=== PATIENT | female | born 1955 | race Caucasian/White ===

== ENCOUNTER → 2019-08-24 10:17 | Outpatient (BNVA) | payer BC, SELFPAY | PROVIDERS: Family Provider Nurse Practitioner; Visit Provider Otolaryngology | DX: L98.9 Disorder of the skin and subcutaneous tissue, unspecified (principal); R68.2 Dry mouth, unspecified; E03.9 Hypothyroidism, unspecified; R47.02 Dysphasia; K21.9 Gastro-esophageal reflux disease without esophagitis | CPT/HCPCS: 99203; 99214 ==

== ENCOUNTER 2019-08-24 11:35 | Outpatient (CLI) | payer BC, SELFPAY ==
[2019-08-24 12:01] LABS: Basophils % 0.6 %; Eosinophils # 0.2 10^3/uL (0.0-0.8); Eosinophils % 2.5 %; Hematocrit 39.8 % (37.0-47.0); Hemoglobin 13.2 g/dL (11.5-15.3); Lymphocytes # 2.7 10^3/uL (0.8-4.8); Lymphocytes % 39.3 %; Mean Corpuscular HGB Conc 33.2 g/dL (30.0-36.0); Mean Corpuscular Hemoglobin 30.4 pg (28.0-34.0); Mean Corpuscular Volume 91.7 fL (81-99); Mean Platelet Volume 10.1 fL (7.4-10.4); Monocytes # 0.7 10^3/uL (0.2-0.9); Monocytes % 9.8 %; Neutrophils # 3.2 10^3/uL (1.8-7.7); Neutrophils % 47.7 %; Nucleated Red Blood Cells % 0 %; Platelet Count 285 10^3/cmm (130-400); Red Blood Count 4.34 10^6/uL (4.1-5.3); White Blood Count 6.8 10^3/uL (4.0-10.0)
[2019-08-24 12:42] LABS: Alanine Aminotransferase 23 U/L (0-33); Albumin Level 4.1 g/dL (3.5-5.2); Alkaline Phosphatase 47 IU/L (35-105); Anion Gap 15.1 (5-19); Aspartate Amino Transferase 28 U/L (0-32); Blood Urea Nitrogen 20 mg/dL (8-23); Calcium 10.6 mg/dL (8.5-10.5); Carbon Dioxide 28 mmol/L (22-29); Chloride 99 mmol/L (98-107); Erythrocyte Sedimentation Rate 20 mm/hr (0-15); Globulin 3.5 g/dL (1.3-4.6); Glomerular Filtration Rate 72.4 mL/min (90-130); Glucose 93 mg/dL (65-115); Potassium 4.1 mmol/L (3.5-5.1); Sodium 138 mmol/L (136-145); Thyroid Stimulating Hormone 2.19 uIU/mL (0.27-4.20); Total Bilirubin 0.4 mg/dL (0.15-1.2); Total Protein 7.6 g/dL (6.6-8.7)
[2019-08-25 13:02] LABS: Anti-Double Strand DNA AB 10 IU/mL; Jo-1 Antibody <1.0 NEG AI (<1.0 NEG); SM/RNP Antibodies <1.0 NEG AI (<1.0 NEG); SS-B/LA IGG <1.0 NEG AI (<1.0 NEG); Scleroderma Ab(Scl-70) Ab <1.0 NEG AI (<1.0 NEG); Ss-A/Ro Igg <1.0 NEG AI (<1.0 NEG)
== END 2019-08-24 11:36 | disposition home or self-care (01) ==
LOC: LAB 11:41
PROVIDERS: Family Provider Nurse Practitioner; PCP Nurse Practitioner; Visit Provider Otolaryngology
DX: E03.9 Hypothyroidism, unspecified (principal); M35.00 Sjogren syndrome, unspecified
CPT/HCPCS: 36415; 80053; 84443; 85025; 85651; 86225; 86235

== ENCOUNTER 2019-09-02 12:46 | Outpatient (CLI) | payer BC, SELFPAY ==
[2019-09-02] MEDS: iohexol 300 mg/mL 100 mL Btl IV (13:07)
--- NOTE | 2019-09-02 13:30 | CT_ITS ---
WS: [id number] CT NECK WITH CONTRAST HISTORY: dry mouth TECHNIQUE: Contiguous 5 mm axial images are performed through the neck with intravenous contrast. Sag ittal and coronal reformats are also submitted. All CT scans at [facility] use at least o ne of these dose optimization techniques: automated exposure control; mA and/or kV adjustment per pat ient size (includes targeted exams where dose is matched to clinical indication); or iterative recons truction. CONTRAST: CONTRAST: Omnipaque 300; 95 mL IV. DLP: 2339.99 mGy-cm. COMPARISON: 07/18/2018 Nasopharynx, oropharynx and hypopharynx are normal. There is some mild asymmetry involving the LEFT p yriform sinus and aryepiglottic fold. Piriform sinus is small caliber with some increased soft tissue along the area of the colon. New since 09/21/2005 but probably present on the study of 07/18/2018. No e nhancing mass identified. Torus tubarius and fossa of Rosenmuller and parapharyngeal fat are normal. Small benign cervical chain lymph nodes. The largest is at level 2 on the LEFT measuring 8 mm in diam eter. There are several small lymph nodes but these are not enlarged. Similar appearance and distribu tion as on the prior CT from 2005. Prior thyroidectomy. RIGHT submandibular gland is also absent and there are postsurgical sutures at t he bed. Straightening of the normal cervical lordosis. Degenerative disc disease and spondylosis at C5-6. Visualized portions of the skull base demonstrate no abnormalities. Orbits and globes are within norm al limits. No soft tissue masses. Visualized paranasal sinuses and mastoid air cells are normal. Lung apices are clear. CT/CT neck w con* [id number] IMPRESSION: 1. Mild asymmetry of the LEFT aryepiglottic fold and pyriform sinus. Smaller c aliber than the RIGHT. No enhancing mass identified. Recommend direct visualiza tion which may be helpful for further evaluation. 2. Prior thyroidectomy and RIGHT submandibular removal. 3. Small stable cervical chain lymph nodes.
== END 2019-09-02 12:47 | disposition home or self-care (01) ==
LOC: RADWPI 12:49
PROVIDERS: Family Provider Nurse Practitioner; PCP Nurse Practitioner; Visit Provider Otolaryngology
DX: R68.2 Dry mouth, unspecified (principal)
CPT/HCPCS: 70491; Q9967

== ENCOUNTER → 2019-09-10 09:57 | Outpatient (BNVA) | payer BC, SELFPAY | PROVIDERS: Family Provider Nurse Practitioner; PCP Nurse Practitioner; Visit Provider Otolaryngology | DX: L98.9 Disorder of the skin and subcutaneous tissue, unspecified (principal); R68.2 Dry mouth, unspecified; E89.0 Postprocedural hypothyroidism; R47.02 Dysphasia; K21.9 Gastro-esophageal reflux disease without esophagitis | CPT/HCPCS: 99214 ==

== ENCOUNTER → 2019-10-13 12:56 | Outpatient (BNVA) | payer BC, SELFPAY | PROVIDERS: Family Provider Nurse Practitioner; PCP Nurse Practitioner; Visit Provider Internal Medicine Rheumatology | DX: M19.90 Unspecified osteoarthritis, unspecified site (principal); Z11.59 Encounter for screening for other viral diseases; R76.8 Other specified abnormal immunological findings in serum; Z79.899 Other long term (current) drug therapy; Z11.1 Encounter for screening for respiratory tuberculosis; Z72.89 Other problems related to lifestyle; E89.0 Postprocedural hypothyroidism | CPT/HCPCS: 36415; 99204 ==

== ENCOUNTER → 2019-10-13 14:35 | Outpatient (BNVA) | payer BC, SELFPAY | PROVIDERS: Family Provider Nurse Practitioner; PCP Nurse Practitioner; Visit Provider Internal Medicine Rheumatology | DX: M19.90 Unspecified osteoarthritis, unspecified site (principal); R76.8 Other specified abnormal immunological findings in serum; Z11.59 Encounter for screening for other viral diseases; Z79.899 Other long term (current) drug therapy | CPT/HCPCS: 81001; 85025 ==

== ENCOUNTER 2019-10-13 14:53 | Outpatient (CLI) | payer BC, SELFPAY ==
--- NOTE | 2019-10-13 14:58 | XR_ITS ---
WS: [id number] FOOT RIGHT TECHNIQUE: 3 views of the right foot CLINICAL INFORMATION: inflammatory arthritis COMPARISON: None. FINDINGS: No evidence of acute fracture or dislocation. Normal tarsal metatarsal alignment. Normal calcaneus. N ormal visualized talar dome. Osteopenia. IP joint narrowing. Hammertoe deformities. No significant er osive changes. Plantar calcaneal spurring. IMPRESSION: Osteopenia. No significant erosive changes.
--- NOTE | 2019-10-13 14:58 | XR_ITS ---
WS: [id number] PROCEDURE: XR chest 2V* [id number] CLINICAL INFORMATION: inflammatory arthritis COMPARISON: December 18, 2018 FINDINGS: Surgical clips base of the neck. Heart: Normal cardiac silhouette. Lungs: Lungs are clear. No consolidation or pleural fluid. No acute pulmonary infiltrates. Bones: Mild thoracic curve convex right. XR/XR chest 2V* [id number] IMPRESSION: No acute chest findings.
--- NOTE | 2019-10-13 14:58 | XR_ITS ---
WS: [id number] FOOT LEFT TECHNIQUE: 3 views of the left foot CLINICAL INFORMATION: inflammatory arthritis COMPARISON: None. FINDINGS: No evidence of acute fracture or dislocation. Normal tarsal metatarsal alignment. Normal calcaneus. N ormal visualized talar dome. Mild IP joint narrowing. Hammertoe deformities. Osteopenia. Mild hallux valgus. No significant erosive changes. Plantar calcaneal spurring. XR/XR foot LT min 3V* [id number] IMPRESSION: Osteopenia. No significant erosive changes.
--- NOTE | 2019-10-13 14:58 | XR_ITS ---
WS: [id number] HAND LEFT TECHNIQUE: 3 views of the left hand CLINICAL INFORMATION: inflammatory arthritis COMPARISON: None. FINDINGS: Normal metacarpals. Normal MCP joint. Metacarpal heads are normal in appearance. Mild narrowing of th e PIP and DIP joints. Mild degenerative arthritis first CMC. Radiocarpal joint: Normal. Carpal bones: Normal. XR/XR hand LT min 3V* [id number] IMPRESSION: 1. Mild PIP and DIP joint narrowing. 2. Mild degenerative arthritis first CMC. 3. No significant erosive changes.
--- NOTE | 2019-10-13 14:58 | XR_ITS ---
WS: [id number] HAND RIGHT TECHNIQUE: 3 views of the right hand CLINICAL INFORMATION: inflammatory arthritis COMPARISON: None. FINDINGS: Normal metacarpals. Normal MCP joint. Metacarpal heads are normal in appearance. Mild to moderate PIP and DIP joint space narrowing with slight periarticular osteophytes. Mild degenerative arthritis the first CMC and STT. No significant erosive changes. Radiocarpal joint: Mild narrowing Carpal bones: Normal. XR/XR hand RT min 3V* [id number] IMPRESSION: 1. Mild to moderate PIP and DIP joint space narrowing with slight periarticula r osteophytes. 2. No significant erosive changes.
== END 2019-10-13 14:54 | disposition home or self-care (01) ==
LOC: RADWPI 14:57
PROVIDERS: Family Provider Nurse Practitioner; PCP Nurse Practitioner; Visit Provider Internal Medicine Rheumatology
DX: M85.872 Other specified disorders of bone density and structure, left ankle and foot (principal); M85.871 Other specified disorders of bone density and structure, right ankle and foot
CPT/HCPCS: 71046; 73130; 73630; 82306; 82565; 82570; 84156; 85651; 86140; 86160; 86431; 86480; 86704; 86803; 87340

== ENCOUNTER → 2019-10-23 09:50 | Outpatient (BNVA) | payer BC, SELFPAY | PROVIDERS: Family Provider Nurse Practitioner; PCP Nurse Practitioner; Visit Provider Nurse Practitioner Family | DX: N39.46 Mixed incontinence (principal) | CPT/HCPCS: 81001 ==

== ENCOUNTER 2019-11-18 14:53 | Outpatient (CLI) | payer BC, SELFPAY ==
--- NOTE | 2019-11-18 15:15 | XR_ITS ---
WS: [id number] DEXA (DUAL ENERGY X-RAY ABSORPTIOMETRY) Bone mineral density was performed using a 7Road machine. HISTORY: osteoporosis COMPARISON: None available. Lumbar spine BMD (L1-L4): 1.248 g/cm2 T score: 0.6 Z score: 1.5 Total hip BMD: Left: 0.893 g/cm2. T score: -0.9 Z score: -0.2 Right: 0.872 g/cm2. T score: -1.1 Z score: -0.3 10 year probability of a major osteoporotic fracture is 10%. XR/XR DEXA axial skeleton* [id number] IMPRESSION: OSTEOPENIA based upon the WHO classification for females.
== END 2019-11-18 14:54 | disposition home or self-care (01) ==
LOC: RADWPI 14:56
PROVIDERS: Family Provider Nurse Practitioner; PCP Nurse Practitioner; Visit Provider Internal Medicine Rheumatology
DX: M81.0 Age-related osteoporosis without current pathological fracture (principal); M85.89 Other specified disorders of bone density and structure, multiple sites
CPT/HCPCS: 77080

== ENCOUNTER → 2020-04-04 12:50 | Outpatient (BNVA) | payer BC, SELFPAY | PROVIDERS: Family Provider Nurse Practitioner; PCP Nurse Practitioner; Visit Provider Internal Medicine Rheumatology | DX: Z79.899 Other long term (current) drug therapy (principal); M06.9 Rheumatoid arthritis, unspecified; M32.9 Systemic lupus erythematosus, unspecified | CPT/HCPCS: 36415; 80076; 81001; 82565; 82575; 84156; 85025; 85651; 86140; 86160 ==

== ENCOUNTER → 2020-04-13 13:38 | Outpatient (BNVA) | payer BC, SELFPAY | PROVIDERS: Family Provider Nurse Practitioner; PCP Nurse Practitioner; Visit Provider Internal Medicine Rheumatology | DX: M32.9 Systemic lupus erythematosus, unspecified (principal); Z79.899 Other long term (current) drug therapy; M06.9 Rheumatoid arthritis, unspecified; R76.8 Other specified abnormal immunological findings in serum | CPT/HCPCS: 81001; 99214 ==

== ENCOUNTER → 2020-05-23 00:01 | Outpatient (BNVA) | payer BC, SELFPAY | PROVIDERS: Family Provider Nurse Practitioner; PCP Family Medicine; Visit Provider Family Medicine | DX: G89.29 Other chronic pain (principal); M25.511 Pain in right shoulder | CPT/HCPCS: 73030 ==

== ENCOUNTER → 2020-06-02 11:13 | Outpatient (BNVA) | payer BC, SELFPAY | PROVIDERS: Family Provider Nurse Practitioner; PCP Family Medicine; Visit Provider Nurse Practitioner Family | DX: Z20.828 Contact with and (suspected) exposure to other viral communicable diseases (principal); J06.9 Acute upper respiratory infection, unspecified | CPT/HCPCS: 87635 ==

== ENCOUNTER 2020-06-09 01:46 | Emergency (ER) | payer BC, SELFPAY ==
[2020-06-09 01:59] VITALS: BP 129/77; PULSE 71; RESP 18; TEMP 36.6; O2SAT 100; BMI 26.6
--- NOTE | 2020-06-09 02:18 | W.ED.BACK ---
HPI - Back Pain/Injury General: Chief Complaint: Back Pain/Injury Stated Complaint: Lower back pain, COV + Time Seen by Provider: 06/09/20 02:04 History of Present Illness: HPI Narrative: Patient is a 64-year-old female comes to the ED with acute on chronic lower back pain. She says that pain started about 3 days ago and has since progressed. She denies any injury or trauma to cause pain. She describes pain as being in the mid lower back radiates down into the right leg. She says sitting or laying on back causes worsening pain. She denies any bladder or bowel incontinence, pelvic anesthesia, weakness to extremities, UTI symptoms. Associated symptoms: Deny abdominal pain, chills, dysuria, fatigue, fever(s), hematuria, nausea or vomiting Review of Systems Const: Denies: fever(s), chills or fatigue Eyes: Denies: change in vision or eye discomfort ENMT: Denies: throat pain, odynophagia, nasal discharge or nasal congestion Card: Denies: chest pain, palpitations, edema, swelling of feet/ankles, dyspnea on exertion or orthopnea Resp: Denies: dyspnea, productive cough or non-productive cough GI: Denies: abdominal pain, nausea, vomiting, diarrhea, constipation or hematochezia : Denies: flank pain, dysuria or hematuria Musc: Reports: back pain; Denies: neck pain or extremity swelling Skin/Breast: Denies: rash or new lesions Neuro: Denies: headache(s), numbness in extremities or weakness in extremities PFS ED PFSH: Medical History Anxiety Carpal tunnel syndrome of right wrist Degenerative disc disease L4-L5, also cervical spine. Detached retina Dry mouth Dysphasia Fibromyalgia Areli syndrome GERD (gastroesophageal reflux disease) High risk medication use HTN (hypertension) Hypothyroidism Immunization counseling Mixed stress and urge urinary incontinence Positive double stranded DNA antibody test Rheumatoid arthritis Salivary gland cancer SLE (systemic lupus erythematosus) Surgical History History of partial hysterectomy History of thyroidectomy Previous back surgery Family History Other CAD (coronary artery disease) Chronic kidney disease (CKD) Diabetes Hypertension Parkinson disease Stroke Denies family history of Systemic lupus erythematosus, unspecified Rheumatoid arthritis Social History Smoking and tobacco status: never smoked Alcohol intake: never Adopted: No Caregiver/support person: No Lives independently: No Household members: spouse Marital status: Current occupational status: retired History of recent travel: No Current gender identity: Female Physical Exam Const: COMMON NORMALS: no acute distress, patient oriented x3 and alert GENERAL APPEARANCE: cooperative; not comfortable (Patient appeared uncomfortable and was not sitting when I enter the room..) HENMT: COMMON NORMALS: normocephalic HEAD & SCALP: normocephalic MOUTH: Normal oral and palatal mucosa present THROAT: posterior oropharynx normal and uvula midline Neck/C-Spine: COMMON NORMALS: supple GENERAL: Yes normal visual inspection Resp: COMMON NORMALS: normal respiratory effort, No retractions, No use of accessory muscles and clear to auscultation bilaterally AUSCULTATION: clear to auscultation bilaterally Cardio: COMMON NORMALS: regular rate, regular rhythm, S1 normal heart sound present, S2 normal heart sound present, No gallops present (Cardio), No clicks present (Cardio), No murmurs present (Cardio) and Peripheral pulses 2+ throughout RATE: regular rate RHYTHM: regular rhythm HEART SOUNDS: S1 normal heart sound present and S2 normal heart sound present PERIPHERAL PULSES: Peripheral pulses 2+ throughout GI: COMMON NORMALS: Normal to inspection, nondistended, normoactive bowel sounds present, Soft to palpation, non-tender and no masses PALPATION: Yes Soft to palpation : COMMON NORMALS: Yes no CVA tenderness BLADDER/KIDNEY EXAM: Yes no CVA tenderness Back/Pelvis: COMMON NORMALS: no CVA tenderness LUMBAR SPINE/LOWER BACK: Yes paraspinal muscle tenderness Lumbar paraspinal muscle tenderness: right Extremity: COMMON NORMALS: normal to inspection Neuro: COMMON NORMALS: patient oriented x3 and moves all extremities SENSORIUM/ORIENTATION: Yes alert Skin: GENERAL SKIN EXAM: dry skin Course Vital Signs: Vital signs: Vital Signs Temperature 97.9 F 06/09/20 01:59 Pulse Rate 71 06/09/20 01:59 Respiratory Rate 18 06/09/20 01:59 Blood Pressure 129/77 06/09/20 01:59 Pulse Oximetry 100 06/09/20 01:59 MDM - Back Pain/Injury MDM Narrative: Medical decision making narrative: Patient is a 64-year-old female comes to the ED with acute on chronic lower back pain. She describes the back pain is radiating down into her right lower extremity. Denies any trauma or acute injury to cause pain. She has no cauda equina symptoms or UTI symptoms. Patient was given a shot of Solu-Medrol and IM morphine while here in the ED. She was sent home with a Medrol Dosepak prescription. She was told to follow-up with PCP in 7 to 10 days. Return to ED precautions given. Patient understood agree with plan. Discharge Plan Discharge Patient Disposition: Home Clinical Impression: Lumbar radiculopathy Condition: Stable Prescriptions: New methylprednisolone 4 mg tablets,dose pack See Rx Instructions .ROUTE .COMPLEX Qty: 21 RF: 0 No Action estradiol 0.01 % (0.1 mg/gram) cream 1 gm VAGINAL .3 times/wk RF: 0 levothyroxine 112 mcg capsule 112 mcg PO DAILY RF: 0 hydrochlorothiazide 25 mg tablet 25 mg PO DAILY RF: 0 metoprolol succinate 100 mg capsule,sprinkle,ER 24hr 100 mg PO DAILY RF: 0 cyclobenzaprine 10 mg tablet 10 mg PO BID PRNRF: 0 acetaminophen [Tylenol Arthritis Pain] 650 mg tablet extended release 650 mg PO BID RF: 0 simvastatin 10 mg tablet 20 mg PO DAILY RF: 0 duloxetine 30 mg capsule,delayed release(DR/EC) 30 mg PO DAILY RF: 0 duloxetine 60 mg capsule,delayed release(DR/EC) 60 mg PO DAILY RF: 0 lisinopril 40 mg tablet 40 mg PO BID RF: 0 hydroxychloroquine 200 mg tablet 200 mg PO BID Qty: 60 RF: 3 leflunomide 10 mg tablet 10 mg PO DAILY Qty: 30 RF: 2 diclofenac sodium 1 % gel 2 gm TOPICAL QID Qty: 100 RF: 2 omeprazole 20 mg capsule,delayed release(DR/EC) 20 mg PO DAILY RF: 0 diltiazem HCl [Cartia XT] 180 mg capsule,extended release 24hr 180 mg PO DAILY RF: 0 cholecalciferol (vitamin D3) 50 mcg (2,000 unit) capsule 50 mcg PO DAILY Qty: 30 RF: 5 Discharge Orders: Discharge Order (Routine); Ordered 06/09/20 Ordered By: Efren Laird Referrals: Katarina Canela DO [Primary Care Provider] - Discharge Diet: Regular Discharge Activity: Increase activity as tolerated Patient Instructions: Lumbar Radiculopathy (ED) Activity Restrictions/Additional Instructions: Follow-up with medical provider as directed in 7 to 10 days. Apply cold pack or heat on lower back to help with symptoms. Stretch lower back daily and massage muscles daily. Take medications as prescribed. Take [id number] Tylenol for pain. Return to the ER or your medical provider if condition worsens. Please read and understand discharge instructions. If any questions, please ask. Coding Level of Care Code ED Certified Surgical First Assistant for Tracey Fwd Exam Comprehensive
[2020-06-09] MEDS: HYDROcodone-acetaminophen 7.5-325 mg Tablet 2 TAB PO (02:35)
--- NOTE | 2020-06-09 02:35 | PC.NURSE ---
Patient sent home with 2 [place]idan 7.5/325 per provider orders. Medication dispensed not administered.
[2020-06-09 02:47] VITALS: RESP 17; O2SAT 96
[2020-06-09] MEDS: morphine 4 mg/mL SDV 1 mL IM (02:47)
[2020-06-09 03:08] VITALS: BP 135/85; PULSE 78; RESP 16; O2SAT 99
== END 2020-06-09 03:10 | disposition home or self-care (01) ==
PROVIDERS: Emergency Provider Physician Assistant; PCP Family Medicine
DX: M54.16 Radiculopathy, lumbar region (principal); I10 Essential (primary) hypertension; Z85.89 Personal history of malignant neoplasm of other organs and systems
CPT/HCPCS: 12345; 96372; 99281; 99283; J2270; J2930

== ENCOUNTER → 2020-06-20 09:38 | Outpatient (BNVA) | payer BC, SELFPAY | PROVIDERS: PCP Family Medicine; Visit Provider Family Medicine | DX: E89.0 Postprocedural hypothyroidism (principal); R41.3 Other amnesia | CPT/HCPCS: 84443 ==

== ENCOUNTER → 2020-08-08 09:33 | Outpatient (BNVA) | payer BC, SELFPAY | PROVIDERS: PCP Family Medicine; Visit Provider Internal Medicine Rheumatology | DX: Z79.899 Other long term (current) drug therapy (principal) | CPT/HCPCS: 36415; 80076; 82565; 85025; 85651; 86140 ==

== ENCOUNTER 2020-08-15 10:53 | Outpatient (CLI) | payer BC, SELFPAY ==
--- NOTE | 2020-08-15 11:00 | MM_ITS ---
WS: [id number] BILATERAL DIGITAL SCREENING MAMMOGRAPHY WITH CAD CLINICAL INFORMATION: screening mammogram HISTORY: Screening mammogram. No current complaints. COMPARISON: May 18, 2016 TECHNIQUE: Bilateral CC and MLO views. FINDINGS: The breasts are composed of heterogeneous fibroglandular density tissue, which can limit the detectio n of small underlying mass lesions. Stable biopsy clip left breast. No suspicious mass, asymmetry, ca lcifications, or architectural distortion. No evidence of malignancy. Punctate and lucent centered ca lcifications. MM/[place] [id number] IMPRESSION: BI-RADS: 2-Benign FOLLOW UP: 1 Year Follow-up Recommend return to annual screening mammography.
== END 2020-08-15 10:54 | disposition home or self-care (01) ==
LOC: RADSHAW 10:55
PROVIDERS: PCP Family Medicine; Visit Provider Family Medicine
DX: R76.8 Other specified abnormal immunological findings in serum (principal); Z12.31 Encounter for screening mammogram for malignant neoplasm of breast; M32.9 Systemic lupus erythematosus, unspecified; Z79.899 Other long term (current) drug therapy; M19.90 Unspecified osteoarthritis, unspecified site; H53.8 Other visual disturbances; E89.0 Postprocedural hypothyroidism
CPT/HCPCS: 77067; 99214

== ENCOUNTER 2020-08-15 19:52 | Observation (INO) | payer BC, SELFPAY ==
[2020-08-15 20:24] VITALS: BP 141/82; PULSE 76; RESP 14; TEMP 37.3; O2SAT 98; BMI 25.9
--- NOTE | 2020-08-15 22:49 | CTR_ITS ---
PROCEDURE INFORMATION: Exam: CT Abdomen And Pelvis With Contrast Exam date and time: 08/15/2020 10:53 PM Age: 64 years old Clinical indication: Abdominal pain; Localized; Right lower quadrant (rlq); Prior surgery; Surgery type: Partial hyst, back; Additional info: Abd pain TECHNIQUE: Imaging protocol: Computed tomography of the abdomen and pelvis with contrast. Radiation optimization: All CT scans at this facility use at least one of these dose optimization techniques: automated exposure control; mA and/or kV adjustment per patient size (includes targeted exams where dose is matched to clinical indication); or iterative reconstruction. Contrast material: OMNI 300; Contrast volume: 95 ml; Contrast route: INTRAVENOUS (IV); COMPARISON: US Pelvis Female [id number] 07/22/2018 8:50 AM RADIATION DOSE METRICS: Total DLP (mGy-cm): 577.74 FINDINGS: Liver: Normal. No mass. Gallbladder and bile ducts: Normal. No calcified stones. No ductal dilation. Pancreas: Normal. No ductal dilation. Spleen: Normal. No splenomegaly. Adrenal glands: Normal. No mass. Kidneys and ureters: Normal. No hydronephrosis. Stomach and bowel: Prominent fluid in the small bowel may reflect an enteritis. Appendix: Appendix dilated to 12 mm without gross inflammatory changes, findings are not definitive for appendicitis by CT alone, please correlate clinically. Intraperitoneal space: Unremarkable. No free air. No significant fluid collection. Vasculature: Unremarkable. No abdominal aortic aneurysm. Lymph nodes: Unremarkable. No enlarged lymph nodes. Urinary bladder: Unremarkable as visualized. Reproductive: Unremarkable as visualized. Bones/joints: Unremarkable. No acute fracture. Soft tissues: Unremarkable. CT/CT abdomen pelvis w con* [id number] IMPRESSION: 1. Appendix dilated to 12 mm without gross inflammatory changes, findings are not definitive for appendicitis by CT alone, please correlate clinically if there is clinical suspicion for appendicitis. 2. Prominent fluid in the small bowel may reflect an enteritis. Radiation Dose CTDIVOL = (mGy): DLP = 577.74 (mGy-cm)
--- NOTE | 2020-08-15 23:00 | ED_ITS ---
HPI - Abdominal Pain General: Chief Complaint: Abdominal Pain Stated Complaint: lower abd pain Time Seen by Provider: 08/15/20 22:46 Source: patient Mode of arrival: ambulatory Limitations: no limitations History of Present Illness: HPI narrative: 64-year-old female states has been having right lower quadrant abdominal pain over the last 2 days. She states it has been much worse today. She states it is tender to touch and most worse with any sudden movements or going over bumps in her vehicle. States pain is currently an 8 out of 10. She has had some nausea no vomiting. Denies any fevers. MD elicited complaint: abdominal pain Pertinent past history: none Onset (ago): day(s) Pain Consistency: constant Location: RLQ Severity: moderate Quality: stabbing Associated Symptoms: Denies chills, dysuria and fever(s) Review of Systems Const: Denies: fever(s), chills, body aches or change in appetite Eyes: Denies: blurry vision or eye discomfort ENMT: Denies: throat pain or dental pain Card: Denies: chest pain Resp: Denies: dyspnea GI: Reports: abdominal pain : Denies: dysuria Musc: Denies: neck pain or back pain Skin/Breast: Denies: rash Neuro: Denies: headache(s) Psych: Denies: depression Jaurez/Lymph: Denies: easy bruising All/Imm: Denies: urticaria PFSH ED PFSH: Medical History Anxiety Blurred vision, right eye Carpal tunnel syndrome of right wrist Degenerative disc disease L4-L5, also cervical spine. Detached retina Dry mouth Dysphasia Fibromyalgia Areli syndrome GERD (gastroesophageal reflux disease) High risk medication use History of 2019 novel coronavirus disease (COVID-19) HTN (hypertension) Hypothyroidism Immunization counseling Inflammatory arthritis Mixed stress and urge urinary incontinence Positive double stranded DNA antibody test Rheumatoid arthritis Salivary gland cancer SLE (systemic lupus erythematosus) Surgical History History of partial hysterectomy History of thyroidectomy Previous back surgery Family History Other CAD (coronary artery disease) Chronic kidney disease (CKD) Diabetes Hypertension Parkinson disease Stroke Denies family history of Systemic lupus erythematosus, unspecified Rheumatoid arthritis Social History Smoking and tobacco status: never smoked Alcohol intake: never Adopted: No Caregiver/support person: No Lives independently: No Household members: spouse Marital status: Current occupational status: retired History of recent travel: No Current gender identity: Female Physical Exam Const: COMMON NORMALS: no acute distress, patient oriented x3 and healthy appearing HENMT: COMMON NORMALS: normocephalic and atraumatic HEAD & SCALP: normocephalic and atraumatic Eye: COMMON NORMALS: Equal, round and reactive pupils present and EOMs intact bilaterally PUPIL: Yes Equal, round and reactive pupils present Neck/C-Spine: COMMON NORMALS: full ROM and supple Chest: COMMONS NORMALS: normal inspection of the chest and normal palpation of entire chest wall Resp: COMMON NORMALS: normal respiratory effort, No retractions, No use of accessory muscles and clear to auscultation bilaterally AUSCULTATION: clear to auscultation bilaterally Cardio: COMMON NORMALS: regular rate, regular rhythm and No murmurs present (Cardio) RATE: regular rate RHYTHM: regular rhythm GI: COMMON NORMALS: Normal to inspection, nondistended, normoactive bowel sounds present, Soft to palpation, non-tender and no masses PALPATION: Yes Soft to palpation and Yes Tenderness to palpation present (GI) Details: RLQ Extremity: COMMON NORMALS: normal to inspection and full ROM Neuro: COMMON NORMALS: patient oriented x3, moves all extremities and no focal motor deficits Psych: COMMON NORMALS: mental status grossly normal, Normal thought process present and cooperative THOUGHT PROCESS: Normal thought process present Skin: COMMON NORMALS: no rashes or lesions noted and no wounds GENERAL SKIN EXAM: no rashes or lesions noted Course Vital Signs: Vital signs: Vital Signs Temperature 99.1 F 08/15/20 20:24 Pulse Rate 72 08/15/20 23:25 Respiratory Rate 14 08/15/20 23:25 Blood Pressure 141/78 08/15/20 23:25 Pulse Oximetry 99 08/15/20 23:25 MDM - Abdominal Pain MDM Narrative: Medical decision making narrative: Mary Lou presents with abdominal pain and is point tender right lower quadrant. Her pain is improved after morphine but she is still operator batch or continuous on exam. CT did show a dilated appendix I spoke to Dr. An and will admit for likely appendicitis. Patient given IV antibiotics here. Lab Data: Labs: Lab Results 08/15/20 08/15/20 08/15/20 Range/Units 23:23 23:23 23:23 WBC 10.5 H (4.0-10.0) 10^3/ uL RBC 4.06 L (4.1-5.3) 10^6/u L Hgb 12.3 (11.5-15.3) g/dL Hct 36.5 L (37.0-47.0) % MCV 89.9 (81-99) fL MCH 30.3 (28.0-34.0) pg MCHC 33.7 (30.0-36.0) g/dL RDW 12.3 (12.1-15.1) % Plt Count 211 (130-400) 10^3/c mm MPV 11.0 H (7.4-10.4) fL Neut % (Auto) 58.1 % Lymph % (Auto) 27.1 % [place] % (Auto) 11.9 % Eos % (Auto) 2.1 % Baso % (Auto) 0.6 % Neut # (Auto) 6.08 (1.8-7.7) 10^3/u L Lymph # (Auto) 2.8 (0.8-4.8) 10^3/u L [place] # (Auto) 1.2 H (0.2-0.9) 10^3/u L Eos # (Auto) 0.2 (0.0-0.8) 10^3/u L Baso # (Auto) 0.1 (0.0-0.1) 10^3/u L Nucleated RBC % (a uto) 0 % Nucleated RBCs # 0.0 /100WBC Sodium 129 L (136-145) mmol/L Potassium 3.0 L (3.5-5.1) mmol/L Chloride 91 L (98-107) mmol/L Carbon Dioxide 27 (22-29) mmol/L Anion Gap 14.0 (5-19) BUN 11 (8-23) mg/dL Creatinine 0.7 (0.5-0.9) mg/dL GFR Calculation 84.5 L (90-130) mL/min Glucose 104 (65-115) mg/dL Calculated Osmolal ity 268 L (285-295) mOsm/k g Calcium 9.4 (8.5-10.5) mg/dL Total Bilirubin 0.6 (0.15-1.2) mg/dL AST 16 (0-32) U/L ALT 18 (0-33) U/L Alkaline Phosphata se 51 (35-105) IU/L Total Protein 7.0 (6.6-8.7) g/dL Albumin 3.8 (3.5-5.2) g/dL Globulin 3.2 (1.3-4.6) g/dL Lipase 25 (13-60) U/L Urine Color Yellow (Yellow) Urine Appearance Clear (CLEAR) Urine pH 5.0 (5-7) Ur Specific Gravit y 1.010 (1.005-1.030) Urine Protein Neg (Negative) Urine Glucose (UA) Norm (Normal) Urine Ketones Negative (Negative) Urine Blood Neg (Negative) Urine Nitrate Negative (Negative) Urine Bilirubin Neg (Negative) Urine Urobilinogen Norm (Negative) mg/dL Ur Leukocyte Patt ase Negative (Negative) Imaging Data ^: CT Abd/Pel: Attestation: I personally reviewed and interpreted this imaging study as follows: Radiologist's impression: [place] [address] CT Scan Report Signed Patient: Nanette Simental Unit #: [id number] : [id number] Age/Sex: 64 / F ADM Date: 08/15/20 Loc: ER Room/Bed: Attending Dr: Ordering Provider/Ordering MD: Enrrique Rm MD Date of Service: 08/15/20 Procedure(s): CT abdomen pelvis w con* [id number] Accession Number(s): [id number] Report Number: [id number] PROCEDURE INFORMATION: Exam: CT Abdomen And Pelvis With Contrast Exam date and time: 08/15/2020 10:53 PM Age: 64 years old Clinical indication: Abdominal pain; Localized; Right lower quadrant (rlq); Prior surgery; Surgery type: Partial hyst, back; Additional info: Abd pain TECHNIQUE: Imaging protocol: Computed tomography of the abdomen and pelvis with contrast. Radiation optimization: All CT scans at this facility use at least one of these dose optimization techniques: automated exposure control; mA and/or kV adjustment per patient size (includes targeted exams where dose is matched to clinical indication); or iterative reconstruction. Contrast material: OMNI 300; Contrast volume: 95 ml; Contrast route: INTRAVENOUS (IV); COMPARISON: US Pelvis Female [id number] 07/22/2018 8:50 AM RADIATION DOSE METRICS: Total DLP (mGy-cm): 577.74 FINDINGS: Liver: Normal. No mass. Gallbladder and bile ducts: Normal. No calcified stones. No ductal dilation. Pancreas: Normal. No ductal dilation. Spleen: Normal. No splenomegaly. Adrenal glands: Normal. No mass. Kidneys and ureters: Normal. No hydronephrosis. Stomach and bowel: Prominent fluid in the small bowel may reflect an enteritis. Appendix: Appendix dilated to 12 mm without gross inflammatory changes, findings are not definitive for appendicitis by CT alone, please correlate clinically. Intraperitoneal space: Unremarkable. No free air. No significant fluid collection. Vasculature: Unremarkable. No abdominal aortic aneurysm. Lymph nodes: Unremarkable. No enlarged lymph nodes. Urinary bladder: Unremarkable as visualized. Reproductive: Unremarkable as visualized. Bones/joints: Unremarkable. No acute fracture. Soft tissues: Unremarkable. CT/CT abdomen pelvis w con* [id number] IMPRESSION: 1. Appendix dilated to 12 mm without gross inflammatory changes, findings are not definitive for appendicitis by CT alone, please correlate clinically if there is clinical suspicion for appendicitis. 2. Prominent fluid in the small bowel may reflect an enteritis. Discharge Plan Discharge Patient Disposition: Admitted As Inpatient Clinical Impression: Acute appendicitis Qualifiers: Acute appendicitis type: unspecified acute appendicitis type Qualified Code(s): K35.80 - Unspecified acute appendicitis Condition: Stable Coding Level of Care Code ED Sheep Killer for [facility] Fwd Exam Comprehensive
[2020-08-15] MEDS: iodixanol 320 mg/mL 100mL Btl IV (23:03)
[2020-08-15 23:25] VITALS: BP 141/78; PULSE 72; RESP 14; O2SAT 99
[2020-08-15 23:29] LABS: Basophils # 0.1 10^3/uL (0.0-0.1); Basophils % 0.6 %; Eosinophils # 0.2 10^3/uL (0.0-0.8); Eosinophils % 2.1 %; Hematocrit 36.5 % (37.0-47.0); Hemoglobin 12.3 g/dL (11.5-15.3); Lymphocytes # 2.8 10^3/uL (0.8-4.8); Lymphocytes % 27.1 %; Mean Corpuscular HGB Conc 33.7 g/dL (30.0-36.0); Mean Corpuscular Hemoglobin 30.3 pg (28.0-34.0); Mean Corpuscular Volume 89.9 fL (81-99); Monocytes # 1.2 10^3/uL (0.2-0.9); Monocytes % 11.9 %; Neutrophils # 6.08 10^3/uL (1.8-7.7); Neutrophils % 58.1 %; Nucleated Red Blood Cells % 0 %; Platelet Count 211 10^3/cmm (130-400); Red Blood Count 4.06 10^6/uL (4.1-5.3); Red Cell Distribution Width 12.3 % (12.1-15.1); White Blood Count 10.5 10^3/uL (4.0-10.0)
[2020-08-15 23:30] VITALS: BP 148/88; PULSE 78; RESP 18; O2SAT 98
[2020-08-15 23:31] LABS: Add Urine Microscopic? NO
[2020-08-15] MEDS: ondansetron 2 mg/ML SDV 2 mL 4 MG IVP (23:43)
[2020-08-15] MEDS: morphine 4 mg/mL SDV 1 mL IVP (23:43)
[2020-08-15] MEDS: sodium chloride 0.9% 1,000 ML 999 ML IV (23:44)
[2020-08-15 23:54] LABS: Alanine Aminotransferase 18 U/L (0-33); Albumin Level 3.8 g/dL (3.5-5.2); Alkaline Phosphatase 51 IU/L (35-105); Aspartate Amino Transferase 16 U/L (0-32); Blood Urea Nitrogen 11 mg/dL (8-23); Calcium 9.4 mg/dL (8.5-10.5); Carbon Dioxide 27 mmol/L (22-29); Chloride 91 mmol/L (98-107); Globulin 3.2 g/dL (1.3-4.6); Glomerular Filtration Rate 84.5 mL/min (90-130); Glucose 104 mg/dL (65-115); Lipase 25 U/L (13-60); Osmolality Calculated 268 mOsm/kg (285-295); Sodium 129 mmol/L (136-145); Total Bilirubin 0.6 mg/dL (0.15-1.2)
[2020-08-15 23:55] LABS: Bilirubin Urine Neg (Negative); Blood Urine Neg (Negative); Glucose Urine UA Norm (Normal); Ketones Urine Negative (Negative); Leukocyte Esterase Urine Negative (Negative); Nitrate Urine Negative (Negative); Protein Urine Neg (Negative); Urine Appearance Clear (CLEAR); Urine Color Yellow (Yellow); Urobilinogen Urine Norm (Negative)
[2020-08-16] VITALS (18 sets, daily range): BP systolic 105–180; BP diastolic 68–102; PULSE 69–95; RESP 12–18; TEMP 36.4–36.7; O2SAT 93–100
[2020-08-16] MEDS: piperacillin-tazobactam 3.375 GM in sodium chloride 0.9% (plus) 50 ML IV (00:22)
[2020-08-16] MEDS: sodium chloride 0.9% 1,000 ML 100 ML IV ×3 (01:00→14:58)
--- NOTE | 2020-08-16 01:13 | PC.NURSE ---
ADMIT NOTE Pt received to floor from ER at 0050 via wheelchair. Her for c/o abd pain which she says started around 0 this evening. Says pain was in her right lower abd and area was very tender to any touch. Abd is soft. Last BM was Saturday but is normal for her not to go every day. Bowel sounds sl hypoactive. Has had some nausea but no vomiting. Is aware of being NPO now. IV fluids started at 100ml/hr rate. Received IV antibiotics in the ER as well as pain and nausea meds. Urinated 700ml on arrival to floor. Is aware also of need to monitor I&O. VS check done and RN completing admission assessment
--- NOTE | 2020-08-16 06:39 | PC.NURSE ---
SHIFT SUMMARY Has done well since admission to floor. Says she slept much better than she did last night. c/o RLQ abd pain/tenderness but declines offer of pain med. Says as long as she is quiet it is manageable. Remains NPO. IV infusing without difficulty.
[2020-08-16] MEDS: metroNIDAZOLE IV 500 MG/100 ML PREMIX 100 MG IV (08:32)
--- NOTE | 2020-08-16 09:43 | P.HP_ITS ---
Providers/Chief Complaint Admitting Physician: Manny An MD Primary Care Provider: Katarina Canela DO Chief Complaint: lower abd pain History of Present Illness Nanette Simental is a 64 year old female who presented to the ER last night with 24-hour history of right lower quadrant pain. The pain did not radiate, sharp in nature, worse with movement, no relieving factors. She had associated nausea but denies any vomiting, fevers, chills, constipation or diarrhea. She had a normal colonoscopy last year. Review of Systems General: Reports: 10 or more systems reviewed and unremarkable except in HPI and below Medications/Allergies Home Medications Medication Instructions Recorded Confirmed Last Taken Type estradiol 1 gm VAGINAL .3 times/wk gm 08/24/19 08/16/20 08/13/20 History hydrochlorothiazide 25 mg tablet 25 mg PO DAILY@08/24/19 08/16/20 08/15/20 History levothyroxine 112 mcg capsule 112 mcg PO DAILY@08/24/19 08/16/20 08/15/20 History metoprolol succinate 100 mg 100 mg PO DAILY@08/24/19 08/16/20 08/15/20 History capsule sprinkle, ext. release 24 hr cyclobenzaprine 10 mg tablet 10 mg PO TID PRN tab 10/13/19 08/16/20 Unknown History duloxetine 30 mg capsule,delayed 30 mg PO DAILY@07 10/13/19 08/16/20 08/15/20 History release duloxetine 60 mg capsule,delayed 60 mg PO DAILY@20 10/13/19 08/16/20 Unknown History release lisinopril 40 mg tablet 40 mg PO BID@ tab 10/13/19 08/16/20 08/15/20 History acetaminophen 650 mg 1,300 mg PO BID tab 10/23/19 08/16/20 08/15/20 History tablet,extended release diltiazem HCl 180 mg 180 mg PO DAILY@20 10/23/19 08/16/20 Unknown History capsule,extended release 24 hr omeprazole 20 mg capsule,delayed 20 mg PO DAILY@07 05/23/20 08/16/20 08/15/20 History release simvastatin 10 mg tablet 20 mg PO DAILY@20 tab 05/23/20 08/16/20 Unknown History cholecalciferol (vitamin D3) 50 mcg PO DAILY@07 08/16/20 08/16/20 08/15/20 History clonazepam See Rx Instructions .ROUTE .COMPLEX 08/16/20 08/16/20 Unknown History diclofenac sodium 2 g TOPICAL QID PRN 08/16/20 08/16/20 Unknown History hydroxychloroquine 200 mg PO BID@07,20 08/16/20 08/16/20 Unknown History leflunomide 20 mg PO DAILY@07 08/16/20 08/16/20 08/15/20 History prednisone See Rx Instructions .ROUTE .COMPLEX 08/16/20 08/16/20 Unknown History Allergies Allergy/AdvReac Type Severity Reaction Status Date / Time hydrocodone Allergy itch Verified 08/15/20 14:01 penicillin G Allergy rash Verified 08/15/20 14:01 PFSH Acute PFSH: Medical History Anxiety Carpal tunnel syndrome of right wrist Degenerative disc disease L4-L5, also cervical spine. Detached retina Fibromyalgia Areli syndrome GERD (gastroesophageal reflux disease) History of 2019 novel coronavirus disease (COVID-19) HTN (hypertension) Hypothyroidism Inflammatory arthritis Mixed stress and urge urinary incontinence Rheumatoid arthritis Salivary gland cancer SLE (systemic lupus erythematosus) Surgical History History of partial hysterectomy History of thyroidectomy Previous back surgery Status post colonoscopy (~2019) Family History Other CAD (coronary artery disease) Chronic kidney disease (CKD) Diabetes Hypertension Parkinson disease Stroke Denies family history of Systemic lupus erythematosus, unspecified Rheumatoid arthritis Social History Smoking and tobacco status: never smoked Alcohol intake: never Adopted: No Caregiver/support person: No Lives independently: No Household members: spouse Marital status: Current occupational status: retired History of recent travel: No Current gender identity: Female Vitals/I&O/Wt Last Vital Signs Temp 97.7 F 08/16/20 07:42 Pulse 79 08/16/20 07:42 Resp 18 08/16/20 07:42 BP 105/68 08/16/20 07:42 Pulse Ox 99 08/16/20 07:42 08/15/20 08/16/2021 22:59 06:59 14:59 Intake Total 1234.317 / 1234.317 Output Total 1600 / 1600 Balance -365.683 / -365.683 Weight last 48 hrs Weight 176 lb Physical Exam Narrative: EXAM NARRATIVE: HEENT: Normocephalic Eye: Sclera /conjunctiva normal Cardiovascular: Normal S1 and S2 heart sounds Abdomen: Soft to palpation, tender right lower quadrant, mild guarding, no rigidity Neurological: Oriented to place person and time Skin: Intact, no lesions appreciated on gross exam Data : 08/15/20 23:23 08/15/20 23:23 A&P Assessment and plan (1) Acute appendicitis: 64-year-old female with right lower quadrant pain, right lower quadrant tenderness of 24 hours duration currently hemodynamically stable. White count is 10.5. CT showed a dilated appendix which I reviewed, I think there is surrounding mild inflammatory changes Plan for laparoscopic possible open appendectomy Procedure, risks, benefits and alternatives have been discussed with the patient who wishes to proceed with surgery. Status: Acute Attestations Medical Necessity Statement*: Acute appendicitis Coding Level of Care Code Acute Civil Service Clerk for [facility] Mat Diagnoses Acute appendicitis K35.80
--- NOTE | 2020-08-16 09:46 | PC.CHAP ---
Pastoral Care Encounter/Spiritual Assessment Type of Contact [] Declined mysql dba visit [] Patient/Family/Request visit [] Outpatient visit [] Follow-up visit [] Physician referral [] Code/Alert [x] Routine visit [] Staff referral [] Actively dying [x] Patient sleeping [] Family support [] [] Out of room [] Palliative care [] [] Receiving care in room [] Pre-surgical visit [] Trauma [] Long length of stay [] ICU visit [] Other: Relational/Emotional Strength [] Patient feels connected with others/family/visitors/staff [] Distress [] Loneliness/isolation [] Abandonment Spirituality of Patient [] Person of [place] [] Attends Muslim of their [place] [] Believes in Prayer [] Reads Bible or Rastafari materials [] There are Spiritual issues to be addressed Plumber Interventions [] Prayer [] Active listening [] Non-anxious presence [] Spiritual/emotional support [] Crisis/trauma care [] Spiritual counseling [] Bereavement support [] Provided bereavement packet [] Provided Bible/devotional materials [] Provided toy/stuffed animal, coloring book to patient or family member [] Provided Communion [] Anointing/Gentry [] Salvation [] Completed spiritual assessment [] Other: Impact on Illness or Injury [] Angry [] Fearful [] Anxious [] Often cries [] Exhaustion [] Unable to work [] Unable to attend sikhism [] Unable to walk/stand [] Unable to read [] Unable to drive [] Unable to eat/drink [] Unable to sleep [] Unable to be with family [] Patient intubated [] Other: Summary Time spent with patient
--- NOTE | 2020-08-16 10:15 | PC.NURSE ---
patient taken to OR via gurney
--- NOTE | 2020-08-16 10:38 | P.ANESASSM_ITS ---
Pre-Anesthetic Assessment Pre-Anesthetic Assessment: Height/Weight: Height 1.75 m Weight 79.832 kg Temp Pulse Resp BP Pulse Ox 97.5 F L 72 18 130/79 97 08/16/20 10:25 08/16/20 10:25 08/16/20 10:25 08/16/20 10:25 08/16/20 10:25 Preop Diagnosis: Acute appendicitis Proposed Procedure: Operation Date: 08/16/20 10:15 Proposed Procedures p Laparoscopic Appendectomy(Not Applicable) - Manny An MD Familial anesthetic complications: none Was Beta Alin taken within 24 hours: Yes Last intake: Intake Last Liquid Date 08/16/20 Last Liquid Time 00:01 Last Solid Date 08/16/20 Last Solid Time 00:01 Social: Social History: No alcohol and No tobacco Exam: Pre-Anes Outpt Exam: alert, oriented x 3, clear to auscultation bilaterally and regular rate & rhythm Airway: Cervical ROM: WNL MP: 2 Dentition: Other (missing teeth) Pulmonary: Comments: covid positive in may CV/HEM: CV/HEM: HTN GI: GI: GERD Metabolic: Metabolic: Hyperlipidemia and Thyroid Musc/skel: Musc/skel: RA Comments: SLE Neuropsych: Neuropsych: Neuropathy Anesthetic Plan: ASA status: 3 Anesthesia: General Risk of > 500 ml blood loss (7ml/kg in children): No Meds/Allergies Current Medications: Current Medications Generic Name Dose Route Start Last Admin Trade Name Freq PRN Reason Stop Dose Admin Sodium Chloride 1,000 mls @ 100 m ls/hr 08/16/20 00:48 08/16/20 09:43 Sodium Chloride 0.9% IV 100 mls/hr .Q10H YARI Administration PFSH Anesthesia PFSH: Medical History Anxiety Carpal tunnel syndrome of right wrist Degenerative disc disease L4-L5, also cervical spine. Detached retina Fibromyalgia Areli syndrome GERD (gastroesophageal reflux disease) History of 2018 novel coronavirus disease (COVID-19) HTN (hypertension) Hypothyroidism Inflammatory arthritis Mixed stress and urge urinary incontinence Rheumatoid arthritis Salivary gland cancer SLE (systemic lupus erythematosus) Surgical History History of partial hysterectomy History of thyroidectomy Previous back surgery Status post colonoscopy (~2019) Family History Other CAD (coronary artery disease) Chronic kidney disease (CKD) Diabetes Hypertension Parkinson disease Stroke Denies family history of Systemic lupus erythematosus, unspecified Rheumatoid arthritis Social History Smoking and tobacco status: never smoked Alcohol intake: never Adopted: No Caregiver/support person: No Lives independently: No Household members: spouse Marital status: Current occupational status: retired History of recent travel: No Current gender identity: Female Data Anesthesia CBC & Chem 7: 08/15/20 23:23 08/15/20 23:23 Other Labs: Laboratory Results - last 48 hr 08/15/20 08/15/20 08/15/20 23:23 23:23 23:23 WBC 10.5 H RBC 4.06 L Hgb 12.3 Hct 36.5 L MCV 89.9 MCH 30.3 MCHC 33.7 RDW 12.3 Plt Count 211 MPV 11.0 H Neut % (Auto) 58.1 Lymph % (Auto) 27.1 [place] % (Auto) 11.9 Eos % (Auto) 2.1 Baso % (Auto) 0.6 Neut # (Auto) 6.08 Lymph # (Auto) 2.8 [place] # (Auto) 1.2 H Eos # (Auto) 0.2 Baso # (Auto) 0.1 Nucleated RBC % (auto) 0 Nucleated RBCs # 0.0 Sodium 129 L Potassium 3.0 L Chloride 91 L Carbon Dioxide 27 Anion Gap 14.0 BUN 11 Creatinine 0.7 GFR Calculation 84.5 L Glucose 104 Calculated Osmolality 268 L Calcium 9.4 Total Bilirubin 0.6 AST 16 ALT 18 Alkaline Phosphatase 51 Total Protein 7.0 Albumin 3.8 Globulin 3.2 Lipase 25 Urine Color Yellow Urine Appearance Clear Urine pH 5.0 Ur Specific [place] 1.010 Urine Protein Neg Urine Glucose (UA) Norm Urine Ketones Negative Urine Blood Neg Urine Nitrate Negative Urine Bilirubin Neg Urine Urobilinogen Norm Ur Leukocyte Esterase Negative Cardiac Studies: No Data to Display
[2020-08-16] MEDS: sodium chloride 0.9% 1,000 ML 30 ML IV (11:02)
[2020-08-16] MEDS: ciprofloxacin 400 MG/200 ML PREMIX 200 MG IV (11:19)
--- NOTE | 2020-08-16 12:05 | P.OP_ITS ---
Operative Report Date of procedure: August 16, 2020 Pre-op Diagnosis: Acute appendicitis Post-op diagnosis: same Procedure Done: Laparoscopic appendectomy Specimens removed/disposition: Appendix Surgeon: Manny An Anesthesia: General Condition: stable Disposition: PACU Procedure: The patient was taken to the Operating Room and intubated under general anesthesia after antibiotic had been administered. Using a 15 blade, a 1-cm infraumbilical incision was made and using open Cole technique, the peritoneal cavity was entered. A 12mm port with balloon was placed and 14 mm of pneumoperitoneum was created and 10-mm 30 degree scope was introduced. Two separate 5mm ports were placed in the left and right lower quadrant under direct visualization. The appendix was noted in the right lower quadrant and appeared acutely inflamed.. Using [place] forceps, an opening was made in the mesoappendix near the base of the appendix. An Endo CHARLEE stapler 45mm long 3.5mm blue load was introduced to divide the appendix at it's base. Using electroca utery, the mesoappendix including the appendicular artery was divided. There was no bleeding noted and the staple line appeared intact. The right lower quadrant was irrigated with saline and an EndoCatch bag was introduced to remove the appendix. All three ports were removed under direct visualization and there was no bleeding noted on the port sites. 10 cc of 0.5% Marcaine was infiltrated at the port sites. The fascia at the umbilical port was closed using figure of eight 0-Vicryl sutures and subcutaneous tissue was approximated using 3-0 Vicryl and skin at all 3 port sites was closed using 4-0 Monocryl and Dermabond. The patient was extubated and transferred to recovery room in stable condition
--- NOTE | 2020-08-16 12:14 | PM.DCS ---
Discharge Providers Date of Admission: 08/16/20 00:48 Date of Discharge: August 16, 2020 Attending Provider at Admission: Manny An MD Attending Provider at Discharge: Manny An MD Primary Care Provider: Katarina Canela DO Diagnoses at Discharge Discharge Diagnosis (1) Acute appendicitis: Status: Resolved Reason for Visit Reason for Visit: lower abd pain Hospital Course Hospital Course This is a 64-year-old female who presented to the ER with 24 history of right lower quadrant pain and was noted to have leukocytosis and CT scan showing dilated appendix. Patient was admitted overnight for IV antibiotics and underwent laparoscopic appendectomy. At time of discharge she was tolerating a clear liquid diet, ambulating and pain controlled with oral pain medications. Discharge Data Data Completed and Pending: Completed Studies During Hospitalization Category Date Time Status CT abdomen pelvis w con* [id number] Urge nt Cat Scan 08/15/20 22:49 Completed Pending at discharge Category Date Time Status ES surgery / GI i mages Routine Exams 08/16/20 11:04 Taken Labs from last 24 hours 08/15/20 08/15/20 08/15/20 23:23 23:23 23:23 WBC 10.5 H RBC 4.06 L Hgb 12.3 Hct 36.5 L MCV 89.9 MCH 30.3 MCHC 33.7 RDW 12.3 Plt Count 211 MPV 11.0 H Neut % (Auto) 58.1 Lymph % (Auto) 27.1 Craven % (Auto) 11.9 Eos % (Auto) 2.1 Baso % (Auto) 0.6 Neut # (Auto) 6.08 Lymph # (Auto) 2.8 Craven # (Auto) 1.2 H Eos # (Auto) 0.2 Baso # (Auto) 0.1 Nucleated RBC % (a uto) 0 Nucleated RBCs # 0.0 Sodium 129 L Potassium 3.0 L Chloride 91 L Carbon Dioxide 27 Anion Gap 14.0 BUN 11 Creatinine 0.7 GFR Calculation 84.5 L Glucose 104 Calculated Osmolal ity 268 L Calcium 9.4 Total Bilirubin 0.6 AST 16 ALT 18 Alkaline Phosphata se 51 Total Protein 7.0 Albumin 3.8 Globulin 3.2 Lipase 25 Urine Color Yellow Urine Appearance Clear Urine pH 5.0 Ur Specific Gravit y 1.010 Urine Protein Neg Urine Glucose (UA) Norm Urine Ketones Negative Urine Blood Neg Urine Nitrate Negative Urine Bilirubin Neg Urine Urobilinogen Norm Ur Leukocyte Patt ase Negative Vitals: Last Vital Signs Temp 97.5 F L 08/16/20 10:25 Pulse 72 08/16/20 10:25 Resp 18 08/16/20 10:25 BP 130/79 08/16/20 10:25 Pulse Ox 97 08/16/20 10:25 Discharge Plan Discharge Patient Disposition: Home Condition: Stable Prescriptions: New Percocet 5-325 mg tablet 1 tab PO Q6H PRN (Reason: pain) Qty: 20 RF: 0 docusate sodium [Colace] 100 mg capsule 100 mg PO BID Qty: 30 RF: 0 Continued estradiol 0.01 % (0.1 mg/gram) cream 1 gm VAGINAL .3 times/wk RF: 0 levothyroxine 112 mcg capsule 112 mcg PO DAILY@07 RF: 0 hydrochlorothiazide 25 mg tablet 25 mg PO DAILY@07 RF: 0 metoprolol succinate 100 mg capsule,sprinkle,ER 24hr 100 mg PO DAILY@07 RF: 0 cyclobenzaprine 10 mg tablet 10 mg PO TID PRN (Reason: Muscle Spasm) RF: 0 acetaminophen [Tylenol Arthritis Pain] 650 mg tablet extended release 1,300 mg PO BID RF: 0 simvastatin 10 mg tablet 20 mg PO DAILY@20 RF: 0 duloxetine 30 mg capsule,delayed release(DR/EC) 30 mg PO DAILY@07 RF: 0 duloxetine 60 mg capsule,delayed release(DR/EC) 60 mg PO DAILY@20 RF: 0 lisinopril 40 mg tablet 40 mg PO BID@07,20 RF: 0 omeprazole 20 mg capsule,delayed release(DR/EC) 20 mg PO DAILY@07 RF: 0 diltiazem HCl [Cartia XT] 180 mg capsule,extended release 24hr 180 mg PO DAILY@20 RF: 0 clonazepam 2 mg tablet See Rx Instructions .ROUTE .COMPLEX RF: 0 prednisone 10 mg tablet See Rx Instructions .ROUTE .COMPLEX RF: 0 leflunomide 20 mg tablet 20 mg PO DAILY@07 RF: 0 hydroxychloroquine 200 mg tablet 200 mg PO BID@07,20 RF: 0 diclofenac sodium 1 % gel 2 g TOPICAL QID PRN (Reason: Pain) RF: 0 cholecalciferol (vitamin D3) 50 mcg (2,000 unit) capsule 50 mcg PO DAILY@07 RF: 0 Discharge Orders: Discharge Order (Routine); Ordered 08/16/20 Ordered By: Manny An Referrals: Manny An MD [Physician] - 2 weeks Katarina Canela DO [Primary Care Provider] - Discharge Diet: Advance as tolerated Patient Instructions: Appendicitis (GEN) Activity Restrictions/Additional Instructions: 1. Up and walking as tolerated. 2. Ok to shower in 48 hours after surgery. 3. Remove Dermabond dressing in 7-10 days. 4. Do not lift more than 10 pounds. 5. Do not operate heavy machinery or drive while using pain medications. 6. Advised to return to ER or contact my office if there are any signs of infection like, increasing pain, fevers, chills, redness or drainage of pus. 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
--- NOTE | 2020-08-16 12:21 | P.PCN_ITS ---
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
--- NOTE | 2020-08-16 12:21 | PM.PACU ---
PACU note PACU note: VSS, Good respiratory effort, report to [facility] Post-Anesthesia Exam: awake
[2020-08-16] MEDS: fentaNYL 50 mcg/mL INJ 2mL IVP (12:30)
--- NOTE | 2020-08-16 14:37 | ANE.PACU2 ---
Inpatient post-anesthesia follow up: Airway intact: Yes Vital signs: Temperature 98.1 F Pulse Rate [Left] 76 Pulse Rate 72 Respiratory Rate 16 Blood Pressure [Le ft Arm] 141/82 Blood Pressure 165/94 Pulse Oximetry 97 Oxygen Delivery Me thod Nasal Cannula Oxygen Flow Rate 2 Fraction of Inspir ed Oxygen Hydration adequate: Yes Nausea and vomiting: No Pain level: 2 Mental status: Baseline
[2020-08-16] MEDS: oxyCODONE-APAP 5-325 mg Tablet 1 TAB PO (15:55)
--- NOTE | 2020-08-16 17:28 | PC.NURSE ---
pt verbalizes understanding of discharge instructions, medications, and follow up appointment
== END 2020-08-16 17:33 | disposition home or self-care (01) ==
LOC: ER 08-16 00:04 → MEDSURG 08-16 06:49
PROVIDERS: Admitting Provider Surgery; Emergency Provider Emergency Medicine; PCP Family Medicine; Visit Provider Surgery
PROC: 0DTJ4ZZ Resection of Appendix, Percutaneous Endoscopic Approach (ICD-10-PCS; CPT 44970; principal; 2020-08-16 10:15)
DX: K35.80 Unspecified acute appendicitis (principal); Z86.16 Personal history of COVID-19; I10 Essential (primary) hypertension; K21.9 Gastro-esophageal reflux disease without esophagitis; E78.5 Hyperlipidemia, unspecified; M06.9 Rheumatoid arthritis, unspecified; F41.9 Anxiety disorder, unspecified; E03.9 Hypothyroidism, unspecified
CPT/HCPCS: 44970; 12345; 74177; 80053; 81003; 83690; 85025; 88304; 96361; 96365; 96367; 96375; 99282; 99285; G0378; J0744; J1100; J2270; J2405; J2543; J2704; J2710; J3010; J3490; J7030; Q9967; S0030

== ENCOUNTER → 2020-09-20 08:32 | Outpatient (BNVA) | payer BC, SELFPAY | PROVIDERS: PCP Family Medicine; Visit Provider Internal Medicine Rheumatology | DX: M32.9 Systemic lupus erythematosus, unspecified (principal); Z79.899 Other long term (current) drug therapy | CPT/HCPCS: 36415; 80076; 82565; 85025; 86140 ==

== ENCOUNTER → 2020-10-17 10:02 | Outpatient (BNVA) | payer BC, SELFPAY | PROVIDERS: PCP Family Medicine; Visit Provider Urology | DX: N39.46 Mixed incontinence (principal) | CPT/HCPCS: 81003; 87086 ==

== ENCOUNTER → 2020-11-08 07:55 | Outpatient (BNVA) | payer BC, SELFPAY | PROVIDERS: PCP Family Medicine; Visit Provider Specialist | DX: R41.3 Other amnesia (principal) | CPT/HCPCS: 96116; 99203; 99204; 99213; 99214 ==

== ENCOUNTER → 2020-11-15 09:34 | Outpatient (BNVA) | payer BC, SELFPAY | PROVIDERS: PCP Family Medicine; Visit Provider Internal Medicine Rheumatology | DX: M06.9 Rheumatoid arthritis, unspecified (principal); M32.9 Systemic lupus erythematosus, unspecified; Z79.899 Other long term (current) drug therapy; R76.8 Other specified abnormal immunological findings in serum; R68.2 Dry mouth, unspecified; E89.0 Postprocedural hypothyroidism | CPT/HCPCS: 81001; 82570; 84156; 99214 ==

== ENCOUNTER → 2020-11-21 10:54 | Outpatient (BNVA) | payer BC, SELFPAY | PROVIDERS: PCP Family Medicine; Visit Provider Nurse Practitioner | DX: R35.0 Frequency of micturition (principal); N39.0 Urinary tract infection, site not specified; R31.9 Hematuria, unspecified | CPT/HCPCS: 81000; 87086 ==

== ENCOUNTER 2020-11-28 12:00 | Outpatient (CLI) | payer BC, SELFPAY | END 2020-11-28 12:01 | disposition home or self-care (01) | LOC: SLEEP 11-29 11:51 | PROVIDERS: PCP Family Medicine; Visit Provider Family Medicine | DX: G47.33 Obstructive sleep apnea (adult) (pediatric) (principal); R19.7 Diarrhea, unspecified | CPT/HCPCS: 87177; 87209; 87493; 87506; G0399 ==

== ENCOUNTER → 2021-02-28 12:33 | Outpatient (BNVA) | payer BC, SELFPAY | PROVIDERS: PCP Family Medicine; Visit Provider Internal Medicine Rheumatology | DX: M32.9 Systemic lupus erythematosus, unspecified (principal); M06.9 Rheumatoid arthritis, unspecified; Z79.899 Other long term (current) drug therapy; R76.8 Other specified abnormal immunological findings in serum; M54.42 Lumbago with sciatica, left side; Z85.89 Personal history of malignant neoplasm of other organs and systems; Z71.89 Other specified counseling | CPT/HCPCS: 99214 ==

== ENCOUNTER 2021-03-02 14:55 | Outpatient (CLI) | payer BC, SELFPAY ==
[2021-03-02 16:34] LABS: 25 Hydroxy Vitamin D 44 ng/mL (30-100)
== END 2021-03-02 14:56 | disposition home or self-care (01) ==
PROVIDERS: PCP Family Medicine; Visit Provider Internal Medicine Rheumatology
DX: M32.9 Systemic lupus erythematosus, unspecified (principal); Z79.899 Other long term (current) drug therapy
CPT/HCPCS: 36415; 82306

== ENCOUNTER 2021-03-21 09:17 | Outpatient (CLI) | payer BC, SELFPAY ==
--- NOTE | 2021-03-21 09:30 | MR_ITS ---
WS: [id number] MRI LUMBAR SPINE NONCONTRAST TECHNIQUE: Sagittal T1, T2 and STIR imaging. Axial T1 and T2 imaging. CLINICAL INFORMATION: M06.9 - Rheumatoid arthritis, unspecified COMPARISON: MRI 2 2017 FINDINGS: Mild lumbar curve. No acute compression. Disc space narrowing worse L4-L5 and L5-S1. L1-L2: Normal L2-L3: Mild annular bulging. Slight effacement of ventral thecal sac. Mild facet arthropathy. Spinal canal and foramen are patent. L3-L4: Mild disc bulging with moderate facet arthropathy. Moderate central canal stenosis. Impingemen t traversing L4 nerve roots bilaterally. Mild left foraminal narrowing. Small facet effusions. L4-L5: Mild disc bulging with impingement traversing L5 nerve roots bilaterally. Mild central canal s tenosis. Moderate facet arthropathy. Mild left foraminal narrowing. Right foramen is patent. L5-S1: Mild disc bulging with osteophytic ridging. Moderate facet arthropathy. Moderate bilateral bon y foraminal narrowing. Moderate facet arthropathy. Visualized pelvic bony structures: Normal. Paravertebral soft tissues: Normal. MR/MR lumbar spine wo con* [id number] IMPRESSION: 1. Mild lumbar curve. No acute compression. 2. Moderate central canal stenosis L3-4 due to disc bulging with facet arthrop athy and ligament flavum hypertrophy. Impingement traversing L4 nerve roots martha aterally. This is progressed compared to previous. 3. Mild central canal stenosis L4-5 with impingement traversing L5 nerve roots bilaterally. Previously described right subarticular protrusion is less promi nent today. 4. Moderate bilateral bony foraminal narrowing L5-S1.
== END 2021-03-21 09:18 | disposition home or self-care (01) ==
LOC: RADSHAW 09:21
PROVIDERS: PCP Family Medicine; Visit Provider Internal Medicine Rheumatology
DX: M06.9 Rheumatoid arthritis, unspecified (principal); M19.90 Unspecified osteoarthritis, unspecified site; M54.5 Low back pain
CPT/HCPCS: 72148

== ENCOUNTER 2021-03-27 10:22 | Outpatient (CLI) | payer BC, SELFPAY ==
[2021-03-27 10:45] LABS: Basophils # 0.1 10^3/uL (0.0-0.1); Basophils % 1.3 %; Eosinophils # 0.1 10^3/uL (0.0-0.8); Eosinophils % 1.3 %; Hematocrit 40.1 % (37.0-47.0); Hemoglobin 13.3 g/dL (11.5-15.3); Lymphocytes # 1.8 10^3/uL (0.8-4.8); Lymphocytes % 20.5 %; Mean Corpuscular HGB Conc 33.2 g/dL (30.0-36.0); Mean Corpuscular Volume 96.4 fl (81-99); Mean Platelet Volume 10.4 fL (7.4-10.4); Monocytes # 1.1 10^3/uL (0.2-0.9); Monocytes % 12.3 %; Neutrophils # 5.56 10^3/uL (1.8-7.7); Neutrophils % 64.1 %; Nucleated Red Blood Cells % 0 %; Platelet Count 296 10^3/cmm (130-400); Red Blood Count 4.16 10^6/uL (4.1-5.3); White Blood Count 8.7 10^3/uL (4.0-10.0)
[2021-03-27 11:10] LABS: Alanine Aminotransferase 26 U/L (0-33); Albumin Level 4.1 g/dL (3.5-5.2); Alkaline Phosphatase 44 IU/L (35-105); Aspartate Amino Transferase 19 U/L (0-32); C Reactive Protein 0.3 mg/L (0.0-4.9); Cholesterol 195 mg/dL (0-200); Globulin 2.8 g/dL (1.3-4.6); Glomerular Filtration Rate 100.6 mL/min (90-130); HDL Cholesterol 65 mg/dL (60-100); LDL Cholesterol Calculated 56 mg/dL (50-129); LDL HDL Ratio 0.86 RATIO (0.00-3.22); Total Bilirubin 0.3 mg/dL (0.15-1.2); Total Protein 6.9 g/dL (6.6-8.7); Triglycerides 368 mg/dL (0-150)
[2021-03-27 11:35] LABS: Bilirubin Urine Neg (Negative); Blood Urine Neg (Negative); Glucose Urine UA Norm (Normal); Ketones Urine Negative (Negative); Leukocyte Esterase Urine Negative (Negative); Nitrate Urine Negative (Negative); Protein Urine Neg (Negative); Urine Appearance Clear (CLEAR); Urine Color Straw (Yellow); Urobilinogen Urine Norm (Negative); pH Urine 6.5 (5-7)
[2021-03-27 11:57] LABS: Bacteria Urine 1+ /hpf; Mucus Urine 1+ /hpf; Squamous Epithelial Cell Urine 0-4 /hpf (0-5)
[2021-03-27 11:58] LABS: Add Urine Culture? No
[2021-03-27 12:01] LABS: Urine Creatinine 49 mg/dL (28-217); Urine Protein Random 5 mg/dL
== END 2021-03-27 10:23 | disposition home or self-care (01) ==
LOC: LAB 10:27
PROVIDERS: PCP Family Medicine; Visit Provider Internal Medicine Rheumatology
DX: M32.9 Systemic lupus erythematosus, unspecified (principal); Z79.899 Other long term (current) drug therapy; E78.5 Hyperlipidemia, unspecified
CPT/HCPCS: 36415; 80061; 80076; 81001; 82565; 82570; 84156; 85025; 86140

== ENCOUNTER 2021-08-30 12:18 | Outpatient (CLI) | payer BC, SELFPAY | END 2021-08-30 12:19 | disposition home or self-care (01) | LOC: LAB 12:21 | PROVIDERS: PCP Family Medicine; Visit Provider Dietitian, Registered | DX: R14.0 Abdominal distension (gaseous) (principal); R14.3 Flatulence | CPT/HCPCS: 83630 ==

== ENCOUNTER → 2021-11-06 09:57 | Outpatient (BNVA) | payer BC, SELFPAY | PROVIDERS: PCP Family Medicine; Visit Provider Nurse Practitioner Family | DX: N39.46 Mixed incontinence (principal) | CPT/HCPCS: 81003 ==

== ENCOUNTER → 2021-11-13 08:22 | Outpatient (BNVA) | payer BC, SELFPAY | PROVIDERS: PCP Family Medicine; Referring Provider Family Medicine; Visit Provider Family Medicine | DX: E89.0 Postprocedural hypothyroidism (principal); R60.9 Edema, unspecified; R60.1 Generalized edema; G47.33 Obstructive sleep apnea (adult) (pediatric); K21.9 Gastro-esophageal reflux disease without esophagitis | CPT/HCPCS: 80048; 84443 ==

== ENCOUNTER 2021-11-22 06:25 | Outpatient (CLI) | payer BC, SELFPAY ==
--- NOTE | 2021-11-22 06:30 | USCV_ITS ---
Nanette Simental Age: 66 Gender: F : 1955 Exam Date: 11/22/2021 06:34 Ordering Phys: Katarina Canela DO Technologist: RICA Exam Location: [facility] [place] Indication: PRE SYNCOPE Risk Factors: Previous Vascular Surgery: Right Brachial BP: / Left Brachial BP: / Right Left Velocity (cm/s) Spectral Plaque Velocity (cm/s) Spectral Plaque Syst/Diast Broadening Syst/Diast Broadening 76.50/ 6.00 Prox CCA 112.40/ 32.40 74.60/ 25.60 Mid CCA 69.80 / 19.60 69.90/ 27.20 Distal CCA 75.20 / 26.50 52.80/ 21.40 Prox ICA 52.00 / 16.70 70.10/ 33.80 Mid ICA 55.60 / 21.90 82.00/ 38.00 Distal ICA 80.30 / 35.00 69.90 ECA 72.20 1.07 ICA/CCA 0.71 Antegrade Vertebral Antegrade 37.50/ 11.80 cm/s 58.10/ 20.50 cm/s Tri Subclavian Tri 114.7 94.30 0 FINDINGS Comparison: none available. No significant elevation of systolic or diastolic velocities. Waveforms are normal. No significant amount of calcified plaque or intimal thickening identified. CONCLUSIONS Normal carotid doppler ultrasound. Dr. Fina Morin DO (Electronically Signed) Final Date: 22 Nov 2021 07:52 S
[2021-11-22 07:12] LABS: Basophils # 0.1 10^3/uL (0.0-0.1); Basophils % 1.1 %; Eosinophils # 0.2 10^3/uL (0.0-0.8); Eosinophils % 2.8 %; Hematocrit 38.4 % (37.0-47.0); Hemoglobin 12.5 g/dL (11.5-15.3); Lymphocytes # 2.6 10^3/uL (0.8-4.8); Lymphocytes % 34.5 %; Mean Corpuscular HGB Conc 32.6 g/dL (30.0-36.0); Mean Corpuscular Hemoglobin 31.3 pg (28.0-34.0); Mean Corpuscular Volume 96.2 fl (81-99); Mean Platelet Volume 11.1 fL (7.4-10.4); Monocytes # 0.9 10^3/uL (0.2-0.9); Monocytes % 12.3 %; Neutrophils # 3.61 10^3/uL (1.8-7.7); Neutrophils % 48.9 %; Nucleated Red Blood Cells % 0 %; Platelet Count 272 10^3/cmm (130-400); Red Blood Count 3.99 10^6/uL (4.1-5.3); Red Cell Distribution Width 13.7 % (12.1-15.1); White Blood Count 7.4 10^3/uL (4.0-10.0)
[2021-11-22 07:33] LABS: Alanine Aminotransferase 20 U/L (0-33); Alkaline Phosphatase 69 IU/L (35-105); Aspartate Amino Transferase 20 U/L (0-32); Total Bilirubin 0.3 mg/dL (0.15-1.2)
== END 2021-11-22 06:26 | disposition home or self-care (01) ==
PROVIDERS: Internal Medicine Rheumatology; PCP Family Medicine; Visit Provider Family Medicine
DX: R55 Syncope and collapse (principal); M32.9 Systemic lupus erythematosus, unspecified; Z79.899 Other long term (current) drug therapy
CPT/HCPCS: 36415; 80076; 82565; 85025; 86140; 93880

== ENCOUNTER 2021-11-23 07:53 | Outpatient (CLI) | payer BC, SELFPAY ==
[2021-11-23 08:20] VITALS: BMI 26.4
--- NOTE | 2021-11-23 08:31 | NMCV_ITS ---
NM jens perf SPECT r/s* [id number] Nanette Simental Age: 66 Gender: F : 1955 Exam Date: 11/23/2021 08:31 Ordering Phys: Katarina Canela DO Technologist: KENNY Bergman Exam Location: [facility] Indications: SHORTNESS OF BREATH STRESS TEST Please see separate stress test report in [facility] for full findings IMAGE PROTOCOL Rest/Stress 1 Lexiscan Day Radiopharmaceutical Dose (mCi) Administration Site Administered by Rest: Tc-99m 10.7 IV KENNY Bergman Sestamibi Stress:Tc-99m 32.6 IV KENNY Coleman Sestamibi Rest: 23-Nov-2021 60 Discovery 630 Stress: 23-Nov-2021 30 Discovery 630 0.4mg Lexiscan. Images obtained in supine and prone position. SPECT RESULTS Technical Quality: Excellent Raw Data Analysis: Normal Image Corrections: No attenuation or motion correction applied Summed Stress Score: 0 Summed Rest Score: 0 Summed Difference Score: 0 PERFUSION FINDINGS Uniform myocardial tracer uptake with no significant perfusion abnormalities FUNCTIONAL RESULTS (calculated via Gated SPECT) Stress Image LV EF (%): 78 Stress EDV (mL):77 TID: 0.92 Stress ESV (mL):17 FUNCTIONAL FINDINGS: Segmental wall motion analysis revealing no gross wall motion abnormalities IMPRESSIONS 1. Myocardial perfusion imaging revealing uniform myocardial tracer uptake 2. Normal LV ejection fraction 78%. 3. LV wall motion analysis revealing no gross wall motion abnormalities. 4. Normal LV volume Low probability for coronary ischemia, based on the above findings Dr Sarahi Quinteros MD [facility] (Electronically Signed) Final Date: 23 Nov 2021 13:00 S
--- NOTE | 2021-11-23 08:31 | ECG_ITS ---
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 Interpretive Statements NAME OF STUDY: LEXISCAN SESTAMIBI STRESS TEST INDICATION: Hx of cad, PROCEDURE: At the baseline, the EKG revealed sinus bradycardia with diffused nonspecific ST-T changes. The baseline blood pressure was 155/83 mm Hg with a heart rate of 59 beats/min. Lexiscan was infused over a period of 20 seconds. A total of 0.4 milligrams of Lexiscan was infused. The stress phase was continued for a total of 5 minutes. Heart rate at the end of the stress phase was 81 with a blood pressure 177/91. The EKG at the peak infusion revealed no significant changes. Sestamibi was injected 20 seconds after the Lexiscan infusion. Blood pressure at the end of the recovery phase was 194/101 with a heart rate of 78 per minute. CONCLUSION: 1. No significant EKG changes with the LexiScan infusion 2. No LexiScan induced chest pain or cardiac arrhythmia 3. Normal blood pressure and heart rate response 4. Sestamibi/sestamibi perfusion scan pending; see separate report. Electronically Signed On 11-23-2021 14:13:25 CDT by Sarahi Quinteros M.D. [email or web address]/[id number]
[2021-11-23] MEDS: regadenoson 0.4 Mg/5 ml Syringe IVP (09:51)
[2021-11-23 09:52] VITALS: BP 194/101; PULSE 78
== END 2021-11-23 07:54 | disposition home or self-care (01) ==
LOC: RAD 08:01 → CDL 08:10
PROVIDERS: PCP Family Medicine; Visit Provider Family Medicine
DX: I25.10 Atherosclerotic heart disease of native coronary artery without angina pectoris (principal); R06.02 Shortness of breath
CPT/HCPCS: 78452; 93017; A9500; J2785

== ENCOUNTER → 2021-12-15 11:23 | Outpatient (BNVA) | payer BC, SELFPAY | PROVIDERS: PCP Family Medicine; Visit Provider Family Medicine | DX: R60.1 Generalized edema (principal) | CPT/HCPCS: 82270 ==

== ENCOUNTER → 2022-01-09 13:14 | Outpatient (BNVA) | payer BC, SELFPAY | PROVIDERS: PCP Family Medicine; Visit Provider Family Medicine Adult Medicine | DX: N39.0 Urinary tract infection, site not specified (principal) | CPT/HCPCS: 81000 ==

== ENCOUNTER 2022-01-16 16:51 | Observation (INO) | payer BC, SELFPAY ==
[2022-01-16 17:33] VITALS: BP 103/59; PULSE 70; RESP 15; TEMP 36.4; O2SAT 96; BMI 26.6
--- NOTE | 2022-01-16 18:13 | W.ED.DIZZY ---
HPI - Dizziness General: Chief Complaint: Dizziness Stated Complaint: sob when walking, dizzy Time Seen by Provider: 01/16/22 18:12 History of Present Illness: HPI Narrative: Ms. Simental is a 66-year-old lady with history of thyroid disorder, RA, lupus, hypertension who presents to the emergency department due to shortness of breath and lightheaded episodes. She endorses symptom onset was subacute approximately a week and a half ago. She notes lightheadedness and unsteady feeling especially when rapidly changing position from sitting to standing. Additionally she notes fairly marked shortness of breath with exertion. She has not had cough or associated chest pain. She denies other neurologic symptoms. Overall intensity symptoms when present becomes moderate to severe. Currently does not have symptoms at rest. Was noted to have mild hypotension after walking to ED room. No other specific changes in health, exacerbating, or alleviating factors identified. Upon further inquiring regarding history when laboratory studies were completed the patient was treated and completed course of 7 days of Bactrim however the shortness of breath and lightheadedness preceded this and she feels that her urinary symptoms have resolved. Onset (ago): week(s) Severity: moderate Context: change in body position Exacerbating factors: change in body position Review of Systems General: Reports: 10 or more systems reviewed and unremarkable except in HPI and below PFSH ED PFSH: Medical History Anxiety Carpal tunnel syndrome of right wrist Degenerative disc disease L4-L5, also cervical spine. Detached retina Fibromyalgia Areli syndrome GERD (gastroesophageal reflux disease) History of 2019 novel coronavirus disease (COVID-19) HTN (hypertension) Hypothyroidism Inflammatory arthritis Mixed stress and urge urinary incontinence Rheumatoid arthritis Salivary gland cancer SLE (systemic lupus erythematosus) Urinary tract infection Surgical History History of partial hysterectomy History of thyroidectomy Previous back surgery Previous back surgery Spfd 05/2021 with hardware placed. S/P laparoscopic appendectomy (08/16/20) Status post colonoscopy (~2019) Family History Other CAD (coronary artery disease) Chronic kidney disease (CKD) Diabetes Hypertension Parkinson disease Stroke Denies family history of Systemic lupus erythematosus, unspecified Rheumatoid arthritis Social History Smoking and tobacco status: never smoked Alcohol intake: never Marital status: Current occupational status: retired History of recent travel: No Physical Exam Const: COMMON NORMALS: patient oriented x3 and alert GENERAL APPEARANCE: cooperative, well developed and ill appearing (Mildly) HENMT: COMMON NORMALS: normocephalic and atraumatic HEAD & SCALP: normocephalic and atraumatic Eye: COMMON NORMALS: conjunctivae normal CONJUNCTIVA: Yes conjunctivae normal SCLERA: sclerae normal Neck/C-Spine: COMMON NORMALS: supple GENERAL: Yes trachea midline Resp: COMMON NORMALS: normal respiratory effort and clear to auscultation bilaterally EFFORT & INSPECTION: Yes able to speak in complete sentences AUSCULTATION: clear to auscultation bilaterally Cardio: COMMON NORMALS: regular rate and regular rhythm RATE: regular rate RHYTHM: regular rhythm GI: COMMON NORMALS: Soft to palpation PALPATION: Yes Soft to palpation and No Tenderness to palpation present (GI) Extremity: GENERAL: Yes normal exam except as noted and No edema Neuro: COMMON NORMALS: patient oriented x3, CN's II-XII intact bilaterally, moves all extremities, no focal motor deficits and no sensory deficits noted SENSORIUM/ORIENTATION: Yes alert and No Orientation impaired Psych: COMMON NORMALS: mental status grossly normal and Normal thought process present THOUGHT PROCESS: Normal thought process present Course ED course: - Patient was seen and evaluated by me at bedside - Patient placed on cardiac monitors, IV access obtained - Initial evaluation notable for exam as above. - Labs and xrays personally interpreted by me. EKG showing sinus rhythm with nonspecific ST segment abnormalities and irregularity. No STEMI. -IV fluids given. - Labs notable for no leukocytosis, hemoglobin normal. Metabolic panel with evidence of CHIN and evidence of dehydration. TSH elevated with low free T4, patient does not have evidence of myxedema coma though some symptoms may be affected by low free T4. Urinalysis concerning for urinary tract infection. Rocephin ordered. - Imaging notable for no lobar consolidation or pneumothorax. Head CT without acute pathology to explain symptoms. CT abdomen pelvis without acute pathology or obstructive pathology to explain CHIN. - Upon serial reexamination after treatment the patient was similar - Based on patient history, evaluation, and testing as interpreted the most likely cause of the patient's condition is CHIN, Perhaps related to Bactrim though somewhat unclear. Continued urinary tract infection also present. - The results of ED evaluation were discussed with the patient including plan for admission due to requirement for level of care not available if discharged to prevent significant worsening/deterioration. - Admitting service was contacted and Dr Miller with the hospitalist service agreed to admit the patient - Patient was admitted without further deterioration or significant events. Note: Click bubbles or prepopulated patel in note writing are used for assistance with data collection and billing and are inherently more limited than narrative and other text portions of this note. Please use narrative for additional clinical history and defer to narrative/free test for any case of contradictory information. If information appears in only free text or click bubble it should be considered present or absent as reported. Please contact note designer/writer for clarifications of clinical information or contradictory information. MDM is a brief summary, contradictory or erroneous seeming information should be clarified and full note should be reviewed. Vital Signs: Vital signs: Vital Signs Temperature 96.8 F L 01/18/22 11:43 Pulse Rate 97 01/18/22 11:43 Respiratory Rate 16 01/18/22 11:43 Blood Pressure 118/77 01/18/22 11:43 Pulse Oximetry 97 01/18/22 11:43 MDM - Dizziness Medical Decision Making 66-year-old lady presenting with shortness of breath and lightheadedness. Patient found to have CHIN and evidence of dehydration. Recently treated for UTI which persists. Patient admitted for further management and hydration. Medical Records I reviewed the patient's medical records. Lab Data I reviewed the patient's lab results. : 01/18/22 04:39 01/18/22 04:39 Radiology Impressions Chest X-Ray 01/16/22 18:37 IMPRESSION: No acute findings. Head CT 01/16/22 18:37 IMPRESSION: No acute intracranial abnormality. Abdomen/Pelvis CT 01/16/22 19:32 IMPRESSION: No acute findings. Laboratory Results WBC 8.3 10^3/uL (4.0-10.0) 01/16/22 18:36 RBC 4.86 10^6/uL (4.1-5.3) 01/16/22 18:36 Hgb 14.6 g/dL (11.5-15.3) 01/16/22 18:36 Hct 43.5 % (37.0-47.0) 01/16/22 18:36 MCV 89.5 fl (81-99) 01/16/22 18:36 MCH 30.0 pg (28.0-34.0) 01/16/22 18:36 MCHC 33.6 g/dL (30.0-36.0) 01/16/22 18:36 RDW 13.0 % (12.1-15.1) 01/16/22 18:36 Plt Count 317 10^3/cmm (130-400) 01/16/22 18:36 MPV 10.9 fL (7.4-10.4) H 01/16/22 18:36 Neut % (Auto) 67.7 % 01/16/22 18:36 Lymph % (Auto) 25.0 % 01/16/22 18:36 [place] % (Auto) 3.1 % 01/16/22 18:36 Eos % (Auto) 2.3 % 01/16/22 18:36 Baso % (Auto) 1.4 % 01/16/22 18:36 Neut # (Auto) 5.64 10^3/uL (1.8-7.7) 01/16/22 18:36 Lymph # (Auto) 2.1 10^3/uL (0.8-4.8) 01/16/22 18:36 Woods # (Auto) 0.3 10^3/uL (0.2-0.9) 01/16/22 18:36 Eos # (Auto) 0.2 10^3/uL (0.0-0.8) 01/16/22 18:36 Baso # (Auto) 0.1 10^3/uL (0.0-0.1) 01/16/22 18:36 Nucleated RBC % (auto) 0 % 01/16/22 18:36 Nucleated RBCs # 0.0 /100WBC 01/16/22 18:36 Sodium 130 mmol/L (136-145) L 01/16/22 18:36 Potassium 4.4 mmol/L (3.5-5.1) 01/16/22 18:36 Chloride 92 mmol/L (98-107) L 01/16/22 18:36 Carbon Dioxide 20 mmol/L (22-29) L 01/16/22 18:36 Anion Gap 22.4 (5-19) H 01/16/22 18:36 BUN 54 mg/dL (8-23) H 01/16/22 18:36 Creatinine 2.1 mg/dL (0.5-0.9) H 01/16/22 18:36 GFR Calculation 23.6 mL/min (90-130) L 01/16/22 18:36 Glucose 150 mg/dL (65-115) H 01/16/22 18:36 Calculated Osmolality 288 mOsm/kg (285-295) 01/16/22 18:36 Calcium 11.2 mg/dL (8.5-10.5) H 01/16/22 18:36 Magnesium 2.3 mg/dL (1.7-2.3) 01/16/22 18:36 Total Bilirubin 0.2 mg/dL (0.15-1.2) 01/16/22 18:36 AST 27 U/L (0-32) 01/16/22 18:36 ALT 31 U/L (0-33) 01/16/22 18:36 Alkaline Phosphatase 74 IU/L (35-105) 01/16/22 18:36 Troponin T Baseline 15 ng/L (0-10) H 01/16/22 18:36 Troponin T 120 Minute 13.64 ng/L (0-10) H 01/16/22 21:03 Delta Troponin T -1.36 ABS# (0-10) L 01/16/22 21:03 C-Reactive Protein 3.0 mg/L (0.0-4.9) 01/16/22 18:36 NT-Pro-B Natriuret Pep 31 pg/mL (0-125) 01/16/22 18:36 Total Protein 7.8 g/dL (6.6-8.7) 01/16/22 18:36 Albumin 4.6 g/dL (3.5-5.2) 01/16/22 18:36 Globulin 3.2 g/dL (1.3-4.6) 01/16/22 18:36 TSH 36.47 uIU/mL (0.27-4.20) H 01/16/22 18:36 Free T4 0.33 ng/dL (0.82-1.77) L 01/16/22 18:36 Random Cortisol 6.56 ug/dL (2.47-19.5) 01/16/22 21:03 Urine Color Yellow (Yellow) 01/16/22 18:44 Urine Appearance Cloudy (CLEAR) 01/16/22 18:44 Urine pH 5 (5-7) 01/16/22 18:44 Ur Specific [place] 1.020 (1.005-1.030) 01/16/22 18:44 Urine Protein Neg (Negative) 01/16/22 18:44 Urine Glucose (UA) Norm (Normal) 01/16/22 18:44 Urine Ketones Negative (Negative) 01/16/22 18:44 Urine Blood 2+ (Negative) H 01/16/22 18:44 Urine Nitrate Negative (Negative) 01/16/22 18:44 Urine Bilirubin 1+ (Negative) H 01/16/22 18:44 Urine Urobilinogen Norm mg/dL (Negative) 01/16/22 18:44 Ur Leukocyte Esterase 2+ (Negative) H 01/16/22 18:44 Urine RBC None /hpf (0-2) 01/16/22 18:44 Urine WBC Too numerous to cnt /hpf (0-5) H 01/16/22 18:44 Ur Squamous Epith Cells 10-15 /hpf (0-5) H 01/16/22 18:44 Amorphous Sediment Not Reportable 01/16/22 18:44 Urine Bacteria 3+ /hpf (NONE) H 01/16/22 18:44 Ur Random Urea Nitrogn 366 mg/dL 01/16/22 18:44 Urine Creatinine 79 mg/dL (28-217) 01/16/22 18:44 Coronavirus 229E (PCR) Not detected (NOT DETECT) 01/16/22 18:44 SARS-CoV-2 (PCR) Not detected (NOT DETECT) 01/16/22 18:44 Discharge Plan Discharge Patient Disposition: Placed in Observation Admit Provider: Gerardo Miller Clinical Impression: CHIN (acute kidney injury), GONZALEZ (dyspnea on exertion), UTI (urinary tract infection), Orthostatic hypotension, Dehydration Coding Level of Care Code ED Software Educator for Chg Fwd Exam Comprehensive
[2022-01-16 18:20] VITALS: BP 99/68; PULSE 92; RESP 16; TEMP 36.4; O2SAT 100
[2022-01-16 18:34] VITALS: BP 120/75; PULSE 83; RESP 16; O2SAT 95
--- NOTE | 2022-01-16 18:37 | ECG_ITS ---
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 Measurements Intervals [place] Rate: 76 P: 25 CA: 174 QRS: -25 QRSD: 102 T: 81 QT: 386 QTc: 435 Interpretive Statements SINUS RHYTHM WITH MARKED SINUS ARRHYTHMIA POSSIBLE INFERIOR MYOCARDIAL INFARCTION , OF INDETERMINATE AGE [30 ms Q WAVE IN II/aVF] Compared to ECG 12/18/2018 17:06:23 Myocardial infarct finding now present T-wave abnormality no longer present Electronically Signed On 01-17-2022 17:58:30 CDT by John Alonzo M.D. [email or web address] [email or web address] [email or web address] Online Holdingsshel[facility].[employer]/store/NU/[id number] f
--- NOTE | 2022-01-16 18:37 | XRR_ITS ---
PROCEDURE INFORMATION: Exam: XR Chest Exam date and time: 01/16/2022 7:03 PM Age: 66 years old Clinical indication: Shortness of breath; Additional info: SOB TECHNIQUE: Imaging protocol: Radiologic exam of the chest. Views: 1 view. COMPARISON: CR XR chest 2V* [id number] 10/13/2019 3:05 PM FINDINGS: Lungs: Unremarkable. No consolidation. Pleural spaces: Unremarkable. No pleural effusion. No pneumothorax. Heart/Mediastinum: Unremarkable. No cardiomegaly. Bones/joints: Unremarkable. XR/XR chest 1V portable [id number] IMPRESSION: No acute findings.
--- NOTE | 2022-01-16 18:37 | CTR_ITS ---
PROCEDURE INFORMATION: Exam: CT Head Without Contrast Exam date and time: 01/16/2022 7:10 PM Age: 66 years old Clinical indication: Syncope and collapse and weakness, extremity; Prior surgery; Surgery date: 6+ months; Surgery type: Thyroid and parotid; Additional info: Near syncope, reccurent TECHNIQUE: Imaging protocol: Computed tomography of the head without contrast. Radiation optimization: All CT scans at this facility use at least one of these dose optimization techniques: automated exposure control; mA and/or kV adjustment per patient size (includes targeted exams where dose is matched to clinical indication); or iterative reconstruction. COMPARISON: CT head wo con* [id number] 12/18/2018 6:56 PM RADIATION DOSE METRICS: Total DLP (mGy-cm): 1014.98 FINDINGS: Brain: No hemorrhage. No edema. Mild diffuse cerebral atrophy and sequela of chronic small vessel ischemic disease. No mass effect. Cerebral ventricles: No ventriculomegaly. Paranasal sinuses: Visualized sinuses are unremarkable. No fluid levels. Mastoid air cells: Visualized mastoid air cells are well aerated. Bones/joints: Unremarkable. No acute fracture. Soft tissues: Unremarkable. CT/CT head wo con* [id number] IMPRESSION: No acute intracranial abnormality.
[2022-01-16 18:50] LABS: Basophils # 0.1 10^3/uL (0.0-0.1); Basophils % 1.4 %; Eosinophils # 0.2 10^3/uL (0.0-0.8); Eosinophils % 2.3 %; Hematocrit 43.5 % (37.0-47.0); Hemoglobin 14.6 g/dL (11.5-15.3); Lymphocytes # 2.1 10^3/uL (0.8-4.8); Mean Corpuscular HGB Conc 33.6 g/dL (30.0-36.0); Mean Corpuscular Volume 89.5 fl (81-99); Mean Platelet Volume 10.9 fL (7.4-10.4); Monocytes # 0.3 10^3/uL (0.2-0.9); Monocytes % 3.1 %; Neutrophils # 5.64 10^3/uL (1.8-7.7); Neutrophils % 67.7 %; Nucleated Red Blood Cells % 0 %; Platelet Count 317 10^3/cmm (130-400); Red Blood Count 4.86 10^6/uL (4.1-5.3); White Blood Count 8.3 10^3/uL (4.0-10.0)
[2022-01-16 19:00] LABS: Add Urine Microscopic? YES; Bilirubin Urine 1+ (Negative); Blood Urine 2+ (Negative); Glucose Urine UA Norm (Normal); Ketones Urine Negative (Negative); Leukocyte Esterase Urine 2+ (Negative); Nitrate Urine Negative (Negative); Protein Urine Neg (Negative); Urine Appearance Cloudy (CLEAR); Urine Color Yellow (Yellow); Urobilinogen Urine Norm (Negative); pH Urine 5 (5-7)
[2022-01-16 19:01] LABS: Add Urine Culture? Yes; Bacteria Urine 3+ /hpf; WBC Urine TOO NUMEROUS TO CNT /hpf (0-5)
--- NOTE | 2022-01-16 19:06 | PC.NURSE ---
REPORT GIVEN TO [facility].
[2022-01-16 19:12] LABS: Troponin(5th) Baseline 15 ng/L (0-10)
[2022-01-16 19:22] LABS: Alanine Aminotransferase 31 U/L (0-33); Albumin Level 4.6 g/dL (3.5-5.2); Alkaline Phosphatase 74 IU/L (35-105); Anion Gap 22.4 (5-19); Aspartate Amino Transferase 27 U/L (0-32); Blood Urea Nitrogen 54 mg/dL (8-23); Calcium 11.2 mg/dL (8.5-10.5); Carbon Dioxide 20 mmol/L (22-29); Chloride 92 mmol/L (98-107); Globulin 3.2 g/dL (1.3-4.6); Glomerular Filtration Rate 23.6 mL/min (90-130); Glucose 150 mg/dL (65-115); Magnesium 2.3 mg/dL (1.7-2.3); NT Pro B Type Natriuretic Pept 31 pg/mL (0-125); Osmolality Calculated 288 mOsm/kg (285-295); Potassium 4.4 mmol/L (3.5-5.1); Sodium 130 mmol/L (136-145); Thyroid Stimulating Hormone 36.47 uIU/mL (0.27-4.20); Total Bilirubin 0.2 mg/dL (0.15-1.2); Total Protein 7.8 g/dL (6.6-8.7)
[2022-01-16] MEDS: sodium chloride 0.9% 1,000 ML 999 ML IV (19:26)
--- NOTE | 2022-01-16 19:32 | CTR_ITS ---
PROCEDURE INFORMATION: Exam: CT Abdomen And Pelvis Without Contrast Exam date and time: 01/16/2022 8:45 PM Age: 66 years old Clinical indication: Bloating; Prior surgery; Surgery date: 6+ months; Surgery type: Appx, hyst, lumbar; Additional info: Matt, ? obstruction TECHNIQUE: Imaging protocol: Computed tomography of the abdomen and pelvis without contrast. Radiation optimization: All CT scans at this facility use at least one of these dose optimization techniques: automated exposure control; mA and/or kV adjustment per patient size (includes targeted exams where dose is matched to clinical indication); or iterative reconstruction. COMPARISON: CT abdomen pelvis w con* [id number] 08/15/2020 10:52 PM RADIATION DOSE METRICS: Total DLP (mGy-cm): 1191.63 FINDINGS: Liver: Normal. No mass. Gallbladder and bile ducts: Normal. No calcified stones. No ductal dilation. Pancreas: Normal. No ductal dilation. Spleen: Normal. No splenomegaly. Adrenal glands: Normal. No mass. Kidneys and ureters: Normal. No hydronephrosis. Stomach and bowel: Moderate colonic stool burden. No obstruction. No mucosal thickening. Appendix: Appendectomy. Intraperitoneal space: Unremarkable. No free air. No significant fluid collection. Vasculature: Unremarkable. No abdominal aortic aneurysm. Lymph nodes: Unremarkable. No enlarged lymph nodes. Urinary bladder: Unremarkable as visualized. Reproductive: Hysterectomy. Bones/joints: No acute fracture. Posterior spinal decompression changes and fusion involving the L3-S1 segment with additional anterior spinal fusion and intervertebral disc spacers noted at L4-L5 and L5-S1. Soft tissues: Unremarkable. CT/CT abdomen pelvis wo con [id number] IMPRESSION: No acute findings.
[2022-01-16 20:33] LABS: Adenovirus Not Detected (NOT DETECT); Chlamydia Pneumoniae Not Detected (NOT DETECT); Coronavirus 229E,HKU1,NL63,OC4 Not Detected (NOT DETECT); Human Metapneumovirus Not Detected (NOT DETECT); Human Rhinovirus/Enterovirus Not Detected (NOT DETECT); Influenza A Not Detected (NOT DETECT); Influenza A H1 Not Detected (NOT DETECT); Influenza A H1-2009 Not Detected (NOT DETECT); Influenza A H3 Not Detected (NOT DETECT); Influenza B Not Detected (NOT DETECT); Mycoplasma Pneumoniae Not Detected (NOT DETECT); Parainfluenza Virus Type 1 Not Detected (NOT DETECT); Parainfluenza Virus Type 2 Not Detected (NOT DETECT); Parainfluenza Virus Type 3 Not Detected (NOT DETECT); Parainfluenza Virus Type 4 Not Detected (NOT DETECT); Respiratory Syncytial Virus A Not Detected (NOT DETECT); Respiratory Syncytial Virus B Not Detected (NOT DETECT); SARS-COV-2 Not Detected (NOT DETECT)
--- NOTE | 2022-01-16 20:37 | ECG_ITS ---
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 Measurements Intervals [place] Rate: 74 P: 2 AL: 175 QRS: -22 QRSD: 100 T: 76 QT: 406 QTc: 451 Interpretive Statements SINUS RHYTHM WITH MARKED SINUS ARRHYTHMIA BORDERLINE LEFT AXIS DEVIATION [QRS AXIS < -20] NONSPECIFIC ST & T-WAVE ABNORMALITY Compared to ECG 12/18/2018 17:06:23 No significant changes Electronically Signed On 01-17-2022 18:01:27 CDT by John Alonzo M.D. [id number]
[2022-01-16 21:00] VITALS: BP 123/78; PULSE 75; RESP 16; O2SAT 96
[2022-01-16 21:06] LABS: Free T4 Free Thyroxine 0.33 ng/dL (0.82-1.77)
--- NOTE | 2022-01-16 21:09 | PC.NURSE ---
EKG done at 2104 and shown to ER doctor
[2022-01-16] MEDS: cefTRIAXone 1,000 MG in sodium chloride 0.9% (plus) 50 ML 100 MG IV (21:22)
--- NOTE | 2022-01-16 21:34 | P.HP_ITS ---
Providers/Chief Complaint Primary Care Provider: Katarina Canela DO Chief Complaint: sob when walking, dizzy History of Present Illness Very pleasant 66-year-old lady with history of lupus, RA, on intermittent/chronic steroid, recently treated for urinary tract infection with Bactrim, which she had completed, starting about a week to 10 days ago has been feeling more lightheaded when getting up and try to get around, with limited e xertion, and feeling like she may pass out, although has not had any fainting. States that she is feeling okay when she is sitting down. Denies any chest pain or pressure. Not short of breath at rest. In ER she is afebrile, without leukocytosis, but with noted new CHIN, creatinine 2.1, sodium 130, potassium 4.4, bicarb 20, anion gap 22.4. Magnesium 2.3. Baseline troponin 15. EKG with sinus rhythm with sinus arrhythmia. Nonspecific ST and T abnormality. Urinalysis with WBC, too numerous to count, but with 10-15 squamous pleural cells. 3+ bacteria. TSH 36.47. Free T4 0.33. She denies any current diarrhea. Denies any nausea or vomiting. Takes thyroid medication first thing in the morning. Stores in a dry cabinet. Review of Systems Const: Denies: fever(s), chills, body aches or malaise Eyes: Denies: change in vision, eye discomfort or eye redness ENMT: Denies: throat pain, oral sores or ear or mastoid pain Card: Reports: other (Severe fatigue on exertion); Denies: chest pain, edema or pre-syncope Resp: Denies: dyspnea, productive cough, change in phlegm color or hemoptysis GI: Denies: abdominal pain, nausea, vomiting, diarrhea, constipation, hematochezia or melena : Denies: flank pain, urinary frequency or hematuria Musc: Denies: back pain, joint swelling or joint redness Skin/Breast: Denies: rash or new lesions Neuro: Denies: headache(s), numbness in extremities, weakness in extremities, dizziness, confusion or seizure-like activity Endo: Denies: polyuria or polydipsia Juarez/Lymph: Denies: easy bleeding or tender lymph nodes All/Imm: Denies: urticaria or tongue swelling Medications/Allergies Home Medications Medication Instructions Recorded Confirmed Last Taken Type estradiol 1 gm VAGINAL .3 times/wk gm 08/24/19 01/15/22 08/13/20 History acetaminophen 650 mg 1,300 mg PO BID tab 10/23/19 01/15/22 08/15/20 History tablet,extended release (Tylenol Arthritis Pain) cholecalciferol (vitamin D3) 50 50 mcg PO DAILY@07 08/16/20 01/15/22 08/15/20 History mcg (2,000 unit) capsule clonazepam 2 mg tablet See Rx Instructions .ROUTE .COMPLEX 08/16/20 01/15/22 Unknown History AUTO-TITRATING CPAP #1 ea 03/07/21 01/15/22 Unknown Rx diclofenac sodium 1 % topical gel 2 g TOPICAL QID PRN #100 g 04/05/21 01/15/22 Unknown Rx hydrochlorothiazide 25 mg tablet See Rx Instructions .ROUTE 08/07/21 01/15/22 Unknown Rx .COMPLEX #90 tab cyclobenzaprine 10 mg tablet See Rx Instructions .ROUTE 09/08/21 01/15/22 Unknown Rx .COMPLEX #180 tab diltiazem HCl 180 mg 180 mg PO DAILY@20 90 Days #90 cap 10/20/21 01/15/22 Unkn own Rx capsule,extended release 24 hr (Cartia XT) duloxetine 60 mg capsule,delayed 60 mg PO DAILY #90 ea 10/20/21 01/15/22 Unknown Rx release simvastatin 20 mg tablet 20 mg PO DAILY 90 Days #90 tab 10/20/21 01/15/22 Unknown Rx omeprazole 20 mg capsule,delayed 20 mg PO DAILY@07 #90 cap 11/13/21 01/15/22 Unknown Rx release duloxetine 30 mg capsule,delayed 30 mg PO DAILY@07 #90 cap 11/27/21 01/15/22 Unknown Rx release lisinopril 40 mg tablet 40 mg PO BID #180 tab 11/27/21 01/15/22 Unknown Rx metoprolol succinate 100 mg 100 mg PO DAILY@07 #90 ea 11/27/21 01/15/22 Unknown Rx capsule sprinkle, ext. release 24 hr furosemide 40 mg tablet 40 mg PO QAM #90 tab 12/15/21 01/15/22 Unknown Rx spironolactone 25 mg tablet 25 mg PO DAILY #90 tab 06/03/22 07/04/22 Unknown Rx folic acid 1 mg tablet 1 mg PO DAILY #90 tab 12/27/21 01/15/22 Unknown Rx gabapentin 300 mg capsule 300 mg PO TID #90 cap 12/27/21 01/15/22 Unknown Rx hydroxychloroquine 200 mg tablet 200 mg PO BID@07,20 #180 tab 12/27/21 01/15/22 Unknown Rx methotrexate sodium 2.5 mg tablet See Rx Instructions PO .Q7days #30 12/27/21 01/15/22 Unknown Rx tab prednisone 5 mg tablet 5 mg PO DAILY #90 tab 12/27/21 01/15/22 Unknown Rx sulfamethoxazole 800 1 tab PO BID #14 tab 01/09/22 01/15/22 Unknown Rx mg-trimethoprim 160 mg tablet levothyroxine 125 mcg tablet See Rx Instructions .ROUTE 01/16/22 Unknown Rx (Euthyrox) .COMPLEX #30 tablet Allergies Allergy/AdvReac Type Severity Reaction Status Date / Time hydrocodone Allergy itch Verified 01/15/22 11:39 penicillin G Allergy rash Verified 01/15/22 11:39 oxycodone AdvReac Mild itching Verified 01/15/22 11:39 PFSH Acute PFSH: Medical History Anxiety Carpal tunnel syndrome of right wrist Degenerative disc disease L4-L5, also cervical spine. Detached retina Fibromyalgia Areli syndrome GERD (gastroesophageal reflux disease) History of 2019 novel coronavirus disease (COVID-19) HTN (hypertension) Hypothyroidism Inflammatory arthritis Mixed stress and urge urinary incontinence Rheumatoid arthritis Salivary gland cancer SLE (systemic lupus erythematosus) Urinary tract infection Surgical History History of partial hysterectomy History of thyroidectomy Previous back surgery Previous back surgery Spfd 05/2021 with hardware placed. S/P laparoscopic appendectomy (08/16/20) Status post colonoscopy (~2019) Family History Other CAD (coronary artery disease) Chronic kidney disease (CKD) Diabetes Hypertension Parkinson disease Stroke Denies family history of Systemic lupus erythematosus, unspecified Rheumatoid arthritis Social History Smoking and tobacco status: never smoked Alcohol intake: never Marital status: Current occupational status: retired History of recent travel: No Vitals/I&O/Wt Last Vital Signs Temp 97.6 F 01/16/22 18:20 Pulse 83 01/16/22 18:34 Resp 16 01/16/22 18:34 BP 120/75 01/16/22 18:34 Pulse Ox 95 01/16/22 18:34 Weight last 48 hrs Weight 81.647 kg Physical Exam Const: COMMON NORMALS: alert GENERAL APPEARANCE: cooperative ORIENTATION/CONSCIOUSNESS: Yes awake HENMT: COMMON NORMALS: normocephalic, EAC's normal, Normal external nose present and moist oral mucous membranes HEAD & SCALP: normocephalic NOSE: Normal external nose present EXTERNAL AUDITORY CANAL: EAC's normal Neck/C-Spine: COMMON NORMALS: no meningeal signs Chest: CHEST: Yes Symmetrical chest wall rise Resp: COMMON NORMALS: clear to auscultation bilaterally AUSCULTATION: clear to auscultation bilaterally Cardio: COMMON NORMALS: regular rate, regular rhythm and No murmurs present (Cardio) RATE: regular rate RHYTHM: regular rhythm GI: COMMON NORMALS: Normal to inspection, nondistended, normoactive bowel sounds present, Soft to palpation and non-tender PALPATION: Yes Soft to palpation Extremity: COMMON NORMALS: no pedal edema Neuro: COMMON NORMALS: moves all extremities SENSORIUM/ORIENTATION: Yes alert MENINGEAL SIGNS: Yes no meningeal signs Psych: COMMON NORMALS: mental status grossly normal Skin: COMMON NORMALS: no wounds RASHES: no rashes Data : 01/16/22 18:36 01/16/22 18:36 A&P Assessment and plan (1) Pre-syncope: Presyncopal symptoms recently with severe exertional limitation, after 10-12 steps, feeling lightheaded when she is standing or walking, feels like she is going to faint. Denies chest pain or pressure. Appears to have some fluctuation blood pressure, 99/68, subsequently 120/75 here in ER. Requesting orthostatic blood pressures. Discussed with her possibility of both hypothyroidism, but also possible adrenal insufficiency, on chronic steroid, with mild hyponatremia. Serum cortisol will be difficult to interpret in the setting of chronic prednisone. ACTH stim test could be considered. She otherwise also has a CHIN, and chronically on some antihypertensives, and also on diltiazem. Also appears gabapentin. Home medications are yet to be updated. Consideration of possible supratherapeutic medications in setting of CHIN. For now hold will decrease dose of any medications that may be contributing to hypotension or making In setting of CHIN. Some nonspecific ST-T wave changes on EKG. Complete troponin series. Assess TTE. Status: Acute (2) Postural fatigue: As above. Status: Acute (3) CHIN (acute kidney injury): Not entirely clear because, possibly in the setting of Bactrim, please access caution with Bactrim in elder patients, also on in the antihypertensives including HCTZ, lisinopril, spironolactone, hold for now. No obstructive pathology on CT. Status: Acute (4) Hypothyroidism: TSH 36.47. Free T4 0.33. Discussed with her adjustment of levothyroxine dose. With concern for possible adrenal sufficiency as well, will give stress dose steroids. Increase levothyroxine dose to 137 mcg. Will need outpatient follow- up. Status: Chronic Qualifiers: Hypothyroidism type: postoperative Qualified Code(s): E89.0 - Postprocedural hypothyroidism (5) UTI (urinary tract infection): Recent urinary tract infection for which completed course of Bactrim. Requesting urine culture results which she states were obtained at urgent care here in [facility]. With leukocytosis, squamous pleural cells in urine, although denies urinary symptoms currently. Received a dose of Rocephin in ER. Culture is repeated. Hold off further antibiotics for now. We will request repeat UA in the morning. No obstructive uropathy or obvious upper urinary infection on CT. Status: Acute Plan Chronic steroid use SLE RA GERD HTN Please review home medications once they are updated. Attestations Medical Necessity Statement*: Place in observation for additional assessment management of presyncopal symptoms, severe exertional intolerance, CHIN, possible adrenal sufficiency, hypothyroidism, recent UTI, with abnormal urinalysis after course of treatment. 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
[2022-01-16 21:36] LABS: Troponin 5 2HR 13.64 ng/L (0-10)
[2022-01-16 21:42] LABS: Troponin 5 2HR Delta -1.36 ABS# (0-10)
[2022-01-16 21:51] LABS: Cortisol Random 6.56 ug/dL (2.47-19.5)
[2022-01-16 22:03] LABS: Urine Creatinine 79 mg/dL (28-217)
[2022-01-16 22:04] LABS: Urea Nitrogen,Urine Random 366 mg/dL
[2022-01-16 23:00] VITALS: BP 125/75; PULSE 78; RESP 18; O2SAT 97
[2022-01-17] VITALS: BP 94/61; PULSE 71; RESP 17; TEMP 36.1; O2SAT 92
[2022-01-17] MEDS: hydrocortisone 100 mg/2 mL SDV 50 MG IVP (00:04)
--- NOTE | 2022-01-17 00:10 | USCV_ITS ---
Nanette Simental Age: 66 Gender: F : 1955 Exam Date: 01/17/2022 00:38 Ordering Phys: Gerardo Miller MD Technologist: ALDAIR [place]am [place] [facility] [place] Indication: pre-syncope, severe exertional dyspnea. No hx cardiac intervention. BP: 125 / 75 HR: 78 Rhythm: Sinus Technical Quality: Adequate MEASUREMENTS (Male / Female) Normal Values 2D ECHO LV Diastolic Diameter PLAX 4.1 cm 4.2 - 5.9 / 3.9 - 5.3 cm LV Systolic Diameter PLAX 2.6 cm IVS Diastolic Thickness 1.5 cm 0.6 - 1.0 / 0.6 - 0.9 cm IVS Systolic Thickness 2.3 cm LVPW Diastolic Thickness 1.4 cm 0.6 - 1.0 / 0.6 - 0.9 cm LVPW Systolic Thickness 1.6 cm LVOT Diameter 2.1 cm LV Ejection Fraction 2D Teich 67.9 % LV Ejection Fraction MOD 2C 57.8 % LV Ejection Fraction 2C AL 59.1 % LA Diameter 3.1 cm LA Width 3.0 cm LA Height 4.8 cm RA Width 3.1 cm RA Height 3.2 cm Aorta at Sinotubular Diameter 3.0 cm IVC Diameter 1.8 cm M-MODE Aortic Annulus Diameter 3.0 cm LA Ao Ratio MM 0.9 MV E Point Septal Separation 0.4 cm DOPPLER AV Peak Velocity 215.0 cm/s LVOT Peak Velocity 188.0 cm/s AV Area Cont Eq vti 2.6 cm squared AV Area Cont Eq pk 3.0 cm squared MV Peak Velocity 90.0 cm/s MV Area PHT 2.1 cm squared Mitral E to A Ratio 0.9 MV E' Velocity 37.0 cm/s Mitral E to MV E' Ratio 8.4 Mitral E to LV E' Lateral Ratio 7.3 Mitral E to LV E' Septal Ratio 9.9 TR Peak Velocity 207.3 cm/s TR Peak Gradient 17.2 mmHg TV Peak E Velocity 66.7 cm/s Right Atrial Pressure 5.0 mmHg Pulmonary Artery Systolic Pressu 22.2 mmHg PV Peak Velocity 119.0 cm/s FINDINGS Left Ventricle Normal left ventricular size. LV systolic function is normal with EF of 55-60%. No regional wall motion abnormalities. Moderate left ventricular hypertrophy. Significant LVOT obstruction is seen with peak gradient of 14mmHG that increases to 48mmHG with valsalva. Grade 1 diastolic dysfunction Right Ventricle The right ventricle is normal in size and function. Right Atrium The right atrium is normal in size. Left Atrium The left atrium is normal in size. Mitral Valve Structurally normal mitral valve without significant stenosis or prolapse. There is no mitral regurgitation. Aortic Valve Structurally normal aortic valve without significant sclerosis or stenosis. There is no aortic regurgitation. Tricuspid Valve Structurally normal tricuspid valve without significant stenosis. Mild tricuspid regurgitation. Pulmonary artery systolic pressure is normal. Pulmonic Valve Not well visualized Pericardium Normal pericardium without effusion. Aorta Normal ascending aorta dimension. IVC CONCLUSIONS LV systolic function is normal with EF of 55-60%. Moderate left ventricular hypertrophy. Significant LVOT obstruction is seen with peak gradient of 14mmHG that increases to 48mmHG with valsalva Grade 1 diastolic dysfunction No comparison studies are available John Alonzo MD (Electronically Signed) Final Date: 17 January 2022 12:41 S
--- NOTE | 2022-01-17 00:37 | ECG_ITS ---
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 Measurements Intervals [place] Rate: 84 P: -1 SD: 163 QRS: -23 QRSD: 99 T: 72 QT: 373 QTc: 442 Interpretive Statements SINUS RHYTHM WITH OCCASIONAL SUPRAVENTRICULAR PREMATURE COMPLEXES INFERIOR MYOCARDIAL INFARCTION , PROBABLY OLD [40+ ms Q WAVE AND/OR ST/T ABNORMALITY IN II/aVF] Compared to ECG 01/16/2022 21:06:08 Myocardial infarct finding now present Sinus arrhythmia no longer present T-wave abnormality no longer present Electronically Signed On 01-17-2022 18:01:01 CDT by John Alonzo M.D. [id number]
[2022-01-17 02:49] LABS: Troponin 5 6HR 12.06 ng/L (0-10)
[2022-01-17 03:01] LABS: Troponin 5 6HR Delta -2.94 ng/L (0-12)
[2022-01-17 04:00] VITALS: BP 100/60; BP 102/66; BP 93/58; PULSE 101; PULSE 80; PULSE 82; RESP 17; TEMP 36.6; O2SAT 90
[2022-01-17 05:12] LABS: Charge for UA Resulting for Rev
[2022-01-17 05:24] LABS: Add Urine Microscopic? YES; Bilirubin Urine Neg (Negative); Blood Urine 3+ (Negative); Glucose Urine UA Norm (Normal); Ketones Urine Negative (Negative); Leukocyte Esterase Urine 2+ (Negative); Nitrate Urine Negative (Negative); Protein Urine Neg (Negative); Urine Appearance SL Hazy (CLEAR); Urine Color Yellow (Yellow); Urobilinogen Urine Norm (Negative); pH Urine 5 (5-7)
[2022-01-17] MEDS: levothyroxine 137 mcg Tablet PO (06:06)
[2022-01-17] MEDS: pantoprazole DR 40 mg Tablet PO (06:07)
[2022-01-17 07:47] VITALS: BP 94/59; PULSE 84; RESP 16; TEMP 36.4; O2SAT 95
[2022-01-17] MEDS: predniSONE 5 mg Tablet 10 MG PO (08:49)
[2022-01-17] MEDS: sodium chloride 0.9% 1,000 ML 125 ML IV ×2 (08:49→16:49)
[2022-01-17] MEDS: gabapentin 300 mg Capsule PO ×3 (08:49→22:19)
[2022-01-17] MEDS: folic acid 1 mg Tablet PO (08:49)
[2022-01-17 09:01] LABS: Creatine Phosphokinase 68 U/L (26-192); Thyroid Stimulating Hormone 21.97 uIU/mL (0.27-4.20)
[2022-01-17 11:41] VITALS: BP 104/68; PULSE 87; RESP 16; TEMP 37; O2SAT 94
--- NOTE | 2022-01-17 12:55 | PM.PN ---
Subjective Subjective: Patient was seen this morning, he describes lightheadedness, presyncopal symptoms when changing positions, or exerting herself, this has been happening for the last few days, denies ever passing out, denies any fevers, no chills, no diarrhea, no dysuria, no chest pain, no shortness of breath, no abdominal pain Vitals/I&O/Wt Last Vital Signs Temp 98.6 F 01/17/22 11:41 Pulse 87 01/17/22 11:41 Resp 16 01/17/22 11:41 BP 104/68 01/17/22 11:41 Pulse Ox 94 01/17/22 11:41 01/16/22 01/17/22 01/17/22 22:59 06:59 14:59 Intake Total 1050 / 1050 360 / 360 Output Total 1350 / 1350 600 / 600 Balance -300 / -300 -240 / -240 Weight last 48 hrs Weight 81.647 kg Physical Exam Const: COMMON NORMALS: no acute distress and patient oriented x3 Resp: COMMON NORMALS: normal respiratory effort, No retractions, No use of accessory muscles and clear to auscultation bilaterally AUSCULTATION: clear to auscultation bilaterally Cardio: COMMON NORMALS: regular rate, regular rhythm, S1 normal heart sound present and S2 normal heart sound present RATE: regular rate RHYTHM: regular rhythm HEART SOUNDS: S1 normal heart sound present and S2 normal heart sound present GI: COMMON NORMALS: Normal to inspection, nondistended, normoactive bowel sounds present, Soft to palpation and non-tender PALPATION: Yes Soft to palpation Extremity: COMMON NORMALS: no pedal edema Neuro: COMMON NORMALS: patient oriented x3 Psych: COMMON NORMALS: mental status grossly normal Data : 01/16/22 18:36 01/16/22 18:36 Micro: Microbiology 01/16/22 18:44 Urine Culture - Preliminary Urine,Clean Catch Gram Negative Rods A&P Assessment and plan (1) Pre-syncope: Presyncopal symptoms recently with severe exertional limitation, after 10-12 steps, feeling lightheaded when she is standing or walking, feels like she is going to faint. Denies chest pain or pressure. Appears to have some fluctuation blood pressure, 99/68, subsequently 120/75 here in ER. Requesting orthostatic blood pressures. Discussed with her possibility of both hypothyroidism, but also possible adrenal insufficiency, on chronic steroid, with mild hyponatremia. Serum cortisol will be difficult to interpret in the setting of chronic prednisone. ACTH stim test could be considered. She otherwise also has a CHIN, and chronically on some antihypertensives, and also on diltiazem. Also appears gabapentin. Home medications are yet to be updated. Consideration of possible supratherapeutic medications in setting of CHIN. For now hold will decrease dose of any medications that may be contributing to hypotension or making In setting of CHIN. Some nonspecific ST-T wave changes on EKG. Complete troponin series. Cardiac echocardiogram shows ?LV systolic function is normal with EF of 55-60%. ?Moderate left ventricular hypertrophy. Significant LVOT ?obstruction is seen with peak gradient of 14mmHG that increases ?to 48mmHG with valsalva ?Grade 1 diastolic dysfunction ?No comparison studies are available We will discuss with cardiology as possible left ventricular outflow obstruction could be a reason behind her presyncopal symptoms We will need to resume beta-chante, at some point Status: Acute (2) Postural fatigue: As above. Status: Acute (3) CHIN (acute kidney injury): Not entirely clear because, possibly in the setting of Bactrim, please access caution with Bactrim in elder patients, also on in the antihypertensives including HCTZ, lisinopril, spironolactone, hold for now. No obstructive pathology on CT. Status: Acute (4) Hypothyroidism: TSH 36.47. Free T4 0.33. Discussed with her adjustment of levothyroxine dose. With concern for possible adrenal sufficiency as well, will give stress dose steroids. Increase levothyroxine dose to 137 mcg. Will need outpatient follow-up. Recheck TSH after increased dose 21.97 we will continue to monitor, need to evaluate for possible myxedema coma Status: Chronic Qualifiers: Hypothyroidism type: postoperative Qualified Code(s): E89.0 - Postprocedural hypothyroidism (5) UTI (urinary tract infection): Urine culture showing gram-negative rods, continue Rocephin Status: Acute Plan Chronic steroid use SLE RA GERD HTN Please review home medications once they are updated. Attestations Medical Necessity Statement*: Patient requires hospitalization for presyncope, CHIN, hypothyroidism, UTI Coding Level of Care Code Acute [employer] Safety Engineer for [facility] Diagnoses Pre-syncope R55 Postural fatigue M62.89 CHIN (acute kidney injury) N17.9 Hypothyroidism E89.0 Hypothyroidism type: postoperative UTI (urinary tract infection) N39.0
[2022-01-17 15:52] VITALS: BP 112/72; PULSE 86; RESP 16; TEMP 36.6; O2SAT 90
[2022-01-17] MEDS: cefTRIAXone 1,000 MG in sodium chloride 0.9% (plus) 50 ML 100 MG IV (16:47)
[2022-01-17 20:00] VITALS: BP 128/68; PULSE 87; RESP 18; TEMP 37.1; O2SAT 100
[2022-01-17] MEDS: duloxetine 60 mg Capsule PO (22:19)
[2022-01-18] VITALS: BP 134/67; PULSE 86; RESP 18; TEMP 36.8; O2SAT 98
[2022-01-18] MEDS: sodium chloride 0.9% 1,000 ML 125 ML IV ×2 (03:03→10:29)
[2022-01-18] MEDS: acetaminophen 325 mg Tablet 650 MG PO (03:42)
[2022-01-18 04:00] VITALS: BP 109/67; PULSE 86; RESP 18; TEMP 36.3; O2SAT 95
[2022-01-18 06:00] LABS: Basophils # 0.1 10^3/uL (0.0-0.1); Basophils % 1.2 %; Eosinophils # 0.1 10^3/uL (0.0-0.8); Hematocrit 35.8 % (37.0-47.0); Hemoglobin 12.2 g/dL (11.5-15.3); Lymphocytes # 1.9 10^3/uL (0.8-4.8); Lymphocytes % 27.5 %; Mean Corpuscular HGB Conc 34.1 g/dL (30.0-36.0); Mean Corpuscular Hemoglobin 30.3 pg (28.0-34.0); Mean Corpuscular Volume 88.8 fl (81-99); Mean Platelet Volume 11.2 fL (7.4-10.4); Monocytes # 0.1 10^3/uL (0.2-0.9); Monocytes % 1.2 %; Neutrophils # 4.67 10^3/uL (1.8-7.7); Nucleated Red Blood Cells % 0 %; Platelet Count 265 10^3/cmm (130-400); Red Blood Count 4.03 10^6/uL (4.1-5.3); Red Cell Distribution Width 12.8 % (12.1-15.1); White Blood Count 6.9 10^3/uL (4.0-10.0)
[2022-01-18 06:19] LABS: Alanine Aminotransferase 19 U/L (0-33); Albumin Level 3.7 g/dL (3.5-5.2); Alkaline Phosphatase 57 IU/L (35-105); Anion Gap 16.4 (5-19); Aspartate Amino Transferase 17 U/L (0-32); Blood Urea Nitrogen 26 mg/dL (8-23); Calcium 9.9 mg/dL (8.5-10.5); Carbon Dioxide 19 mmol/L (22-29); Chloride 106 mmol/L (98-107); Globulin 2.7 g/dL (1.3-4.6); Glomerular Filtration Rate 62.8 mL/min (90-130); Glucose 103 mg/dL (65-115); Magnesium 2.1 mg/dL (1.7-2.3); Osmolality Calculated 289 mOsm/kg (285-295); Potassium 4.4 mmol/L (3.5-5.1); Sodium 137 mmol/L (136-145); Total Bilirubin 0.3 mg/dL (0.15-1.2); Total Protein 6.4 g/dL (6.6-8.7)
[2022-01-18 06:24] LABS: Slide Review Slide Review Perform
[2022-01-18] MEDS: cholecalciferol (vitamin D3) 1,000 unit Tablet 2000 UNIT PO (06:37)
[2022-01-18] MEDS: levothyroxine 137 mcg Tablet PO (06:37)
[2022-01-18] MEDS: duloxetine 30 mg Capsule PO (06:37)
[2022-01-18] MEDS: pantoprazole DR 40 mg Tablet PO (06:37)
[2022-01-18 07:54] VITALS: BP 101/67; BP 110/67; BP 123/77
[2022-01-18 08:00] VITALS: BP 112/71; PULSE 80; RESP 16; TEMP 36.5; O2SAT 93
[2022-01-18] MEDS: gabapentin 300 mg Capsule PO (10:28)
[2022-01-18] MEDS: folic acid 1 mg Tablet PO (10:29)
[2022-01-18] MEDS: predniSONE 5 mg Tablet 10 MG PO (10:29)
--- NOTE | 2022-01-18 10:43 | PM.DCS ---
Discharge Providers Date of Admission: 01/16/22 23:16 Date of Discharge: January 18, 2022 Attending Provider at Admission: Gerardo Miller Attending Provider at Discharge: Jimmy Haynes MD Primary Care Provider: Katarina Canela DO Diagnoses at Discharge Discharge Diagnosis (1) Pre-syncope: Status: Acute (2) Postural fatigue: Status: Acute (3) CHIN (acute kidney injury): Status: Acute (4) Hypothyroidism: Status: Chronic Qualifiers: Hypothyroidism type: postoperative Qualified Code(s): E89.0 - Postprocedural hypothyroidism (5) UTI (urinary tract infection): Status: Acute Reason for Visit Reason for Visit: sob when walking, dizzy Hospital Course Hospital Course This is a 66-year-old lady with history of lupus, RA, on intermittent/chronic steroid, recently treated for urinary tract infection with Bactrim, which she had completed, starting about a week to 10 days ago has been feeling more lightheaded when getting up and try to get around, with limited exertion, and feeling like she may pass out, although has not had any fainting.? Patient presented to [facility] for orthostatic hypotension, lightheadedness, -Likely multifactorial from polypharmacy, UTI, elevated TSH, HOCM -Secondary to metoprolol, Cardizem, Lasix, lisinopril, spironolactone -These medications were held -She also had a urinary tract infection, received antibiotic therapy -She received fluid therapy -On discharge, her orthostatics are somewhat positive, I feel that is likely lingering effects of the blood pressure medications, she is not symptomatic, no lightheaded, dizziness -Continue to hold blood pressure medication until she sees cardiology -Discharged on Bactrim -Continue to hydrate well -Levothyroxine dose has been increased to 137 mcg once daily, TSH did trend down to 21.97 after dose was increased, recheck TSH in 6 weeks -If she continues to have lightheadedness or dizziness come back to the emergency room Patient's echocardiogram showed LV systolic function is normal with EF of 55-60%. ?Moderate left ventricular hypertrophy. Significant LVOT ?obstruction is seen with peak gradient of 14mmHG that increases ?to 48mmHG with valsalva ?Grade 1 diastolic dysfunction ?No comparison studies are available she had a Cardiac stress test ?1.? Myocardial perfusion imaging revealing uniform myocardial tracer uptake ?2.? Normal LV ejection fraction 78%. ?3.? LV wall motion analysis revealing no gross wall motion abnormalities. ?4.? Normal LV volume ?Low probability for coronary ischemia, based on the above findings -Possibly hypertrophic obstructive cardiomyopathy might be playing a role to her lightheadedness, dizziness, and orthostatic hypotension, as she might be preload dependent -For now hold Lasix unless she starts to develop worsening shortness of breath or worsening edema then can continue -I will have her follow-up with cardiology to decide when to resume beta-chante given her orthostatic hypotension, further work-up Physical Exam Const: COMMON NORMALS: no acute distress and patient oriented x3 Resp: COMMON NORMALS: normal respiratory effort, No retractions, No use of accessory muscles and clear to auscultation bilaterally AUSCULTATION: clear to auscultation bilaterally Cardio: COMMON NORMALS: regular rate, regular rhythm, S1 normal heart sound present and S2 normal heart sound present RATE: regular rate RHYTHM: regular rhythm HEART SOUNDS: S1 normal heart sound present and S2 normal heart sound present GI: COMMON NORMALS: Normal to inspection, nondistended, normoactive bowel sounds present, Soft to palpation, non-tender and No hepatosplenomegaly present PALPATION: Yes Soft to palpation and Yes No hepatosplenomegaly present Extremity: COMMON NORMALS: no pedal edema Neuro: COMMON NORMALS: patient oriented x3 Psych: COMMON NORMALS: mental status grossly normal Discharge Data Studies Completed and Pending Completed Studies During Hospitalization Category Date Time Status CT abdomen pelvis wo con [id number] Urgent Cat Scan 01/16/22 19:[address] head wo con* [id number] Urgent Cat Scan 01/16/22 18:37 Completed XR chest 1V portable [id number] Urgent Exams 01/16/22 18:37 Completed CV. echo complete* [id number] Routine Ultrasound 01/17/22 00:10 Completed Pending at discharge Category Date Time Status Complete Blood Count w/Auto AM LABS Lab 01/19/22 04:00 Ordered Complete Blood Count w/Auto AM LABS Lab 01/20/22 04:00 Ordered Comprehensive Metabolic Panel AM LABS Lab 01/19/22 04:00 Ordered Comprehensive Metabolic Panel AM LABS Lab 01/20/22 04:00 Ordered Magnesium AM LABS Lab 01/19/22 04:00 Ordered Magnesium AM LABS Lab 01/20/22 04:00 Ordered Urine Culture Stat Lab 01/16/22 18:44 Results Radiology Impressions Chest X-Ray 01/16/22 18:37 IMPRESSION: No acute findings. Head CT 01/16/22 18:37 IMPRESSION: No acute intracranial abnormality. Abdomen/Pelvis CT 01/16/22 19:32 IMPRESSION: No acute findings. Laboratory Results WBC 6.9 10^3/uL (4.0-10.0) 01/18/22 04:39 RBC 4.03 10^6/uL (4.1-5.3) L 01/18/22 04:39 Hgb 12.2 g/dL (11.5-15.3) 01/18/22 04:39 Hct 35.8 % (37.0-47.0) L 01/18/22 04:39 MCV 88.8 fl (81-99) 01/18/22 04:39 MCH 30.3 pg (28.0-34.0) 01/18/22 04:39 MCHC 34.1 g/dL (30.0-36.0) 01/18/22 04:39 RDW 12.8 % (12.1-15.1) 01/18/22 04:39 Plt Count 265 10^3/cmm (130-400) 01/18/22 04:39 MPV 11.2 fL (7.4-10.4) H 01/18/22 04:39 Neut % (Auto) 68.0 % 01/18/22 04:39 Lymph % (Auto) 27.5 % 01/18/22 04:39 [place] % (Auto) 1.2 % 01/18/22 04:39 Eos % (Auto) 2.0 % 01/18/22 04:39 Baso % (Auto) 1.2 % 01/18/22 04:39 Neut # (Auto) 4.67 10^3/uL (1.8-7.7) 01/18/22 04:39 Lymph # (Auto) 1.9 10^3/uL (0.8-4.8) 01/18/22 04:39 [place] # (Auto) 0.1 10^3/uL (0.2-0.9) L 01/18/22 04:39 Eos # (Auto) 0.1 10^3/uL (0.0-0.8) 01/18/22 04:39 Baso # (Auto) 0.1 10^3/uL (0.0-0.1) 01/18/22 04:39 Nucleated RBC % (auto) 0 % 01/18/22 04:39 Nucleated RBCs # 0.0 /100WBC 01/18/22 04:39 Sodium 137 mmol/L (136-145) 01/18/22 04:39 Potassium 4.4 mmol/L (3.5-5.1) 01/18/22 04:39 Chloride 106 mmol/L (98-107) 01/18/22 04:39 Carbon Dioxide 19 mmol/L (22-29) L 01/18/22 04:39 Anion Gap 16.4 (5-19) 01/18/22 04:39 BUN 26 mg/dL (8-23) H 01/18/22 04:39 Creatinine 0.9 mg/dL (0.5-0.9) 01/18/22 04:39 GFR Calculation 62.8 mL/min (90-130) L 01/18/22 04:39 Glucose 103 mg/dL (65-115) 01/18/22 04:39 Calculated Osmolality 289 mOsm/kg (285-295) 01/18/22 04:39 Calcium 9.9 mg/dL (8.5-10.5) 01/18/22 04:39 Magnesium 2.1 mg/dL (1.7-2.3) 01/18/22 04:39 Total Bilirubin 0.3 mg/dL (0.15-1.2) 01/18/22 04:39 AST 17 U/L (0-32) 01/18/22 04:39 ALT 19 U/L (0-33) 01/18/22 04:39 Alkaline Phosphatase 57 IU/L (35-105) 01/18/22 04:39 Creatine Kinase 68 U/L (26-192) 01/17/22 01:48 Troponin T Baseline 15 ng/L (0-10) H 01/16/22 18:36 Troponin T 120 Minute 13.64 ng/L (0-10) H 01/16/22 21:03 Delta Troponin T -1.36 ABS# (0-10) L 01/16/22 21:03 Troponin T Hi Sens 6Hr 12.06 ng/L (0-10) H 01/17/22 01:48 Troponin T Hi Sens 6Hr Delta -2.94 ng/L (0-12) L 01/17/22 01:48 C-Reactive Protein 3.0 mg/L (0.0-4.9) 01/16/22 18:36 NT-Pro-B Natriuret Pep 31 pg/mL (0-125) 01/16/22 18:36 Total Protein 6.4 g/dL (6.6-8.7) L 01/18/22 04:39 Albumin 3.7 g/dL (3.5-5.2) 01/18/22 04:39 Globulin 2.7 g/dL (1.3-4.6) 01/18/22 04:39 TSH 21.97 uIU/mL (0.27-4.20) H 01/17/22 01:48 Free T4 0.33 ng/dL (0.82-1.77) L 01/16/22 18:36 Random Cortisol 6.56 ug/dL (2.47-19.5) 01/16/22 21:03 Urine Color Yellow (Yellow) 01/17/22 05:00 Urine Appearance Sl hazy (CLEAR) 01/17/22 05:00 Urine pH 5 (5-7) 01/17/22 05:00 Ur Specific [place] 1.010 (1.005-1.030) 01/17/22 05:00 Urine Protein Neg (Negative) 01/17/22 05:00 Urine Glucose (UA) Norm (Normal) 01/17/22 05:00 Urine Ketones Negative (Negative) 01/17/22 05:00 Urine Blood 3+ (Negative) H 01/17/22 05:00 Urine Nitrate Negative (Negative) 01/17/22 05:00 Urine Bilirubin Neg (Negative) 01/17/22 05:00 Urine Urobilinogen Norm mg/dL (Negative) 01/17/22 05:00 Ur Leukocyte Esterase 2+ (Negative) H 01/17/22 05:00 Urine RBC None /hpf (0-2) 01/16/22 18:44 Urine WBC Too numerous to cnt /hpf (0-5) H 01/16/22 18:44 Ur Squamous Epith Cells 10-15 /hpf (0-5) H 01/16/22 18:44 Amorphous Sediment Not Reportable 01/16/22 18:44 Urine Bacteria 3+ /hpf (NONE) H 01/16/22 18:44 Ur Random Urea Nitrogn 366 mg/dL 01/16/22 18:44 Urine Creatinine 79 mg/dL (28-217) 01/16/22 18:44 Coronavirus 229E (PCR) Not detected (NOT DETECT) 01/16/22 18:44 SARS-CoV-2 (PCR) Not detected (NOT DETECT) 01/16/22 18:44 Vitals Last Vital Signs Temp 97.7 F 01/18/22 08:00 Pulse 80 01/18/22 08:00 Resp 16 01/18/22 08:00 BP 112/71 01/18/22 08:00 Pulse Ox 93 01/18/22 08:00 Discharge Plan Discharge Patient Disposition: Home Condition: Stable Prescriptions: New levothyroxine 137 mcg Tablet 137 mcg PO DAILY@0700 30 Days Qty: 30 0RF sulfamethoxazole-trimethoprim [Bactrim DS] 800-160 mg tablet 1 tab PO BID 5 Days Qty: 10 0RF Continued estradiol 0.01 % (0.1 mg/gram) cream 1 gm VAGINAL .3 times/wk 0RF acetaminophen [Tylenol Arthritis Pain] 650 mg tablet extended release 1,300 mg PO BID 0RF omeprazole 20 mg capsule,delayed release(DR/EC) 20 mg PO DAILY@07 Qty: 90 3RF (DME) AUTO-TITRATING CPAP See Rx Instructions .Route .MEDSUPPLY Qty: 1 0RF Rx Instructions: SETTING 6-14CM gabapentin 300 mg capsule 300 mg PO TID Qty: 90 3RF hydroxychloroquine 200 mg tablet 200 mg PO BID@ Qty: 180 1RF methotrexate sodium 2.5 mg tablet See Rx Instructions PO .Q7days Qty: 30 3RF Rx Instructions: take 6 tabs on same day once a week/every Saturday PO .Q7days; folic acid 1 mg tablet 1 mg PO DAILY Qty: 90 3RF prednisone 5 mg tablet 5 mg PO DAILY Qty: 90 1RF Label Comments: Patient takes this at night. diclofenac sodium 1 % gel 2 g TOPICAL QID PRN (Reason: Pain) Qty: 100 2RF Rx Instructions: apply to affected area duloxetine 30 mg capsule,delayed release(DR/EC) 30 mg PO DAILY@07 Qty: 90 0RF clonazepam 2 mg tablet See Rx Instructions .ROUTE .COMPLEX 0RF Rx Instructions: crush one tab mix with 5ml of water and coat mouth and spit out twice a day cholecalciferol (vitamin D3) 50 mcg (2,000 unit) capsule 50 mcg PO DAILY@07 0RF cyclobenzaprine 10 mg tablet See Rx Instructions .ROUTE .COMPLEX PRN (Reason: spasms) 0RF Rx Instructions: Take 1 tablet by mouth three times daily as needed for muscle spasm simvastatin 20 mg tablet 20 mg PO BEDTIME 0RF duloxetine 60 mg capsule,delayed release(DR/EC) 60 mg PO BEDTIME 0RF leflunomide 20 mg tablet 20 mg PO DAILY 0RF solifenacin 10 mg tablet 10 mg PO DAILY 0RF Held furosemide 40 mg tablet 40 mg PO QAM Qty: 90 0RF Hold Instructions: Resume on 02/01/22. diltiazem HCl [Cartia XT] 180 mg capsule,extended release 24hr 180 mg PO DAILY@20 90 Days Qty: 90 1RF Hold Instructions: Resume on 02/01/22. lisinopril 40 mg tablet 40 mg PO BID Qty: 180 1RF Hold Instructions: Resume on 02/01/22. spironolactone 25 mg tablet 25 mg PO BEDTIME 0RF Hold Instructions: Resume on 02/01/22. metoprolol succinate 100 mg capsule,sprinkle,ER 24hr 100 mg PO BEDTIME 0RF Hold Instructions: Resume on 02/01/22. Discontinued levothyroxine [Euthyrox] 125 mcg tablet See Rx Instructions .ROUTE .COMPLEX Qty: 30 0RF Dose Instruction: TAKE 1 TABLET BY MOUTH ONCE DAILY AT 0700 Rx Instructions: TAKE 1 TABLET BY MOUTH ONCE DAILY AT 0700 Discharge Orders: Discharge Order (Routine); Ordered 01/18/22 Ordered By: Jimmy Haynes Referrals: Sarahi Quinteros MD [Physician] - 7-10 days Katarina Canela DO [Primary Care Provider] - 1-3 days Patient Instructions: Opioid Safety Activity Restrictions/Additional Instructions: - Please follow-up with primary care provider in 1 week -Please follow-up with cardiology in 1 week -Please hydrate well, drink plenty of electrolyte balance fluids -Please hold metoprolol, spironolactone, lisinopril, diltiazem until you see your cardiology -Also hold Lasix 40 mg once daily however if you start to develop lower extremity edema or shortness of breath, can start it on once daily -I have increased your levothyroxine dose to 137 mcg once daily, recheck TSH in 6 weeks -Take antibiotics for UTI Discharge Attestations Time Spent in Discharge Care*: less than 30 min Quality Metrics Clinical Quality Measures [ No reported AMI, CVA or VTE this stay] Coding Level of Care Code Acute Chg FW DC note Diagnoses Pre-syncope R55 Postural fatigue M62.89 CHIN (acute kidney injury) N17.9 Hypothyroidism E89.0 Hypothyroidism type: postoperative UTI (urinary tract infection) N39.0
[2022-01-18 11:43] VITALS: BP 118/77; PULSE 97; RESP 16; TEMP 36; O2SAT 97
== END 2022-01-18 15:05 | disposition home or self-care (01) ==
LOC: ER 21:09 → MEDSURG 01-17 07:25
PROVIDERS: Admitting Provider Internal Medicine; Emergency Provider Emergency Medicine; PCP Family Medicine; Visit Provider Family Medicine
DX: R55 Syncope and collapse (principal); M62.89 Other specified disorders of muscle; N17.9 Acute kidney failure, unspecified; E89.0 Postprocedural hypothyroidism; N39.0 Urinary tract infection, site not specified; Z79.52 Long term (current) use of systemic steroids; M06.9 Rheumatoid arthritis, unspecified; K21.9 Gastro-esophageal reflux disease without esophagitis; I10 Essential (primary) hypertension; F41.9 Anxiety disorder, unspecified; M79.7 Fibromyalgia; E03.9 Hypothyroidism, unspecified; R06.02 Shortness of breath
CPT/HCPCS: 36415; 70450; 71045; 74176; 80053; 81001; 81003; 82533; 82550; 82570; 83735; 83880; 84439; 84443; 84484; 84540; 85025; 86140; 87077; 87086; 87186; 87635; 93005; 93306; 96365; 97161; 99285; G0378; J0696; J1720; J7030; J7512

== ENCOUNTER → 2022-02-16 08:55 | Outpatient (BNVA) | payer BC, SELFPAY | PROVIDERS: PCP Family Medicine; Visit Provider Family Medicine | DX: N30.01 Acute cystitis with hematuria (principal) | CPT/HCPCS: 81000 ==

== ENCOUNTER → 2022-06-29 08:24 | Outpatient (BNVA) | payer BC, SELFPAY | PROVIDERS: PCP Family Medicine; Visit Provider Family Medicine | DX: E89.0 Postprocedural hypothyroidism (principal); I10 Essential (primary) hypertension | CPT/HCPCS: 80061; 83721; 84439; 84443 ==

== ENCOUNTER 2022-10-15 11:23 | Outpatient (CLI) | payer BC, SELFPAY ==
[2022-10-15 12:50] LABS: Basophils # 0.1 10^3/uL (0.0-0.1); Basophils % 0.9 %; Eosinophils # 0.1 10^3/uL (0.0-0.8); Eosinophils % 0.7 %; Hematocrit 42.4 % (37.0-47.0); Hemoglobin 13.9 g/dL (11.5-15.3); Lymphocytes # 2.8 10^3/uL (0.8-4.8); Lymphocytes % 27.4 %; Mean Corpuscular HGB Conc 32.8 g/dL (30.0-36.0); Mean Corpuscular Hemoglobin 29.3 pg (28.0-34.0); Mean Corpuscular Volume 89.3 fl (81-99); Mean Platelet Volume 9.8 fL (7.4-10.4); Monocytes # 0.8 10^3/uL (0.2-0.9); Monocytes % 8.2 %; Neutrophils # 6.27 10^3/uL (1.8-7.7); Neutrophils % 62.5 %; Nucleated Red Blood Cells % 0 %; Platelet Count 419 10^3/cmm (130-400); Red Blood Count 4.75 10^6/uL (4.1-5.3)
[2022-10-15 13:13] LABS: Alanine Aminotransferase 24 U/L (0-33); Albumin Level 4.7 g/dL (3.5-5.2); Alkaline Phosphatase 96 U/L (35-105); Aspartate Amino Transferase 28 U/L (0-32); Globulin 3.2 g/dL (1.3-4.6); Glomerular Filtration Rate 55.5 mL/min (90-130); Total Bilirubin 0.4 mg/dL (0.15-1.2); Total Protein 7.9 g/dL (6.6-8.7)
== END 2022-10-15 11:24 | disposition home or self-care (01) ==
LOC: LAB 11:27
PROVIDERS: PCP Family Medicine; Visit Provider Internal Medicine Rheumatology
DX: M32.9 Systemic lupus erythematosus, unspecified (principal); Z79.899 Other long term (current) drug therapy
CPT/HCPCS: 36415; 80076; 82565; 85025; 86140

== ENCOUNTER → 2022-11-15 10:31 | Outpatient (BNVA) | payer BC, SELFPAY | PROVIDERS: PCP Family Medicine; Visit Provider Family Medicine | DX: E03.9 Hypothyroidism, unspecified (principal) | CPT/HCPCS: 84439; 84443 ==

== ENCOUNTER → 2022-11-20 10:43 | Outpatient (BNVA) | payer BC, SELFPAY | PROVIDERS: PCP Family Medicine; Visit Provider Internal Medicine Cardiovascular Disease | DX: R07.9 Chest pain, unspecified (principal) | CPT/HCPCS: 93005 ==

== ENCOUNTER → 2023-01-04 09:21 | Outpatient (BNVA) | payer BC, SELFPAY | PROVIDERS: PCP Family Medicine | DX: E89.0 Postprocedural hypothyroidism (principal) | CPT/HCPCS: 84439; 84443 ==

== ENCOUNTER → 2023-01-21 09:37 | Outpatient (BNVA) | payer BC, SELFPAY | PROVIDERS: PCP Family Medicine; Referring Provider Neurological Surgery; Visit Provider Anesthesiology Pain Medicine | DX: M54.16 Radiculopathy, lumbar region (principal); Z98.1 Arthrodesis status | CPT/HCPCS: 72120 ==

== ENCOUNTER 2023-02-06 10:07 | Outpatient (CLI) | payer BC, SELFPAY ==
--- NOTE | 2023-02-06 10:15 | MR_ITS ---
WS: [id number] MRI LUMBAR SPINE NONCONTRAST HISTORY: M54.16 - Radiculopathy, lumbar region COMPARISON: 03/21/2021, 01/21/2023 TECHNIQUE: Sagittal and axial multisequence imaging is submitted. Patient is status post extensive posterior lumbar fusion hardware extending from L2 to S1. Anterior f usion hardware and interbody spacers at L4-5 and L5-S1. Straightening of the normal lumbar alignment. Disc spaces are mildly narrowed. No acute fracture. Conus terminates normally at L1. L1-L2: Bilateral facet arthritis. No stenosis. L2-L3: Mild subarticular recess and foraminal narrowing. No high-grade stenosis. Moderate facet arthr itis. L3-L4: Artifact from the hardware. No central stenosis. Very slight LEFT foraminal narrowing. Large p osterior laminectomy defect. L4-L5: Large posterior laminectomy defect. Clumping of the nerve roots in the thecal sac with facet a rthritis. Neural foramina are obscured by artifact. L5-S1: Patent thecal sac with clumping and peripheral distribution of the nerve roots. Foramina are p oorly visualized. No central stenosis. Facet joint arthritis throughout the lumbar spine. Mild atherosclerosis aorta. MR/MR lumbar spine wo con* [id number] IMPRESSION: 1. Extensive posterior lumbar fusion from L2 to S1 with anterior fusion and in terbody spacers at L4-5 and L5-S1. 2. No acute fractures. 3. No high-grade central stenosis. 4. Arachnoiditis. 5. Large hemilaminectomy defects from L3 to L5. 6. Mild subarticular recess and foraminal encroachment at L2-3.
== END 2023-02-06 10:08 | disposition home or self-care (01) ==
LOC: RAD 10:09
PROVIDERS: PCP Family Medicine; Visit Provider Anesthesiology Pain Medicine
DX: M54.16 Radiculopathy, lumbar region (principal); Z98.1 Arthrodesis status
CPT/HCPCS: 72148

== ENCOUNTER 2023-03-20 09:07 | Outpatient (CLI) | payer BC, SELFPAY ==
--- NOTE | 2023-03-20 09:43 | MM_ITS ---
WS: [id number] BILATERAL SCREENING DIGITAL TOMOSYNTHESIS MAMMOGRAM WITH CAD HISTORY: screening mammogram COMPARISON: 08/15/2020 and 05/18/2016 Bilateral CC and MLO views with tomosynthesis and synthetic mammography submitted. Computer aided det ection analyzed. Breast composition: There are scattered areas of fibroglandular density. No suspicious masses, microc alcifications or architectural distortion. Benign calcifications in each breast. IMPRESSION: MM/[place] [id number] BI-RADS: 2-Benign FOLLOW UP: 1 Year Follow-up
== END 2023-03-20 09:08 | disposition home or self-care (01) ==
PROVIDERS: PCP Family Medicine; Visit Provider Family Medicine
DX: Z12.31 Encounter for screening mammogram for malignant neoplasm of breast (principal)
CPT/HCPCS: 77063; 77067

== ENCOUNTER → 2023-03-25 12:53 | Outpatient (BNVA) | payer BC, SELFPAY | PROVIDERS: PCP Family Medicine; Visit Provider Anesthesiology Pain Medicine | DX: M16.9 Osteoarthritis of hip, unspecified (principal) | CPT/HCPCS: 77002 ==

== ENCOUNTER 2023-04-17 13:23 | Outpatient (CLI) | payer BC, SELFPAY ==
[2023-04-17 13:41] LABS: Basophils # 0.1 10^3/uL (0.0-0.1); Eosinophils # 0.2 10^3/uL (0.0-0.8); Eosinophils % 2.2 %; Hematocrit 38.9 % (36-47); Lymphocytes # 2.2 10^3/uL (0.8-4.8); Lymphocytes % 26.5 %; Mean Corpuscular HGB Conc 32.6 g/dL (30-55); Mean Platelet Volume 10.1 fL (7.4-10.4); Monocytes # 0.9 10^3/uL (0.2-0.9); Neutrophils # 4.92 10^3/uL (1.8-7.7); Neutrophils % 59.1 %; Nucleated Red Blood Cells % 0 %; Platelet Count 324 10^3/cmm (157-399); Red Blood Count 4.23 10^6/uL (3.85-5.65); Red Cell Distribution Width 15.3 % (12.1-15.1); White Blood Count 8.33 10^3/uL (3.29-11.43)
[2023-04-17 13:44] LABS: Urine Color Yellow (Yellow)
[2023-04-17 13:45] LABS: Bilirubin Urine 1+ (Negative); Blood Urine 3+ (Negative); Glucose Urine UA Norm (Normal); Ketones Urine 1+ (Negative); Leukocyte Esterase Urine 2+ (Negative); Nitrate Urine Negative (Negative); Protein Urine 1+ (Negative); Urine Appearance Clear (CLEAR); Urobilinogen Urine 1 mg/dL (Negative); pH Urine 5 (5-7)
[2023-04-17 13:56] LABS: RBC Urine 0-4 /hpf (0-2)
[2023-04-17 13:57] LABS: Bacteria Urine TRACE /hpf; Mucus Urine 2+ /hpf; Renal Epithelial Cells Urine RARE /hpf; Squamous Epithelial Cell Urine 0-4 /hpf (0-5)
[2023-04-17 13:58] LABS: Add Urine Culture? Yes
[2023-04-17 14:05] LABS: Alanine Aminotransferase 28 U/L (0-33); Albumin Level 4.3 g/dL (3.5-5.2); Alkaline Phosphatase 107 U/L (35-105); Aspartate Amino Transferase 31 U/L (0-32); Globulin 2.9 g/dL (1.3-4.6); Glomerular Filtration Rate 71.8 mL/min (90-130); Total Bilirubin 0.3 mg/dL (0.15-1.2); Total Protein 7.2 g/dL (6.6-8.7)
== END 2023-04-17 13:24 | disposition home or self-care (01) ==
LOC: LAB 13:24
PROVIDERS: PCP Family Medicine; Visit Provider Internal Medicine Rheumatology
DX: M32.9 Systemic lupus erythematosus, unspecified (principal); Z79.899 Other long term (current) drug therapy
CPT/HCPCS: 36415; 80076; 81001; 82565; 85025; 86140; 87086

== ENCOUNTER 2023-05-09 13:21 | Outpatient (CLI) | payer BC, SELFPAY ==
--- NOTE | 2023-05-09 13:45 | USCV_ITS ---
Nanette Simental Age: 67 Gender: F : 1955 Exam Date: 05/09/2023 14:00 Ordering Phys: Quiana Long Technologist: RICA Exam Location: [facility] [place] Indication: CARDIOMOPATHY BP: 140 / 76 HR: 70 Rhythm: Sinus Technical Quality: Adequate MEASUREMENTS (Male / Female) Normal Values 2D ECHO LVOT Diameter 2.0 cm LV Ejection Fraction MOD 2C 68.7 % LV Ejection Fraction 2C AL 72.0 % LA Diameter 2.6 cm LA Width 2.8 cm LA Height 3.9 cm RA Width 2.9 cm RA Height 3.3 cm Aorta at Sinotubular Diameter 2.0 cm M-MODE Aortic Annulus Diameter 3.0 cm LA Ao Ratio MM 0.9 MV E Point Septal Separation 0.5 cm DOPPLER AV Peak Velocity 151.0 cm/s LVOT Peak Velocity 123.0 cm/s AV Area Cont Eq vti 2.3 cm squared AV Area Cont Eq pk 2.6 cm squared MV Peak Velocity 80.0 cm/s MV Area PHT 2.8 cm squared Mitral E to A Ratio 0.9 MV E' Velocity 41.0 cm/s Mitral E to MV E' Ratio 8.1 Mitral E to LV E' Lateral Ratio 5.8 Mitral E to LV E' Septal Ratio 13.5 TR Peak Velocity 168.1 cm/s TR Peak Gradient 11.3 mmHg TR Mean Velocity 141.2 cm/s TR Mean Gradient 8.2 mmHg TR Velocity Time Integral 47.6 cm TV Peak E Velocity 64.0 cm/s Right Atrial Pressure 8.0 mmHg Pulmonary Artery Systolic Pressu 19.3 mmHg PV Peak Velocity 104.0 cm/s RV Acceleration Time 0.1 s RV Ejection Time 0.3 s RV AcT/ET 0.3 FINDINGS Left Ventricle Normal left ventricular size, systolic function and moderately increased wall thickness, with no regional wall motion abnormalities. Moderate concentric left ventricular hypertrophy. Left ventricular ejection fraction is estimated at 60 %. Normal diastolic function. Right Ventricle Normal right ventricular size and systolic function. Right ventricular systolic pressure 19.3 mmHg. Right Atrium Normal right atrial size. Aneurysmal interatrial septum. Left Atrium Mildly increased left atrial size. Mitral Valve Structurally normal mitral valve. No mitral valve stenosis. Trace mitral valve regurgitation. Aortic Valve Structurally normal trileaflet aortic valve. No aortic valve stenosis. No aortic valve regurgitation. Tricuspid Valve Structurally normal tricuspid valve. No tricuspid valve stenosis. No tricuspid valve regurgitation. Pulmonic Valve Pulmonic valve not well visualized. Pericardium No pericardial effusion. Aorta Normal size aortic root and proximal ascending aorta. IVC Inferior vena cava not visualized. CONCLUSIONS 1. Normal left ventricular size, systolic function and moderately increased wall thickness, with no regional wall motion abnormalities. Moderate concentric left ventricular hypertrophy. Left ventricular ejection fraction is estimated at 60 %. Normal diastolic function. 2. Aneurysmal interatrial septum. 3. Normal pumlonary artery pressure. 4. When compared to study dated 01/17/22, LVOT obstruction is not seen. Sherrill Gann MD (Electronically Signed) Final Date: 12 May 2023 14:53 S
== END 2023-05-09 13:22 | disposition home or self-care (01) ==
LOC: RAD 13:21
PROVIDERS: PCP Family Medicine; Visit Provider Nurse Practitioner Family
DX: I42.1 Obstructive hypertrophic cardiomyopathy (principal)
CPT/HCPCS: 93306

== ENCOUNTER → 2023-08-20 10:02 | Outpatient (BNVA) | payer BC, SELFPAY | PROVIDERS: PCP Family Medicine; Visit Provider Family Medicine | DX: E89.0 Postprocedural hypothyroidism (principal) | CPT/HCPCS: 84439; 84443 ==

== ENCOUNTER → 2023-09-09 11:55 | Outpatient (BNVA) | payer BC, SELFPAY | PROVIDERS: PCP Family Medicine; Visit Provider Internal Medicine Rheumatology | DX: M32.9 Systemic lupus erythematosus, unspecified (principal); Z79.899 Other long term (current) drug therapy; R76.8 Other specified abnormal immunological findings in serum | CPT/HCPCS: 80076; 81001; 82565; 85025; 86140; 86160; 87077; 87086; 87186 ==

== ENCOUNTER → 2023-10-15 10:21 | Outpatient (BNVA) | payer BC, SELFPAY | PROVIDERS: PCP Family Medicine; Visit Provider Nurse Practitioner Family | DX: E89.0 Postprocedural hypothyroidism (principal) | CPT/HCPCS: 84439; 84443 ==

== ENCOUNTER → 2023-10-28 15:05 | Outpatient (BNVA) | payer BC, SELFPAY | PROVIDERS: PCP Family Medicine; Visit Provider Family Medicine | DX: R41.82 Altered mental status, unspecified; E89.0 Postprocedural hypothyroidism | CPT/HCPCS: 80053; 84439; 84443; 85025; 85651; 86140 ==

== ENCOUNTER 2023-10-31 06:48 | Outpatient (CLI) | payer BC, SELFPAY ==
--- NOTE | 2023-10-31 07:00 | CT_ITS ---
WS: [id number] CT HEAD NONCONTRAST HISTORY: headache, covid, mental status change, orthostatic htn TECHNIQUE: Contiguous axial imaging performed through the brain in 2.5 mm imaging. Bone and soft tiss ue windows. Sagittal and coronal reformats reviewed. All CT scans at [facility] use at least one of these dose optimization techniques: automated exposure control; mA and/or kV adjustment per pa tient size (includes targeted exams where dose is matched to clinical indication); or iterative recon struction. DLP: 1098.69 mGy.cm COMPARISON: 01/16/2022 No acute intracranial hemorrhage, midline shift or mass effect. Mild atrophy and small vessel ischemic disease. No prior infarcts. Small vessel disease has slightly progressed since 01/16/2022. There is also mild cerebellar atrophy. Ventricles: Normal size with no hydrocephalus. No inferior displacement of the cerebellar tonsils. Paranasal sinuses: As visualized are clear. Mastoid air cells: Well pneumatized. Calvarium and scalp: Skull is intact with no soft tissue edema or swelling. IMPRESSION: 1. No acute intracranial hemorrhage or edema. 2. Diffuse cerebral and cerebellar atrophy and small vessel ischemic disease. Small vessel ischemic disease has slightly progressed since 01/16/2022.
== END 2023-10-31 06:49 | disposition home or self-care (01) ==
LOC: RAD 06:48
PROVIDERS: PCP Family Medicine; Visit Provider Family Medicine
DX: R41.82 Altered mental status, unspecified (principal); I95.1 Orthostatic hypotension; R51.9 Headache, unspecified; U07.1 COVID-19; G31.9 Degenerative disease of nervous system, unspecified; I67.89 Other cerebrovascular disease
CPT/HCPCS: 70450

== ENCOUNTER → 2023-12-03 11:52 | Outpatient (BNVA) | payer BC, SELFPAY | PROVIDERS: PCP Family Medicine; Visit Provider Nurse Practitioner | DX: R39.9 Unspecified symptoms and signs involving the genitourinary system | CPT/HCPCS: 81000 ==

== ENCOUNTER → 2024-01-07 10:19 | Outpatient (BNVA) | payer BC, SELFPAY | PROVIDERS: PCP Family Medicine; Visit Provider Family Medicine | DX: R39.9 Unspecified symptoms and signs involving the genitourinary system (principal) | CPT/HCPCS: 81000 ==

== ENCOUNTER → 2024-02-14 14:08 | Outpatient (BNVA) | payer BC, SELFPAY | DX: E89.0 Postprocedural hypothyroidism (principal); I10 Essential (primary) hypertension; E78.5 Hyperlipidemia, unspecified | CPT/HCPCS: 80053; 80061; 84439; 84443; 84481; 85025 ==

== ENCOUNTER 2024-05-13 16:07 | Outpatient (CLI) | payer BC, SELFPAY ==
--- NOTE | 2024-05-13 16:30 | CT_ITS ---
WS: [id number] CT HEAD WITH AND WITHOUT CONTRAST HISTORY: facial droop TECHNIQUE: Noncontrast 2.5 mm axial images obtained from the vertex to the skull base. Additional vera ging performed at 2.5 mm axial images status post IV contrast. Bone and soft tissue windows are revie wed. All CT scans at [facility] use at least one of these dose optimization techniques: autom ated exposure control; mA and/or kV adjustment per patient size (includes targeted exams where dose i s matched to clinical indication); or iterative reconstruction. CONTRAST: Omnipaque 350; 100 mL IV. DLP: 2276.26 mGy.cm COMPARISON: 10/31/2023 No acute intracranial hemorrhage, edema or midline shift. Mild atrophy and mild scattered small vesse l ischemic disease. No significant progression since the prior examination. No acute infarct. No enhancing masses are identified. Bilateral small venous angiomas are noted in the posterior fronto temporal regions. Dural venous sinuses are normally enhancing. Visualized [place] is unremarkable. Mildly ectatic basilar artery. No occlusion middle cereb ral arteries. Paranasal sinuses as visualized: Clear. Mastoid air cells: Clear. Calvarium and scalp: Intact. CT/CT head wo/w con [id number] IMPRESSION: 1. Mild cerebral atrophy and small vessel disease is stable. 2. No enhancing mass. 3. No new infarct or hemorrhage. 4. Bilateral frontotemporal venous angiomas.
[2024-05-13 16:55] LABS: Blood Urea Nitrogen 16 mg/dL (8-23); Glomerular Filtration Rate 99.7 mL/min (90-130)
[2024-05-13] MEDS: iohexol 350 mg/mL 500 mL Btl (per mL) IV (17:06)
== END 2024-05-13 16:08 | disposition home or self-care (01) ==
LOC: RAD 16:08
DX: D18.02 Hemangioma of intracranial structures (principal); R29.810 Facial weakness; R41.82 Altered mental status, unspecified
CPT/HCPCS: 70470; 82565; 84520

== ENCOUNTER → 2024-05-21 11:24 | Outpatient (BNVA) | payer BC, SELFPAY | DX: R39.9 Unspecified symptoms and signs involving the genitourinary system (principal) | CPT/HCPCS: 81000 ==

== ENCOUNTER → 2024-06-09 11:07 | Outpatient (BNVA) | payer BC, SELFPAY | PROVIDERS: Visit Provider Internal Medicine Cardiovascular Disease | DX: R06.02 Shortness of breath (principal); R07.9 Chest pain, unspecified; M06.9 Rheumatoid arthritis, unspecified; Z79.899 Other long term (current) drug therapy; I49.8 Other specified cardiac arrhythmias; R94.31 Abnormal electrocardiogram [ECG] [EKG] | CPT/HCPCS: 36415; 80048; 80076; 83880; 85025; 85651; 86140; 93005 ==

== ENCOUNTER 2024-07-10 06:37 | Outpatient (CLI) | payer BC, SELFPAY ==
--- NOTE | 2024-07-10 07:00 | USCV_ITS ---
Nanette Simental Age: 68 Gender: F : 1955 Exam Date: 07/10/2024 07:08 Ordering Phys: Sarahi Quinteros MD ([email or web address]) Technologist: Edilberto Paris Exam Location: [facility] – [place] Indication: IHSS BP: 124 / 76 HR: 55 Rhythm: Sinus Technical Quality: Adequate MEASUREMENTS (Male / Female) Normal Values 2D ECHO LV Diastolic Diameter PLAX 5.4 cm 4.2 - 5.9 / 3.9 - 5.3 cm IVS Diastolic Thickness 1.1 cm 0.6 - 1.0 / 0.6 - 0.9 cm IVS Systolic Thickness 1.4 cm LVPW Diastolic Thickness 1.7 cm 0.6 - 1.0 / 0.6 - 0.9 cm LVPW Systolic Thickness 2.4 cm LVOT Diameter 2.0 cm LV Ejection Fraction 2D Teich 55.5 % LV Ejection Fraction MOD 4C 60.4 % LV Ejection Fraction MOD 2C 67.2 % LV Ejection Fraction 2C AL 67.1 % LA Diameter 3.1 cm RA Systolic Volume 4C AL 39.1 ml RA Systolic Volume 4C MOD 36.5 ml LA Sys Volume AL 33.7 cm cubed LA Sys Volume Index AL 16.5 cm cubed/m squared Aorta at Sinotubular Diameter 2.2 cm IVC Diameter 1.7 cm M-MODE LA Ao Ratio MM 1.3 AV Cusp Separation MM 1.6 cm DOPPLER AV Peak Velocity 111.7 cm/s LVOT Peak Velocity 74.0 cm/s AV Area Cont Eq vti 2.0 cm squared AV Area Cont Eq pk 2.1 cm squared MV Peak Velocity 432.3 cm/s MV Area PHT 4.5 cm squared Mitral E to A Ratio 0.9 TV Peak Velocity 196.0 cm/s TR Peak Velocity 223.5 cm/s TR Peak Gradient 20.0 mmHg TR Mean Velocity 184.0 cm/s TR Mean Gradient 14.0 mmHg TR Velocity Time Integral 59.4 cm PV Peak Velocity 87.3 cm/s RV Ejection Time 0.3 s FINDINGS Left Ventricle Normal left ventricular size and systolic function, EF 67%.no regional wall motion abnormalities. Mild left ventricular hypertrophy. Right Ventricle The right ventricle is normal in size and function. Right Atrium The right atrium is normal in size. Left Atrium The left atrium is normal in size. Mitral Valve Mild to moderate mitral valve regurgitation. Aortic Valve Minimally thickened aortic valve.trace aortic valve regurgitation. Tricuspid Valve Trace tricuspid valve regurgitation. Estimated pulmonary artery peak systolic pressure 23 mmHg Pulmonic Valve No gross abnormalities noted Pericardium Normal pericardium without effusion. Aorta Normal ascending aorta dimension. IVC The inferior vena cava appears normal. CONCLUSIONS Normal left ventricular size and systolic function, EF 67%.no regional wall motion abnormalities. Mild left ventricular hypertrophy. Mild to moderate mitral valve regurgitation. Minimally thickened aortic valve.trace aortic valve regurgitation. Trace tricuspid valve regurgitation. Estimated pulmonary artery peak systolic pressure 23 mmHg. There are no intracardiac masses. There is no pericardial effusion. There is no evidence of LV outflow tract obstruction Compared to the study from 05/09/2023, there may not be a significant change Dr Sarahi Quinteros MD [facility] (Electronically Signed) Final Date: 16 July 2024 08:21 S
== END 2024-07-10 06:38 | disposition home or self-care (01) ==
LOC: RAD 06:38
PROVIDERS: Visit Provider Internal Medicine Cardiovascular Disease
DX: I34.0 Nonrheumatic mitral (valve) insufficiency (principal); R06.09 Other forms of dyspnea
CPT/HCPCS: 93306

== ENCOUNTER → 2024-08-04 15:53 | Outpatient (BNVA) | payer BC, SELFPAY | PROVIDERS: PCP Family Medicine; Visit Provider Family Medicine | DX: R73.01 Impaired fasting glucose (principal); Z79.52 Long term (current) use of systemic steroids; R82.90 Unspecified abnormal findings in urine | CPT/HCPCS: 83036; 87086 ==

== ENCOUNTER 2024-08-19 09:01 | Observation (INO) | payer BC, SELFPAY ==
[2024-08-19] VITALS (8 sets, daily range): BP systolic 119–156; BP diastolic 73–95; PULSE 62–80; RESP 16–22; TEMP 36.4–36.5; O2SAT 92–97
--- NOTE | 2024-08-19 09:22 | CT_ITS ---
WS: [id number] CT HEAD NONCONTRAST HISTORY: fall, head injury TECHNIQUE: Contiguous axial imaging performed through the brain. Bone and soft tissue windows. Sagittal and coronal reformats reviewed. All CT scans at [facility] use at least one of these dose optimization techniques: automated exposure control; mA and/or kV adjustment per patient size (includes targeted exams where dose is matched to clinical indication); or iterative reconstruction. DLP: 1057.98 mGy.cm COMPARISON: 05/13/2024 No acute intracranial hemorrhage, midline shift or mass effect. Mild atrophy and small vessel disease. No prior infarct. Ventricles: Normal size with no hydrocephalus. Paranasal sinuses: As visualized are clear. Mastoid air cells: Well pneumatized. Calvarium and scalp: Skull is intact with no soft tissue edema or swelling. CT/CT head wo con* [id number] IMPRESSION: 1. No acute intracranial hemorrhage or edema. 2. Mild atrophy and small vessel disease. 3. No skull fracture or hematoma.
--- NOTE | 2024-08-19 09:22 | XR_ITS ---
WS: [id number] Portable AP upright chest, 08/19/2024 Clinical Data: Weakness Comparison: Portable chest, 01/16/2022 Findings: No nodules, masses or effusions are seen. The heart is normal. The pulmonary vascularity is not increased. No pneumonia or pneumothorax is seen. The aortic arch shows tortuosity. There are surgical clips in the left supraclavicular region. XR/XR chest 1V portable [id number] Impression: Atherosclerosis.
--- NOTE | 2024-08-19 09:59 | ED_ITS ---
HPI - Neuro Symptoms/Deficit 2 General: Chief Complaint: Neuro Symptoms/Deficit Stated Complaint: fall, weakness, headaches Time Seen by Provider: 08/19/24 09:51 Source: patient Mode of arrival: ambulatory Limitations: no limitations History of Present Illness: 68-year-old female states over the last 2 to 3 days she has been having dizziness she states that when she stands and tries to walk she feels off and has an ataxic gait she states she is fell as well and hit her head last night states she has had some forgetfulness and just not feeling right. Had a mild headache denies any chest pain denies any vomiting denies any fever recently diagnosed UTI Associated symptoms: Reports headache(s); Deny chest pain, nausea or vomiting Related Data Home Medications ?Medication ?Instructions ?Recorded ?Confirmed acetaminophen 650 mg 1,300 mg PO BID 10/23/1912/06 tablet,extended release (Tylenol Arthritis Pain) cholecalciferol (vitamin D3) 50 50 mcg PO DAILY@07 09/0408/19/24 mcg (2,000 unit) capsule duloxetine 60 mg capsule,delayed 60 mg PO QPM 08/19/24 08/19/24 release Previous Rx's ?Medication ?Instructions ?Recorded AUTO-TITRATING CPAP #1 ea 03/07/21 fluticasone propionate 50 1 spray intranasal BID #16 g naeem 07/31/23 mcg/actuation nasal spray,suspension (Flonase Allergy Relief) diltiazem HCl 120 mg 120 mg PO BID #60 caps 12/10 capsule,extended release 12 hr metoprolol tartrate 75 mg tablet 75 mg PO BID #180 tab s 12/12/23 estradiol 0.01% (0.1 mg/gram) 1 g vaginal .3 times/wk #42.5 grams 02/14/24 vaginal cream omeprazole 20 mg capsule,delayed See Rx Instructions . Route 04/28/24 release .COMPLEX #90 caps gabapentin 300 mg capsule See Rx Instructions PO .COMP ABBI 06/09/24 #120 caps prednisone 5 mg tablet 5 mg PO DAILY #90 tabs 06/09 atorvastatin 20 mg tablet 20 mg PO DAILY #90 tabs 07/16 08/08 clonazepam 2 mg tablet 2 mg PO TID 90 days #270 tab s 08/04/24 duloxetine 30 mg capsule,delayed 30 mg PO DAILY #90 ea 08/04/24 release levothyroxine 175 mcg tablet 175 mcg PO DAILY #90 tabs 08/04/24 metformin 500 mg tablet 500 mg PO BID #180 tabs 07/16 10/06 cyclobenzaprine 10 mg tablet See Rx Instructions .Rout e 08/18/24 .COMPLEX #90 tabs Allergies Allergy/AdvReac Type Severity Reaction Status Date / Time sulfasalazine Allergy Intermediate bad Verified 08/04/24 14:58 headaches hydrocodone Allergy itch Verified 08/04/24 14:58 hydroxychloroquine Allergy adv-eye Verified 08/04/24 14:58 changes penicillin G Allergy rash Verified 08/04/24 14:58 oxycodone AdvReac Mild itching Verified 08/04/24 14:58 Review of Systems 2 Const: Denies: fever(s), chills, body aches or change in appetite Eyes: Denies: blurry vision ENMT: Denies: throat pain or dental pain Card: Denies: chest pain Resp: Denies: dyspnea GI: Denies: abdominal pain, nausea, vomiting or diarrhea : Denies: dysuria Musc: Denies: neck pain or back pain Skin/Breast: Denies: rash Neuro: Reports: headache(s), difficulty walking and dizziness PFSH ED 2 PFSH: Medical History Type 2 diabetes mellitus dxed 08.06.24 Postoperative hypothyroidism Glossodynia Dyslipidemia LISSET (obstructive sleep apnea) has CPAP but not compliant Bad odor of urine On prednisone therapy for SLE Fasting hyperglycemia Facial droop Depression Seropositive rheumatoid arthritis of multiple sites Inflammatory arthritis History of 2019 novel coronavirus disease (COVID-19) Rheumatoid arthritis SLE (systemic lupus erythematosus) Mixed stress and urge urinary incontinence HTN (hypertension) Anxiety Degenerative disc disease L4-L5, also cervical spine. 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 S/P laparoscopic appendectomy (08/16/20) Status post colonoscopy (~2019) History of thyroidectomy Previous back surgery hx of disc shaved off--2 X hx of plate/screws--anterior approach, then 3d later did redo through packing line operator approach--then 6 months later 2022 had to have screws reinforced History of partial hysterectomy ovaries remaining; done for bleeding; no cancer; had bladder lift at same time Family History Mother CAD (coronary artery disease) PA Stroke Dementia Father CAD (coronary artery disease), Onset Age: 70 Leukemia Congestive heart failure (CHF) Grandfather CAD (coronary artery disease) Chronic kidney disease (CKD) Grandmother CAD (coronary artery disease) afib Brother CAD (coronary artery disease) syncope Chronic kidney disease (CKD) Diabetes Brother CAD (coronary artery disease) PPM Chronic kidney disease (CKD) Diabetes Sister CAD (coronary artery disease) PPM Parkinson disease Other Hypertension Denies family history of Lupus (systemic lupus erythematosus) Rheumatoid arthritis Clotting disorder Suicide Anesthesia complication Bleeding disorder Social History Smoking and tobacco/nicotine status: never used tobacco/nicotine Alcohol intake: never Substance/Drug Use: never Adopted: No Household members: spouse Marital status: Number of children: 2 Highest education level completed: High School Graduate service: No Current occupational status: retired Current occupational exposures/hazards: No 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 NIH stroke score 2 NIHSS: Level Of Consciousness - 1a: 0 Level Of Consciousness Questions - 1b: Both Correct Level Of Consciousness Commands - 1c: Both Correct Best Gaze - 2: Normal Visual [place] - 3: No Visual Loss Facial Palsy - 4: N ormal Motor Arm Right - 5: No Drift Motor Arm Left - 5: No Drift Motor Leg Right - 6: No Drift Motor Leg Left - 6: No Drift Limb Ataxia - 7: P resent In One Limb Sensory - 8: Normal Best Language - 9: No Aphasia D ysarthia - 10: Normal Extinction And Inattention - 11: 0 Score: Total Score: 1 Physical Exam 2 Const: COMMON NORMALS: patient oriented x3 HENMT: COMMON NORMALS: normocephalic and atraumatic HEAD & SCALP: n ormocephalic and atraumatic Eye: COMMON NORMALS: Equal, round and reactive pupils present and EOMs intact bilaterally PUPIL: Yes Equal, round and reactive pupils present Neck/C-Spine: COMMON NORMALS: full ROM and supple Chest: COMMONS NORMALS: normal inspection of the chest and normal palpation of entire chest wall Resp: COMMON NORMALS: normal respiratory effort, No retractions, No use of accessory muscles and clear to auscultation bilaterally AUSCULTATION: clear to auscultation bilaterally Cardio: COMMON NORMALS: regular rate, regular rhythm and No murmurs present (Cardio) RATE: regular rate RHYTHM: regular rhythm GI: COMMON NORMALS: Normal to inspection, nondistended, normoactive bowel sounds present, Soft to palpation, non-tender and no masses PALPATION: Yes Soft to palpation Extremity: COMMON NORMALS: normal to inspection and full ROM Neuro: COMMON NORMALS: patient oriented x3, moves all extremities and no focal motor deficits Psych: COMMON NORMALS: mental status grossly normal, Normal thought process present and cooperative THOUGHT PROCESS: Normal thought process present Skin: COMMON NORMALS: no rashes or lesions noted and no wounds GENERAL SKIN EXAM: no rashes or lesions noted Course 2 Vital Signs: Vital signs: Vital Signs Temperature 97.6 F 08/19/24 09:11 Pulse Rate 73 08/19/24 10:04 Respiratory Rate 22 H 08/19/24 10:04 Blood Pressure 142/89 08/19/24 10:04 Pulse Oximetry 94 08/19/24 10:04 Oxygen Delivery Me thod Room Air 08/19/24 09:11 MDM - Neuro Symptoms/Deficit Medical Decision Making Patient presents with vertigo did give her meclizine she is continue to have an ataxic gait here concerned of a posterior stroke. Her symptoms been going on for days she is not a lytic candidate I spoke to the hospitalist will admit at this time. Medical Records I reviewed the patient's medical records. Lab Data I reviewed the patient's lab results. 08/19/24 09:46 08/19/24 09:46 Radiology Impressions Chest X-Ray 08/19/24 09:22 Impression: Atherosclerosis. Head CT 08/19/24 09:22 IMPRESSION: 1. No acute intracranial hemorrhage or edema. 2. Mild atrophy and small vessel disease. 3. No skull fracture or hematoma. Laboratory Results WBC 8.42 10^3/uL (3.29-11.43) 08/19/24 09:46 RBC 4.99 10^6/uL (3.85-5.65) 08/19/24 09:46 Hgb 14.30 g/dL (11.27-16.99) 08/19/24 09:46 Hct 45.0 % (36-47) 08/19/24 09:46 MCV 90.2 fl (85-98) 08/19/24 09:46 MCH 28.7 pg (27-33) 08/19/24 09:46 MCHC 31.8 g/dL (30-55) 08/19/24 09:46 RDW 13.5 % (12.1-15.1) 08/19/24 09:46 Plt Count 302 10^3/cmm (157-399) 08/19/24 09:46 MPV 10.1 fL (7.4-10.4) 08/19/24 09:46 Neut % (Auto) 57.8 % 08/19/24 09:46 Lymph % (Auto) 30.2 % 08/19/24 09:46 [place] % (Auto) 9.3 % 08/19/24 09:46 Eos % (Auto) 1.2 % 08/19/24 09:46 Baso % (Auto) 1.1 % 08/19/24 09:46 Neut # (Auto) 4.88 10^3/uL (1.8-7.7) 08/19/24 09:46 Lymph # (Auto) 2.5 10^3/uL (0.8-4.8) 08/19/24 09:46 [place] # (Auto) 0.8 10^3/uL (0.2-0.9) 08/19/24 09:46 Eos # (Auto) 0.1 10^3/uL (0.0-0.8) 08/19/24 09:46 Baso # (Auto) 0.1 10^3/uL (0.0-0.1) 08/19/24 09:46 Nucleated RBC % (auto) 0 % 08/19/24 09:46 Nucleated RBCs # 0.0 /100WBC 08/19/24 09:46 Sodium 138 mmol/L (136-145) 08/19/24 09:46 Potassium 4.0 mmol/L (3.5-5.1) 08/19/24 09:46 Chloride 99 mmol/L (98-107) 08/19/24 09:46 Carbon Dioxide 24 mmol/L (22-29) 08/19/24 09:46 Anion Gap 19.0 (5-19) 08/19/24 09:46 BUN 15 mg/dL (8-23) 08/19/24 09:46 Creatinine 0.6 mg/dL (0.5-0.9) 08/19/24 09:46 GFR Calculation 99.7 mL/min (90-130) 08/19/24 09:46 Glucose 182 mg/dL (65-115) H 08/19/24 09:46 Calculated Osmolality 291 mOsm/kg (285-295) 08/19/24 09:46 Calcium 10.4 mg/dL (8.5-10.5) 08/19/24 09:46 Total Bilirubin 0.3 mg/dL (0.15-1.2) 08/19/24 09:46 AST 22 U/L (0-32) 08/19/24 09:46 ALT 30 U/L (0-33) 08/19/24 09:46 Alkaline Phosphatase 97 U/L (35-105) 08/19/24 09:46 C-Reactive Protein 3.0 mg/L (0.0-4.9) 08/19/24 09:46 Total Protein 7.7 g/dL (6.6-8.7) 08/19/24 09:46 Albumin 4.4 g/dL (3.5-5.2) 08/19/24 09:46 Globulin 3.3 g/dL (1.3-4.6) 08/19/24 09:46 Urine Color Dark yellow (Yellow) A 08/19/24 10:30 Urine Appearance Cloudy (CLEAR) A 08/19/24 10:30 Urine pH 5.5 (5-7) 08/19/24 10:30 Ur Specific [place] 1.039 (1.005-1.030) H 08/19/24 10:30 Urine Protein 1+ (Negative) A 08/19/24 10:30 Urine Glucose (UA) 2+ (Normal) H 08/19/24 10:30 Urine Ketones Trace (Negative) 08/19/24 10:30 Urine Blood Negative (Negative) 08/19/24 10:30 Urine Nitrate Negative (Negative) 08/19/24 10:30 Urine Bilirubin Negative (Negative) 08/19/24 10:30 Urine Urobilinogen 1.0 mg/dL (Negative) 08/19/24 10:30 Ur Leukocyte Esterase Negative (Negative) 08/19/24 10:30 Urine RBC 0-2 /hpf (0-2) 08/19/24 10:30 Urine WBC 0-5 /hpf (0-5) 08/19/24 10:30 Ur Squamous Epith Cells 11-20 /hpf (0-5) H 08/19/24 10:30 Amorphous Sediment Not Reportable 08/19/24 10:30 Urine Bacteria None seen /hpf (NONE) 08/19/24 10:30 Hyaline Casts 5.36 /lpf 08/19/24 10:30 Coronavirus (PCR) Negative (Negative) 08/19/24 09:55 Influenza A (PCR) Negative (Negative) 08/19/24 09:55 Influenza Type B (PCR) Negative (Negative) 08/19/24 09:55 RSV (PCR) Negative (Negative) 08/19/24 09:55 All radiology interpretation(s) finalized by discharge EKG Data EKG 1: I personally reviewed and interpreted this EKG as follows: EKG interpretation date: 08/19/24 EKG interpretation time: 10:01 Interpretation: nsr hr [address] elevation qrs 101qtc 403 Discharge Plan Discharge Patient Disposition: Admitted As Inpatient Clinical Impression: Vertigo Condition: Stable Prescriptions: No Action acetaminophen [Tylenol Arthritis Pain] 650 mg tablet extended release 1,300 mg PO BID (DME) AUTO-TITRATING CPAP See Rx Instructions .Route .MEDSUPPLY Qty: 1 0RF Rx Instructions: SETTING 6-14CM metoprolol tartrate 75 mg tablet 75 mg PO BID Qty: 180 3RF fluticasone propionate [Flonase Allergy Relief] 50 mcg/actuation spray,suspension 1 spray intranasal BID Qty: 16 0RF Rx Instructions: administer into each nostril estradiol 0.01 % (0.1 mg/gram) cream 1 g VAGINAL .3 times/wk Qty: 42.5 2RF duloxetine 30 mg capsule,delayed release(DR/EC) 30 mg PO DAILY Qty: 90 3RF Rx Instructions: in addition to 60mg atorvastatin 20 mg tablet 20 mg PO DAILY Qty: 90 3RF levothyroxine 175 mcg tablet 175 mcg PO DAILY Qty: 90 3RF clonazepam 2 mg tablet 2 mg PO TID 90 Days Qty: 270 1RF Rx Instructions: crush one tab mix with 5ml of water and coat mouth and spit out tid prn mouth pain gabapentin 300 mg capsule See Rx Instructions PO .COMPLEX Qty: 120 5RF Rx Instructions: take 1 in am, 1 early saniya and 2 at HS orally; prednisone 5 mg tablet 5 mg PO DAILY Qty: 90 1RF diltiazem HCl 120 mg capsule,extended release 12 hr 120 mg PO BID Qty: 60 5RF omeprazole 20 mg capsule,delayed release(DR/EC) See Rx Instructions .ROUTE .COMPLEX Qty: 90 1RF Dose Instruction: TAKE 1 CAPSULE BY MOUTH ONCE DAILY AT 0700 Rx Instructions: TAKE 1 CAPSULE BY MOUTH ONCE DAILY AT 0700 metformin 500 mg tablet 500 mg PO BID Qty: 180 1RF cyclobenzaprine 10 mg tablet See Rx Instructions .ROUTE .COMPLEX Qty: 90 0RF Dose Instruction: Take 1 tablet by mouth three times daily as needed for muscle spasm Rx Instructions: Take 1 tablet by mouth three times daily as needed for muscle spasm cholecalciferol (vitamin D3) 50 mcg (2,000 unit) capsule 50 mcg PO DAILY@07 duloxetine 60 mg capsule,delayed release(DR/EC) 60 mg PO QPM Rx Instructions: Take 1 capsule by mouth at bedtime Referrals: Matilda Yun MD [Primary Care Provider] - Print Language: Dominican Coding Level of Care Code ED Victim Witness Administrator for Tracey Rivero
--- NOTE | 2024-08-19 10:01 | ECG_ITS ---
[facility] (roll.to)[facility] Test Date: 2024-08-19 Pat Name: Nanette Simental Department: Room: Gender: Female Artist Suspect: : 1955 Requested By: Helena Lao Order Number: [id number] Simpson MD: Jhon Alonzo M.D. Measurements Intervals [place] Rate: 71 P: 24 [place]: 182 QRS: -8 QRSD: 101 T: 91 QT: 381 QTc: 415 Interpretive Statements SINUS RHYTHM POSSIBLE LEFT ATRIAL ENLARGEMENT [-0.1mV P-WAVE IN V1/V2] NONSPECIFIC ST & T-WAVE ABNORMALITY Compared to ECG 06/09/2024 11:14:40 T-wave abnormality now present Left ventricular hypertrophy no longer present ST (T wave) deviation no longer present Electronically Signed On 08-20-2024 21:59:58 [employer]ER by John Alonzo M.D. [id number] [id number]
[2024-08-19] MEDS: meclizine 25 mg tablet 50 MG PO (10:11)
--- NOTE | 2024-08-19 10:13 | PC.ADMIT ---
[email or web address] [address] [facility] Admission Note: The patient,Nanette Simental,68 y/o, was given written information regarding hospital policies, unit procedures and contact persons. Patient's smoking status: never smoked. Vital Signs - 8 hr 08/19/24 09:11 08/19/24 10:04 Temperature 97.6 F Pulse Rate 74 73 Respiratory Rate 18 22 H Blood Pressure 147/95 142/89 Pulse Oximetry 97 94 Oxygen Delivery Method Room Air Patient stated has headaches, blurred vision, weakness and dizziness for about 3 weeks with worsening over last 3 days, states on right side of head. Pain 7/10 with headaches. Patients states she has been more forgetful last 3 days with worsening. Patient went to sit in recliner last night and fell to the side on the floor, hit her head with no LOC. Patient noted to have blurred vision for 3 days.
[2024-08-19 10:20] LABS: Basophils # 0.1 10^3/uL (0.0-0.1); Basophils % 1.1 %; Eosinophils # 0.1 10^3/uL (0.0-0.8); Eosinophils % 1.2 %; Lymphocytes # 2.5 10^3/uL (0.8-4.8); Lymphocytes % 30.2 %; Mean Corpuscular HGB Conc 31.8 g/dL (30-55); Mean Corpuscular Hemoglobin 28.7 pg (27-33); Mean Corpuscular Volume 90.2 fl (85-98); Mean Platelet Volume 10.1 fL (7.4-10.4); Monocytes # 0.8 10^3/uL (0.2-0.9); Monocytes % 9.3 %; Neutrophils # 4.88 10^3/uL (1.8-7.7); Neutrophils % 57.8 %; Nucleated Red Blood Cells % 0 %; Platelet Count 302 10^3/cmm (157-399); Red Blood Count 4.99 10^6/uL (3.85-5.65); Red Cell Distribution Width 13.5 % (12.1-15.1); White Blood Count 8.42 10^3/uL (3.29-11.43)
[2024-08-19 10:40] LABS: Bilirubin Urine Negative (Negative); Blood Urine Negative (Negative); Glucose Urine UA 2+ (Normal); Ketones Urine Trace (Negative); Leukocyte Esterase Urine Negative (Negative); Nitrate Urine Negative (Negative); Protein Urine 1+ (Negative); Urine Appearance Cloudy (CLEAR); Urine Color Dark Yellow (Yellow); pH Urine 5.5 (5-7)
[2024-08-19 10:41] LABS: Alanine Aminotransferase 30 U/L (0-33); Albumin Level 4.4 g/dL (3.5-5.2); Alkaline Phosphatase 97 U/L (35-105); Aspartate Amino Transferase 22 U/L (0-32); Blood Urea Nitrogen 15 mg/dL (8-23); Calcium 10.4 mg/dL (8.5-10.5); Carbon Dioxide 24 mmol/L (22-29); Chloride 99 mmol/L (98-107); Creatinine Clr Calc Pharmacy 79.9251; Globulin 3.3 g/dL (1.3-4.6); Glomerular Filtration Rate 99.7 mL/min (90-130); Glucose 182 mg/dL (65-115); Osmolality Calculated 291 mOsm/kg (285-295); Sodium 138 mmol/L (136-145); Total Bilirubin 0.3 mg/dL (0.15-1.2); Total Protein 7.7 g/dL (6.6-8.7)
[2024-08-19 10:45] LABS: Bacteria Urine None Seen /hpf; Hyaline Casts Urine 5.36 /lpf; RBC Urine 0-2 /hpf (0-2); WBC Urine 0-5 /hpf (0-5)
[2024-08-19 10:48] LABS: Add Urine Culture? No; Specific Gravity, Urine 1.039 (1.005-1.030)
[2024-08-19 10:53] LABS: Influenza A NEGATIVE (Negative); Influenza B NEGATIVE (Negative); Respiratory Syncytial Virus Ce NEGATIVE (Negative); SARS-CoV-2 PCR NEGATIVE (Negative)
--- NOTE | 2024-08-19 11:04 | PC.NURSE ---
attempted ambulatory trial, pt states still unsteady. pt presents with side-stepping during ambulation. ED provider notified
--- NOTE | 2024-08-19 11:06 | PC.NURSE ---
pt and pt's verbalized desire to be discharged, denies any further needs/requests during discharge education. pt assisted to POV via wheelchair
--- NOTE | 2024-08-19 11:45 | ECG_ITS ---
[facility]24[facility]19 Pat Name: Nanette Simental Department: Room: Gender: Female Transitional Living Specialist: : 1955 Requested By: Helena Lao Order Number: [id number] Tatiana MD: John Alonzo M.D. Measurements Intervals [place] Rate: 65 P: 14 MT: 164 QRS: -1 QRSD: 97 T: 101 QT: 419 QTc: 438 Interpretive Statements SINUS RHYTHM WITH SINUS ARRHYTHMIA ST DEVIATION AND MODERATE T-WAVE ABNORMALITY, CONSIDER LATERAL ISCHEMIA [-0.1+ mV T-WAVE IN I/aVL/V5/V6] Compared to ECG 08/19/2024 10:01:12 Possible ischemia now present T-wave abnormality still present Electronically Signed On 08-20-2024 22:19:37 [employer]OOMC[employer] SEEDER by John Alonzo M.D. [id number]
--- NOTE | 2024-08-19 15:22 | ECG_ITS ---
[facility]: [facility]24[facility]19 Pat Name: Nanette Simental Department: Room: 259 Gender: Female Home Care Aide: : 1955 Requested By: Helena Lao Order Number: [id number] Tatiana MD: John Alonzo M.D. Measurements Intervals [place] Rate: 69 P: -12 [place]: 144 QRS: -12 QRSD: 97 T: 76 QT: 406 QTc: 438 Interpretive Statements SINUS RHYTHM NONSPECIFIC ST & T-WAVE ABNORMALITY Compared to ECG 08/19/2024 11:45:58 Sinus arrhythmia no longer present Possible ischemia no longer present T-wave abnormality still present Electronically Signed On 08-20-2024 22:18:47 BROOMMAKER by John Alonzo M.D. [id number]
--- NOTE | 2024-08-19 16:52 | P.HP_ITS ---
Providers/Chief Complaint 2 Admitting Physician: Gerardo Miller Primary Care Provider: Matilda Yun MD Chief Complaint: fall, weakness, headaches History of Present Illness Nanette Simental is a 68 year old female with rheumatoid arthritis, HTN, SLE, GERD, LISSET, degenerative spine disease, prior back surgery, who for the last 2 or 3 days has had difficulty walking. She states that it feels like her body wants to keep going in 1 direction, and she did have a fall yesterday hitting the back of her head. She denies any overt vertigo. Denies any recent flulike illness. Denies any fever. No ear pain, worsening hearing, ear drainage or other otic symptoms. She states also has dealt with some blurring of her vision for a while with some slight worsening over the last few days. She has been recently diagnosed with diabetes, her A1c was found to be above 8, and she is working with her primary provider to start on an oral hypoglycemic agent. Review of Systems 2 Const: Denies: fever(s), chills, body aches or malaise ENMT: Denies: throat pain Card: Denies: chest pain, edema, pre-syncope or dyspnea on exertion Resp: Denies: dyspnea, productive cough, change in phlegm color or hemoptysis GI: Denies: abdominal pain, nausea, vomiting, diarrhea, constipation, hematochezia or melena : Denies: flank pain, urinary frequency or hematuria Musc: Denies: back pain, joint swelling or joint redness Skin/Breast: Denies: rash or new lesions Neuro: Reports: difficulty walking and frequent falls; Denies: headache(s) or confusion Medications/Allergies Home Medications ?Medication ?Instructions ?Recorded ?Confirmed ?Last Taken ?Type acetaminophen 650 mg 1,300 mg PO BID 10/23/1912/0608/15/20 History tablet,extended release (Tylenol Arthritis Pain) cholecalciferol (vitamin D3) 50 50 mcg PO DAILY@09/0408/19/24 08/15/20 History mcg (2,000 unit) capsule AUTO-TITRATING CPAP #1 ea 03/07/21 08/19/24 Unkn own Rx fluticasone propionate 50 1 spray intranasal BID #16 g naeem 07/31/23 08/19/24 Unknown Rx mcg/actuation nasal spray,suspension (Flonase Allergy Relief) diltiazem HCl 120 mg 120 mg PO BID #60 caps 12/1008/19/24 Unknown Rx capsule,extended release 12 hr metoprolol tartrate 75 mg tablet 75 mg PO BID #180 tab s 12/12/23 08/19/24 Unknown Rx estradiol 0.01% (0.1 mg/gram) 1 g vaginal .3 times/wk #42.5 grams 02/14/24 08/19/24 Unknown Rx vaginal cream omeprazole 20 mg capsule,delayed See Rx Instructions . Route 04/28/24 08/19/24 Unknown Rx release .COMPLEX #90 caps gabapentin 300 mg capsule See Rx Instructions PO .COMP ABBI 06/09/24 08/19/24 Unknown Rx #120 caps prednisone 5 mg tablet 5 mg PO DAILY #90 tabs 06/0908/19/24 Unknown Rx atorvastatin 20 mg tablet 20 mg PO DAILY #90 tabs 07/1608/19/24 08/19/24 Rx clonazepam 2 mg tablet 2 mg PO TID 90 days #270 tab s 08/04/24 08/19/24 Unknown Rx duloxetine 30 mg capsule,delayed 30 mg PO DAILY #90 ea 08/04/24 08/19/24 Unknown Rx release levothyroxine 175 mcg tablet 175 mcg PO DAILY #90 tabs 08/04/24 08/19/24 Unknown Rx metformin 500 mg tablet 500 mg PO BID #180 tabs 07/1608/19/24 Unknown Rx cyclobenzaprine 10 mg tablet See Rx Instructions .Rout e 08/18/24 08/19/24 Unknown Rx .COMPLEX #90 tabs duloxetine 60 mg capsule,delayed 60 mg PO QPM 08/19/24 08/19/24 Unknown History release Allergies Allergy/AdvReac Type Severity Reaction Status Date / Time sulfasalazine Allergy Intermediate bad Verified 08/04/24 14:58 headaches hydrocodone Allergy itch Verified 08/04/24 14:58 hydroxychloroquine Allergy adv-eye Verified 08/04/24 14:58 changes penicillin G Allergy rash Verified 08/04/24 14:58 oxycodone AdvReac Mild itching Verified 08/04/24 14:58 PFSH Acute 2 PFSH: Medical History Type 2 diabetes mellitus dxed 1.23.25 Postoperative hypothyroidism Glossodynia Dyslipidemia LISSET (obstructive sleep apnea) has CPAP but not compliant Bad odor of urine On prednisone therapy for SLE Fasting hyperglycemia Facial droop Depression Seropositive rheumatoid arthritis of multiple sites Inflammatory arthritis History of 2019 novel coronavirus disease (COVID-19) Rheumatoid arthritis SLE (systemic lupus erythematosus) Mixed stress and urge urinary incontinence HTN (hypertension) Anxiety Degenerative disc disease L4-L5, also cervical spine. 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 S/P laparoscopic appendectomy (08/16/20) Status post colonoscopy (~2019) History of thyroidectomy Previous back surgery hx of disc shaved off--2 X hx of plate/screws--anterior approach, then 3d later did redo through leather cartridge belt maker approach--then 6 months later 2022 had to have screws reinforced History of partial hysterectomy ovaries remaining; done for bleeding; no cancer; had bladder lift at same time Family History Mother CAD (coronary artery disease) [place] Stroke Dementia Father CAD (coronary artery disease), Onset Age: 70 Leukemia Congestive heart failure (CHF) Grandfather CAD (coronary artery disease) Chronic kidney disease (CKD) Grandmother CAD (coronary artery disease) afib Brother CAD (coronary artery disease) syncope Chronic kidney disease (CKD) Diabetes Brother CAD (coronary artery disease) PPM Chronic kidney disease (CKD) Diabetes Sister CAD (coronary artery disease) PPM Parkinson disease Other Hypertension Denies family history of Lupus (systemic lupus erythematosus) Rheumatoid arthritis Clotting disorder Suicide Anesthesia complication Bleeding disorder Social History Smoking and tobacco/nicotine status: never used tobacco/nicotine Alcohol intake: never Substance/Drug Use: never Adopted: No Household members: spouse Marital status: Number of children: 2 Highest education level completed: High School Graduate service: No Current occupational status: retired Current occupational exposures/hazards: No 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 Vitals/I&O/Wt Last Vital Signs Temp 97.6 F 08/19/24 16:01 Pulse 71 08/19/24 16:01 Resp 18 08/19/24 16:01 BP 129/75 08/19/24 16:01 Pulse Ox 95 08/19/24 16:01 O2 Del Method Room Air 08/19/24 16:01 Weight last 48 hrs Weight 86.183 kg Physical Exam 2 Const: COMMON NORMALS: patient oriented x3 and alert GENERAL APPEARANCE: c ooperative ORIENTATION/CONSCIOUSNESS: Yes awake HENMT: COMMON NORMALS: oropharynx normal Neck/C-Spine: COMMON NORMALS: no JVD Resp: COMMON NORMALS: normal respiratory effort and clear to auscultation bilaterally AUSCULTATION: clear to auscultation bilaterally Cardio: COMMON NORMALS: no JVD, regular rhythm, S1 normal heart sound present, S2 normal heart sound present and No murmurs present (Cardio) RHYTHM: regular rhythm HEART SOUNDS: S1 normal heart sound present and S2 normal heart sound present GI: COMMON NORMALS: Normal to inspection, nondistended, normoactive bowel sounds present, Soft to palpation and non-tender PALPATION: Yes Soft to palpation Extremity: COMMON NORMALS: no joint enlargement and no pedal edema Neuro: COMMON NORMALS: patient oriented x3 and moves all extremities S ENSORIUM/ORIENTATION: Yes alert OTHER: She is awake and alert, pleasant, conversant, she did not display any aphasia, dysarthric. No facial droop visible. No difficulty with tracking. Some end gaze nystagmus, I could not otherwise trigger any persistent nystagmus. She reports perhaps some minimal diplopia on extreme gaze to the right. Head impulse test negative. No difficulty with FNF. [id number] unremarkable if somewhat slow bilaterally. Visual patel full to comforters, no visual extinction. Sensation symmetrical, without sensory extinction. She does have some mild bilateral lower extremity drift. Skin: COMMON NORMALS: no rashes or lesions noted GENERAL SKIN EXAM: no rashes or lesions noted Data 08/19/24 09:46 08/19/24 09:46 A&P Assessment and plan (1) Unsteady gait: Difficulty walking for 2-3 days, feels like her body keeps wanting to walk in 1 direction, walking to doors, wu, without overt vertigo, but does feel like she is walking on a slanted plane with surrounding somewhat swimming around her. Discussed with her concern for possible posterior circulation CVA. She does not appear to have neurologic complaints to suggest otitis media, vestibular neuronitis. Denies any recent flulike or other acute illness. She additionally has some mild bilateral lower extremity weakness with bilateral lower extremity drift. Does have history of degenerative disc disease of lumbar spine with prior spine surgery. Appears he may have contribution of neurogenic claudication. Does have more difficult time walking downstairs, although denies any worsening back pain or other symptoms recently. She has resumed his angst with diabetes, A1c overweight. She does have a history of rheumatoid arthritis. Blood pressure 129/75. She does have history of intolerance of sulfasalazine, but is tolerant of aspirin. Discussed with her starting aspirin, additional assessment with MRI brain. With mild bilateral lower extremity weakness, but present knee reflex, does appear to have reflux additionally assess CT lumbar spine. Reviewed vitals, CBC, CMP, UA, coronavirus, flu Nata, RSV PCR, chest x-ray, head CT, EKG, on my interpretation with sinus rhythm, without evidence of ischemia, arrhythmia, pending official read. Reviewed ER provider note, discussed with ER provider. (2) Fall: Fall yesterday hitting the back of her head. With unsteady gait, fall precautions. Discussed with her to ask for assistance when getting up and walking. We did walk with her and she did okay with standby assist but needed to guide herself with the wall/door frame especially when turning. PT assessment. Mild dehydration. Gentle IV hydration with LR. Monitor for risk of volume overload. Reassessment status. Plan DDD spine: s/p surgery. Mild LE weakness. Assess CT lumbar spine. RHeumatoid arthritis, HTN, Monitor blood pressures.Resume home medications once confirmed. SLE, GERD, LISSET PDMP PDMP Reviewed: Not Reviewed Attestations 2 Medical Necessity Statement*: Place in observation for additional assessment and management of unsteady gait, fall with suspected posterior circulation CVA with also underlying degenerative disc disease in the spine. and High MDM includes amount and/or complexity of data reviewed/ordered [ previous or external records, resulted lab(s)/test(s), ordered lab(s)/test(s), independent test interpretation and other healthcare professional discussion] as documented Diagnoses Unsteady gait R26.81 Fall W19.XXXA
--- NOTE | 2024-08-19 17:18 | CTR_ITS ---
PROCEDURE INFORMATION: Exam: CT Lumbar Spine Without Contrast Exam date and time: 08/19/2024 5:42 PM Age: 68 years old Clinical indication: Weakness; Prior surgery; Surgery date: 6+ months; Surgery type: Lsp x2; Additional info: Leg weakness, difficulty ambulating TECHNIQUE: Imaging protocol: Computed tomography of the lumbar spine without contrast. Radiation optimization: All CT scans at this facility use at least one of these dose optimization techniques: automated exposure control; mA and/or kV adjustment per patient size (includes targeted exams where dose is matched to clinical indication); or iterative reconstruction. COMPARISON: MR lumbar spine wo con* [id number] 02/06/2023 10:48 AM RADIATION DOSE METRICS: Total DLP (mGy-cm): 1021.12 FINDINGS: Bones/joints: Posterior fusion L2, L3 and L4 with no evidence of hardware failure. There is lucency surrounding the cortical screws on the right and left at L2 consistent with loosening. Posterior fusion at L5-S1 without evidence of hardware failure or loosening. Anterior fusion at L4-L5 and L5-S1 without evidence of hardware failure or loosening. Soft tissues: Unremarkable. CT/CT lumbar spine wo con* [id number] IMPRESSION: 1. Posterior fusion L2, L3 and L4 with no evidence of hardware failure. There is lucency surrounding the cortical screws on the right and left at L2 consistent with loosening. 2. Posterior fusion at L5-S1 without evidence of hardware failure or loosening. 3. Anterior fusion at L4-L5 and L5-S1 without evidence of hardware failure or loosening.
[2024-08-19] MEDS: enoxaparin 40 mg/0.4 mL Syringe SUBCUT (18:02)
[2024-08-19] MEDS: lactated ringers 1,000 ML 30 ML IV (18:03)
[2024-08-19] MEDS: gabapentin 300 mg Capsule 600 MG PO (20:50)
[2024-08-20] VITALS (8 sets, daily range): BP systolic 121–154; BP diastolic 77–94; PULSE 78–92; RESP 15–18; TEMP 36.4–37.2; O2SAT 93–98
[2024-08-20 05:43] LABS: Basophils # 0.1 10^3/uL (0.0-0.1); Basophils % 0.7 %; Eosinophils # 0.1 10^3/uL (0.0-0.8); Eosinophils % 1.8 %; Hematocrit 42.4 % (36-47); Lymphocytes % 29.7 %; Mean Corpuscular HGB Conc 31.8 g/dL (30-55); Mean Corpuscular Hemoglobin 28.4 pg (27-33); Mean Corpuscular Volume 89.3 fl (85-98); Mean Platelet Volume 10.4 fL (7.4-10.4); Monocytes # 0.7 10^3/uL (0.2-0.9); Monocytes % 9.7 %; Neutrophils # 3.85 10^3/uL (1.8-7.7); Neutrophils % 57.8 %; Nucleated Red Blood Cells % 0 %; Platelet Count 242 10^3/cmm (157-399); Red Blood Count 4.75 10^6/uL (3.85-5.65); Red Cell Distribution Width 13.4 % (12.1-15.1); White Blood Count 6.67 10^3/uL (3.29-11.43)
[2024-08-20 05:53] LABS: Anion Gap 14.8 (5-19); Blood Urea Nitrogen 16 mg/dL (8-23); Calcium 9.6 mg/dL (8.5-10.5); Carbon Dioxide 26 mmol/L (22-29); Chloride 102 mmol/L (98-107); Creatinine Clr Calc Pharmacy 80.9218; Glomerular Filtration Rate 99.7 mL/min (90-130); Glucose 187 mg/dL (65-115); Osmolality Calculated 294 mOsm/kg (285-295); Potassium 3.8 mmol/L (3.5-5.1); Sodium 139 mmol/L (136-145)
[2024-08-20] MEDS: pantoprazole DR 40 mg Tablet PO (06:10)
[2024-08-20] MEDS: atorvastatin 40 mg Tablet 20 MG PO (07:55)
[2024-08-20] MEDS: levothyroxine 175 mcg Tablet PO (07:55)
[2024-08-20] MEDS: dilTIAZem ER (12HR) 60 mg Capsule 120 MG PO (07:55)
[2024-08-20] MEDS: cyclobenzaprine 10 mg Tablet PO (07:55)
[2024-08-20] MEDS: gabapentin 300 mg Capsule PO (07:55)
[2024-08-20] MEDS: duloxetine 30 mg Capsule PO (07:56)
[2024-08-20] MEDS: predniSONE 5 mg Tablet PO (07:56)
[2024-08-20] MEDS: metoprolol tartrate 50 mg Tablet 75 MG PO (07:56)
--- NOTE | 2024-08-20 08:13 | CT_ITS ---
WS: [id number] CT ANGIOGRAM CEREBRAL AND CAROTID ARTERIES HISTORY: suspected post cva TECHNIQUE: CT angiogram is performed of the carotid and cerebral arteries. During arterial injection imaging is obtained from the skull vertex to the aortic arch in 1.25 mm imaging. Coronal and sagittal reformats are submitted. Additional multi planar reformats of the carotid and cerebral arteries are submitted, MIP imaging also reviewed. NASCET criteria utilized. All CT scans at [facility] use at least one of these dose optimization techniques: automated exposure control; mA and/or kV adjustment per patient size (includes targeted exams where dose is matched to clinical indication); or iterative reconstruction. CONTRAST: Omnipaque 350; 100 mL IV. DLP: 977.53 mGy.cm COMPARISON: 08/19/[address] head: No acute intracranial hemorrhage. Mild atrophy and small vessel disease. Carotid Angiogram: Right carotid: Common carotid artery: Arises normally from the innominate artery. No significant plaque or stenosis. Internal carotid artery: Small amount of plaque. External carotid artery: Patent. Left carotid: Common carotid artery: Origin is not included on this exam. There is a small amount of calcified plaque at the cervical bifurcation but no high-grade stenosis. Internal carotid artery: Plaque at the bifurcation. No stenosis. External carotid artery: Patent. Right vertebral artery: Dominant, patent. Left vertebral artery: Unremarkable. Arises normally from the subclavian artery. Subclavian arteries: No stenosis or significant abnormality. Upper thorax: Normal. Thyroid gland: Normal. Osseous structures: Moderate cervical spondylosis. CEREBRAL ANGIOGRAM: Intracranial vertebral arteries: Normal with no significant atherosclerosis. Basilar artery: No significant stenosis or occlusion. No aneurysm. Intracranial Internal carotid arteries: Scattered calcified plaque in the cavernous carotid arteries but no stenosis. Middle cerebral arteries: Normal. Anterior cerebral arteries and ACOM: Normal. Posterior cerebral arteries and PCOM's: Normal. Dural venous sinuses are normally enhancing. Mastoid air cells: Normal. Paranasal sinuses: Normal. Calvarium: Normal. CT/CT angio headneck* [id number] IMPRESSION: 1. No significant cervical carotid artery stenosis. Small amount of calcified plaque at the bifurcations. 2. Small amount of plaque in the cavernous carotid arteries. No high-grade pb nosis. 3. No occlusions or stenosis or significant disease involving the [place]. No paucity of vessels in the distal MCA artery territory.
--- NOTE | 2024-08-20 08:13 | USCV_ITS ---
Nanette Simental Age: 68 Gender: F : 1955 Exam Date: 08/20/2024 08:54 Ordering Phys: Gerardo Miller MD Technologist: Exam Location: [facility] [place] Indication: cva BP: 135 / 75 HR: 121 Rhythm: Sinus Technical Quality: Adequate MEASUREMENTS (Male / Female) Normal Values 2D ECHO LV Diastolic Diameter PLAX 4.4 cm 4.2 - 5.9 / 3.9 - 5.3 cm IVS Diastolic Thickness 1.4 cm 0.6 - 1.0 / 0.6 - 0.9 cm IVS Systolic Thickness 1.8 cm LVPW Diastolic Thickness 1.7 cm 0.6 - 1.0 / 0.6 - 0.9 cm LVPW Systolic Thickness 2.1 cm LVOT Diameter 2.1 cm LV Ejection Fraction 2D Teich 55.8 % LV Ejection Fraction MOD 4C 64.5 % LV Ejection Fraction MOD 2C 52.3 % LV Ejection Fraction 2C AL 54.2 % LA Diameter 2.8 cm RA Systolic Volume 4C AL 29.0 ml RA Systolic Volume 4C MOD 27.2 ml LA Sys Volume AL 44.2 cm cubed LA Sys Volume Index AL 21.7 cm cubed/m squared Aorta at Sinotubular Diameter 3.2 cm M-MODE LA Ao Ratio MM 1.3 AV Cusp Separation MM 2.0 cm DOPPLER AV Peak Velocity 138.7 cm/s LVOT Peak Velocity 123.0 cm/s AV Area Cont Eq vti 3.8 cm squared AV Area Cont Eq pk 3.0 cm squared MV Peak Velocity 116.0 cm/s MV Area PHT 8.0 cm squared Mitral E to A Ratio 0.8 TR Peak Velocity 139.0 cm/s TR Peak Gradient 7.7 mmHg TV Peak E Velocity 118.0 cm/s PV Peak Velocity 136.0 cm/s FINDINGS Left Ventricle Left ventricle is normal in size. LV systolic function is normal with EF of 60 to 65%. No regional wall motion abnormalities are seen. Left ventricular hypertrophy Right Ventricle Normal in size and function Right Atrium Normal in size. Bubble study is suboptimal however there are bubbles noted in the LV. Can not rule out intracardiac shunting. Left Atrium Normal in size Mitral Valve Structurally normal mitral valve. Mild mitral regurgitation. Aortic Valve Structurally normal aortic valve. No significant stenosis or regurgitation. Elevated LVOT gradient with peak gradient of 39mmHg Tricuspid Valve Insufficient TR jet to evaluate RVSP Pulmonic Valve Not well visualized Pericardium Normal Aorta Normal in size IVC Not well visualized CONCLUSIONS LV systolic function is normal with EF of 60-65% Left ventricular hypertrophy Bubble study is suboptimal however there are bubbles noted in the LV. Can not rule out intracardiac shunting. Mild mitral regurgitation. Elevated LVOT gradient with peak gradient of 39mmHg John Alonzo MD (Electronically Signed) Final Date: 20 August 2024 11:18 S
[2024-08-20] MEDS: iohexol 350 mg/mL 500 mL Btl (per mL) IV (11:29)
--- NOTE | 2024-08-20 15:28 | PM.DCS ---
Discharge Providers Date of Admission: 08/19/24 12:51 Date of Discharge: August 20, 2024 Attending Provider at Admission: Gerardo Miller Attending Provider at Discharge: Gerardo Miller Primary Care Provider: Matilda Yun MD Diagnoses at Discharge Discharge Diagnosis (1) Unsteady gait: Status: Acute (2) Fall: Status: Acute Reason for Visit Reason for Visit: fall, weakness, headaches Brief History: Nanette Simental is a 68 year old female with rheumatoid arthritis, HTN, SLE, GERD, LISSET, degenerative spine disease, prior back surgery, who for the last 2 or 3 days has had difficulty walking. She states that it feels like her body wants to keep going in 1 direction, and she did have a fall yesterday hitting the back of her head. She denies any overt vertigo. Denies any recent flulike illness. Denies any fever. No ear pain, worsening hearing, ear drainage or other otic symptoms. She states also has dealt with some blurring of her vision for a while with some slight worsening over the last few days. She has been recently diagnosed with diabetes, her A1c was found to be above 8, and she is working with her primary provider to start on an oral hypoglycemic agent. Hospital Course Hospital Course With concern for posterior secretions CVA with gait instability, was hospitalized for additional assessment. CTA head and neck was obtained to look for any circulatory striction, which showed small amount of plaque in the cavernous carotid arteries. No high-grade stenosis. No posterior vessels in the distal MCA artery territory. No significant stenosis occlusion of basilar artery. Echocardiogram showed normal ejection fraction, LVH, bubble study suboptimal, however, bubbles are noted in LV. Cannot rule out intracardiac shunting. Mild MVR. Elevated LVOT peak gradient. 39 mmHg. She underwent additional assessment with MRI of the brain which showed moderate small vessel changes with in the magda no significant parenchymal volume loss. Additional nonacute findings. On exam with finding of mild bilateral lower extremity weakness, minimal lower extremity drift. She was additionally assessed with CT lumbar spine which showed posterior fusion L2-4 as well as L5-S1, with finding of lucency surrounding cortical screws on the right and left at L2 consistent with loosening. Findings were discussed with her and her . She had previously had issues with loosening of hardware possibly in that same spot with screws having to be replaced by her spine surgeon as per history obtained from her . She has not had any back pain. She otherwise has not had any indication of acute infection with normal WBC count, afebrile, without tachycardia. She has had some chronic weakness of bilateral lower extremities. She already has a walker. She additionally was found to have positive decrease in blood pressure on orthostatic vital signs down from 147 laying down to 121 standing. She did recently increase her gabapentin dose from 3 to 4 tablets daily. As per discussion with her she will go back down to the lower dose as previously. Discussed with her to continue monitoring blood pressures at home including orthostatics, in case of further decreases or persistent orthostatic hypotension consideration may be given to de-escalation of diltiazem and/or duloxetine which may contribute as well. As per discussion with her she will maintain orthostatic precautions. Maintain strict fall precautions. Use and keep her walker nearby. PT assessment is pending prior to discharge, although has not been able to be seen due to staff illness. We are as per discussion with her giving her referral also to follow-up with vestibular specialist in outpatient PT setting. Physical Exam Narrative: Accompanied by her . Const: COMMON NORMALS: patient oriented x3 and alert GENERAL APPEARANCE: cooperative ORIENTATION/CONSCIOUSNESS: Yes awake HENMT: COMMON NORMALS: oropharynx normal Neck/C-Spine: COMMON NORMALS: no JVD Resp: COMMON NORMALS: normal respiratory effort and clear to auscultation bilaterally AUSCULTATION: clear to auscultation bilaterally Cardio: COMMON NORMALS: no JVD, regular rhythm, S1 normal heart sound present, S2 normal heart sound present and No murmurs present (Cardio) RHYTHM: regular rhythm HEART SOUNDS: S1 normal heart sound present and S2 normal heart sound present GI: COMMON NORMALS: Normal to inspection, nondistended, normoactive bowel sounds present, Soft to palpation and non-tender PALPATION: Yes Soft to palpation Extremity: COMMON NORMALS: no joint enlargement and no pedal edema Neuro: COMMON NORMALS: patient oriented x3 and moves all extremities SENSORIUM/ORIENTATION: Yes alert OTHER: She is awake and alert, pleasant, conversant, she did not display any aphasia, dysarthric. No facial droop visible. No difficulty with tracking. Some end gaze nystagmus, I could not otherwise trigger any persistent nystagmus. She reports perhaps some minimal diplopia on extreme gaze to the right. Head impulse test negative. No difficulty with FNF. [id number] unremarkable if somewhat slow bilaterally. Visual patel full to comforters, no visual extinction. Sensation symmetrical, without sensory extinction. She does have some mild bilateral lower extremity drift. Skin: COMMON NORMALS: no rashes or lesions noted GENERAL SKIN EXAM: no rashes or lesions noted Discharge Data Studies Completed and Pending Completed Studies During Hospitalization Category Date Time Status CT head wo con* [id number] Stat Cat Scan 08/19/24 09:[address] lumbar spine wo con* [id number] Routine Cat Scan 08/19/24 17:18 Completed CTA head neck [CT angio headneck* [id number]] Routine Cat Scan 08/20/24 08:13 Completed XR chest 1V portable [id number] Stat Exams 08/19/24 09:22 Completed MR head wo con* [id number] Routine MRI 08/20/24 16:50 Completed CV. echo w/w bubble cont [id number] Routine Ultrasound 08/20/24 08:13 Completed Pending at discharge Category Date Time Status B12 [Vitamin B12] Routine Lab 08/20/24 14:46 Received Basic Metabolic Panel AM LABS Lab 08/21/24 04:00 Ordered Basic Metabolic Panel AM LABS Lab 08/22/24 04:00 Ordered Complete Blood Count w/Auto AM LABS Lab 08/21/24 04:00 Ordered Complete Blood Count w/Auto AM LABS Lab 08/22/24 04:00 Ordered Folic Acid [Folate Level] Routine Lab 08/20/24 14:46 Received Radiology Impressions Chest X-Ray 08/19/24 09:22 Impression: Atherosclerosis. Head CT 08/19/24 09:22 IMPRESSION: 1. No acute intracranial hemorrhage or edema. 2. Mild atrophy and small vessel disease. 3. No skull fracture or hematoma. Lumbar Spine CT 08/19/24 17:18 IMPRESSION: 1. Posterior fusion L2, L3 and L4 with no evidence of hardware failure. There is lucency surrounding the cortical screws on the right and left at L2 consistent with loosening. 2. Posterior fusion at L5-S1 without evidence of hardware failure or loosening. 3. Anterior fusion at L4-L5 and L5-S1 without evidence of hardware failure or loosening. Head/Neck CTA 08/20/24 08:13 IMPRESSION: 1. No significant cervical carotid artery stenosis. Small amount of calcified plaque at the bifurcations. 2. Small amount of plaque in the cavernous carotid arteries. No high-grade stenosis. 3. No occlusions or stenosis or significant disease involving the [place]. No paucity of vessels in the distal MCA artery territory. Head MRI 08/20/24 16:50 IMPRESSION: 1. No evidence of restricted diffusion to suggest acute ischemia. 2. Moderate small vessel changes with small vessel changes in the magda. No significant parenchymal volume loss. 3. No other acute findings. Laboratory Results WBC 6.67 10^3/uL (3.29-11.43) 08/20/24 05:07 RBC 4.75 10^6/uL (3.85-5.65) 08/20/24 05:07 Hgb 13.50 g/dL (11.27-16.99) 08/20/24 05:07 Hct 42.4 % (36-47) 08/20/24 05:07 MCV 89.3 fl (85-98) 08/20/24 05:07 MCH 28.4 pg (27-33) 08/20/24 05:07 MCHC 31.8 g/dL (30-55) 08/20/24 05:07 RDW 13.4 % (12.1-15.1) 08/20/24 05:07 Plt Count 242 10^3/cmm (157-399) 08/20/24 05:07 MPV 10.4 fL (7.4-10.4) 08/20/24 05:07 Neut % (Auto) 57.8 % 08/20/24 05:07 Lymph % (Auto) 29.7 % 08/20/24 05:07 [place] % (Auto) 9.7 % 08/20/24 05:07 Eos % (Auto) 1.8 % 08/20/24 05:07 Baso % (Auto) 0.7 % 08/20/24 05:07 Neut # (Auto) 3.85 10^3/uL (1.8-7.7) 08/20/24 05:07 Lymph # (Auto) 2.0 10^3/uL (0.8-4.8) 08/20/24 05:07 [place] # (Auto) 0.7 10^3/uL (0.2-0.9) 08/20/24 05:07 Eos # (Auto) 0.1 10^3/uL (0.0-0.8) 08/20/24 05:07 Baso # (Auto) 0.1 10^3/uL (0.0-0.1) 08/20/24 05:07 Nucleated RBC % (auto) 0 % 08/20/24 05:07 Nucleated RBCs # 0.0 /100WBC 08/20/24 05:07 Sodium 139 mmol/L (136-145) 08/20/24 05:07 Potassium 3.8 mmol/L (3.5-5.1) 08/20/24 05:07 Chloride 102 mmol/L (98-107) 08/20/24 05:07 Carbon Dioxide 26 mmol/L (22-29) 08/20/24 05:07 Anion Gap 14.8 (5-19) 08/20/24 05:07 BUN 16 mg/dL (8-23) 08/20/24 05:07 Creatinine 0.6 mg/dL (0.5-0.9) 08/20/24 05:07 GFR Calculation 99.7 mL/min (90-130) 08/20/24 05:07 Glucose 187 mg/dL (65-115) H 08/20/24 05:07 Calculated Osmolality 294 mOsm/kg (285-295) 08/20/24 05:07 Calcium 9.6 mg/dL (8.5-10.5) 08/20/24 05:07 Total Bilirubin 0.3 mg/dL (0.15-1.2) 08/19/24 09:46 AST 22 U/L (0-32) 08/19/24 09:46 ALT 30 U/L (0-33) 08/19/24 09:46 Alkaline Phosphatase 97 U/L (35-105) 08/19/24 09:46 C-Reactive Protein 3.0 mg/L (0.0-4.9) 08/19/24 09:46 Total Protein 7.7 g/dL (6.6-8.7) 08/19/24 09:46 Albumin 4.4 g/dL (3.5-5.2) 08/19/24 09:46 Globulin 3.3 g/dL (1.3-4.6) 08/19/24 09:46 Urine Color Dark yellow (Yellow) A 08/19/24 10:30 Urine Appearance Cloudy (CLEAR) A 08/19/24 10:30 Urine pH 5.5 (5-7) 08/19/24 10:30 Ur Specific [place] 1.039 (1.005-1.030) H 08/19/24 10:30 Urine Protein 1+ (Negative) A 08/19/24 10:30 Urine Glucose (UA) 2+ (Normal) H 08/19/24 10:30 Urine Ketones Trace (Negative) 08/19/24 10:30 Urine Blood Negative (Negative) 08/19/24 10:30 Urine Nitrate Negative (Negative) 08/19/24 10:30 Urine Bilirubin Negative (Negative) 08/19/24 10:30 Urine Urobilinogen 1.0 mg/dL (Negative) 08/19/24 10:30 Ur Leukocyte Esterase Negative (Negative) 08/19/24 10:30 Urine RBC 0-2 /hpf (0-2) 08/19/24 10:30 Urine WBC 0-5 /hpf (0-5) 08/19/24 10:30 Ur Squamous Epith Cells 11-20 /hpf (0-5) H 08/19/24 10:30 Amorphous Sediment Not Reportable 08/19/24 10:30 Urine Bacteria None seen /hpf (NONE) 08/19/24 10:30 Hyaline Casts 5.36 /lpf 08/19/24 10:30 Coronavirus (PCR) Negative (Negative) 08/19/24 09:55 Influenza A (PCR) Negative (Negative) 08/19/24 09:55 Influenza Type B (PCR) Negative (Negative) 08/19/24 09:55 RSV (PCR) Negative (Negative) 08/19/24 09:55 Vitals Last Vital Signs Temp 97.5 F L 08/20/24 11:57 Pulse 81 08/20/24 14:18 Resp 15 08/20/24 11:57 BP 147/93 08/20/24 14:18 Pulse Ox 94 08/20/24 11:57 O2 Del Method Room Air 08/20/24 11:57 Discharge Plan Discharge Patient Disposition: Home Condition: Stable Prescriptions: Continued acetaminophen [Tylenol Arthritis Pain] 650 mg tablet extended release 1,300 mg PO BID (DME) AUTO-TITRATING CPAP See Rx Instructions .Route .MEDSUPPLY Qty: 1 0RF Rx Instructions: SETTING 6-14CM metoprolol tartrate 75 mg tablet 75 mg PO BID Qty: 180 3RF estradiol 0.01 % (0.1 mg/gram) cream 1 g VAGINAL .3 times/wk Qty: 42.5 2RF duloxetine 30 mg capsule,delayed release(DR/EC) 30 mg PO DAILY Qty: 90 3RF Rx Instructions: in addition to 60mg atorvastatin 20 mg tablet 20 mg PO DAILY Qty: 90 3RF levothyroxine 175 mcg tablet 175 mcg PO DAILY Qty: 90 3RF prednisone 5 mg tablet 5 mg PO DAILY Qty: 90 1RF diltiazem HCl 120 mg capsule,extended release 12 hr 120 mg PO BID Qty: 60 5RF omeprazole 20 mg capsule,delayed release(DR/EC) See Rx Instructions .ROUTE .COMPLEX Qty: 90 1RF Dose Instruction: TAKE 1 CAPSULE BY MOUTH ONCE DAILY AT 0700 Rx Instructions: TAKE 1 CAPSULE BY MOUTH ONCE DAILY AT 0700 cyclobenzaprine 10 mg tablet See Rx Instructions .ROUTE .COMPLEX Qty: 90 0RF Dose Instruction: Take 1 tablet by mouth three times daily as needed for muscle spasm Rx Instructions: Take 1 tablet by mouth three times daily as needed for muscle spasm cholecalciferol (vitamin D3) 50 mcg (2,000 unit) capsule 50 mcg PO DAILY@07 duloxetine 60 mg capsule,delayed release(DR/EC) 60 mg PO QPM Rx Instructions: Take 1 capsule by mouth at bedtime Changed gabapentin 300 mg capsule See Rx Instructions PO .COMPLEX Qty: 1 0RF Rx Instructions: take 1 in am, 1 early saniya and 1 at HS orally; Discharge Orders: Discharge Order (Routine); Ordered 08/20/24 Ordered By: Gerardo Miller Referrals: Physical Therapy - [facility] [Provider Group] - 1-3 days (Vestibular assessment ) Matilad Yun MD [Primary Care Provider] - (We have notified your physician's clinic of the need for a follow-up appointment to be scheduled. If you have not heard from them within the next 2 business days, please call them directly. ) Discharge Diet: Cardiac Discharge Activity: Increase activity as tolerated and Limit activity as instructed Patient Instructions: Fall Prevention (GEN) Activity Restrictions/Additional Instructions: Follow-up with your primary provider for reassessment of unsteady gait. Maintain fall precautions. Follow-up with your spine surgeon for additional assessment of suspected loosening of cortical screws on the right and left at L2 vertebrae. Other hardware appears intact. As discussed, please be mindful of orthostatic hypotension, your blood pressure decreases after standing, and may lead to lightheadedness, feeling faint or fainting, fall, injury. Please maintain orthostatic precautions as discussed, in case of feeling lightheaded or out of balance, sit down and let your blood pressure catch up. Avoid flying through to avoid fall and injury. Additionally please decrease gabapentin dose back down to 3 tablets in a day. Measure blood pressure 3 times daily including check your orthostatic blood pressure at least daily as discussed. In case of further orthostatic symptoms, consider decrease of diltiazem dose. Follow-up with your primary provider regarding left ventricular hypertrophy. Avoid dehydration. Continue metoprolol. Continue to monitor and optimize hypertension. As discussed please also follow-up with your primary doctor for additional assessment of equivocal finding on echocardiogram bubble study with possible cardiac septal defect. Revisit with your primary doctor regararding final decision on diabetes treatment. Seek medical attention in case of any worsening or new concerning symptoms. Discharge Attestations Time Spent in Discharge Care*: greater than 30 min Quality Metrics Clinical Quality Measures [ No reported AMI, CVA or VTE this stay] Coding Level of Care Code 54097 Total time (in minutes) for Discharge: 55 Diagnoses Unsteady gait R26.81 Fall W19.XXXA
[2024-08-20 15:47] LABS: Vitamin B12 535 pg/mL (232-1245)
[2024-08-20 15:49] LABS: Folate Level 13.8 ng/mL (4.8-37.3)
--- NOTE | 2024-08-20 16:50 | MR_ITS ---
WS: [email or web address] MRI HEAD WITHOUT CONTRAST TECHNIQUE: Sagittal T1, T2 axial, T2 axial FLAIR, axial and coronal T1 images, axial susceptibility weighted imaging, axial diffusion weighted images, and coronal T2 images were obtained. CLINICAL INFORMATION: vertigo, nystagmus, assess for any post circ cva COMPARISON: None. FINDINGS: Some images degraded by motion. Fast imaging performed. No evidence of restricted diffusion to suggest acute ischemia. Ventricular system and basilar cisterns are patent. Moderate small vessel changes. Minimal parenchymal volume loss. Normal posterior fossa. Normal vascular flow voids at the skull base. No extra-axial fluid collections. No evidence of mass or mass effect. Normal optic chiasm and pituitary infundibulum. No hemosiderin on the susceptibly weighted images. Paranasal sinuses and mastoid air cells are well aerated. Normal posterior nasopharynx. MR/MR head wo con* [id number] IMPRESSION: 1. No evidence of restricted diffusion to suggest acute ischemia. 2. Moderate small vessel changes with small vessel changes in the magda. No sig nificant parenchymal volume loss. 3. No other acute findings.
== END 2024-08-20 17:35 | disposition home or self-care (01) ==
LOC: ER 12:29 → MEDSURG 12:51
PROVIDERS: Emergency Medicine; Admitting Provider Internal Medicine; Emergency Provider Emergency Medicine; PCP Family Medicine; Visit Provider Internal Medicine
DX: R26.81 Unsteadiness on feet (principal); R42 Dizziness and giddiness; R26.0 Ataxic gait; Z79.899 Other long term (current) drug therapy; Z79.84 Long term (current) use of oral hypoglycemic drugs; Z79.890 Hormone replacement therapy; Z88.2 Allergy status to sulfonamides; Z88.0 Allergy status to penicillin; Z88.5 Allergy status to narcotic agent; G47.33 Obstructive sleep apnea (adult) (pediatric); E11.9 Type 2 diabetes mellitus without complications; E78.5 Hyperlipidemia, unspecified; M05.89 Other rheumatoid arthritis with rheumatoid factor of multiple sites; Z86.16 Personal history of COVID-19; I10 Essential (primary) hypertension; E89.0 Postprocedural hypothyroidism; M32.9 Systemic lupus erythematosus, unspecified; F41.9 Anxiety disorder, unspecified; M79.7 Fibromyalgia; K21.9 Gastro-esophageal reflux disease without esophagitis; R53.1 Weakness; F32.A Depression, unspecified; Z90.711 Acquired absence of uterus with remaining cervical stump; Z11.52 Encounter for screening for COVID-19; W19.XXXA Unspecified fall, initial encounter; N39.0 Urinary tract infection, site not specified; M50.30 Other cervical disc degeneration, unspecified cervical region; M51.369 Other intervertebral disc degeneration, lumbar region without mention of lumbar back pain or lower extremity pain; Z82.3 Family history of stroke; Z82.49 Family history of ischemic heart disease and other diseases of the circulatory system; Z82.0 Family history of epilepsy and other diseases of the nervous system
CPT/HCPCS: 36415; 70450; 70496; 70498; 70551; 71045; 72131; 80048; 80053; 81001; 82607; 82746; 85025; 86140; 87637; 93005; 96372; 97161; 99285; C8929; G0378; J1650; J7120; J7512; J8597

== ENCOUNTER → 2024-09-29 14:04 | Outpatient (BNVA) | payer BC, SELFPAY | PROVIDERS: PCP Family Medicine; Visit Provider Family Medicine | DX: E89.0 Postprocedural hypothyroidism (principal) | CPT/HCPCS: 84439; 84443 ==

== ENCOUNTER 2024-10-06 14:26 | Outpatient (CLI) | payer BC, SELFPAY ==
--- NOTE | 2024-10-06 15:00 | XR_ITS ---
WS: [email or web address] SCREENING DEXA SCAN [place] CLINICAL INFORMATION: M25.50 - Pain in unspecified joint COMPARISON: 2019. FINDINGS: The LEFT forearm bone mineral density measures 0.856. This corresponds to a T score score of -0.2 and Z score of 1.4. Left femoral neck bone mineral density measures 0.772 g/cm2. This corresponds to a T score of -1.9 and Z score of -1.0. Right femoral neck bone mineral density measures 0.729 g/cm2. This corresponds to a T score -2.2of and Z score of -1.4. Mean femoral neck bone mineral density measures 0.750 g/cm2. This corresponds to a T score of -2.0 and Z score of -1.2. XR/XR DEXA axial skeleton* [id number] IMPRESSION: Normal bone mineralization LEFT forearm. Osteopenia femoral necks Patient's FRAX calculated 10 year probability for major osteoporotic fracture i s 25.3% and osteoporotic hip fracture is 6.5%. Decrease in bone mineral density -15.1% femoral necks
== END 2024-10-06 14:27 | disposition home or self-care (01) ==
PROVIDERS: PCP Family Medicine; Visit Provider Internal Medicine Rheumatology
DX: M25.50 Pain in unspecified joint (principal); Z79.899 Other long term (current) drug therapy; M85.88 Other specified disorders of bone density and structure, other site
CPT/HCPCS: 77080

== ENCOUNTER → 2024-11-02 08:55 | Outpatient (BNVA) | payer BC, SELFPAY | PROVIDERS: PCP Family Medicine; Visit Provider Family Medicine | DX: E89.0 Postprocedural hypothyroidism (principal) | CPT/HCPCS: 84439; 84443 ==

== ENCOUNTER 2024-11-04 09:26 | Outpatient (CLI) | payer BC, SELFPAY ==
--- NOTE | 2024-11-04 10:00 | MM_ITS ---
WS: [email or web address] BILATERAL SCREENING DIGITAL TOMOSYNTHESIS MAMMOGRAM WITH CAD HISTORY: screening COMPARISON: 03/20/2023, 08/15/2020 Bilateral CC and MLO views with tomosynthesis and synthetic mammography submitted. Computer aided detection analyzed. Breast composition: There are scattered areas of fibroglandular density. No suspicious masses, microcalcifications or architectural distortion. Benign calcifications in each breast. MM/MM scr BI tomosynthesis [id number] IMPRESSION: BI-RADS: 2 - Benign. FOLLOW UP: 1 Year Follow-up
== END 2024-11-04 09:27 | disposition home or self-care (01) ==
PROVIDERS: PCP Family Medicine; Visit Provider Family Medicine
DX: Z12.31 Encounter for screening mammogram for malignant neoplasm of breast (principal); R92.323 Mammographic fibroglandular density, bilateral breasts; R92.1 Mammographic calcification found on diagnostic imaging of breast
CPT/HCPCS: 77063; 77067

== ENCOUNTER → 2024-12-25 10:07 | Outpatient (BNVA) | payer BC, SELFPAY | PROVIDERS: PCP Family Medicine; Visit Provider Family Medicine | DX: E11.9 Type 2 diabetes mellitus without complications (principal) | CPT/HCPCS: 80053; 83036; 84439; 84443 ==

== ENCOUNTER → 2025-01-21 09:19 | Outpatient (BNVA) | payer BC, SELFPAY | PROVIDERS: PCP Family Medicine; Visit Provider Family Medicine | DX: R10.11 Right upper quadrant pain (principal); Z13.6 Encounter for screening for cardiovascular disorders; E89.0 Postprocedural hypothyroidism | CPT/HCPCS: 80053; 82150; 83690; 84439; 84443 ==

== ENCOUNTER 2025-02-01 08:37 | Outpatient (CLI) | payer BC, SELFPAY ==
--- NOTE | 2025-02-01 09:00 | US_ITS ---
WS: [email or web address] RIGHT UPPER QUADRANT ULTRASOUND HISTORY: RUQ pain COMPARISON: 07/22/2018 Liver: 16.3 cm in length. Liver is normal size. Coarse echotexture with loss of the normal portal triads. Findings of diffuse hepatic steatosis. No mass identified. Portal Vein: Normal hepatopetal flow with monophasic waveform. Gallbladder: Normally distended gallbladder with no stones or wall thickening. CBD: 0.3 cm Pancreas: Normal size and echogenicity. Right kidney: 11.3 cm in length. Normal size and echogenicity. No hydronephrosis or mass. Aorta and IVC: Unremarkable abdominal aorta and IVC. No ascites. US/US gall bladder [id number] IMPRESSION: 1. Normal size liver with moderate diffuse hepatic steatosis, similar to the p rior study of 2019. 2. Negative gallbladder.
== END 2025-02-01 08:38 | disposition home or self-care (01) ==
PROVIDERS: PCP Family Medicine; Visit Provider Family Medicine
DX: R10.11 Right upper quadrant pain (principal); K76.0 Fatty (change of) liver, not elsewhere classified
CPT/HCPCS: 76705

== ENCOUNTER → 2025-02-05 09:02 | Outpatient (BNVA) | payer BC, SELFPAY | PROVIDERS: PCP Family Medicine; Visit Provider Family Medicine | DX: E89.0 Postprocedural hypothyroidism (principal) | CPT/HCPCS: 84439; 84443 ==

== ENCOUNTER 2025-03-09 09:43 | Outpatient (CLI) | payer BC, SELFPAY ==
--- NOTE | 2025-03-09 10:00 | NM_ITS ---
WS: [email or web address] NUCLEAR MEDICINE HIDA SCAN WITH GALLBLADDER EJECTION FRACTION HISTORY: RUQ Pain COMPARISON: Gallbladder ultrasound 02/01/2025 TECHNIQUE: The patient was intravenously injected with 7.9 mCi of TC99m Mebrofenin. Immediate imaging over the right upper quadrant was followed by 5 minute image and additional images for a total of 60 minutes. Normal uptake of radiotracer throughout the liver. Activity identified in the gallbladder at 20 minutes and well distended by 60 minutes. Activity in the proximal small bowel was seen by 30 minutes. Good washout of the radiotracer from the liver by 60 minutes. The patient then drank 8 ounces of Ensure Plus. Ejection fraction at 60 minutes was 54%. Normal GB ejection fraction is 35-75%. Post fatty meal symptoms: None. NM/NM hepatobiliary w phar* [id number] IMPRESSION: 1. Normal HIDA scan. 2. Normal gallbladder ejection fraction.
== END 2025-03-09 09:44 | disposition home or self-care (01) ==
PROVIDERS: PCP Family Medicine; Visit Provider Family Medicine
DX: R10.11 Right upper quadrant pain (principal)
CPT/HCPCS: 78227; A9537

== ENCOUNTER → 2025-03-23 16:07 | Outpatient (BNVA) | payer BC, SELFPAY | PROVIDERS: PCP Family Medicine; Visit Provider Internal Medicine Rheumatology | DX: Z79.899 Other long term (current) drug therapy (principal) | CPT/HCPCS: 36415; 82306; 82657; 86480; 86704; 86803; 87340 ==

== ENCOUNTER 2025-04-06 10:39 | Day surgery (SDC) | payer BC, SELFPAY ==
[2025-04-06 11:12] VITALS: BP 142/89; PULSE 69; RESP 18; TEMP 36.8; O2SAT 96
[2025-04-06 11:14] VITALS: BMI 27.3
--- NOTE | 2025-04-06 12:20 | ANES.PREANE2 ---
Documented by User: Jesus Walters CRNA 04/06/25 12:46 Pre-Anesthetic Assessment Height/Weight: Height 1.75 m Weight 83.915 kg Temp Pulse Resp BP Pulse Ox O2 Del Method 98.3 F 69 18 142/89 96 Room Air 04/06/25 11:12 04/06/25 11:12 04/06/25 11:12 04/06/25 11:12 04/06/25 11:12 04/06/25 11:12 Preop Diagnosis: epigastric pain Operation Date: 04/06/25 12:15 Proposed Procedures p EGD EGD with Biopsy 64287 R10.13(Not Applicable) - Ross Kat MD Familial anesthetic complications: none Was Beta Alin taken within 24 hours: Yes Was Clonidine taken within 24 hours: N/A Last intake: Intake Last Liquid Date 04/05/25 Last Liquid Time 22:30 Last Solid Date 04/05/25 Last Solid Time 20:00 Social No alcohol and No tobacco Exam alert, oriented x 3, clear to auscultation bilaterally and regular rate & rhythm Airway Cervical ROM: within normal limits Mallampati: Class II Dentition: full Pulmonary Sleep Apnea CV/HEM Arrythmia Medications/Allergies Home Medications ?Medication ?Instructions ?Recorded ?Confirmed ?Last Taken ?Type acetaminophen 650 mg 1,300 mg PO BID 10/23/19 03/31/25 04/05/25 History tablet,extended release (Tylenol Arthritis Pain) cholecalciferol (vitamin D3) 50 50 mcg PO DAILY@07 08/16/20 03/31/25 04/05/25 History mcg (2,000 unit) capsule AUTO-TITRATING CPAP #1 ea 03/07/21 03/23/25 Unknown Rx atorvastatin 20 mg tablet 20 mg PO DAILY #90 tabs 08/04/24 03/31/25 04/05/25 Rx duloxetine 30 mg capsule,delayed 30 mg PO DAILY #90 ea 08/04/24 03/31/25 04/05/25 Rx release estradiol 0.01% (0.1 mg/gram) 1 g vaginal .3 times/wk #42.5 grams 10/26/24 03/31/25 03/30/25 Rx vaginal cream metoprolol tartrate 75 mg tablet 75 mg PO BID #180 tabs 11/11/24 03/31/25 04/05/25 Rx blood sugar diagnostic (Blood #50 ea 12/25/24 03/23/25 Unknown Rx Glucose Test strips) blood-glucose meter #1 ea 12/25/24 03/23/25 Unknown Rx lancets 25 gauge #100 ea 12/25/24 03/23/25 Unknown Rx levothyroxine 150 mcg tablet 150 mcg PO DAILY #90 tabs 02/08/25 03/31/25 04/05/25 Rx (Synthroid) pantoprazole 40 mg tablet,delayed 40 mg PO BID 6 weeks #84 tabs 03/01/25 03/31/25 04/06/25 Rx release sitagliptin phosphate 100 mg 100 mg PO DAILY #30 tabs 03/01/25 03/31/25 04/05/25 Rx tablet (Januvia) alendronate 70 mg tablet (Fosamax) 70 mg PO .Q7days #15 tabs 03/23/25 03/31/25 04/05/25 Rx prednisone 5 mg tablet 5 mg PO DAILY #90 tabs 03/23/25 03/31/25 04/05/25 Rx duloxetine 60 mg capsule,delayed 60 mg PO QPM #90 caps 03/25/25 03/31/25 04/05/25 Rx release azathioprine 50 mg tablet (Imuran) See Rx Instructions PO .COMPLEX 03/31/25 04/06/25 04/05/25 History 100 mg cyclobenzaprine 10 mg tablet 10 mg PO TID PRN Muscle Spasm 03/31/25 03/31/25 04/05/25 History diltiazem HCl 120 mg 120 mg PO BID 03/31/25 03/31/25 04/05/25 History capsule,extended release 12 hr gabapentin 300 mg capsule 300 mg PO TID 03/31/25 03/31/25 04/05/25 History Allergies Allergy/AdvReac Type Severity Reaction Status Date / Time sulfasalazine Allergy Intermediate bad Verified 03/31/25 10:05 headaches hydrocodone Allergy itch Verified 03/31/25 10:05 hydroxychloroquine Allergy adv-eye Verified 03/31/25 10:05 changes penicillin G Allergy rash Verified 03/31/25 10:05 oxycodone AdvReac Mild itching Verified 03/31/25 10:05 Current Medications Generic Name Dose Route Start Last Admin Trade Name Freq PRN Reason Stop Dose Admin Sodium Chloride 1,000 mls @ 15 mls/hr 04/06/25 10:51 04/06/25 11:37 Sodium Chloride 0.9% IV 04/07/25 10:50 15 mls/hr .Q24H PRN Administration COLONOSCOPY FLUIDS PFSH Anesthesia Medical History Type 2 diabetes mellitus without complication, without long-term current use of insulin dxed 08.06.24 Postoperative hypothyroidism Glossodynia Dyslipidemia LISSET (obstructive sleep apnea) has CPAP but not compliant Bad odor of urine On prednisone therapy for SLE Fasting hyperglycemia Facial droop Depression Seropositive rheumatoid arthritis of multiple sites Inflammatory arthritis History of 2019 novel coronavirus disease (COVID-19) Rheumatoid arthritis SLE (systemic lupus erythematosus) Mixed stress and urge urinary incontinence HTN (hypertension) Anxiety Degenerative disc disease L4-L5, also cervical spine. 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 S/P laparoscopic appendectomy (08/16/20) Status post colonoscopy (~2019) History of thyroidectomy Previous back surgery hx of disc shaved off--2 X hx of plate/screws--anterior approach, then 3d later did redo through regional marketing manager approach--then 6 months later 2022 had to have screws reinforced History of partial hysterectomy ovaries remaining; done for bleeding; no cancer; had bladder lift at same time Family History Mother CAD (coronary artery disease) [place] Stroke Dementia Father CAD (coronary artery disease), Onset Age: 70 Leukemia Congestive heart failure (CHF) Grandfather CAD (coronary artery disease) Chronic kidney disease (CKD) Grandmother CAD (coronary artery disease) afib Brother CAD (coronary artery disease) syncope Chronic kidney disease (CKD) Diabetes Brother CAD (coronary artery disease) PPM Chronic kidney disease (CKD) Diabetes Sister CAD (coronary artery disease) PPM Parkinson disease Other Hypertension Denies family history of Lupus (systemic lupus erythematosus) Rheumatoid arthritis Clotting disorder Suicide Anesthesia complication Bleeding disorder Social History Smoking and tobacco/nicotine status: former use of tobacco/nicotine Alcohol intake: never Substance/Drug Use: never Adopted: No Household members: spouse Marital status: Number of children: 2 Highest education level completed: High School Graduate service: No Current occupational status: retired Current occupational exposures/hazards: No 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 Documented by User: Shelia Abraham CRNA 04/06/25 12:43 Pre-Anesthetic Assessment CV/HEM Congestive Heart Failure (HOCM) and Hypertension Last echo revealed normal LV funtion EF60% Hepatic None reported GI Gastroesophageal Reflux Disease Metabolic Diabetes Mellitus, Hyperlipidemia and Thyroid Disease (hypo) Musc/skel Lower Back Pain, Osteoarthritis/DJD and Rheumatoid Arthritis SLE Neuropsych None reported Anesthetic Plan ASA status: 3 Anesthesia: MAC Risk of > 500 ml blood loss (7ml/kg in children): No Medications/Allergies Home Medications ?Medication ?Instructions ?Recorded ?Confirmed ?Last Taken ?Type acetaminophen 650 mg 1,300 mg PO BID 10/23/19 03/31/25 04/05/25 History tablet,extended release (Tylenol Arthritis Pain) cholecalciferol (vitamin D3) 50 50 mcg PO DAILY@07 08/16/20 03/31/25 04/05/25 History mcg (2,000 unit) capsule AUTO-TITRATING CPAP #1 ea 03/07/21 03/23/25 Unknown Rx atorvastatin 20 mg tablet 20 mg PO DAILY #90 tabs 08/04/24 03/31/25 04/05/25 Rx duloxetine 30 mg capsule,delayed 30 mg PO DAILY #90 ea 08/04/24 03/31/25 04/05/25 Rx release estradiol 0.01% (0.1 mg/gram) 1 g vaginal .3 times/wk #42.5 grams 10/26/24 03/31/25 03/30/25 Rx vaginal cream metoprolol tartrate 75 mg tablet 75 mg PO BID #180 tabs 11/11/24 03/31/25 04/05/25 Rx blood sugar diagnostic (Blood #50 ea 12/25/24 03/23/25 Unknown Rx Glucose Test strips) blood-glucose meter #1 ea 12/25/24 03/23/25 Unknown Rx lancets 25 gauge #100 ea 12/25/24 03/23/25 Unknown Rx levothyroxine 150 mcg tablet 150 mcg PO DAILY #90 tabs 02/08/25 03/31/25 04/05/25 Rx (Synthroid) pantoprazole 40 mg tablet,delayed 40 mg PO BID 6 weeks #84 tabs 03/01/25 03/31/25 04/06/25 Rx release sitagliptin phosphate 100 mg 100 mg PO DAILY #30 tabs 03/01/25 03/31/25 04/05/25 Rx tablet (Januvia) alendronate 70 mg tablet (Fosamax) 70 mg PO .Q7days #15 tabs 03/23/25 03/31/25 04/05/25 Rx prednisone 5 mg tablet 5 mg PO DAILY #90 tabs 03/23/25 03/31/25 04/05/25 Rx duloxetine 60 mg capsule,delayed 60 mg PO QPM #90 caps 03/25/25 03/31/25 04/05/25 Rx release azathioprine 50 mg tablet (Imuran) See Rx Instructions PO .COMPLEX 03/31/25 04/06/25 04/05/25 History 100 mg cyclobenzaprine 10 mg tablet 10 mg PO TID PRN Muscle Spasm 03/31/25 03/31/25 04/05/25 History diltiazem HCl 120 mg 120 mg PO BID 03/31/25 03/31/25 04/05/25 History capsule,extended release 12 hr gabapentin 300 mg capsule 300 mg PO TID 03/31/25 03/31/25 04/05/25 History Allergies Allergy/AdvReac Type Severity Reaction Status Date / Time sulfasalazine Allergy Intermediate bad Verified 03/31/25 10:05 headaches hydrocodone Allergy itch Verified 03/31/25 10:05 hydroxychloroquine Allergy adv-eye Verified 03/31/25 10:05 changes penicillin G Allergy rash Verified 03/31/25 10:05 oxycodone AdvReac Mild itching Verified 03/31/25 10:05 [facility] Anesthesia Medical History Type 2 diabetes mellitus without complication, without long-term current use of insulin dxed 1..25 Postoperative hypothyroidism Glossodynia Dyslipidemia LISSET (obstructive sleep apnea) has CPAP but not compliant Bad odor of urine On prednisone therapy for SLE Fasting hyperglycemia Facial droop Depression Seropositive rheumatoid arthritis of multiple sites Inflammatory arthritis History of 2019 novel coronavirus disease (COVID-19) Rheumatoid arthritis SLE (systemic lupus erythematosus) Mixed stress and urge urinary incontinence HTN (hypertension) Anxiety Degenerative disc disease L4-L5, also cervical spine. 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 S/P laparoscopic appendectomy (08/16/20) Status post colonoscopy (~2019) History of thyroidectomy Previous back surgery hx of disc shaved off--2 X hx of plate/screws--anterior approach, then 3d later did redo through regional marketing manager approach--then 6 months later 2022 had to have screws reinforced History of partial hysterectomy ovaries remaining; done for bleeding; no cancer; had bladder lift at same time Family History Mother CAD (coronary artery disease) [place] Stroke Dementia Father CAD (coronary artery disease), Onset Age: 70 Leukemia Congestive heart failure (CHF) Grandfather CAD (coronary artery disease) Chronic kidney disease (CKD) Grandmother CAD (coronary artery disease) afib Brother CAD (coronary artery disease) syncope Chronic kidney disease (CKD) Diabetes Brother CAD (coronary artery disease) PPM Chronic kidney disease (CKD) Diabetes Sister CAD (coronary artery disease) PPM Parkinson disease Other Hypertension Denies family history of Lupus (systemic lupus erythematosus) Rheumatoid arthritis Clotting disorder Suicide Anesthesia complication Bleeding disorder Social History Smoking and tobacco/nicotine status: former use of tobacco/nicotine Alcohol intake: never Substance/Drug Use: never Adopted: No Household members: spouse Marital status: Number of children: 2 Highest education level completed: High School Graduate service: No Current occupational status: retired Current occupational exposures/hazards: No 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
--- NOTE | 2025-04-06 12:25 | W.PM.OPSUD ---
Surgery/Procedure H&P Update DATE OF PROCEDURE: April 06, 2025 DATE H&P PERFORMED: 03/19/25 H&P UPDATE INFORMATION: I have reviewed H&P completed within last 30 days, I have examined patient prior to procedure and No changes to prior documentation PREOP DIAGNOSIS: epigastric pain PLANNED PROCEDURE: Operation Date: 04/06/25 12:15 Proposed Procedures p EGD EGD with Biopsy 81523 R10.13(Not Applicable) - Ross Kat MD
[2025-04-06 12:35] VITALS: BP 118/71; PULSE 66; RESP 18; TEMP 36.2; O2SAT 96
[2025-04-06 12:52] VITALS: BP 132/94; PULSE 65; RESP 18; O2SAT 98
--- NOTE | 2025-04-06 13:17 | ANE.PACU2 ---
Inpatient post-anesthesia follow up: Airway intact: Yes Vital signs: Temperature 97.1 F Pulse Rate 65 Respiratory Rate 18 Blood Pressure 132/94 Pulse Oximetry 98 Oxygen Delivery Me thod Room Air Oxygen Flow Rate Fraction of Inspir ed Oxygen Hydration adequate: Yes Nausea and vomiting: No Pain level: 1 Mental status: Baseline
== END 2025-04-06 13:12 | disposition home or self-care (01) ==
PROVIDERS: PCP Family Medicine; Visit Provider Student in an Organized Health Care Education/Training Program
PROC: 0DJ08ZZ Inspection of Upper Intestinal Tract, Via Natural or Artificial Opening Endoscopic (ICD-10-PCS; principal; 2025-04-06 12:15)
DX: R12 Heartburn (principal); K29.70 Gastritis, unspecified, without bleeding; K21.9 Gastro-esophageal reflux disease without esophagitis; G47.33 Obstructive sleep apnea (adult) (pediatric); E11.9 Type 2 diabetes mellitus without complications; E78.5 Hyperlipidemia, unspecified; I10 Essential (primary) hypertension; F41.9 Anxiety disorder, unspecified; M79.7 Fibromyalgia; I49.9 Cardiac arrhythmia, unspecified; Z87.891 Personal history of nicotine dependence
CPT/HCPCS: 43239; 88305; J2250; J2704; J7030

== ENCOUNTER → 2025-04-29 09:59 | Outpatient (BNVA) | payer BC, SELFPAY | PROVIDERS: PCP Family Medicine; Visit Provider Family Medicine | DX: Z79.899 Other long term (current) drug therapy (principal); E89.0 Postprocedural hypothyroidism | CPT/HCPCS: 80053; 80061; 82043; 83036; 84439; 84443; 85025; 85651; 86140 ==

== ENCOUNTER 2025-05-01 16:16 | Inpatient (IN) | payer MEDICARE, BC, SELFPAY ==
[2025-05-01 16:17] VITALS: BP 140/83; PULSE 116; RESP 17; TEMP 36.9; O2SAT 93; BMI 27.3
--- NOTE | 2025-05-01 16:19 | CTR_ITS ---
PROCEDURE INFORMATION: Exam: CT Head Without Contrast Exam date and time: 05/01/2025 4:18 PM Age: 69 years old Clinical indication: Stroke-like symptoms; Altered mental status/memory loss; Additional info: Possible stroke TECHNIQUE: Imaging protocol: Computed tomography of the head without contrast. Radiation optimization: All CT scans at this facility use at least one of these dose optimization techniques: automated exposure control; mA and/or kV adjustment per patient size (includes targeted exams where dose is matched to clinical indication); or iterative reconstruction. Other technique: STROKE PROTOCOL was implemented. COMPARISON: CT angio headneck* [id number] 08/20/2024 11:21 AM RADIATION DOSE METRICS: Total DLP (mGy-cm): 1019.18 FINDINGS: Brain: Mild nonspecific white matter low attenuation which may be related to microvascular ischemic changes. No acute confluent lobar ischemic infarct. No acute intracranial hemorrhage. Cerebral ventricles: The ventricles and sulci are normal in size and shape for the patient's stated age. Paranasal sinuses: No fluid levels. Mastoid air cells: Visualized mastoid air cells are well aerated. Bones: No acute calvarial fracture. Soft tissues: Visualized soft tissues are unremarkable. CT/CT head thrombolytic [id number] IMPRESSION: No acute intracranial abnormality. If symptoms persist, consider further evaluation with MRI, if there are no contraindications to obtaining a MRI scan. ASSESSMENT: ASPECTS ([place] Stroke Program Early CT Score) is 10.
--- NOTE | 2025-05-01 16:19 | XRR_ITS ---
PROCEDURE INFORMATION: Exam: XR Chest Exam date and time: 05/01/2025 4:43 PM Age: 69 years old Clinical indication: Other: Weakness; Prior surgery; Surgery date: 6+ months; Surgery type: Thyroidectomy TECHNIQUE: Imaging protocol: Radiologic exam of the chest. Views: 1 view. COMPARISON: CR XR chest 1V portable [id number] 08/19/2024 9:30 AM FINDINGS: Lungs: No focal lung consolidation. Pleural spaces: No pleural effusion. No pneumothorax. Heart/Mediastinum: No cardiomegaly. Bones/joints: No acute bony abnormality. XR/XR chest 1V portable [id number] IMPRESSION: No focal lung consolidation.
--- OUTSIDE RECORDS SUMMARY | 2025-05-01 16:21 | XMS_ITS | Encounter Summary ---
Author Organization [facility] Address [address] [place] [address] Care Team Providers Care Granulator Name Role Phone Linwood Myles MD Primary Care Provider [phone] Encounter Details Date Type Department Care Team (Latest Contact Info) Description 06/21/1998 Outpatient [facility] [address] [facility] [address] [place] [address] Jefry Sebastian MD NO ADDRESS ON FILE Other screening mammogram (Primary Dx) Social History Tobacco Use Types Packs/Day Years Used Date Smoking Tobacco: Never Assessed Comments Unknown Sex and Gender Information Value Date Recorded Sex Assigned at Not on file Legal Sex Female 2:50 AM MANAGER AUDIT Gender Identity Not on file Sexual Orientation Not on file documented as of this encounter Plan of Treatment Not on file documented as of this encounter Visit Diagnoses Diagnosis Other screening mammogram- Primary documented in this encounter Care Teams Granulator Relationship Specialty Start Date End Date Linwood Myles MD [address] [place] [address] PCP - General 04/06/03 documented as of this encounter
--- OUTSIDE RECORDS SUMMARY | 2025-05-01 16:21 | XMS_ITS | Encounter Summary ---
Author Organization [facility] Address [address] [place] [address] Care Team Providers Care Gasoline Engine Assembler Name Role Phone Linwood Myles MD Primary Care Provider [phone] Encounter Details Date Type Department Care Team (Latest Contact Info) Description 07/13/2005 Outpatient Historical [facility] [address] [place] [address] Gerson Ferrer, POLO COACH [address] [place] [address] CHRONIC SINUSITIS NOS (Primary Dx); ACUTE PHARYNGITIS Social History Tobacco Use Types Packs/Day Years Used Date Smoking Tobacco: Never Assessed Comments Unknown Sex and Gender Information Value Date Recorded Sex Assigned at Not on file Legal Sex Female 2:50 AM TOOL GRINDER Gender Identity Not on file Sexual Orientation Not on file documented as of this encounter Plan of Treatment Not on file documented as of this encounter Visit Diagnoses Diagnosis Unspecified sinusitis (chronic)- Primary Acute pharyngitis documented in this encounter Care Teams Gasoline Engine Assembler Relationship Specialty Start Date End Date Linwood Myles MD [address] [place] [address] PCP - General 04/06/03 documented as of this encounter
--- OUTSIDE RECORDS SUMMARY | 2025-05-01 16:21 | XMS_ITS | Encounter Summary ---
Author Organization [facility] Address [address] [place] [address] Care Team Providers Care Residential Mortgage Manager Name Role Phone Linwood Myles MD Primary Care Provider Encounter Details Date Type Department Care Team (Late st Contact Info) Description 12/02/2002 Outpatient Historical [facility] [place] [id number] [place] [address] Linwood Myles MD [address] [place] [address] Social History Tobacco Use Types Packs/Day Years Used Date Smoking Tobacco: Never Assessed Comments Unknown Sex and Gender Information Value Date Recorded Sex Assigned at Not on file Legal Sex Female 2:50 AM PATIENT CARE Gender Identity Not on file Sexual Orientation Not on file documented as of this encounter Plan of Treatment Not on file documented as of this encounter Visit Diagnoses Not on filedocumented in this encounter Care Teams Residential Mortgage Manager Relationship Specialty Start Date End Date Linwood Myles MD [address] [place] [address] PCP - General 04/06/03 documented as of this encounter
--- OUTSIDE RECORDS SUMMARY | 2025-05-01 16:21 | XMS_ITS | Encounter Summary ---
Author Organization [facility] Address [address] [place] [address] Care Team Providers Care Air Drill Operator Name Role Phone Linwood Myles MD Primary Care Provider [phone] Encounter Details Date Type Department Care Team (Latest Contact Info) Description 07/11/2005 Outpatient [facility] [address] [place], [place] [id number] Linwood Myles MD [address] [place], [place] [id number] SCREENING MAMM-MAILG NEOPL NEC (Primary Dx) Social History Tobacco Use Types Packs/Day Years Used Date Smoking Tobacco: Never Assessed Comments Unknown Sex and Gender Information Value Date Recorded Sex Assigned at Not on file Legal Sex Female 2:50 AM OUTBOARD MOTOR INSPECTOR Gender Identity Not on file Sexual Orientation Not on file documented as of this encounter Plan of Treatment Not on file documented as of this encounter Visit Diagnoses Diagnosis Other screening mammogram- Primary documented in this encounter Care Teams Air Drill Operator Relationship Specialty Start Date End Date Linwood Myles MD [address] [place], [place] [id number] PCP - General 04/06/03 documented as of this encounter
--- OUTSIDE RECORDS SUMMARY | 2025-05-01 16:21 | XMS_ITS | Encounter Summary ---
Author Organization [facility] Address [address] [place] [address] Care Team Providers Care Box Loader Name Role Phone Linwood Myles MD Primary Care Provider [phone] Encounter Details Date Type Department Care Team (Late st Contact Info) Description 11/01/2014 Ancillary Orders [facility] [address] [place] [address] Efren Fonseca MD [address] [place] [address] Pain (Primary Dx) Social History Tobacco Use Types Packs/Day Years Used Date Smoking Tobacco: Never Smokeless Tobacco: Never Alcohol Use Standard Drinks/Week Comments No 0 (1 standard drink = 0.6 oz pur e alcohol) Comments Unknown Sex and Gender Information Value Date Recorded Sex Assigned at Not on file Legal Sex Female 2:50 AM ORDER BOOKER Gender Identity Not on file Sexual Orientation Not on file Occupation Industry Job Start Date Job End Date Not on file Not on file Not on file Not on file documented as of this encounter Plan of Treatment Not on file documented as of this encounter Results * XR LUMBAR SPINE 2 OR 3 VW (11/01/2014 10:09 AM CDT) Anatomical Region Laterality Modality Spine Computed Radiogr aphy 11/01/2014 10:0 6 AM CDT Narrative 11/01/2014 11:38 AM CDT PROCEDURE XR LUMBAR SPINE, 3 views, 01 November 2014 DESCRIPTION AP and lateral lumbar spine views and collimated lateral L5-S1 projection show no acute fracture or spondylolisthesis. There is loss of height of the discs at L4-L5 and L5-S1 with some minimal osteophyte formation. There sclerosis the apophyseal joints at L5-S1. IMPRESSION 1. mild osteoarthritis 2. no acute fracture or loss of normal curvature Procedure Note Cayetano Estrella MD - 11/01/2014 PROCEDURE XR LUMBAR SPINE, 3 views, 01 November 2014 DESCRIPTION AP and lateral lumbar spine views and collimated lateral L5-S1 projection show no acute fracture or spondylolisthesis. There is loss of height of the discs at L4-L5 and L5-S1 with some minimal osteophyte formation. There sclerosis the apophyseal joints at L5-S1. IMPRESSION 1. mild osteoarthritis 2. no acute fracture or loss of normal curvature us Efren Fonseca MD DIAGNOSTIC IMAGING ORDERABLES Fi nal Result documented in this encounter Visit Diagnoses Diagnosis Pain- Primary Generalized pain Pain Generalized pain documented in this encounter Care Teams Box Loader Relationship Specialty Start Date End Date Linwood Myles MD [address] [place] [address] PCP - General 04/06/03 documented as of this encounter
--- OUTSIDE RECORDS SUMMARY | 2025-05-01 16:21 | XMS_ITS | Encounter Summary ---
Author Organization [facility] Address [address] [place] [address] Care Team Providers Care General Counselor Name Role Phone Linwood Myles MD Primary Care Provider [phone] Encounter Details Date Type Department Care Team (Latest Contact Info) Description 01/08/2003 Outpatient Historical [facility] Kathi Jaquez MD NO ADDRESS ON FILE SKIN DISORDER NOS (Primary Dx) Social History Tobacco Use Types Packs/Day Years Used Date Smoking Tobacco: Never Assessed Comments Unknown Sex and Gender Information Value Date Recorded Sex Assigned at Not on file Legal Sex Female 2:50 AM AUTOMATION TEST ENGINEER Gender Identity Not on file Sexual Orientation Not on file documented as of this encounter Plan of Treatment Not on file documented as of this encounter Visit Diagnoses Diagnosis Unspecified disorder of skin and subcutaneous tissue- Primary documented in this encounter Care Teams General Counselor Relationship Specialty Start Date End Date Linwood Myles MD [address] [place] [address] PCP - General 04/06/03 documented as of this encounter
--- OUTSIDE RECORDS SUMMARY | 2025-05-01 16:21 | XMS_ITS | Encounter Summary ---
Author Organization [employer] [facility] Address [address] [place] [address] Care Team Providers Care Barrel Waterer Name Role Phone Linwood Myles MD Primary Care Provider [phone] Encounter Details Date Type Department Care Team (Latest Contact Info) Description 06/29/2004 Outpatient [facility] [address] [place] [address] [phone] Linwood Myles MD [address] [place], [place] [address] SCREENING MAMM-MAILG NEOPL-OTHER (Primary Dx) Social History Tobacco Use Types Packs/Day Years Used Date Smoking Tobacco: Never Assessed Comments Unknown Sex and Gender Information Value Date Recorded Sex Assigned at Not on file Legal Sex Female 2:50 AM ACCOUNT INSTALLATION SPECIALIST Gender Identity Not on file Sexual Orientation Not on file documented as of this encounter Plan of Treatment Not on file documented as of this encounter Visit Diagnoses Diagnosis Other screening mammogram- Primary documented in this encounter Care Teams Barrel Waterer Relationship Specialty Start Date End Date Linwood Myles MD [address], [place] [phone] PCP - General 04/06/03 documented as of this encounter
--- OUTSIDE RECORDS SUMMARY | 2025-05-01 16:21 | XMS_ITS | Clinical Summary ---
Author Organization [facility] Address [address] [place] [address] Care Team Providers Care Medication Care Manager Name Role Phone Linwood Myles MD Primary Care Provider [phone] Allergies Active Allergy Reactions Criticality Noted Date Comments Penicillin G Itching Low 02/13/2011 Medications * This document contains information received from the source organization and may not represent a complete record from that organization. DULoxetine (CYMBALTA) 60 mg Oral CpDR Take 60 mg by mouth daily at bedtime. 1 daily Active Levothyroxine 137 mcg Oral Cap Take 1 Tab by mouth daily electric refrigerator servicer. 1 time daily Active cyclobenzaprine (FLEXERIL) 10 mg tablet Take 10 mg by mouth nightly as needed . 6 Active DULoxetine (CYMBALTA) 30 mg Capsule, Delayed Release(E.C.) Take 30 mg by mouth daily . 6 Active hydroCHLOROthia zide 25 mg tablet Take 25 mg by mouth daily. Active triamcinolone acetonide (KENALOG) 0.1 % CreamIndication s:Poison tiffanie dermatitis Apply to affected area 2 times daily Use sparingly on the face. 45 Gram 1 6 Active lisinopril (PRINIVIL) 40 mg tablet 6 Active omeprazole (PriLOSEC) 20 mg Capsule, Delayed Release(E.C.) 6 Active Active Problems Problem Noted Date Diagnosed Date Vitreous degeneration, left 09/14/2020 Postoperative hypothyroidism 05/31/2016 Benign hypertension 05/31/2016 Fibromyalgia 05/31/2016 S/P carpal tunnel release, right 11/01/15 016 Bilateral carpal tunnel syndrome 08/17/2015 Pseudophakia 06/04/2011 Posterior subcapsular polar cataract, nonsenile - right 05/10/2011 Macular puckering of retina - right eye 05/10/20 11 Retinal detachment, recent, partial, with giant tear - OD 02/13/2011 Family History Medical History Relation Name Comments Diabetes Brother Heart Disease Father Heart Disease Mother Breast Cancer Other niece Breast Cancer Sister Relation Name Status Comments Brother Father Mother Other niece Alive Sister Social History Tobacco Use Types Packs/Day Years Used Date Smoking Tobacco: Never Smokeless Tobacco: Never Alcohol Use Standard Drinks/Week Comments No 0 (1 standard drink = 0.6 oz pur e alcohol) Comments No Sex and Gender Information Value Date Recorded Sex Assigned at Not on file Legal Sex Female 2:50 AM PRODUCTION ESTIMATOR Gender Identity Not on file Sexual Orientation Not on file Occupation Industry Job Start Date Job End Date Not on file Not on file Not on file Not on file Last Filed Vital Signs Vital Sign Reading Time Taken Comments Blood Pressure 136/80 05/31/2016 9:07 AM PRODUCTION ESTIMATOR Pulse 88 05/31/2016 9:07 AM PRODUCTION ESTIMATOR Temperature 37 C (98.6 F) 05/31/2016 9:07 AM PRODUCTION ESTIMATOR Respiratory Rate 16 05/31/2016 9:07 AM PRODUCTION ESTIMATOR Oxygen Saturation 98% 05/31/2016 9:07 AM PRODUCTION ESTIMATOR Inhaled Oxygen Concentration - - Weight 80.3 kg (177 lb) 05/31/2016 9:07 AM PRODUCTION ESTIMATOR Height 175.3 cm (5' 9 ) 05/31/2016 9:07 AM PRODUCTION ESTIMATOR Body Mass Index 26.14 05/31/2016 9:07 AM PRODUCTION ESTIMATOR Plan of Treatment Health Maintenance Due Date Last Done Comments DTAP/TDAP/TD VACCINES (1 - Tdap) 1975 COLORECTAL SCREENING 2001 Colorectal Cancer Screening 2001 FIT-DNA Q 3 years 2001 FIT/FOBT Q 1 year 2001 Flex Sig/CT Colonography Q 5 years 2001 PNEUMOCOCCAL VACCINE 50+ YEARS (1 of 1 - PCV) 08/22/19 07 ZOSTER VACCINE (1 of 2) 2006 BREAST CANCER SCREENING 05/18/2017 05/18/2016 OSTEOPOROSIS SCREENING 2021 INFLUENZA VACCINE (#1) 2025 RSV VACCINE (60+ or ) (1 - 1-dose 75+ series) 2031 Medical Devices Implanted Type Area Heater Room Helper Device Identifier Shelf Expiration Date Model / Serial / Lot Log [id number] - Jhonathan Sn60wf - 1 - Lens Io [id number] 18.0 Implanted:Qty: 1 on 06/05/2011 at [facility] Right: Eye [employer] 02/02/2016 [id number] / [id number] / NA Procedures Procedure Name Priority Date/Time Associated Diagnosis Comments MAMMO SCREEN BILAT W OR WO CAD Routine 05/18/2016 2:01 PM CDT Encounter for screening mammogram for malignant neoplasm of breast from Last 3 Months or Most Recently Relevant to Health Maintenance Results * MAMMO DIGITAL SCREEN BILAT (05/18/2016 2:01 PM CDT) Anatomical Region Laterality Modality Breast Bilateral Mammography Narrative 05/21/2016 9:18 AM PRODUCTION ESTIMATOR Bilateral Mammogram Reason for Exam: Screening Comparison: Compared to: 07/11/2005 MAMMO PRIOR STUDY , 06/29/2004 MAMMO PRIOR STUDY Findings: Bilateral CC and MLO views were obtained. This examination was reviewed with the aid of a computer-aided detection system(CAD). The breast tissue is dense. Bilateral breast nodularity is stable. No significant new findings since the prior mammogram(s). Linwood Myles MD MAMMO ORDERABLES Final Result from Last 3 Months or Most Recently Relevant to Health Maintenance Insurance [employer] Advance Directives For more information, please contact: [phone] * Full Code (Latest Code Status on File) Date Activated Date Inactivated Comments 11/01/2015 6:11 AM 11/01/2015 10:35 AM * Full Code Date Activated Date Inactivated Comments 07/03/2011 11:57 AM 07/03/2011 9:34 PM * Full Code Date Activated Date Inactivated Comments 07/03/2011 11:41 AM 07/03/2011 11:57 AM * Full Code Date Activated Date Inactivated Comments 06/04/2011 9:37 AM 06/05/2011 2:01 AM * Full Code Date Activated Date Inactivated Comments 06/04/2011 8:33 AM 06/04/2011 9:37 AM Care Teams Medication Care Manager Relationship Specialty Start Date End Date Linwood Myles MD [address] [place] [address] PCP - General 04/06/03
--- OUTSIDE RECORDS SUMMARY | 2025-05-01 16:21 | XMS_ITS | Encounter Summary ---
Author Organization [facility] Address [address] [place] [address] Care Team Providers Care Strategic Account Director Name Role Phone Linwood Myles MD Primary Care Provider [phone] Encounter Details Date Type Department Care Team (Latest Contact Info) Description 12/18/2004 Outpatient Historical [facility] [address] [place] [address] Harlan Fang MD [address] [place] [phone] CHRONIC SINUSITIS NOS (Primary Dx) Social History Tobacco Use Types Packs/Day Years Used Date Smoking Tobacco: Never Assessed Comments Unknown Sex and Gender Information Value Date Recorded Sex Assigned at Not on file Legal Sex Female 2:50 AM SCOOP DRIVER Gender Identity Not on file Sexual Orientation Not on file documented as of this encounter Plan of Treatment Not on file documented as of this encounter Visit Diagnoses Diagnosis Unspecified sinusitis (chronic)- Primary documented in this encounter Care Teams Strategic Account Director Relationship Specialty Start Date End Date Linwood Myles MD [address] [place] [address] PCP - General 04/06/03 documented as of this encounter
--- OUTSIDE RECORDS SUMMARY | 2025-05-01 16:21 | XMS_ITS | Encounter Summary ---
Author Organization [employer] [facility] Address [address] [place] [address] Care Team Providers Care Change House Attendant Name Role Phone Linwood Myles MD Primary Care Provider [phone] Encounter Details Date Type Department Care Team (Latest Contact Info) Description 07/11/2004 Outpatient [facility] Linwood Myles MD [address], [place] [id number] MAMMOGRAPHIC MICROCALCIFICATION (Primary Dx) Social History Tobacco Use Types Packs/Day Years Used Date Smoking Tobacco: Never Assessed Comments Unknown Sex and Gender Information Value Date Recorded Sex Assigned at Not on file Legal Sex Female 2:50 AM POWER DISTRIBUTOR Gender Identity Not on file Sexual Orientation Not on file documented as of this encounter Plan of Treatment Not on file documented as of this encounter Visit Diagnoses Diagnosis Mammographic microcalcification- Primary documented in this encounter Care Teams Change House Attendant Relationship Specialty Start Date End Date Linwood Myles MD [address] [place] [address] PCP - General 04/06/03 documented as of this encounter
--- OUTSIDE RECORDS SUMMARY | 2025-05-01 16:21 | XMS_ITS | Encounter Summary ---
Author Organization [facility] Address [address] [place] [address] Care Team Providers Care Custodial Supervisor Name Role Phone Linwood Myles MD Primary Care Provider [phone] Encounter Details Date Type Department Care Team (Latest Contact Info) Description 12/22/2004 Outpatient [facility] [address] [place] [address] Harlan Fang MD [address] [place] [phone] OTITIS MEDIA NOS (Primary Dx) Social History Tobacco Use Types Packs/Day Years Used Date Smoking Tobacco: Never Assessed Comments Unknown Sex and Gender Information Value Date Recorded Sex Assigned at Not on file Legal Sex Female 2:50 AM VETERINARY SURGEON Gender Identity Not on file Sexual Orientation Not on file documented as of this encounter Plan of Treatment Not on file documented as of this encounter Visit Diagnoses Diagnosis Unspecified otitis media- Primary documented in this encounter Care Teams Custodial Supervisor Relationship Specialty Start Date End Date Linwood Myles MD [address] [place] [address] PCP - General 04/06/03 documented as of this encounter
--- OUTSIDE RECORDS SUMMARY | 2025-05-01 16:21 | XMS_ITS | Clinical Summary ---
Author Organization [employer] Address [address] [facility] Attn: [place] [address] Care Team Providers Care Non Emergency Services Ambulance Driver Name Role Phone Non-Staff, Physician Primary Care Provider Unava ilable Allergies Active Allergy Reactions Criticality Noted Date Comments Amlodipine Itching Low 12/25/2022 Hydrocodone Itching Low 12/25/2022 Oxycodone Itching Low 12/25/2022 Penicillin G Itching Low 02/13/2011 Medications DULoxetine (CYMBALTA) 30 mg Capsule, Delayed Release(E.C.) Take 30 mg by mouth daily . Active cyclobenzaprin e (FLEXERIL) 10 mg tablet Take 10 mg by mouth nightly as needed . Active Additional Information Patient taking differently:10 mg OralTHREE TIMES DAILY PRN, Reported on 05/22/2023 estradioL 0.01% (0.1 mg/gram) vaginal cream 1 Gram by See Admin Instructions route. Vaginal 3 times weekly Active folic acid 1 mg tablet Take 1 mg by mouth daily. Active gabapentin (NEURONTIN) 300 mg capsule Take 300 mg by mouth 3 times daily. Active diclofenac sodium (VOLTAREN) 1 % gel Apply 2 Grams to affected area 4 times daily as needed. Active diltiaZEM (CARDIZEM SR) 120 mg Extended Release 12 hour capsule Take 120 mg by mouth 2 times daily. 023 Active metoprolol tartrate (LOPRESSOR) 50 mg tablet Take 50 mg by mouth every 12 hours. 023 Active cevimeline (EVOXAC) 30 mg capsule Take 30 mg by mouth 3 times daily. Active DULoxetine 60 mg capsule,delaye d release Take 60 mg by mouth daily at bedtime. Active cholecalcifero l (vitamin D3) 50 mcg (2,000 unit) capsule Take 2,000 Units by mouth daily. Active BD SafetyGlide Syringe 1 mL 27 x 1/2 Syringe Active levothyroxine 175 mcg tablet Active sulfaSALAzine (AZULFIDINE) 500 mg tablet 2 times daily. Active prednisolone-m oxiflox-bromfe n 1-0.5-0.075 % Drops, Suspension 1 Drop by Ophthalmic route 3 times daily. In operative eye. Begin 3 days before your surgery 5 mL Active neomycin-polym yxin-dexAMETHa sone (MAXITROL) 3.5 mg/g-10,000 unit/g-0.1 % ointmentIndica tions:Pseudoph marivel of left eye Administer 0.25 Inches in left eye daily at bedtime. 3.5 Gram 023 Active fluticasone propionate (FLONASE) 50 mcg/spray [place], Suspension nasal inhaler USE 1 SPRAY(S) IN EACH NOSTRIL TWICE DAILY Active methotrexate sodium 25 mg/mL Solution INJECT 25MG (1ML) SUBCUTANEOUSLY EVERY 7 DAYS. Active predniSONE (DELTASONE) 5 mg tablet Take 1 Tablet by mouth daily. Active solifenacin (VESICARE) 10 mg Tablet Take 1 Tablet by mouth daily. 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 12/25/2022 Combined forms of age-related cataract of left e ye 12/25/2022 Glaucoma suspect of both eyes 12/25/2022 Vitreous degeneration, left 09/14/2020 Postoperative hypothyroidism 05/31/2016 Fibromyalgia 05/31/2016 Benign hypertension 05/31/2016 S/P carpal tunnel release, right 11/01/15 016 Bilateral carpal tunnel syndrome 08/17/2015 Pseudophakia of right eye 06/04/2011 Posterior subcapsular polar cataract, nonsenile - right 05/10/2011 Macular puckering of retina - right eye 05/10/20 11 History of retinal detachment, right eye 011 Encounters Date Type Department Care Team Description 04/08/2025 Refill [facility] Ophthalmology [address] [place] [phone] Asher Casper MD 03/30/2025 External Device Data STL ABSTRACTION Provider, Abstract 03/05/2025 Telephone [facility] Ophthalmology [place] [address] [phone] Asher Casper MD Reschedule 03/04/2025 Telephone [facility] Ophthal[facility] [place] [address] [phone] Asher Casper MD Documentation Only 02/16/2025 External Device Data ST[place] ABSTRACTION Provider, Abstract from Last 3 Months Immunizations Immunization Administration Dates Next Due (PFIZER)(12 YR UP) COVID-19 VACCINE - EMERGENCY USE AUTHORIZATION, MRNA, [id number]) 30 MCG/0.3 ML IM SUSP 02/10/2021,01/20/2021 Family History Medical History Relation Name Comments Diabetes Brother Glaucoma Father Heart Disease Father Diabetes Mother Glaucoma Mother Heart Disease Mother Macular Degen Mother Breast Cancer Other niece Breast Cancer Sister Diabetes Sister Relation Name Status Comments Brother Father Mother Other niece Alive Sister Social History Tobacco Use Types Packs/Day Years Used Date Smoking Tobacco: Never Smokeless Tobacco: Never Tobacco Cessation:Counseling Given: Not Answered Alcohol Use Standard Drinks/Week Comments No 0 (1 standard drink = 0.6 oz pur e alcohol) Feeling Safe Answer Date Recorded Are you in a relationship wi th someone who hurts you emotionally and/or physically? No 05/28/2023 Comments No Sex and Gender Information Value Date Recorded Sex Assigned at Not on file Legal Sex Female 6:07 AM DENTAL TECHNICIAN METAL Gender Identity Not on file Sexual Orientation Not on file Last Filed Vital Signs Vital Sign Reading Time Taken Comments Blood Pressure 161/93 05/28/2023 5:15 PM DENTAL TECHNICIAN METAL Pulse 90 05/28/2023 4:59 PM DENTAL TECHNICIAN METAL Temperature 36.5 C (97.7 F) 05/28/2023 4:59 PM DENTAL TECHNICIAN METAL Respiratory Rate 16 05/28/2023 4:53 PM DENTAL TECHNICIAN METAL Oxygen Saturation 96% 05/28/2023 4:59 PM DENTAL TECHNICIAN METAL Inhaled Oxygen Concentration - - Weight 81.2 kg (179 lb) 05/28/2023 3:26 PM DENTAL TECHNICIAN METAL Height 175.3 cm (5' 9 ) 05/22/2023 2:29 PM DENTAL TECHNICIAN METAL Body Mass Index 26.43 05/22/2023 2:29 PM DENTAL TECHNICIAN METAL Plan of Treatment Health Maintenance Due Date Last Done Comments DTAP/TDAP/TD VACCINES (1 - Tdap) 1975 COLORECTAL SCREENING 2001 Colorectal Cancer Screening 2001 FIT-DNA Q 3 years 2001 FIT/FOBT Q 1 year 2001 Flex Sig/CT Colonography Q 5 years 2001 PNEUMOCOCCAL VACCINE 50+ YEA RS (1 of 1 - PCV) 2006 ZOSTER VACCINE (1 of 2) 2006 BREAST CANCER SCREENING 05/18/2017 05/18/2016 OSTEOPOROSIS SCREENING 2021 INFLUENZA VACCINE (#1) 2025 9, 05/16/2016, 04/30/2014, Additional history exists COVID-19 Vaccine (3 - 2024-2 6 season) 2025 02/10/2021, 01/20/2021 RSV VACCINE (60+ or ) (1 - 1-dose 75+ series) 2031 Medical Devices Implanted Type Area Manager Statistical Programming Device Identifier Shelf Expiration Date Model / Serial / Lot Log [id number] - Jhonathan Sn60wf - 1 - Lens Io [id number] 18.0 Implanted:Qty: 1 on 06/05/2011 Eye Right: Eye [facility] 02/02/2016 [id number] / [id number] / NA Ring Tension Capsular Type 14c Mr-[id number] - [id number] Implanted:Qty: 1 on 05/28/2023 by Andrew Christie MD at [facility] Left: Eye [employer] 11/12/2027 [id number] / [id number] / CDEAFE Lens Iol [employer]nis [employer] 18.0 [id number] - [id number] Implanted:Qty: 1 on 05/28/2023 by Andrew Christie MD at [facility] Left: Eye [employer] 03/02/2026 [id number] / [id number] / Procedures Procedure Name Priority Date/Time Associated Diagnosis Comments MAMMO SCREEN BILAT W OR WO CAD Routine 05/18/2016 2:01 PM CDT Encounter for screening mammogram for malignant neoplasm of breast from Last 3 Months or Most Recently Relevant to Health Maintenance Results * MAMMO SCREEN BILAT W OR WO CAD (05/18/2016 2:01 PM CDT) Anatomical Region Laterality Modality Breast Bilateral Other Narrative 05/21/2016 9:14 AM DENTAL TECHNICIAN METAL Bilateral Mammogram Reason for Exam: Screening Comparison: Compared to: 07/11/2005 MAMMO PRIOR STUDY , 06/29/2004 MAMMO PRIOR STUDY Findings: Bilateral CC and MLO views were obtained. This examination was reviewed with the aid of a computer-aided detection system(CAD). The breast tissue is dense. Bilateral breast nodularity is stable. No significant new findings since the prior mammogram(s). Procedure Note Jefry Sebastian MD - 10/17/2021 Bilateral Mammogram Reason for Exam: Screening Comparison: [...] Most Recently Relevant to Health Maintenance Insurance [facility] FEDERAL MEDICARE PART A HOSPITAL ONLY Care Teams Non Emergency Services Ambulance Driver Relationship Specialty Start Date End Date Non-Staff, Physician NO ADDRESS ON FILE PCP - General 01/20/21
--- OUTSIDE RECORDS SUMMARY | 2025-05-01 16:21 | XMS_ITS | Encounter Summary ---
Author Organization [facility] Address [address] [place] [address] Care Team Providers Care Blister Rust Eradicator Name Role Phone Linwood Myles MD Primary Care Provider [phone] Encounter Details Date Type Department Care Team (Late st Contact Info) Description 05/08/2016 Ancillary Orders [facility] [address] [facility] [address] [place] [address] Linwood Myles MD [address] [place] [address] Encounter for screening mammogram for malignant neoplasm of breast (Primary Dx) Social History Tobacco Use Types Packs/Day Years Used Date Smoking Tobacco: Never Smokeless Tobacco: Never Alcohol Use Standard Drinks/Week Comments No 0 (1 standard drink = 0.6 oz pur e alcohol) Comments Unknown Sex and Gender Information Value Date Recorded Sex Assigned at Not on file Legal Sex Female 2:50 AM DAYCARE DIRECTOR Gender Identity Not on file Sexual Orientation Not on file Occupation Industry Job Start Date Job End Date Not on file Not on file Not on file Not on file documented as of this encounter Plan of Treatment Not on file documented as of this encounter Results * MAMMO PRIOR STUDY (07/11/2005 8:35 AM DAYCARE DIRECTOR) Narrative 05/08/2016 8:31 AM CDT This exam was auto finalized to allow images to be scanned to PACS. us Linwood Myles MD DIAGNOSTIC IMAGING ORDERABLES F inal Result * MAMMO PRIOR STUDY (07/11/2004 8:35 AM DAYCARE DIRECTOR) Narrative 05/08/2016 8:31 AM CDT This exam was auto finalized to allow images to be scanned to PACS. Linwood Myles MD DIAGNOSTIC IMAGING ORDERABLES F inal Result * MAMMO PRIOR STUDY (06/29/2004 8:35 AM DAYCARE DIRECTOR) Narrative 05/08/2016 8:32 AM CDT This exam was auto finalized to allow images to be scanned to PACS. Linwood Myles MD DIAGNOSTIC IMAGING ORDERABLES F inal Result documented in this encounter Visit Diagnoses Diagnosis Encounter for screening mammogram for malignant neoplasm of breast Other screening mammogram Encounter for screening mammogram for malignant neoplasm of breast Other screening mammogram Encounter for screening mammogram for malignant neoplasm of breast Other screening mammogram Encounter for screening mammogram for malignant neoplasm of breast- Primary Other screening mammogram documented in this encounter Care Teams Blister Rust Eradicator Relationship Specialty Start Date End Date Linwood Myles MD [address] [place] [address] PCP - General 04/06/03 documented as of this encounter
--- OUTSIDE RECORDS SUMMARY | 2025-05-01 16:21 | XMS_ITS | Encounter Summary ---
Author Organization [email or web address] [facility] Address [address] [place] [address] Care Team Providers Care Resident Services Coordinator Name Role Phone Linwood Myles MD Primary Care Provider [phone] Encounter Details Date Type Department Care Team (Late st Contact Info) Description 03/02/2003 Outpatient Historical [facility] [address], [address] [place] [address] Enrique Sarmiento MD [address] [place] [address] Pain in limb (Primary Dx) Social History Tobacco Use Types Packs/Day Years Used Date Smoking Tobacco: Never Assessed Comments Unknown Sex and Gender Information Value Date Recorded Sex Assigned at Not on file Legal Sex Female 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
--- OUTSIDE RECORDS SUMMARY | 2025-05-01 16:21 | XMS_ITS | Encounter Summary ---
Author Organization [facility] Address [address] [place] [address] Care Team Providers Care Security Agent Name Role Phone Linwood Myles MD Primary Care Provider [phone] Encounter Details Date Type Department Care Team (Late st Contact Info) Description 07/24/2007 Outpatient [facility] [address] [place] [address] Arsenio Cason MD [address] [place] [address] Social History Tobacco Use Types Packs/Day Years Used Date Smoking Tobacco: Never Assessed Comments Unknown Sex and Gender Information Value Date Recorded Sex Assigned at Not on file Legal Sex Female 2:50 AM ANALYSIS ENGINEER Gender Identity Not on file Sexual Orientation Not on file documented as of this encounter Plan of Treatment Not on file documented as of this encounter Visit Diagnoses Not on filedocumented in this encounter Care Teams Security Agent Relationship Specialty Start Date End Date Linwood Myles MD [address] [place] [address] PCP - General 04/06/03 documented as of this encounter
--- OUTSIDE RECORDS SUMMARY | 2025-05-01 16:21 | XMS_ITS | Encounter Summary ---
Author Organization [employer] Address [address] [place] [address] Care Team Providers Care Recreational Assistant Name Role Phone Linwood Myles MD Primary Care Provider [phone] Reason for Referral * Outpatient Services (Routine) - Closed Specialty Diagnoses / Procedures Referred By Contac t Referred To Contact Diagnoses Encounter for screening mammogram for malignant neoplasm of breast Procedures MAMMO DIGITAL SCREEN BILAT Linwood Myles MD [address] [place] [address] Phone: tel: fax: [facility] [place] CALL TO MAKE APPOINTMENT ONLY [address] [place] [address] Phone: tel: fax: Referral ID Status Reason Start Date Expiration Date V isits Requested Visits Authorized [id number] Closed F [facility] TO SCHEDULE (SGF) 04/19/2016 05/20/2017 1 1 Encounter Details Date Type Department Care Team (Latest Contact Info) Description 04/19/2016 Ancillary Orders [facility] [place] CALL TO MAKE APPOINTMENT ONLY [address] [place] [address] Linwood Myles MD [address] [place] [address] Encounter for screening mammogram for [...] on file Legal Sex Female 2:50 AM CAREER SPECIALIST Gender Identity Not on file Sexual Orientation Not on file Occupation Industry Job Start Date Job End Date Not on file Not on file Not on file Not on file documented as of this encounter Plan of Treatment Not on file documented as of this encounter Results * MAMMO DIGITAL SCREEN BILAT (05/18/2016 2:01 PM CDT) Anatomical Region Laterality Modality Breast Bilateral Mammography Narrative 05/21/2016 9:18 AM CAREER SPECIALIST Bilateral Mammogram Reason for Exam: Screening Comparison: Compared to: 07/11/2005 MAMMO PRIOR STUDY , 06/29/2004 MAMMO PRIOR STUDY Findings: Bilateral CC and MLO views were obtained. This examination was reviewed with the aid of a computer-aided detection system(CAD). The breast tissue is dense. Bilateral breast nodularity is stable. No significant new findings since the prior mammogram(s). Linwood Myles MD MAMMO ORDERABLES Final Result documented in this encounter Visit Diagnoses Diagnosis Encounter for screening mammogram for malignant neoplasm of breast- Primary Other screening mammogram Encounter for screening mammogram for malignant neoplasm of breast Other screening mammogram documented in this encounter Care Teams Recreational Assistant Relationship Specialty Start Date End Date Linwood Myles MD [address] [place] [address] PCP - General 04/06/03 documented as of this encounter
--- OUTSIDE RECORDS SUMMARY | 2025-05-01 16:21 | XMS_ITS | Encounter Summary ---
Author Organization [facility] Address [address] [place] [address] Care Team Providers Care Sensitizer Name Role Phone Linwood Myles MD Primary Care Provider [phone] Encounter Details Date Type Department Care Team (Latest Contact Info) Description 04/06/2003 Outpatient Historical [facility] [address] [place] [address] [place] [address] Efren Givens MD [address] [place] [address] PREOP EXAM OTHER SPECIFIED (Primary Dx) Social History Tobacco Use Types Packs/Day Years Used Date Smoking Tobacco: Never Assessed Comments Unknown Sex and Gender Information Value Date Recorded Sex Assigned at Not on file Legal Sex Female 2:50 AM COMPLIANCE OFFICER Gender Identity Not on file Sexual Orientation Not on file documented as of this encounter Plan of Treatment Not on file documented as of this encounter Visit Diagnoses Diagnosis Other specified pre-operative examination- Primary documented in this encounter Care Teams Sensitizer Relationship Specialty Start Date End Date Linwood Myles MD [address] [place] [address] PCP - General 04/06/03 documented as of this encounter
--- OUTSIDE RECORDS SUMMARY | 2025-05-01 16:21 | XMS_ITS | Encounter Summary ---
Author Organization [facility] Address [address] [place] [address] Care Team Providers Care Assembler Unit Name Role Phone Linwood Myles MD Primary Care Provider [phone] Encounter Details Date Type Department Care Team (Latest Contact Info) Description 04/08/2003 Inpatient Historical [facility] Operating Room [address] [place] [address] Efren Givens MD [address] [place] [address] LUMBAR DISC DISPLACEMENT (Primary Dx) Social History Tobacco Use Types Packs/Day Years Used Date Smoking Tobacco: Never Assessed Comments Unknown Sex and Gender Information Value Date Recorded Sex Assigned at Not on file Legal Sex Female 2:50 AM PLUGMAN Gender Identity Not on file Sexual Orientation Not on file documented as of this encounter Plan of Treatment Not on file documented as of this encounter Visit Diagnoses Diagnosis 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
--- OUTSIDE RECORDS SUMMARY | 2025-05-01 16:21 | XMS_ITS | Encounter Summary ---
Author Organization [facility] Address [address] [place] [address] Care Team Providers Care Suit Attendant Name Role Phone Linwood Myles MD Primary Care Provider [phone] Encounter Details Date Type Department Care Team (Latest Contact Info) Description 07/11/2005 Outpatient [facility] [address] [facility] [address] [place] [address] Jefry Sebastian MD NO ADDRESS ON FILE SCREENING MAMM-MAILG NEOPL NEC (Primary Dx) Social History Tobacco Use Types Packs/Day Years Used Date Smoking Tobacco: Never Assessed Comments Unknown Sex and Gender Information Value Date Recorded Sex Assigned at Not on file Legal Sex Female 2:50 AM SCALLOP RAKER Gender Identity Not on file Sexual Orientation Not on file documented as of this encounter Plan of Treatment Not on file documented as of this encounter Visit Diagnoses Diagnosis Other screening mammogram- Primary documented in this encounter Care Teams Suit Attendant Relationship Specialty Start Date End Date Linwood Myles MD [address] [place] [address] PCP - General 04/06/03 documented as of this encounter
--- OUTSIDE RECORDS SUMMARY | 2025-05-01 16:21 | XMS_ITS | Encounter Summary ---
Author Organization [employer] [facility] Address [address] [place] [address] Care Team Providers Care Tools Developer Name Role Phone Linwood Myles MD Primary Care Provider [phone] Encounter Details Date Type Department Care Team (Latest Contact Info) Description 11/23/2002 Outpatient Historical [facility] Kathi Jaquez MD NO ADDRESS ON FILE SKIN DISORDER NOS (Primary Dx); ATTEN-SURG DRESSNG/SUTUR Social History Tobacco Use Types Packs/Day Years Used Date Smoking Tobacco: Never Assessed Comments Unknown Sex and Gender Information Value Date Recorded Sex Assigned at Not on file Legal Sex Female 2:50 AM FIRER LOCOMOTIVE Gender Identity Not on file Sexual Orientation Not on file documented as of this encounter Plan of Treatment Not on file documented as of this encounter Visit Diagnoses Diagnosis Unspecified disorder of skin and subcutaneous tissue- Primary Attention to dressings and sutures documented in this encounter Care Teams Tools Developer Relationship Specialty Start Date End Date Linwood Myles MD [address] [place] [address] PCP - General 04/06/03 documented as of this encounter
--- OUTSIDE RECORDS SUMMARY | 2025-05-01 16:21 | XMS_ITS | Encounter Summary ---
Author Organization [facility] Address [address] [place] [address] Care Team Providers Care Precision Honer Name Role Phone Linwood Myles MD Primary Care Provider [phone] Encounter Details Date Type Department Care Team (Latest Contact Info) Description 07/11/2004 Outpatient Historical [facility] [address] [facility] [address] [place] [address] Kamila Rich MD NO ADDRESS ON FILE OT ABNORMAL RADIOLOG EXAM BREAST (Primary Dx) Social History Tobacco Use Types Packs/Day Years Used Date Smoking Tobacco: Never Assessed Comments Unknown Sex and Gender Information Value Date Recorded Sex Assigned at Not on file Legal Sex Female 2:50 AM PROPERTY CONSULTANT Gender Identity Not on file Sexual Orientation Not on file documented as of this encounter Plan of Treatment Not on file documented as of this encounter Visit Diagnoses Diagnosis Other (abnormal) findings on radiological examination of breast- Primary documented in this encounter Care Teams Precision Honer Relationship Specialty Start Date End Date Linwood Myles MD [address] [place] [address] PCP - General 04/06/03 documented as of this encounter
--- OUTSIDE RECORDS SUMMARY | 2025-05-01 16:21 | XMS_ITS | Encounter Summary ---
Author Organization [facility] Address [address] [place] [address] Care Team Providers Care Burlapper Name Role Phone Linwood Myles MD Primary Care Provider [phone] Encounter Details Date Type Department Care Team (Latest Contact Info) Description 06/29/2004 Outpatient [facility] [address] 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
--- OUTSIDE RECORDS SUMMARY | 2025-05-01 16:21 | XMS_ITS | Encounter Summary ---
Author Organization [employer] [facility] Address [address] [place] [address] Care Team Providers Care Chief Merchandising Officer Name Role Phone Linwood Myles MD Primary Care Provider [phone] Encounter Details Date Type Department Care Team (Latest Contact Info) Description 07/19/2004 Outpatient Historical [facility] Linwood Myles MD [address] [place], [place] [id number] MAMMOGRAPHIC MICROCALCIFICATION (Primary Dx) Social History Tobacco Use Types Packs/Day Years Used Date Smoking Tobacco: Never Assessed Comments Unknown Sex and Gender Information Value Date Recorded Sex Assigned at Not on file Legal Sex Female 2:50 AM TONGUE PRESSER Gender Identity Not on file Sexual Orientation Not on file documented as of this encounter Plan of Treatment Not on file documented as of this encounter Visit Diagnoses Diagnosis Mammographic microcalcification- Primary documented in this encounter Care Teams Chief Merchandising Officer Relationship Specialty Start Date End Date Linwood Myles MD [address] [place] [address] PCP - General 04/06/03 documented as of this encounter
--- OUTSIDE RECORDS SUMMARY | 2025-05-01 16:21 | XMS_ITS | Encounter Summary ---
Author Organization [facility] Address [address] [place] [address] Care Team Providers Care Jewelry Drilling Machine Operator Name Role Phone Non-Staff, Physician Primary Care Provider Unava ilable Encounter Details Date Type Department Care Team (Late st Contact Info) Description 09/20/2023 Telephone [facility] Op[facility] [address] [place] [address] [place] [address] Johnson Tavares MD [address] [place] [address] Social History Tobacco Use Types Packs/Day Years [...] on file Legal Sex Female 6:07 AM TANK MAKER WOOD Gender Identity Not on file Sexual Orientation Not on file documented as of this encounter Miscellaneous Notes * Telephone Encounter - Lupe Martin - 09/20/2023 12:10 PM CST Rescheduled pt for 11/06/23 at 11:10am. Pt happily accepted new appointment. - [facility] MAKER WOOD documented in this encounter Plan of Treatment Not on file documented as of this encounter Visit Diagnoses Not on filedocumented in this encounter Care Teams Jewelry Drilling Machine Operator Relationship Specialty Start Date End Date Non-Staff, Physician NO ADDRESS ON FILE PCP - General 01/20/21 documented as of this encounter
--- OUTSIDE RECORDS SUMMARY | 2025-05-01 16:22 | XMS_ITS | Encounter Summary ---
Author Organization [employer] [facility] Address [address] [place] [address] Care Team Providers Care American Indian Studies Professor Name Role Phone Linwood Myles MD Primary Care Provider [phone] Encounter Details Date Type Department Care Team (Latest Contact Info) Description 06/21/1998 Outpatient Historical [facility] [place] Still NO ADDRESS ON FILE Gynecologic examination (Primary Dx) Social History Tobacco Use Types Packs/Day Years Used Date Smoking Tobacco: Never Assessed Comments Unknown Sex and Gender Information Value Date Recorded Sex Assigned at Not on file Legal Sex Female 2:50 AM SWAGING MACHINE 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
--- OUTSIDE RECORDS SUMMARY | 2025-05-01 16:22 | XMS_ITS | Encounter Summary ---
Author Organization [email or web address] [facility] Address [address] Attn: [place] [address] Care Team Providers Care Automotive Warranty Administrator Name Role Phone Linwood Myles MD Primary Care Provider [phone] Encounter Details Date Type Department Care Team (Late st Contact Info) Description 04/17/2001 Inpatient Historical Mace, Efren Garza MD [address] [place] [id number] Social History Tobacco Use Types Packs/Day Years Used Date Smoking Tobacco: Never Assessed Comments Unknown Sex and Gender Information Value Date Recorded Sex Assigned at Not on file Legal Sex Female 2:50 AM MOCK UP BUILDER Gender Identity Not on file Sexual Orientation Not on file documented as of this encounter Plan of Treatment Not on file documented as of this encounter Visit Diagnoses Not on filedocumented in this encounter Care Teams Automotive Warranty Administrator Relationship Specialty Start Date End Date Linwood Myles MD [address] [place] [address] PCP - General 04/06/03 documented as of this encounter
--- OUTSIDE RECORDS SUMMARY | 2025-05-01 16:22 | XMS_ITS | Encounter Summary ---
Author Organization [employer] 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
--- OUTSIDE RECORDS SUMMARY | 2025-05-01 16:22 | XMS_ITS | Encounter Summary ---
Author Organization [facility] Address [address] [facility] Attn: [place] [address] Care Team Providers Care Catering Truck Driver Name Role Phone Linwood Myles MD Primary Care Provider Encounter Details Date Type Department Care Team (Late st Contact Info) Description 04/14/2001 Outpatient Historical Mace, Efren Garza MD [address] [place] [id number] Social History Tobacco Use Types Packs/Day Years Used Date Smoking Tobacco: Never Assessed Comments Unknown Sex and Gender Information Value Date Recorded Sex Assigned at Not on file Legal Sex Female 2:50 AM BUTT WELDER Gender Identity Not on file Sexual Orientation Not on file documented as of this encounter Plan of Treatment Not on file documented as of this encounter Visit Diagnoses Not on filedocumented in this encounter Care Teams Catering Truck Driver Relationship Specialty Start Date End Date Linwood Myles MD [address] [place] [address] PCP - General 04/06/03 documented as of this encounter
--- NOTE | 2025-05-01 16:33 | ED_ITS ---
Documented by User: Helena Burris MD 05/01/25 17:06 HPI - Neuro Symptoms/Deficit 2 General: Chief Complaint: Neuro Symptoms/Deficit Stated Complaint: aphasia Time Seen by Provider: 05/01/25 17:13 History of Present Illness: 69-year-old female with a history of morena betes, hypothyroidism, hyperlipidemia, obstructive sleep apnea, depression, rheumatoid arthritis, lupus, hypertension and fibromyalgia who presents emergency room with slurred speech. Symptoms started about 2 hours ago. She said she felt achy all over like she was getting the flu. Then she had trouble speaking. On presentation here her speech is clear. She never had any focal motor deficits or facial droop. EMS reports she had a fever although her temp is reported at 98 for here. She is a little bit tachycardic. No cough. No chest pain. No abdominal pain. No nausea or vomiting. Related Data Home Medications ?Medication ?Instructions ?Recorded ?Confirmed acetaminophen 650 mg 1,300 mg PO BID 10/23/19 tablet,extended release (Tylenol Arthritis Pain) cholecalciferol (vitamin D3) 50 50 mcg PO DAILY@07 09/0404/29/25 mcg (2,000 unit) capsule azathioprine 50 mg tablet (Imuran) See Rx Instructions PO .COMPLEX 03/31/25 04/29/25 cyclobenzaprine 10 mg tablet 10 mg PO TID PRN Muscle S pasm 03/31/25 04/29/25 diltiazem HCl 120 mg 120 mg PO BID 03/31/2504/29 capsule,extended release 12 hr gabapentin 300 mg capsule 300 mg PO TID 03/31/2504/29 Previous Rx's ?Medication ?Instructions ?Recorded AUTO-TITRATING CPAP #1 ea 03/07/21 atorvastatin 20 mg tablet 20 mg PO DAILY #90 tabs 07/16 08/08 duloxetine 30 mg capsule,delayed 30 mg PO DAILY #90 ea 08/04/24 release estradiol 0.01% (0.1 mg/gram) 1 g vaginal .3 times/wk #42.5 grams 10/26/24 vaginal cream metoprolol tartrate 75 mg tablet 75 mg PO BID #180 tab s 11/11/24 blood sugar diagnostic (Blood #50 ea 12/25/24 Glucose Test strips) blood-glucose meter #1 ea 12/25/24 lancets 25 gauge #100 ea 12/25/24 levothyroxine 150 mcg tablet 150 mcg PO DAILY #90 tabs 02/08/25 (Synthroid) sitagliptin phosphate 100 mg 100 mg PO DAILY #30 tabs 03/01/25 tablet (Januvia) alendronate 70 mg tablet (Fosamax) 70 mg PO .Q7days #1 5 tabs 03/23/25 prednisone 5 mg tablet 5 mg PO DAILY #90 tabs 03/23 duloxetine 60 mg capsule,delayed 60 mg PO QPM #90 caps 03/25/25 release pantoprazole 40 mg tablet,delayed See Rx Instructions .Route 04/22/25 release .COMPLEX #84 tabs Allergies Allergy/AdvReac Type Severity Reaction Status Date / Time sulfasalazine Allergy Intermediate bad Verified 04/29/25 09:33 headaches hydrocodone Allergy itch Verified 04/29/25 09:33 hydroxychloroquine Allergy adv-eye Verified 04/29/25 09:33 changes penicillin G Allergy rash Verified 04/29/25 09:33 oxycodone AdvReac Mild itching Verified 04/29/25 09:33 Review of Systems 2 Narrative: Constitutional symptoms: Negative except as documented in HPI. Skin symptoms: Negative except as documented in HPI. Eye symptoms: Negative except as documented in HPI. ENMT symptoms: Negative except as documented in HPI. Respiratory symptoms: Negative except as documented in HPI. Cardiovascular symptoms: Negative except as documented in HPI. Gastrointestinal symptoms: Negative except as documented in HPI. Genitourinary symptoms: Negative except as documented in HPI. Musculoskeletal symptoms: Negative except as documented in HPI. Neurologic symptoms: Negative except as documented in HPI. Psychiatric symptoms: Negative except as documented in HPI. Endocrine symptoms: Negative except as documented in HPI. PFSH ED 2 PFSH: Medical History (Updated 05/01/25 @ 17:51 by Enrrique Rm MD) Type 2 diabetes mellitus without complication, without long-term current use of insulin dxed 08.06.24 Postoperative hypothyroidism Glossodynia Dyslipidemia LISSET (obstructive sleep apnea) has CPAP but not compliant Bad odor of urine On prednisone therapy for SLE Fasting hyperglycemia Facial droop Depression Seropositive rheumatoid arthritis of multiple sites Inflammatory arthritis History of 2019 novel coronavirus disease (COVID-19) Rheumatoid arthritis SLE (systemic lupus erythematosus) Mixed stress and urge urinary incontinence HTN (hypertension) Anxiety Degenerative disc disease L4-L5, also cervical spine. 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 S/P laparoscopic appendectomy (08/16/20) Status post colonoscopy (~2019) History of thyroidectomy Previous back surgery hx of disc shaved off--2 X hx of plate/screws--anterior approach, then 3d later did redo through aircraft rigging and controls mechanic approach--then 6 months later 2022 had to have screws reinforced History of partial hysterectomy ovaries remaining; done for bleeding; no cancer; had bladder lift at same time Family History Mother CAD (coronary artery disease) [place] Stroke Dementia Father CAD (coronary artery disease), Onset Age: 70 Leukemia Congestive heart failure (CHF) Grandfather CAD (coronary artery disease) Chronic kidney disease (CKD) Grandmother CAD (coronary artery disease) afib Brother CAD (coronary artery disease) syncope Chronic kidney disease (CKD) Diabetes Brother CAD (coronary artery disease) PPM Chronic kidney disease (CKD) Diabetes Sister CAD (coronary artery disease) PPM Parkinson disease Other Hypertension Denies family history of Lupus (systemic lupus erythematosus) Rheumatoid arthritis Clotting disorder Suicide Anesthesia complication Bleeding disorder Social History Smoking and tobacco/nicotine status: former use of tobacco/nicotine Alcohol intake: never Substance/Drug Use: never Adopted: No Household members: spouse Marital status: Number of children: 2 Highest education level completed: High School Graduate service: No Current occupational status: retired Current occupational exposures/hazards: No 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 Skin: Warm, dry. Head: Normocephalic, atraumatic. Neck: Supple, trachea midline. Eye: Extraocular movements are intact. Ears, nose, mouth and throat: mucosa moist. Cardiovascular: Regular, Normal peripheral perfusion. Respiratory: Lungs are clear to auscultation, respirations are non-labored, breath sounds are equal, Symmetrical chest wall expansion. Gastrointestinal: Soft, Nontender, Non distended Musculoskeletal: Normal ROM, no deformity. Neurological: Alert and oriented, No focal neurological deficit observed. Psychiatric: Cooperative, appropriate mood & affect. Course 2 Vital Signs: Vital signs: Vital Signs Temperature 98.4 F 05/01/25 16:17 Pulse Rate 116 H 05/01/25 16:17 Respiratory Rate 17 05/01/25 16:17 Blood Pressure 140/83 05/01/25 16:17 Pulse Oximetry 93 05/01/25 16:17 Oxygen Delivery Me thod Room Air 05/01/25 16:17 MDM - Neuro Symptoms/Deficit Medical Decision Making Medical decision making: Differential diagnosis including but not limited to and based on the above HPI, review of systems and physical exam: In this patient with altered mental status: Stroke. Hypoglycemia. Metabolic encephalopathy. Infections such as pneumonia, urinary tract infection, Covid-19, Influenza. Electrolyte abnormalities such as hypernatremia. Renal failure / uremia. Hepatic encephalopathy. Hypoxemia. Hypercapnic respiratory failure. Psychosis. Drug or alcohol intoxication. Medication overdose. Orders placed to evaluate differential diagnosis based on the above differential, HPI and physical exam This was called out as a stroke. Last known well films about 2 hours ago. NIH Stroke Scale/Score (NIHSS) from [email or web address] on 05/01/2025 All calculations should be rechecked by clinician prior to use RESULT SUMMARY: 0 points NIH Stroke Scale INPUTS: 1A: Level of consciousness ?> 0 = Alert; keenly responsive 1B: Ask month and age ?> 0 = Both questions right 1C: 'Blink eyes' & 'squeeze hands' ?> 0 = Performs both tasks 2: Horizontal extraocular movements ?> 0 = Normal 3: Visual patel ?> 0 = No visual loss 4: Facial palsy ?> 0 = Normal symmetry 5A: Left arm motor drift ?> 0 = No drift for 10 seconds 5B: Right arm motor drift ?> 0 = No drift for 10 seconds 6A: Left leg motor drift ?> 0 = No drift for 5 seconds 6B: Right leg motor drift ?> 0 = No drift for 5 seconds 7: Limb Ataxia ?> 0 = No ataxia 8: Sensation ?> 0 = Normal; no sensory loss 9: Language/aphasia ?> 0 = Normal; no aphasia 10: Dysarthria ?> 0 = Normal 11: Extinction/inattention ?> 0 = No abnormality CT head: No acute intracranial process. No intracranial hemorrhage, no evidence of infarct. No evidence of acute fracture. This was reviewed and interpreted by myself the emergency room physician. I also reviewed the radiology report. EKG: Time 1640. Rate 113. Sinus tachycardia, No ST-T changes, no ectopy, normal UT & QRS intervals, This was reviewed and interpreted by myself the ER physician at 1645 Lab Review: Laboratory results were reviewed and interpreted by myself the emergency room physician. Mild leukocytosis. No anemia. Remainder of lab work is pending at shift change Patient care transitioned to Dr. Rm at shift change Lab Data 05/01/25 16:38 05/01/25 16:38 Radiology Impressions Chest X-Ray 05/01/25 16:19 IMPRESSION: No focal lung consolidation. Head CT 05/01/25 16:19 IMPRESSION: No acute intracranial abnormality. If symptoms persist, consider further evaluation with MRI, if there are no contraindications to obtaining a MRI scan. ASSESSMENT: ASPECTS ([place] Stroke Program Early CT Score) is 10. ADDENDUM: 05/01/25 1634 ADDENDUM: THIS REPORT CONTAINS FINDINGS THAT MAY BE CRITICAL TO PATIENT CARE. The findings were verbally communicated via telephone conference with HELENA BURRIS at 4:33 PM CDT on 05/01/2025. The findings were acknowledged and understood. Laboratory Results WBC 10.89 10^3/uL (3.29-11.43) 05/01/25 16:38 RBC 4.47 10^6/uL (3.85-5.65) 05/01/25 16:38 Hgb 12.30 g/dL (11.27-16.99) 05/01/25 16:38 Hct 38.2 % (36-47) 05/01/25 16:38 MCV 85.5 fl (85-98) 05/01/25 16:38 MCH 27.5 pg (27-33) 05/01/25 16:38 MCHC 32.2 g/dL (30-55) 05/01/25 16:38 RDW 13.6 % (12.1-15.1) 05/01/25 16:38 Plt Count 251 10^3/cmm (157-399) 05/01/25 16:38 MPV 10.8 fL (7.4-10.4) H 05/01/25 16:38 Neut % (Auto) 91.8 % 05/01/25 16:38 Lymph % (Auto) 3.2 % 05/01/25 16:38 [place] % (Auto) 3.5 % 05/01/25 16:38 Eos % (Auto) 0.3 % 05/01/25 16:38 Baso % (Auto) 0.5 % 05/01/25 16:38 Neut # (Auto) 10.00 10^3/uL (1.8-7.7) H 05/01/25 16:38 Lymph # (Auto) 0.4 10^3/uL (0.8-4.8) L 05/01/25 16:38 [place] # (Auto) 0.4 10^3/uL (0.2-0.9) 05/01/25 16:38 Eos # (Auto) 0.0 10^3/uL (0.0-0.8) 05/01/25 16:38 Baso # (Auto) 0.1 10^3/uL (0.0-0.1) 05/01/25 16:38 Nucleated RBC % (auto) 0 % 05/01/25 16:38 Nucleated RBCs # 0.0 /100WBC 05/01/25 16:38 Sodium 130 mmol/L (136-145) L 05/01/25 16:38 Potassium 4.1 mmol/L (3.5-5.1) 05/01/25 16:38 Chloride 95 mmol/L (98-107) L 05/01/25 16:38 Carbon Dioxide 20 mmol/L (22-29) L 05/01/25 16:38 Anion Gap 19.1 (5-19) H 05/01/25 16:38 BUN 20 mg/dL (8-23) 05/01/25 16:38 Creatinine 0.7 mg/dL (0.5-0.9) 05/01/25 16:38 GFR Calculation 83.2 mL/min (90-130) L 05/01/25 16:38 Glucose 278 mg/dL (65-115) H 05/01/25 16:38 POC Glucose 284 mg/dL (70-110) H 05/01/25 16:18 Calculated Osmolality 283 mOsm/kg (285-295) L 05/01/25 16:38 Lactic Acid 3.5 mmol/L (0.5-2.2) H 05/01/25 16:38 Calcium 10.1 mg/dL (8.5-10.5) 05/01/25 16:38 Total Bilirubin 0.5 mg/dL (0.15-1.2) 05/01/25 16:38 AST 27 U/L (0-32) 05/01/25 16:38 ALT 20 U/L (0-33) 05/01/25 16:38 Alkaline Phosphatase 59 U/L (35-105) 05/01/25 16:38 C-Reactive Protein 6.0 mg/L (0.0-4.9) H 05/01/25 16:38 Total Protein 7.3 g/dL (6.6-8.7) 05/01/25 16:38 Albumin 4.0 g/dL (3.5-5.2) 05/01/25 16:38 Globulin 3.3 g/dL (1.3-4.6) 05/01/25 16:38 Urine Color Yellow (Yellow) 05/01/25 17:07 Urine Appearance Clear (CLEAR) 05/01/25 17:07 Urine pH 5.5 (5-7) 05/01/25 17:07 Ur Specific [place] 1.020 (1.005-1.030) 05/01/25 17:07 Urine Protein Negative (Negative) 05/01/25 17:07 Urine Glucose (UA) 3+ (Normal) H 05/01/25 17:07 Urine Ketones Trace (Negative) 05/01/25 17:07 Urine Blood Negative (Negative) 05/01/25 17:07 Urine Nitrate Negative (Negative) 05/01/25 17:07 Urine Bilirubin Negative (Negative) 05/01/25 17:07 Urine Urobilinogen 0.2 mg/dL (Negative) 05/01/25 17:07 Ur Leukocyte Esterase Negative (Negative) 05/01/25 17:07 Urine RBC 0-4 /hpf (0-2) H 05/01/25 17:07 Urine WBC 0-4 /hpf (0-5) H 05/01/25 17:07 Ur Squamous Epith Cells 5-10 /hpf (0-5) H 05/01/25 17:07 Amorphous Sediment Not Reportable 05/01/25 17:07 Urine Bacteria Trace /hpf (NONE) 05/01/25 17:07 Discharge Plan Discharge Patient Disposition: Admitted As Inpatient Admit Provider: Laura Hernandez Clinical Impression: Confusion, Fever, Elevated lactic acid level Condition: Stable Coding Level of Care Code ED [place] [facility] for Chg Fwd Documented by User: Enrrique Rm MD 05/01/25 17:51 HPI - Neuro Symptoms/Deficit 2 General: Chief Complaint: Neuro Symptoms/Deficit Stated Complaint: aphasia Time Seen by Provider: 05/01/25 17:13 Related Data Home Medications ?Medication ?Instructions ?Recorded ?Confirmed acetaminophen 650 mg 1,300 mg PO BID 10/23/19 tablet,extended release (Tylenol Arthritis Pain) cholecalciferol (vitamin D3) 50 50 mcg PO DAILY@09/0404/29/25 mcg (2,000 unit) capsule azathioprine 50 mg tablet (Imuran) See Rx Instructions PO .COMPLEX 03/31/25 04/29/25 cyclobenzaprine 10 mg tablet 10 mg PO TID PRN Muscle S pasm 03/31/25 04/29/25 diltiazem HCl 120 mg 120 mg PO BID 03/31/2504/29 capsule,extended release 12 hr gabapentin 300 mg capsule 300 mg PO TID 03/31/2504/29 Previous Rx's ?Medication ?Instructions ?Recorded AUTO-TITRATING CPAP #1 ea 03/07/21 atorvastatin 20 mg tablet 20 mg PO DAILY #90 tabs 07/16 08/08 duloxetine 30 mg capsule,delayed 30 mg PO DAILY #90 ea 08/04/24 release estradiol 0.01% (0.1 mg/gram) 1 g vaginal .3 times/wk #42.5 grams 10/26/24 vaginal cream metoprolol tartrate 75 mg tablet 75 mg PO BID #180 tab s 11/11/24 blood sugar diagnostic (Blood #50 ea 12/25/24 Glucose Test strips) blood-glucose meter #1 ea 12/25/24 lancets 25 gauge #100 ea 12/25/24 levothyroxine 150 mcg tablet 150 mcg PO DAILY #90 tabs 02/08/25 (Synthroid) sitagliptin phosphate 100 mg 100 mg PO DAILY #30 tabs 03/01/25 tablet (Januvia) alendronate 70 mg tablet (Fosamax) 70 mg PO .Q7days #1 5 tabs 03/23/25 prednisone 5 mg tablet 5 mg PO DAILY #90 tabs 03/23 duloxetine 60 mg capsule,delayed 60 mg PO QPM #90 caps 03/25/25 release pantoprazole 40 mg tablet,delayed See Rx Instructions .Route 04/22/25 release .COMPLEX #84 tabs Allergies Allergy/AdvReac Type Severity Reaction Status Date / Time sulfasalazine Allergy Intermediate bad Verified 04/29/25 09:33 headaches hydrocodone Allergy itch Verified 04/29/25 09:33 hydroxychloroquine Allergy adv-eye Verified 04/29/25 09:33 changes penicillin G Allergy rash Verified 04/29/25 09:33 oxycodone AdvReac Mild itching Verified 04/29/25 09:33 PFSH ED 2 PFSH: Medical History (Updated 05/01/25 @ 17:51 by Enrrique Rm MD) Type 2 diabetes mellitus without complication, without long-term current use of insulin dxed 1.23.25 Postoperative hypothyroidism Glossodynia Dyslipidemia LISSET (obstructive sleep apnea) has CPAP but not compliant Bad odor of urine On prednisone therapy for SLE Fasting hyperglycemia Facial droop Depression Seropositive rheumatoid arthritis of multiple sites Inflammatory arthritis History of 2019 novel coronavirus disease (COVID-19) Rheumatoid arthritis SLE (systemic lupus erythematosus) Mixed stress and urge urinary incontinence HTN (hypertension) Anxiety Degenerative disc disease L4-L5, also cervical spine. 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 S/P laparoscopic appendectomy (08/16/20) Status post colonoscopy (~2019) History of thyroidectomy Previous back surgery hx of disc shaved off--2 X hx of plate/screws--anterior approach, then 3d later did redo through aircraft rigging and controls mechanic approach--then 6 months later 2022 had to have screws reinforced History of partial hysterectomy ovaries remaining; done for bleeding; no cancer; had bladder lift at same time Family History Mother CAD (coronary artery disease) [place] Stroke Dementia Father CAD (coronary artery disease), Onset Age: 70 Leukemia Congestive heart failure (CHF) Grandfather CAD (coronary artery disease) Chronic kidney disease (CKD) Grandmother CAD (coronary artery disease) afib Brother CAD (coronary artery disease) syncope Chronic kidney disease (CKD) Diabetes Brother CAD (coronary artery disease) PPM Chronic kidney disease (CKD) Diabetes Sister CAD (coronary artery disease) PPM Parkinson disease Other Hypertension Denies family history of Lupus (systemic lupus erythematosus) Rheumatoid arthritis Clotting disorder Suicide Anesthesia complication Bleeding disorder Social History Smoking and tobacco/nicotine status: former use of tobacco/nicotine Alcohol intake: never Substance/Drug Use: never Adopted: No Household members: spouse Marital status: Number of children: 2 Highest education level completed: High School Graduate service: No Current occupational status: retired Current occupational exposures/hazards: No 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 Hypoglycemia. Metabolic encephalopathy. Infections such as pneumonia, urinary tract infection, Covid-19, Influenza. Electrolyte abnormalities such as hypernatremia. Renal failure / uremia. Hepatic encephalopathy. Hypoxemia. Hypercapnic respiratory failure. Psychosis. Drug or alcohol intoxication. Medication overdose. Orders placed to evaluate differential diagnosis based on the above differential, HPI and physical exam This was called out as a stroke. Last known well films about 2 hours ago. NIH Stroke Scale/Score (NIHSS) from [email or web address] on 05/01/2025 All calculations should be rechecked by clinician prior to use RESULT SUMMARY: 0 points NIH Stroke Scale INPUTS: 1A: Level of consciousness ?> 0 = Alert; keenly responsive 1B: Ask month and age ?> 0 = Both questions right 1C: 'Blink eyes' & 'squeeze hands' ?> 0 = Performs both tasks 2: Horizontal extraocular movements ?> 0 = Normal 3: Visual patel ?> 0 = No visual loss 4: Facial palsy ?> 0 = Normal symmetry 5A: Left arm motor drift ?> 0 = No drift for 10 seconds 5B: Right arm motor drift ?> 0 = No drift for 10 seconds 6A: Left leg motor drift ?> 0 = No drift for 5 seconds 6B: Right leg motor drift ?> 0 = No drift for 5 seconds 7: Limb Ataxia ?> 0 = No ataxia 8: Sensation ?> 0 = Normal; no sensory loss 9: Language/aphasia ?> 0 = Normal; no aphasia 10: Dysarthria ?> 0 = Normal 11: Extinction/inattention ?> 0 = No abnormality CT head: No acute intracranial process. No intracranial hemorrhage, no evidence of infarct. No evidence of acute fracture. This was reviewed and interpreted by myself the emergency room physician. I also reviewed the radiology report. EKG: Time 1640. Rate 113. Sinus tachycardia, No ST-T changes, no ectopy, normal UT & QRS intervals, This was reviewed and interpreted by myself the ER physician at 1645 Lab Review: Laboratory results were reviewed and interpreted by myself the emergency room physician. Mild leukocytosis. No anemia. Remainder of lab work is pending at shift change Patient care transitioned to Dr. Rm at shift change Care of patient at shift change patient did have a period of confusion is likely due to her fever patient is now at her baseline she has no signs of a stroke here. Patient does have an elevated lactate at this time and tachycardia did give sepsis bolus along with blood cultures and start antibiotics will admit at this time. Medical Records I reviewed the patient's medical records. Lab Data I reviewed the patient's lab results. 05/01/25 16:38 05/01/25 16:38 Radiology Impressions Chest X-Ray 05/01/25 16:19 IMPRESSION: No focal lung consolidation. Head CT 05/01/25 16:19 IMPRESSION: No acute intracranial abnormality. If symptoms persist, consider further evaluation with MRI, if there are no contraindications to obtaining a MRI scan. ASSESSMENT: ASPECTS ([place] Stroke Program Early CT Score) is 10. ADDENDUM: 05/01/25 2694 ADDENDUM: THIS REPORT CONTAINS FINDINGS THAT MAY BE CRITICAL TO PATIENT CARE. The findings were verbally communicated via telephone conference with HELENA BURRIS at 4:33 PM CDT on 05/01/2025. The findings were acknowledged and understood. Laboratory Results WBC 10.89 10^3/uL (3.29-11.43) 05/01/25 16:38 RBC 4.47 10^6/uL (3.85-5.65) 05/01/25 16:38 Hgb 12.30 g/dL (11.27-16.99) 05/01/25 16:38 Hct 38.2 % (36-47) 05/01/25 16:38 MCV 85.5 fl (85-98) 05/01/25 16:38 MCH 27.5 pg (27-33) 05/01/25 16:38 MCHC 32.2 g/dL (30-55) 05/01/25 16:38 RDW 13.6 % (12.1-15.1) 05/01/25 16:38 Plt Count 251 10^3/cmm (157-399) 05/01/25 16:38 MPV 10.8 fL (7.4-10.4) H 05/01/25 16:38 Neut % (Auto) 91.8 % 05/01/25 16:38 Lymph % (Auto) 3.2 % 05/01/25 16:38 [place] % (Auto) 3.5 % 05/01/25 16:38 Eos % (Auto) 0.3 % 05/01/25 16:38 Baso % (Auto) 0.5 % 05/01/25 16:38 Neut # (Auto) 10.00 10^3/uL (1.8-7.7) H 05/01/25 16:38 Lymph # (Auto) 0.4 10^3/uL (0.8-4.8) L 05/01/25 16:38 [place] # (Auto) 0.4 10^3/uL (0.2-0.9) 05/01/25 16:38 Eos # (Auto) 0.0 10^3/uL (0.0-0.8) 05/01/25 16:38 Baso # (Auto) 0.1 10^3/uL (0.0-0.1) 05/01/25 16:38 Nucleated RBC % (auto) 0 % 05/01/25 16:38 Nucleated RBCs # 0.0 /100WBC 05/01/25 16:38 Sodium 130 mmol/L (136-145) L 05/01/25 16:38 Potassium 4.1 mmol/L (3.5-5.1) 05/01/25 16:38 Chloride 95 mmol/L (98-107) L 05/01/25 16:38 Carbon Dioxide 20 mmol/L (22-29) L 05/01/25 16:38 Anion Gap 19.1 (5-19) H 05/01/25 16:38 BUN 20 mg/dL (8-23) 05/01/25 16:38 Creatinine 0.7 mg/dL (0.5-0.9) 05/01/25 16:38 GFR Calculation 83.2 mL/min (90-130) L 05/01/25 16:38 Glucose 278 mg/dL (65-115) H 05/01/25 16:38 POC Glucose 284 mg/dL (70-110) H 05/01/25 16:18 Calculated Osmolality 283 mOsm/kg (285-295) L 05/01/25 16:38 Lactic Acid 3.5 mmol/L (0.5-2.2) H 05/01/25 16:38 Calcium 10.1 mg/dL (8.5-10.5) 05/01/25 16:38 Total Bilirubin 0.5 mg/dL (0.15-1.2) 05/01/25 16:38 AST 27 U/L (0-32) 05/01/25 16:38 ALT 20 U/L (0-33) 05/01/25 16:38 Alkaline Phosphatase 59 U/L (35-105) 05/01/25 16:38 C-Reactive Protein 6.0 mg/L (0.0-4.9) H 05/01/25 16:38 Total Protein 7.3 g/dL (6.6-8.7) 05/01/25 16:38 Albumin 4.0 g/dL (3.5-5.2) 05/01/25 16:38 Globulin 3.3 g/dL (1.3-4.6) 05/01/25 16:38 Urine Color Yellow (Yellow) 05/01/25 17:07 Urine Appearance Clear (CLEAR) 05/01/25 17:07 Urine pH 5.5 (5-7) 05/01/25 17:07 Ur Specific [place] 1.020 (1.005-1.030) 05/01/25 17:07 Urine Protein Negative (Negative) 05/01/25 17:07 Urine Glucose (UA) 3+ (Normal) H 05/01/25 17:07 Urine Ketones Trace (Negative) 05/01/25 17:07 Urine Blood Negative (Negative) 05/01/25 17:07 Urine Nitrate Negative (Negative) 05/01/25 17:07 Urine Bilirubin Negative (Negative) 05/01/25 17:07 Urine Urobilinogen 0.2 mg/dL (Negative) 05/01/25 17:07 Ur Leukocyte Esterase Negative (Negative) 05/01/25 17:07 Urine RBC 0-4 /hpf (0-2) H 05/01/25 17:07 Urine WBC 0-4 /hpf (0-5) H 05/01/25 17:07 Ur Squamous Epith Cells 5-10 /hpf (0-5) H 05/01/25 17:07 Amorphous Sediment Not Reportable 05/01/25 17:07 Urine Bacteria Trace /hpf (NONE) 05/01/25 17:07 All radiology interpretation(s) finalized by discharge Discharge Plan Discharge Patient Disposition: Admitted As Inpatient Admit Provider: Laura Hernandez Clinical Impression: Confusion, Fever, Elevated lactic acid level Condition: Stable Coding Level of Care Code ED [facility] for Tracey Rivero
--- NOTE | 2025-05-01 16:40 | ECG_ITS ---
[employer] [facility] Test Date: 2025-05-01 Pat Name: Nanette Simental Department: Room: Gender: Female [employer] Consultant: : [id number] Requested By: Helena Lao Order Number: [id number] Tatiana MD: Sarahi Quinteros M.D. Measurements Intervals [place] Rate: 113 P: 27 WA: 148 QRS: -20 QRSD: 97 T: 76 QT: 316 QTc: 434 Interpretive Statements SINUS TACHYCARDIA NONSPECIFIC ST & T-WAVE ABNORMALITY ABNORMAL RHYTHM ECG Compared to ECG 08/19/2024 15:59:41 Sinus rhythm no longer present T-wave abnormality still present Electronically Signed On 05-04-2025 19:32:38 CDT by Sarahi Quinteros M.D. [email or web address]
[2025-05-01 16:54] LABS: Hematocrit 38.2 % (36-47); Hemoglobin 12.30 g/dL (11.27-16.99); Mean Corpuscular HGB Conc 32.2 g/dL (30-55); Mean Corpuscular Hemoglobin 27.5 pg (27-33); Mean Corpuscular Volume 85.5 fl (85-98); Nucleated Red Blood Cells % 0 %; Platelet Count 251 10^3/cmm (157-399); Red Blood Count 4.47 10^6/uL (3.85-5.65); White Blood Count 10.89 10^3/uL (3.29-11.43)
[2025-05-01 17:12] LABS: Alanine Aminotransferase 20 U/L (0-33); Albumin Level 4.0 g/dL (3.5-5.2); Alkaline Phosphatase 59 U/L (35-105); Anion Gap 19.1 (5-19); Aspartate Amino Transferase 27 U/L (0-32); Blood Urea Nitrogen 20 mg/dL (8-23); Calcium 10.1 mg/dL (8.5-10.5); Carbon Dioxide 20 mmol/L (22-29); Chloride 95 mmol/L (98-107); Creatinine Clr Calc Pharmacy 77.8664; Globulin 3.3 g/dL (1.3-4.6); Glucose 278 mg/dL (65-115); Osmolality Calculated 283 mOsm/kg (285-295); Potassium 4.1 mmol/L (3.5-5.1); Sodium 130 mmol/L (136-145); Total Protein 7.3 g/dL (6.6-8.7)
[2025-05-01 17:13] LABS: Lactic Sepsis W/Reflex 3.5 mmol/L (0.5-2.2)
[2025-05-01 17:14] LABS: Reflex Lactate Order REFLEX LACTIC ORDERD
[2025-05-01 17:15] LABS: Glucose Urine UA 3+ (Normal); Nitrate Urine Negative (Negative); Specific Gravity, Urine 1.020 (1.005-1.030)
[2025-05-01] MEDS: cefTRIAXone 1,000 mg SDV 1000 MG IVP (17:28)
--- NOTE | 2025-05-01 17:40 | P.HP_ITS ---
Providers/Chief Complaint 2 Admitting Physician: Laura Hernandez MD--patient admitted at 5:40 PM Primary Care Provider: Matilda Yun MD Chief Complaint: aphasia History of Present Illness Nanette Simental is a 69 year old female with medical history significant for chronic gastritis dyslipidemia diabetes type 2 presented to the emergency room after having had fever of 101 at home. At the emergency room there were no fever. Patient had a marielena and plates placed on her spine in the spinal surgery in [facility] and in the last 3 days the back the spine have been painful. The patient tells me that the pain today was excruciating and at that point she started spiking fever of 101 and immediately got disoriented. The family concurred that the patient was very confused and for that reason they called the emergency room for further evaluation. Patient did not tell the ED doctor the story but told the ambulance who did not relate the story. The ED doctor consulted me to follow-up with this patient. As I had gone into the room to see the patient family were at their and they were more focused on the back pain and what was going on and up point for the evaluation and noted that this was going on for the past 72 hours and only worsening terminating with fever and confusion. This is very significant. Lactate was up at over 3. Patient was pancultured by the emergency room department. I related to ED attending regarding the patient's complaint and I went ahead and placed a CT of the abdomen and pelvics focusing on the spine just to see if there is any pus pockets or any paraspinal abscesses that might be developing I am if that would be the case they might just cerium Dr. Dr. Lewis said he will transfer patient to [facility]. Patient is at this time ED hold because there were no bed anywhere in the hospital at this time. It was because of the underlining fever that patient got very confused and this is really very confusing and this was why patient came in as a stroke alert. The stroke workup was negative. Patient was noted to be aphasic when she presented to the emergency room. At this time patient had received some antibiotics and alert at this moment further workup with imaging is now being ordered and results pending ED attending aware. Review of Systems 2 Narrative: System review upon 10 organ review we are unremarkable except for initial confusion and spinal pain. Medications/Allergies Home Medications ?Medication ?Instructions ?Recorded ?Confirmed ?Last Taken ?Type acetaminophen 650 mg 1,300 mg PO BID 10/23/1904/05/25 History tablet,extended release (Tylenol Arthritis Pain) cholecalciferol (vitamin D3) 50 50 mcg PO DAILY@07 09/0404/29/25 04/05/25 History mcg (2,000 unit) capsule AUTO-TITRATING CPAP #1 ea 03/07/21 04/29/25 Unkn own Rx atorvastatin 20 mg tablet 20 mg PO DAILY #90 tabs 07/1604/29/25 04/05/25 Rx duloxetine 30 mg capsule,delayed 30 mg PO DAILY #90 ea 08/04/24 04/29/25 04/05/25 Rx release estradiol 0.01% (0.1 mg/gram) 1 g vaginal .3 times/wk #42.5 grams 10/26/24 04/29/25 03/30/25 Rx vaginal cream metoprolol tartrate 75 mg tablet 75 mg PO BID #180 tab s 11/11/24 04/29/25 04/05/25 Rx blood sugar diagnostic (Blood #50 ea 12/25/24 04/29/25 Unknown Rx Glucose Test strips) blood-glucose meter #1 ea 12/25/24 04/29/25 Unkn own Rx lancets 25 gauge #100 ea 12/25/24 04/29/25 Un known Rx levothyroxine 150 mcg tablet 150 mcg PO DAILY #90 tabs 02/08/25 04/29/25 04/05/25 Rx (Synthroid) sitagliptin phosphate 100 mg 100 mg PO DAILY #30 tabs 03/01/25 04/29/25 04/05/25 Rx tablet (Januvia) alendronate 70 mg tablet (Fosamax) 70 mg PO .Q7days #1 5 tabs 03/23/25 04/29/25 04/05/25 Rx prednisone 5 mg tablet 5 mg PO DAILY #90 tabs 03/2304/29/25 04/05/25 Rx duloxetine 60 mg capsule,delayed 60 mg PO QPM #90 caps 03/25/25 04/29/25 04/05/25 Rx release azathioprine 50 mg tablet (Imuran) See Rx Instructions PO .COMPLEX 03/31/25 04/29/25 04/05/25 History 100 mg cyclobenzaprine 10 mg tablet 10 mg PO TID PRN Muscle S pasm 03/31/25 04/29/25 04/05/25 History diltiazem HCl 120 mg 120 mg PO BID 03/31/2504/2904/05/25 History capsule,extended release 12 hr gabapentin 300 mg capsule 300 mg PO TID 03/31/2504/2904/05/25 History pantoprazole 40 mg tablet,delayed See Rx Instructions .Route 04/22/25 04/29/25 Unknown Rx release .COMPLEX #84 tabs Allergies Allergy/AdvReac Type Severity Reaction Status Date / Time sulfasalazine Allergy Intermediate bad Verified 04/29/25 09:33 headaches hydrocodone Allergy itch Verified 04/29/25 09:33 hydroxychloroquine Allergy adv-eye Verified 04/29/25 09:33 changes penicillin G Allergy rash Verified 04/29/25 09:33 oxycodone AdvReac Mild itching Verified 04/29/25 09:33 PFSH Acute 2 PFSH: Medical History Type 2 diabetes mellitus without complication, without long-term current use of insulin dxed 1.23.25 Postoperative hypothyroidism Glossodynia Dyslipidemia LISSET (obstructive sleep apnea) has CPAP but not compliant Bad odor of urine On prednisone therapy for SLE Fasting hyperglycemia Facial droop Depression Seropositive rheumatoid arthritis of multiple sites Inflammatory arthritis History of 2019 novel coronavirus disease (COVID-19) Rheumatoid arthritis SLE (systemic lupus erythematosus) Mixed stress and urge urinary incontinence HTN (hypertension) Anxiety Degenerative disc disease L4-L5, also cervical spine. 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 S/P laparoscopic appendectomy (08/16/20) Status post colonoscopy (~2019) History of thyroidectomy Previous back surgery hx of disc shaved off--2 X hx of plate/screws--anterior approach, then 3d later did redo through motor vehicle lecturer approach--then 6 months later 2022 had to have screws reinforced History of partial hysterectomy ovaries remaining; done for bleeding; no cancer; had bladder lift at same time Family History Mother CAD (coronary artery disease) MD Stroke Dementia Father CAD (coronary artery disease), Onset Age: 70 Leukemia Congestive heart failure (CHF) Grandfather CAD (coronary artery disease) Chronic kidney disease (CKD) Grandmother CAD (coronary artery disease) afib Brother CAD (coronary artery disease) syncope Chronic kidney disease (CKD) Diabetes Brother CAD (coronary artery disease) PPM Chronic kidney disease (CKD) Diabetes Sister CAD (coronary artery disease) PPM Parkinson disease Other Hypertension Denies family history of Lupus (systemic lupus erythematosus) Rheumatoid arthritis Clotting disorder Suicide Anesthesia complication Bleeding disorder Social History Smoking and tobacco/nicotine status: former use of tobacco/nicotine Alcohol intake: never Substance/Drug Use: never Adopted: No Household members: spouse Marital status: Number of children: 2 Highest education level completed: High School Graduate service: No Current occupational status: retired Current occupational exposures/hazards: No 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 Patient is afebrile but initially was febrile at home with confusion and spinal pain HEENT normocephalic atraumatic neck neck is supple cardiovascular heart rate is regular lungs are pretty much clear abdomen soft nontender nondistended unremarkable extremities are intact no edema has good pulses neurology at the moment is nonfocal. Data 05/01/25 16:38 05/01/25 16:38 Micro: Microbiology 05/01/25 16:40 Blood Culture - Preliminary Blood SPECIMEN COLLECTED 05/01/25 16:38 Blood Culture - Preliminary Blood SPECIMEN COLLECTED A&P Assessment and plan 1. Lactic acidosis: 2. Dehydration: 3. Sepsis: 4. Elevated lactic acid level: 5. Fever: 6. Confusion: Plan: Transient change in mental status with confusion and fever Recent spinal surgery with rods and plates with worsening back pain and fever at home compounded with confusion is a very significant presentation of a case of a likely spinal infection or DIRECTOR MEDICAL WRITING infection - [facility] - Patient currently is in an ER hold - A new development of the whole story means patient will not go to the medical floor till we get the results of the CT of the abdomen and pelvics focusing on the spinal region to rule out epidural abscess or any form of infection in the spine - Should this be the case the ED doctor had mentioned that he will transfer the patient to [facility] where he had the surgery done - Patient had originally been on azithromycin and ceftriaxone ordered by the emergency room department - I am adding vancomycin with pharmacy consultation to dose and treat - Will continue to monitor - Patient panculture from blood and urine Lactic acidosis - IV hydration - Repeat lactate in 2 hours from the initial draw PDMP PDMP Reviewed: Not Reviewed Attestations 2 Medical Necessity Statement*: Patient with spinal pain spinal surgery and marielena with instant fever with confusion requires at least 2 midnights for further evaluation blood cultures have been drawn Coding Level of Care Code 91229 Diagnoses Lactic acidosis E87.20 Dehydration E86.0 Sepsis A41.9 Elevated lactic acid level R79.89 Fever R50.9 Confusion R41.0 Time Spent (min) 60
[2025-05-01 17:49] LABS: Respiratory Syncytial Virus Ce NEGATIVE (Negative); SARS-CoV-2 PCR NEGATIVE (Negative)
[2025-05-01 17:53] VITALS: BP 142/86; PULSE 102; RESP 16; TEMP 39.1; O2SAT 95
--- NOTE | 2025-05-01 18:28 | CTR_ITS ---
PROCEDURE INFORMATION: Exam: CT Abdomen And Pelvis With Contrast Exam date and time: 05/01/2025 7:16 PM Age: 69 years old Clinical indication: Prior surgery; Surgery date: 6+ months; Surgery type: Lumbar fusion. Appy; C/O low back pain with fever. ; Additional info: Worsening pain of the spine with marielena and plate in place and, and fever with disorientation TECHNIQUE: Imaging protocol: Computed tomography of the abdomen and pelvis with contrast. Radiation optimization: All CT scans at this facility use at least one of these dose optimization techniques: automated exposure control; mA and/or kV adjustment per patient size (includes targeted exams where dose is matched to clinical indication); or iterative reconstruction. Contrast material: OMNI 350; Contrast volume: 80 ml; Contrast route: INTRAVENOUS (IV); COMPARISON: CT abdomen pelvis wo con [id number] 01/16/2022 8:45 PM RADIATION DOSE METRICS: Total DLP (mGy-cm): 747.89 FINDINGS: Lungs: Mild bibasilar atelectasis and/or scarring. Heart: Heart size is within normal limits. There is no pericardial effusion or pericardial thickening. Liver: There is suggestion of fatty liver, suboptimally assessed on postcontrast imaging. The liver is otherwise normal. Gallbladder and biliary ducts: Normal. No calcified stones. No ductal dilation. Pancreas: The pancreas is atrophic without obvious abnormality. Spleen: The spleen is normal. Adrenal glands: The adrenal glands are normal. Kidneys and ureters: There is normal enhancement of the kidneys. No renal calcifications are identified. There is no hydronephrosis. There are bilateral subcentimeter renal low-density lesions which are too small for accurate characterization, likely representing simple cysts. Stomach and bowel: Mild colonic diverticulosis without diverticulitis. Mild retained colonic stool. There is no large or small bowel obstruction. There is no evidence of bowel wall thickening. Appendix: Postoperative changes in the expected location of the appendix. Intraperitoneal space: No inflammatory changes are identified. There is no free fluid or fluid collection seen. There is no pneumoperitoneum. Vasculature: Atherosclerotic calcifications of the aorta are present. No aneurysm is identified. Lymph nodes: No enlarged lymph nodes are identified. Urinary bladder: The bladder is unremarkable. Reproductive: The uterus is absent. Bones/joints: Posterior fusion L2-L5. L2 pedicle screws are new compared to prior study there is some lucency around the pedicle screws which extend into the L1-L2 disc space. Stable posterior laminectomy changes from L3-L5. Stable anterior fusion at L4-L5 and L5-S1. No acute osseous abnormalities are seen. Soft tissues: Tiny periumbilical hernia containing only fat. CT/CT abdomen pelvis w con* [id number] IMPRESSION: 1. No acute intra-abdominal or pelvic process. 2. New L2 pedicle screws and superior extension of posterior fusion hardware. There is some lucency around the L2 pedicle screws which project into the L1-L2 disc space which may represent loosening hardware. 3. Other nonemergent findings above. COMMENTS: Consistent with the [employer]'s Incidental Findings Committee white paper (J Am Hakeem Radiol 2018): Any incidental renal lesion less than 1 cm or classified as too small to characterize, or any incidental cystic renal lesion characterized as simple-appearing, is likely benign. No follow-up imaging is recommended for these lesions per consensus recommendations based on imaging criteria.
[2025-05-01 18:35] VITALS: BP 126/85; PULSE 94; RESP 18; O2SAT 96
[2025-05-01] MEDS: iohexol 350 mg/mL 500 mL Btl (per mL) IV (19:22)
[2025-05-01 19:52] VITALS: BP 142/75; PULSE 86; TEMP 37.3; O2SAT 95
[2025-05-01 20:19] LABS: Lactic Acid level (Lactate) 2.8 mmol/L (0.5-2.2)
[2025-05-01 20:30] VITALS: BP 127/82; PULSE 88; O2SAT 93
[2025-05-01 22:55] VITALS: BP 164/85; PULSE 89; O2SAT 97
[2025-05-02] VITALS (9 sets, daily range): BP systolic 131–163; BP diastolic 77–105; PULSE 96–121; RESP 16–18; TEMP 36.5–39.7; O2SAT 93–96; BMI 27.3
[2025-05-02] MEDS: heparin 5,000 unit/mL INJ 1 mL 5000 UNIT SUBCUT ×3 (00:22→22:41)
[2025-05-02 04:35] LABS: Hematocrit 38.1 % (36-47); Hemoglobin 11.90 g/dL (11.27-16.99); Mean Corpuscular HGB Conc 31.2 g/dL (30-55); Mean Corpuscular Hemoglobin 27.4 pg (27-33); Mean Corpuscular Volume 87.8 fl (85-98); Nucleated Red Blood Cells % 0 %; Platelet Count 242 10^3/cmm (157-399); Red Blood Count 4.34 10^6/uL (3.85-5.65); White Blood Count 11.17 10^3/uL (3.29-11.43)
[2025-05-02 04:47] LABS: Alanine Aminotransferase 17 U/L (0-33); Albumin Level 3.6 g/dL (3.5-5.2); Alkaline Phosphatase 52 U/L (35-105); Aspartate Amino Transferase 21 U/L (0-32); Blood Urea Nitrogen 9 mg/dL (8-23); Calcium 9.2 mg/dL (8.5-10.5); Carbon Dioxide 20 mmol/L (22-29); Chloride 99 mmol/L (98-107); Creatinine Clr Calc Pharmacy 77.8664; Globulin 3.1 g/dL (1.3-4.6); Glucose 167 mg/dL (65-115); Magnesium 1.7 mg/dL (1.7-2.3); Osmolality Calculated 278 mOsm/kg (285-295); Sodium 133 mmol/L (136-145); Total Protein 6.7 g/dL (6.6-8.7)
[2025-05-02 04:49] LABS: Anion Gap 17.4 (5-19); Potassium 3.4 mmol/L (3.5-5.1)
[2025-05-02] MEDS: vancomycin 1,750 MG/350 ML PIGGYBACK 175 MG IV (06:38)
--- NOTE | 2025-05-02 12:09 | CTR_ITS ---
PROCEDURE INFORMATION: Exam: CT Thoracic Spine With Contrast Exam date and time: 05/02/2025 12:18 PM Age: 69 years old Clinical indication: Other: Possible abcess TECHNIQUE: Imaging protocol: Computed tomography of the thoracic spine with contrast. Radiation optimization: All CT scans at this facility use at least one of these dose optimization techniques: automated exposure control; mA and/or kV adjustment per patient size (includes targeted exams where dose is matched to clinical indication); or iterative reconstruction. Contrast material: OMNI 350; Contrast volume: 80 ml; Contrast route: INTRAVENOUS (IV); COMPARISON: CT abdomen pelvis w con* [id number] 05/01/2025 7:16 PM RADIATION DOSE METRICS: Total DLP (mGy-cm): 717.4 FINDINGS: Bones/joints: Normal alignment. Mild dextroscoliosis. Mild focal upper thoracic levoscoliosis. No fractures. No disc protrusions or significant bulges. Normally patent spinal canal and neural foramina. Soft tissues: No paraspinal soft tissue masses or fluid collections. CT/CT thoracic spine w con [id number] IMPRESSION: No acute findings.
--- NOTE | 2025-05-02 12:09 | CTR_ITS ---
PROCEDURE INFORMATION: Exam: CT Lumbar Spine With Contrast Exam date and time: 05/02/2025 12:18 PM Age: 69 years old Clinical indication: Other: Possible abcess; Prior surgery; Surgery date: 6+ months; Surgery type: Back TECHNIQUE: Imaging protocol: Computed tomography of the lumbar spine with contrast. Radiation optimization: All CT scans at this facility use at least one of these dose optimization techniques: automated exposure control; mA and/or kV adjustment per patient size (includes targeted exams where dose is matched to clinical indication); or iterative reconstruction. Contrast material: OMNI 350; Contrast volume: 40 ml; Contrast route: INTRAVENOUS (IV); COMPARISON: CT lumbar spine wo con* [id number] 08/19/2024 5:42 PM RADIATION DOSE METRICS: Total DLP (mGy-cm): 823.7 FINDINGS: Bones/joints: Normal alignment. No acute fractures. There are extensive postoperative changes from L2-S1 characterized by posterior fusion with screws and rods, anterior interbody fusion at L4-L5 and L5-S1 with anterior spacer/fixation devices anchored by screws and plates, in radiodense interbody spacers at L2-L3 and L3-L4 that were also present previously. These devices have not incorporated with the adjacent endplates at L2-L3 and L3-L4 although the radiolucency in the endplate regions apposed to these devices has not changed since the last exam. Finally, morselized bone graft placed along the posterior columns from L3 to S1 is apparently fused only on the right at L3-L4, bilaterally at L4-L5 in not from L5-S1. Hardware is intact. Radiolucency around the screws at L2 is unchanged consistent with loosening. The screws have migrated slightly into the disc space, also unchanged from the last exam. L1-L2: Normal disc height and contour. Adequately patent canal and foramina. L2-L3: No bony bridging between L2 and L3. Adequately patent canal and foramina. L3-L4: No bony bridging between L3-L4. Normally patent canal. Canal is decompressed dorsally. Adequately patent foramina. L4-L5: Fused anteriorly and posteriorly. Dorsally decompressed. Adequately patent canal. Ezin-jw-eidzasph left foraminal narrowing due to residual arthrosis from facet joint protruding into the foramen. Adequately patent right foramen. L5-S1: Fused anteriorly and posteriorly. Dorsally decompressed. Adequately patent canal. Mild bilateral foraminal narrowing due to bony changes in the facet joints and endplates. Soft tissues: Unremarkable. CT/CT lumbar spine w con [id number] IMPRESSION: 1. Status post fusion L2-S1 with details as described above. 2. Chronic loosening of the screws at L2 is more likely than infection as the amount of osteolysis around the screws has not changed since August 19, 2024. 3. Successful fusions at L4-L5 and L5-S1. Incomplete fusions at L2-L3 and L3-L4. 4. No evidence of paraspinal abscess.
[2025-05-02] MEDS: iohexol 350 mg/mL 500 mL Btl (per mL) IV ×2 (12:29→12:30)
[2025-05-02] MEDS: HYDROmorphone 0.5 MG/0.5 ML INJ IVP ×3 (13:10→22:41)
--- NOTE | 2025-05-02 15:18 | PHA.VACGOAL ---
Vancomycin Goal - Goal Vancomycin Goal:: 15-20 mg/L Vancomycin Indication:: Other (SEPSIS) - Therapy Current therapy:: Azithromycin, Other Antibiotic (CEFTRIAXONE) Day of therpy:: Day [1]of [] . Actual body weight (kg): 83.915 kg - Data Labs: WBC 11.17 10^3/uL (3.29-11.43) 05/02/25 04:22 RBC 4.34 10^6/uL (3.85-5.65) 05/02/25 04:22 Hgb 11.90 g/dL (11.27-16.99) 05/02/25 04:22 Hct 38.1 % (36-47) 05/02/25 04:22 MCV 87.8 fl (85-98) 05/02/25 04:22 MCH 27.4 pg (27-33) 05/02/25 04:22 MCHC 31.2 g/dL (30-55) 05/02/25 04:22 RDW 14.1 % (12.1-15.1) 05/02/25 04:22 Sodium 133 mmol/L (136-145) L 05/02/25 04:22 Potassium 3.4 mmol/L (3.5-5.1) L 05/02/25 04:22 Chloride 99 mmol/L (98-107) 05/02/25 04:22 Carbon Dioxide 20 mmol/L (22-29) L 05/02/25 04:22 Anion Gap 17.4 (5-19) 05/02/25 04:22 BUN 9 mg/dL (8-23) 05/02/25 04:22 Creatinine 0.5 mg/dL (0.5-0.9) 05/02/25 04:22 GFR Calculation 122.7 mL/min (90-130) 05/02/25 04:22 Treatment plan:: new consult Regimen:: New start vancomycin for sepsis. No prior vancomycin history found. Patient received 1750 mg loading dose. Started on maintenance dose of 1000 mg q8h.
--- NOTE | 2025-05-02 15:25 | P.PN_ITS ---
Subjective 2 Subjective: Patient related history of migraine and almost similar to the migraine she had last 10 years ago but a little different. Patient had no further fever greater or equal to 101 ?F. Patient with this headache does have photophobia like into migraine no change in mental status. No nuchal rigidity Vitals/I&O/Wt Last Vital Signs Temp 99.7 F H 05/02/25 13:04 Pulse 96 05/02/25 11:35 Resp 16 05/02/25 11:35 BP 131/85 05/02/25 11:35 Pulse Ox 94 05/02/25 11:35 O2 Del Method Room Air 05/02/25 11:35 05/02/25 05/02/25 05/02/25 06:59 14:59 22:59 Intake Total 2250 / 2732.85 1683.75 / 1683.75 Output Total 1200 / 1200 Balance 2250 / 2732.85 483.75 / 483.75 Weight last 48 hrs Weight 83.915 kg Weight 83.915 kg Physical Exam 2 Narrative: Generally patient looks well in no apparent distress HEENT normocephalic atraumatic neck neck is supple cardiovascular heart rate is regular lungs are pretty much clear abdomen soft nontender nondistended unremarkable extremities are intact no edema has good pulses neurology has no focality lab studies lab studies reviewed and noted. Data 05/02/25 04:22 05/02/25 04:22 Micro: Microbiology 05/01/25 16:40 Blood Culture - Preliminary Blood SPECIMEN COLLECTED 05/01/25 16:38 Blood Culture - Preliminary Blood SPECIMEN COLLECTED A&P Assessment and plan 1. Fever: 2. Elevated lactic acid level: 3. Sepsis: 4. Transient alteration of awareness: 5. Lactic acidosis: 6. Migraine aura, persistent, intractable: Plan: Febrile illness with transient alteration of awareness at presentation- resolved - Patient without white count - Stroke alert woke up was negative - Migraine syndrome being addressed and patient responding to care - Metal and plates and never because of any meningitis, very reassuring - Patient is being treated for complicated migraine and being treated for fever of unknown origin though transient - Rehydration Lactic acidosis - Resolving Complicated migraine - Being treated at this time will continue to monitor Spinal surgery with plate and screws in the recent past - Screws noted at L2 with chronic loosening had not changed since August of this year - No sign of paraspinal spinal abscess or infection, no fluid collection, - Doubt it to be source of fever. - Will continue to monitor and optimize PDMP PDMP Reviewed: Not Reviewed Attestations 2 Medical Necessity Statement*: Patient with febrile illness with transient change in mental status at presentation and with complex migraine will need at least 2 midnights more for further optimization of care Coding Level of Care Code 99933 Diagnoses Fever R50.9 Elevated lactic acid level R79.89 Sepsis A41.9 Transient alteration of awareness R40.4 Lactic acidosis E87.20 Migraine aura, persistent, intractable G43.519 Time Spent (min) 60
[2025-05-02] MEDS: diphenhydrAMINE 50 mg/mL SDV 1mL IVP (15:38)
[2025-05-02] MEDS: doxycycline 100 MG in sodium chloride 0.9% (plus) 100 ML IV (15:38)
[2025-05-02] MEDS: cefTRIAXone 2,000 mg SDV 2000 MG IVP (16:57)
[2025-05-03] VITALS (9 sets, daily range): BP systolic 133–168; BP diastolic 83–94; PULSE 93–119; RESP 14–17; TEMP 36.4–37; O2SAT 91–97
[2025-05-03] MEDS: doxycycline 100 MG in sodium chloride 0.9% (plus) 100 ML IV ×2 (04:22→16:49)
[2025-05-03 06:07] LABS: Alanine Aminotransferase 16 U/L (0-33); Albumin Level 3.7 g/dL (3.5-5.2); Alkaline Phosphatase 54 U/L (35-105); Anion Gap 15.9 (5-19); Aspartate Amino Transferase 22 U/L (0-32); Blood Urea Nitrogen 5 mg/dL (8-23); Calcium 8.6 mg/dL (8.5-10.5); Carbon Dioxide 23 mmol/L (22-29); Chloride 101 mmol/L (98-107); Creatinine Clr Calc Pharmacy 77.8664; Globulin 3.0 g/dL (1.3-4.6); Glucose 142 mg/dL (65-115); Osmolality Calculated 284 mOsm/kg (285-295); Sodium 137 mmol/L (136-145); Total Protein 6.7 g/dL (6.6-8.7)
[2025-05-03 06:19] LABS: Potassium 2.9 mmol/L (3.5-5.1)
--- NOTE | 2025-05-03 06:41 | P.EN_ITS ---
Event Note Event Note: Critically low potassium since yesterday, currently 2.9 Magnesium sent 20 IV stat 40 mg equivalents 2 doses of KCl Repeat BMP at 1 PM Continue to monitor hemodynamics and patient overall Potassium to be replaced and monitored accordingly Event Notes Attestations Time Spent in Patient Care: less than 15 minutes (>than 50% of time spent in counselling and/or direct pt care on unit) .
[2025-05-03] MEDS: lidocaine 1% 5 ML in potassium chloride premix 100 ML 52.5 ML IV (06:51)
[2025-05-03 07:10] LABS: Magnesium 1.9 mg/dL (1.7-2.3)
[2025-05-03] MEDS: HYDROmorphone 0.5 MG/0.5 ML INJ IVP ×3 (08:06→20:28)
--- NOTE | 2025-05-03 09:37 | PC.CHAP ---
Pastoral Care Encounter/Spiritual Assessment Type of Contact [] Declined team automobile assembler visit [] Patient/Family/Request visit [] Outpatient visit [] Follow-up visit [] Physician referral [] Code/Alert [x] Routine visit [] Staff referral [] Actively dying [] Patient sleeping [x] Family support [] [] Out of room [] Palliative care [] [] Receiving care in room [] Pre-surgical visit [] Trauma [] Long length of stay [] ICU visit [] Other: Relational/Emotional Strength [] Patient feels connected with others/family/visitors/staff [] Distress [] Loneliness/isolation [] Abandonment Spirituality of Patient [x] Person of [place] [] Attends Quaker of their [place] [x] Believes in Prayer [] Reads Bible or Pentecostalism materials [] There are Spiritual issues to be addressed Transfusion Nurse Interventions [x] Prayer [x] Active listening [] Non-anxious presence [] Spiritual/emotional support [] Crisis/trauma care [] Spiritual counseling [] Bereavement support [] Provided bereavement packet [x] Provided Bible/devotional materials [] Provided toy/stuffed animal, coloring book to patient or family member [] Provided Communion [] Anointing/[place] [] Salvation [x] Completed spiritual assessment [] Other: Impact on Illness or Injury [] Angry [] Fearful [] Anxious [] Often cries [] Exhaustion [] Unable to work [] Unable to attend baptist [] Unable to walk/stand [] Unable to read [] Unable to drive [] Unable to eat/drink [] Unable to sleep [] Unable to be with family [] Patient intubated [] Other: Summary Time spent with patient 10 min
--- NOTE | 2025-05-03 10:53 | PC.SOCIAL ---
IMM Updated Updated pt on IMM. No questions voiced. Provided pt a copy. Initialed, dated, & timed a copy & placed in chart.
[2025-05-03] MEDS: heparin 5,000 unit/mL INJ 1 mL 5000 UNIT SUBCUT ×2 (11:30→23:30)
[2025-05-03 13:34] LABS: Anion Gap 13.9 (5-19); Blood Urea Nitrogen 5 mg/dL (8-23); Calcium 9.0 mg/dL (8.5-10.5); Carbon Dioxide 24 mmol/L (22-29); Chloride 101 mmol/L (98-107); Creatinine Clr Calc Pharmacy 78.6760; Glucose 182 mg/dL (65-115); Osmolality Calculated 282 mOsm/kg (285-295); Potassium 3.9 mmol/L (3.5-5.1); Sodium 135 mmol/L (136-145)
[2025-05-03] MEDS: diphenhydrAMINE 50 mg/mL SDV 1mL 25 MG IVP ×2 (14:17→20:27)
[2025-05-03] MEDS: cefTRIAXone 2,000 mg SDV 2000 MG IVP (16:55)
--- NOTE | 2025-05-03 18:43 | P.PN_ITS ---
Subjective 2 Subjective: Patient is doing well responding to medication for complex migraine yesterday the pain was 9/10 and today has come down to a 5/10 we will continue to monitor at this time. I have also discontinue patient IV fluid at this time. Patient had no complaints of back pain today Vitals/I&O/Wt Last Vital Signs Temp 97.8 F 05/03/25 16:00 Pulse 108 H 05/03/25 16:00 Resp 16 05/03/25 16:00 BP 159/93 05/03/25 16:00 Pulse Ox 96 05/03/25 16:00 O2 Del Method Room Air 05/03/25 16:00 05/03/25 05/03/25 05/03/25 06:59 14:59 22:59 Intake Total 1500 / 3653.75 1195 / 1195 1360 / 2555 Output Total 1200 / 4350 1200 / 1200 Balance 300 / -696.25 -5 / -5 1360 / 1355 Weight last 48 hrs Weight 85.82 kg Weight 83.915 kg Physical Exam 2 Narrative: Patient is afebrile and generally doing much better with no issues. HEENT normocephalic atraumatic neck neck is supple cardiovascular heart rate is regular lungs are pretty much clear abdomen soft nontender nondistended unremarkable extremities are intact no edema has good pulses neurology has no focality lab studies lab studies reviewed and noted. Data 05/02/25 04:22 05/03/25 12:57 Micro: Microbiology 05/01/25 16:40 Blood Culture - Preliminary Blood NEGATIVE TO DATE 05/01/25 16:38 Blood Culture - Preliminary Blood NEGATIVE TO DATE A&P Assessment and plan 1. Migraine aura, persistent, intractable: 2. Transient alteration of awareness: 3. Sepsis: 4. Elevated lactic acid level: 5. Fever: 6. Confusion: Plan: Complex migraine -Optimizing with Toradol, Benadryl, Dilaudid - Pain level down from 9 over 10-5/10 today - Patient photophobia is less today - Will continue to treat monitor At admission meeting time of presentation: Febrile illness with transient alteration of awareness at presentation-resolved - Patient without white count - Stroke alert woke up was negative - Migraine syndrome being addressed and patient responding to care - Metal and plates and never because of any meningitis, very reassuring - Patient is being treated for complicated migraine and being treated for fever of unknown origin though transient. All cultures urine and blood are negative - Rehydration Lactic acidosis - Resolving Spinal surgery with plate and screws in the recent past - Screws noted at L2 with chronic loosening had not changed since August of this year - No sign of paraspinal spinal abscess or infection, no fluid collection, - Doubt it to be source of fever. - Will continue to monitor and optimize - It is also reassuring that plates and screws and rods will not give meningitis and will not be a source of infection. Case discussed with infectious disease Dr. Munguia. Patient responding to therapy at this time because of migraine syndrome PDMP PDMP Reviewed: Not Reviewed Attestations 2 Medical Necessity Statement*: Patient will need at least 2 more midnights for further optimization of care. Coding Level of Care Code 26726 Diagnoses Migraine aura, persistent, intractable G43.519 Transient alteration of awareness R40.4 Sepsis A41.9 Elevated lactic acid level R79.89 Fever R50.9 Confusion R41.0 Time Spent (min) 50
[2025-05-04] VITALS (9 sets, daily range): BP systolic 109–171; BP diastolic 70–98; PULSE 92–107; RESP 16–20; TEMP 36.4–37; O2SAT 91–97
[2025-05-04] MEDS: HYDROmorphone 0.5 MG/0.5 ML INJ IVP ×4 (02:41→20:19)
[2025-05-04] MEDS: diphenhydrAMINE 50 mg/mL SDV 1mL 25 MG IVP ×4 (02:41→20:19)
[2025-05-04] MEDS: doxycycline 100 MG in sodium chloride 0.9% (plus) 100 ML IV ×2 (04:07→15:39)
[2025-05-04 05:25] LABS: Hematocrit 38.5 % (36-47); Hemoglobin 12.10 g/dL (11.27-16.99); Mean Corpuscular HGB Conc 31.4 g/dL (30-55); Mean Corpuscular Hemoglobin 27.1 pg (27-33); Mean Corpuscular Volume 86.1 fl (85-98); Nucleated Red Blood Cells % 0 %; Platelet Count 222 10^3/cmm (157-399); Red Blood Count 4.47 10^6/uL (3.85-5.65); White Blood Count 4.23 10^3/uL (3.29-11.43)
[2025-05-04 05:57] LABS: Alanine Aminotransferase 16 U/L (0-33); Albumin Level 3.6 g/dL (3.5-5.2); Alkaline Phosphatase 57 U/L (35-105); Anion Gap 17.6 (5-19); Aspartate Amino Transferase 21 U/L (0-32); Blood Urea Nitrogen 6 mg/dL (8-23); Calcium 8.9 mg/dL (8.5-10.5); Carbon Dioxide 20 mmol/L (22-29); Chloride 104 mmol/L (98-107); Creatinine Clr Calc Pharmacy 78.4444; Globulin 3.2 g/dL (1.3-4.6); Glucose 141 mg/dL (65-115); Osmolality Calculated 286 mOsm/kg (285-295); Potassium 3.6 mmol/L (3.5-5.1); Sodium 138 mmol/L (136-145); Total Protein 6.8 g/dL (6.6-8.7)
[2025-05-04 05:59] LABS: Lactate (Lactic Acid level) 1.0 mmol/L (0.5-2.2)
[2025-05-04 06:01] LABS: Slide Review Slide Review Perform
[2025-05-04] MEDS: heparin 5,000 unit/mL INJ 1 mL 5000 UNIT SUBCUT ×2 (11:40→23:30)
[2025-05-04] MEDS: cefTRIAXone 2,000 mg SDV 2000 MG IVP (17:19)
--- NOTE | 2025-05-04 17:33 | P.PN_ITS ---
Subjective 2 Subjective: Patient is feeling a little better with the headaches but would like to have spinal tap done because of transient confusion Vitals/I&O/Wt Last Vital Signs Temp 98.0 F 05/04/25 16:00 Pulse 105 H 05/04/25 16:00 Resp 16 05/04/25 16:00 BP 152/86 05/04/25 16:00 Pulse Ox 96 05/04/25 16:00 O2 Del Method Room Air 05/04/25 16:00 05/04/25 05/04/25 05/04/25 06:59 14:59 22:59 Intake Total 1161.25 / 4066.25 970 / 970 Output Total 800 / 2000 300 / 300 1600 / 1900 Balance 361.25 / 2066.25 670 / 670 -1600 / -930 Weight last 48 hrs Weight 85.275 kg Weight 85.82 kg Physical Exam 2 Narrative: Generally patient is doing better with headaches Patient will have transient and intermittent maybe once in 1 day or 2 confusion Patient for spinal tap tomorrow HEENT normocephalic atraumatic neck neck is supple cardiovascular heart rate is regular lungs are pretty much clear abdomen soft nontender nondistended unremarkable extremities are intact no edema has good pulses neurology has no focality lab studies lab studies reviewed and noted Data 05/04/25 05:05 05/04/25 05:05 A&P Assessment and plan 1. Migraine aura, persistent, intractable: 2. Transient alteration of awareness: Plan: Complex migraine -Optimizing with Toradol, Benadryl, Dilaudid - Pain level down from 9 over 10-5/10 today - Patient photophobia is less today -Schedule of medication altered and now corrected - Will continue to treat monitor for interval improvement At admission meeting time of presentation: Febrile illness with transient alteration of awareness at presentation-resolved - Patient without white count - Stroke alert woke up was negative - Migraine syndrome being addressed and patient responding to care - Metal and plates and never because of any meningitis, very reassuring - Patient is being treated for complicated migraine and being treated for fever of unknown origin though transient. All cultures urine and blood are negative - Rehydrated and IV discontinue Lactic acidosis - Resolving Spinal surgery with plate and screws in the recent past - Screws noted at L2 with chronic loosening had not changed since August of this year - No sign of paraspinal spinal abscess or infection, no fluid collection, - Doubt it to be source of fever. - Will continue to monitor and optimize - It is also reassuring that plates and screws and rods will not give meningitis and will not be a source of infection. Case discussed with infectious disease Dr. Munguia. Patient responding to therapy at this time because of migraine syndrome Patient for spinal tap tomorrow PDMP PDMP Reviewed: Not Reviewed Attestations 2 Medical Necessity Statement*: Patient with persistent headache responding to some pain medication but then with intermittent environmental awareness patient going for spinal tap will need at least 2 days to optimize care Coding Level of Care Code 38082 Diagnoses Migraine aura, persistent, intractable G43.519 Transient alteration of awareness R40.4 Time Spent (min) 50
[2025-05-05] MEDS: diphenhydrAMINE 50 mg/mL SDV 1mL 25 MG IVP ×3 (02:30→11:27)
[2025-05-05] MEDS: HYDROmorphone 0.5 MG/0.5 ML INJ IVP ×2 (02:30→09:43)
[2025-05-05] MEDS: doxycycline 100 MG in sodium chloride 0.9% (plus) 100 ML IV (03:58)
[2025-05-05 04:00] VITALS: BP 162/99; PULSE 104; RESP 16; TEMP 36.8; O2SAT 94
[2025-05-05 07:14] VITALS: BP 155/92; PULSE 113; RESP 20; TEMP 36.4; O2SAT 96
[2025-05-05 09:42] LABS: Hematocrit 40.3 % (36-47); Hemoglobin 12.70 g/dL (11.27-16.99); Mean Corpuscular HGB Conc 31.5 g/dL (30-55); Mean Corpuscular Hemoglobin 26.6 pg (27-33); Mean Corpuscular Volume 84.3 fl (85-98); Nucleated Red Blood Cells % 0 %; Platelet Count 261 10^3/cmm (157-399); Red Blood Count 4.78 10^6/uL (3.85-5.65); White Blood Count 5.50 10^3/uL (3.29-11.43)
--- NOTE | 2025-05-05 10:12 | PC.SOCIAL ---
IMM Updated Updated pt on IMM. No questions voiced. Provided pt a copy. Initialed, dated, & timed copy in chart.
[2025-05-05 10:17] LABS: Alanine Aminotransferase 23 U/L (0-33); Albumin Level 3.5 g/dL (3.5-5.2); Alkaline Phosphatase 67 U/L (35-105); Anion Gap 17.5 (5-19); Aspartate Amino Transferase 34 U/L (0-32); Blood Urea Nitrogen 6 mg/dL (8-23); Calcium 9.5 mg/dL (8.5-10.5); Carbon Dioxide 21 mmol/L (22-29); Chloride 101 mmol/L (98-107); Creatinine Clr Calc Pharmacy 77.9386; Globulin 3.5 g/dL (1.3-4.6); Glucose 234 mg/dL (65-115); Osmolality Calculated 287 mOsm/kg (285-295); Potassium 3.5 mmol/L (3.5-5.1); Sodium 136 mmol/L (136-145); Thyroid Stimulating Hormone 1.01 uIU/mL (0.27-4.20); Total Protein 7.0 g/dL (6.6-8.7); Vitamin B12 923 pg/mL (232-1245)
--- NOTE | 2025-05-05 10:48 | MR_ITS ---
WS: [id number] MRI BRAIN WITHOUT CONTRAST HISTORY: Migraines COMPARISON: 08/20/2024 TECHNIQUE: Diffusion imaging, multiplanar T1, T2 and FLAIR imaging obtained. No evidence for restricted diffusion to suggest acute ischemia. Moderate small vessel changes, similar to the prior exam. Mild parenchymal volume loss. No new infarct. No hemorrhage. No mass effect upon the midline structures. Ventricles and extra-axial spaces are normal. No inferior displacement of cerebellar tonsils. The sella turcica and pituitary gland are unremarkable. Dural venous sinuses and gambell of [place] demonstrate no abnormality on this unenhanced studies. Paranasal sinuses: No air-fluid levels within the paranasal sinuses. Mastoid air cells: Normal. Calvarium and scalp: Intact. MR/MR head wo con* [id number] IMPRESSION: 1. No acute intracranial hemorrhage or ischemia. Normal diffusion imaging. 2. Mild atrophy with moderate small vessel changes. Similar to 08/20/2024. 3. No hydrocephalus.
[2025-05-05 11:17] VITALS: BP 169/79; PULSE 101; RESP 18; TEMP 36.9; O2SAT 92
[2025-05-05] MEDS: ondansetron 2 mg/ML SDV 2 mL 4 MG IVP (11:27)
[2025-05-05 16:00] VITALS: BP 156/87; PULSE 114; RESP 17; TEMP 36.8; O2SAT 93
[2025-05-05] MEDS: dilTIAZem ER (12HR) 60 mg Capsule 120 MG PO (17:09)
[2025-05-05 20:00] VITALS: BP 157/89; PULSE 89; RESP 16; TEMP 36.9; O2SAT 97
--- NOTE | 2025-05-05 20:36 | P.PN_ITS ---
Subjective 2 Subjective: Patient feeling much better today, the patient further reported that her headache was more on the half side that was associated with photophobia and mild fever. But there was no nausea or vomiting or any rigidity with the neck movements. No skin rash and no other features. Currently the headache is better, no neck rigidity mild photophobia on and off with her headache involving half right side side. Vitals/I&O/Wt Last Vital Signs Temp 98.4 F 05/05/25 20:00 Pulse 89 05/05/25 20:00 Resp 16 05/05/25 20:00 BP 157/89 05/05/25 20:00 Pulse Ox 97 05/05/25 20:00 O2 Del Method Room Air 05/05/25 20:00 05/05/25 05/05/25 05/05/25 06:59 14:59 22:59 Intake Total 350 / 2150 960 / 960 610 / 1570 Output Total 1500 / 1500 Balance 350 / -550 -540 / -540 610 / 70 Weight last 48 hrs Weight 84.085 kg Weight 85.275 kg Physical Exam 2 Narrative: General: Alert and oriented, lying comfortably without any distress, no neck rigidity, HEENT: Normocephalic, atraumatic, grossly unremarkable exam Cardio: normal rate rhythm, normal S1-S2 without any murmurs, rubs, or gallops and JVD normal Respiratory: normal vascular breathing on auscultation without any wheezes, stridor, rhonchi GI: Abdomen soft, nontender, nondistended, normoactive bowel sounds present all 4 quadrants, Neuro: intact cranial nerves motor and sensory and cerebellar/coordination function without any focal neurological deficit Behavior: Appropriate and cooperative Extremities: Adequate palpable pulses, no edema or cyanosis observed Skin: grossly unremarkable exam Data 05/05/25 09:34 05/05/25 09:34 A&P Assessment and plan 1. Migraine aura, persistent, intractable: Patient cultures still negative, less likely to be meningitis since there is no overt signs of neck rigidity leukocytosis, or any high-grade fever with chills. More likely to be migraine with aura. MRI brain and to follow accordingly, it was planned by the previous physician for LP however considering her lumbar spine surgery and plates and less likely to be meningitis after further history and clinical exam to follow the brain MRI report and later discussed further management option with the patient Follow MRSA and final cultures, if everything negative no leukocytosis no further fever spikes then consider de-escalation of antibiotics upon discharge Patient underwent migraine protocol management and her pain improved as per the assigned nurse. Adequate analgesia to continue Neurology follow-up at time of discharge 2. Type 2 diabetes mellitus without complication, without long-term current use of insulin: Insulin sliding scale at low-dose to continue 3. Dyslipidemia: Continue home dose atorvastatin daily 4. HTN (hypertension): Patient on diltiazem 120 mg twice daily and to continue monitor for the blood pressure Patient is also on metoprolol 75 mg twice daily Resume today and to monitor blood pressure PCP follow-up at the time of discharge 5. Rheumatoid arthritis: Patient on immunosuppressants at home, prednisone reconciled and to resume with her home dose 6. SLE (systemic lupus erythematosus): Patient on azathioprine, reconciled accordingly PDMP PDMP Reviewed: Not Reviewed Attestations 2 Medical Necessity Statement*: Patient will stay overnight for the management of her migraine with aura which explains more of her headache photophobia and low-grade fever and resolved at the moment after migraine management protocol Time Spent in Patient Care: 16 - 35 minutes (>than 50% of time sp ent in counselling and/or direct pt care on unit) . Other Attestations: Patient condition has been discussed at length with the patient/family, I have independently reviewed the chart labs imaging/diagnostics/EKG. the goals of care and code status with the patient/family/NOK/legal congressional representative, and documented accordingly. The patient/family has been informed about the current condition and further plan of care. Agreed with the plan of care and understood without any language barrier. Every effort was made to ensure accuracy of finishing frame runner. Any obvious errors or omissions should be clarified with the author of the document. Coding Level of Care Code 77566 Diagnoses Migraine aura, persistent, intractable G43.519 Type 2 diabetes mellitus without complication, without long-term current use of insulin E11.9 Diabetes mellitus chcf insulin use: without superintendent marine [employer] use Diabetes mellitus complication status: without complication Dyslipidemia E78.5 HTN (hypertension) I10 Rheumatoid arthritis M06.9 SLE (systemic lupus erythematosus) M32.9
[2025-05-06] VITALS: BP 95/61; PULSE 87; RESP 16; TEMP 36.8; O2SAT 96
[2025-05-06 03:44] LABS: Hematocrit 40.8 % (36-47); Hemoglobin 12.90 g/dL (11.27-16.99); Mean Corpuscular HGB Conc 31.6 g/dL (30-55); Mean Corpuscular Hemoglobin 26.7 pg (27-33); Mean Corpuscular Volume 84.5 fl (85-98); Nucleated Red Blood Cells % 0 %; Platelet Count 273 10^3/cmm (157-399); Red Blood Count 4.83 10^6/uL (3.85-5.65); White Blood Count 6.36 10^3/uL (3.29-11.43)
[2025-05-06] MEDS: doxycycline 100 MG in sodium chloride 0.9% (plus) 100 ML IV (03:47)
[2025-05-06 04:00] VITALS: BP 121/77; PULSE 80; RESP 16; TEMP 36.6; O2SAT 93
[2025-05-06 04:12] LABS: Alanine Aminotransferase 27 U/L (0-33); Albumin Level 3.8 g/dL (3.5-5.2); Alkaline Phosphatase 74 U/L (35-105); Anion Gap 17.7 (5-19); Aspartate Amino Transferase 35 U/L (0-32); Blood Urea Nitrogen 9 mg/dL (8-23); Calcium 10.0 mg/dL (8.5-10.5); Carbon Dioxide 24 mmol/L (22-29); Chloride 102 mmol/L (98-107); Creatinine Clr Calc Pharmacy 56.6826; Globulin 3.3 g/dL (1.3-4.6); Glucose 181 mg/dL (65-115); Osmolality Calculated 293 mOsm/kg (285-295); Potassium 3.7 mmol/L (3.5-5.1); Sodium 140 mmol/L (136-145); Total Protein 7.1 g/dL (6.6-8.7)
[2025-05-06 05:35] VITALS: BP 152/66
[2025-05-06] MEDS: dilTIAZem ER (12HR) 60 mg Capsule 120 MG PO (05:36)
[2025-05-06] MEDS: ATORVASTATIN 20 MG TABLET PO (05:36)
[2025-05-06 06:27] LABS: MRSA PCR OZH (swab) NOT DETECTED (Not Detecte)
[2025-05-06 07:44] VITALS: BP 131/79; PULSE 77; RESP 18; TEMP 36.6; O2SAT 94
--- NOTE | 2025-05-06 10:58 | P.DS_ITS ---
Discharge Providers Date of Admission: 05/01/25 17:27 Date of Discharge: May 06, 2025 Attending Provider at Admission: Laura Hernandez MD Attending Provider at Discharge: Verona Zavala MD Primary Care Provider: Matilda Yun MD Diagnoses at Discharge Discharge Diagnosis 1. Migraine aura, persistent, intractable: 2. Type 2 diabetes mellitus without complication, without long-term current use of insulin: 3. Dyslipidemia: 4. Essential hypertension: 5. Rheumatoid arthritis involving multiple sites with positive rheumatoid factor: 6. Other forms of systemic lupus erythematosus, unspecified organ involvement status: Reason for Visit Reason for Visit: aphasia Brief History: As per the previous notes and the patient: Nanette Simental is a 69 year old female with medical history significant for chronic gastritis dyslipidemia diabetes type 2 presented to the emergency room after having had fever of 101 at home. At the emergency room there were no fever. Patient had a marielena and plates placed on her spine in the spinal surgery in [facility] and in the last 3 days the back the spine have been painful. Therefore the patient was admitted with concerns of possible epidural abscess leading to fever and confusion. Also there was concern of meningitis versus migraine. Therefore the patient was admitted for further management Hospital Course Hospital Course During her hospital course patient underwent abdominal pelvic CT lumbar spine CT and thoracic spine CT which did not show any collection or epidural abscess. It was mentioned that there was some chronic process lucency around lumbar disc space (for detailed report refer to the imaging studies). The patient had mild low-grade fever but she was reporting right-sided headache with photophobia. No neck rigidity or any nausea or vomiting was reported by the patient. No focal neurological deficit or any abnormal movements. Head MRI was unremarkable for any intracranial mass. Initially it was a plan for lumbar puncture but based on review of patient's WBCs and cultures it seems there was less likely an infectious source for her presentation. Since there was no culture growth and no leukocytosis. Patient was given adequate hydration monitoring of her electrolytes and correction accordingly was done. She underwent migraine protocol management and improved significantly. Patient whole presentation with half sided headache with photophobia presents more of migraine with aura. She also reported that she was having mild sore throat 2 to 3 weeks ago so therefore mild low-grade fever could be related to that furthermore she also on immunosuppressants for her rheumatoid arthritis and that similarly that could also be in relation to that. Patient to be discharged with neurology as outpatient to follow. Short course of antibiotics with moxifloxacin has been provided to cover possible infections. Naproxen as needed for migraine. Continue with to follow-up with her rest of the primary care physician for further management Patient condition has been discussed at length with the patient/family, I have independently reviewed the chart labs imaging/diagnostics/EKG. the goals of care and code status with the patient/family/NOK/legal representative personal service, and documented accordingly. The patient/family has been informed about the current condition and further plan of care. Agreed with the plan of care and understood without any language barrier. 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 Any obvious errors or omissions should be clarified with the author of the document. Physical Exam Narrative: General: Alert and oriented, lying comfortably without any distress, no neck rigidity, HEENT: Normocephalic, atraumatic, grossly unremarkable exam Cardio: normal rate rhythm, normal S1-S2 without any murmurs, rubs, or gallops and JVD normal Respiratory: normal vascular breathing on auscultation without any wheezes, stridor, rhonchi GI: Abdomen soft, nontender, nondistended, normoactive bowel sounds present all 4 quadrants, Neuro: intact cranial nerves motor and sensory and cerebellar/coordination function without any focal neurological deficit Behavior: Appropriate and cooperative Extremities: Adequate palpable pulses, no edema or cyanosis observed Skin: grossly unremarkable exam Discharge Data Studies Completed and Pending Completed Studies During Hospitalization Category Date Time Status CT abdomen pelvis w con* [id number] Urgent Cat Scan 05/01/25 18:[address] head thrombolytic [id number] Stat Cat Scan 05/01/25 16:[address] lumbar spine w con [id number] Routine Cat Scan 05/02/25 12:[address] thoracic spine w con [id number] Routine Cat Scan 05/02/25 12:09 Completed XR chest 1V portable [id number] Stat Exams 05/01/25 16:19 Completed MR head wo con* [id number] Routine MRI 05/05/25 10:48 Completed Pending at discharge Category Date Time Status Blood Culture Stat Lab 05/01/25 16:40 Results Cyto Order Verification Routine Lab 05/04/25 11:28 Ordered SPINAL TAP [CSF Analysis + Cell Count] Urgent Lab 05/04/25 11:28 Uncollected Urine Culture Stat Lab 05/05/25 08:31 Ordered Vitamin B1 (Thiamine),Blood Stat Lab 05/05/25 09:34 Received Radiology Impressions Chest X-Ray 05/01/25 16:19 IMPRESSION: No focal lung consolidation. Head CT 05/01/25 16:19 IMPRESSION: No acute intracranial abnormality. If symptoms persist, consider further evaluation with MRI, if there are no contraindications to obtaining a MRI scan. ASSESSMENT: ASPECTS ([place] Stroke Program Early CT Score) is 10. ADDENDUM: 05/01/25 [id number] ADDENDUM: THIS REPORT CONTAINS FINDINGS THAT MAY BE CRITICAL TO PATIENT CARE. The findings were verbally communicated via telephone conference with MARGAUX LAY at 4:33 PM CDT on 05/01/2025. The findings were acknowledged and understood. Abdomen/Pelvis CT 05/01/25 18:28 IMPRESSION: 1. No acute intra-abdominal or pelvic process. 2. New L2 pedicle screws and superior extension of posterior fusion hardware. There is some lucency around the L2 pedicle screws which project into the L1-L2 disc space which may represent loosening hardware. 3. Other nonemergent findings above. COMMENTS: Consistent with the [employer]'s Incidental Findings Committee white paper (J Am Hakeem Radiol 2018): Any incidental renal lesion less than 1 cm or classified as too small to characterize, or any incidental cystic renal lesion characterized as simple-appearing, is likely benign. No follow-up imaging is recommended for these lesions per consensus recommendations based on imaging criteria. Lumbar Spine CT 05/02/25 12:09 IMPRESSION: 1. Status post fusion L2-S1 with details as described above. 2. Chronic loosening of the screws at L2 is more likely than infection as the amount of osteolysis around the screws has not changed since August 19, 2024. 3. Successful fusions at L4-L5 and L5-S1. Incomplete fusions at L2-L3 and L3-L4. 4. No evidence of paraspinal abscess. Thoracic Spine CT 05/02/25 12:09 IMPRESSION: No acute findings. Head MRI 05/05/25 10:48 IMPRESSION: 1. No acute intracranial hemorrhage or ischemia. Normal diffusion imaging. 2. Mild atrophy with moderate small vessel changes. Similar to 08/20/2024. 3. No hydrocephalus. Laboratory Results WBC 6.36 10^3/uL (3.29-11.43) 05/06/25 03:30 RBC 4.83 10^6/uL (3.85-5.65) 05/06/25 03:30 Hgb 12.90 g/dL (11.27-16.99) 05/06/25 03:30 Hct 40.8 % (36-47) 05/06/25 03:30 MCV 84.5 fl (85-98) L 05/06/25 03:30 MCH 26.7 pg (27-33) L 05/06/25 03:30 MCHC 31.6 g/dL (30-55) 05/06/25 03:30 RDW 14.6 % (12.1-15.1) 05/06/25 03:30 Plt Count 273 10^3/cmm (157-399) 05/06/25 03:30 MPV 10.1 fL (7.4-10.4) 05/06/25 03:30 Neut % (Auto) 53.5 % 05/06/25 03:30 Lymph % (Auto) 28.8 % 05/06/25 03:30 Chase % (Auto) 13.8 % 05/06/25 03:30 Eos % (Auto) 2.8 % 05/06/25 03:30 Baso % (Auto) 0.6 % 05/06/25 03:30 Neut # (Auto) 3.40 10^3/uL (1.8-7.7) 05/06/25 03:30 Lymph # (Auto) 1.8 10^3/uL (0.8-4.8) 05/06/25 03:30 Chase # (Auto) 0.9 10^3/uL (0.2-0.9) 05/06/25 03:30 Eos # (Auto) 0.2 10^3/uL (0.0-0.8) 05/06/25 03:30 Baso # (Auto) 0.0 10^3/uL (0.0-0.1) 05/06/25 03:30 Nucleated RBC % (auto) 0 % 05/06/25 03:30 Nucleated RBCs # 0.0 /100WBC 05/06/25 03:30 Sodium 140 mmol/L (136-145) 05/06/25 03:30 Potassium 3.7 mmol/L (3.5-5.1) 05/06/25 03:30 Chloride 102 mmol/L (98-107) 05/06/25 03:30 Carbon Dioxide 24 mmol/L (22-29) 05/06/25 03:30 Anion Gap 17.7 (5-19) 05/06/25 03:30 BUN 9 mg/dL (8-23) 05/06/25 03:30 Creatinine 1.1 mg/dL (0.5-0.9) H 05/06/25 03:30 GFR Calculation 49.4 mL/min (90-130) L 05/06/25 03:30 Glucose 181 mg/dL (65-115) H 05/06/25 03:30 POC Glucose 284 mg/dL (70-110) H 05/01/25 16:18 Calculated Osmolality 293 mOsm/kg (285-295) 05/06/25 03:30 Lactic Acid 3.5 mmol/L (0.5-2.2) H 05/01/25 16:38 Lactic Acid (Sepsis) 2.8 mmol/L (0.5-2.2) H 05/01/25 19:34 Lactate 1.0 mmol/L (0.5-2.2) 05/04/25 05:05 Calcium 10.0 mg/dL (8.5-10.5) 05/06/25 03:30 Phosphorus 2.7 mg/dL (2.5-4.5) 05/05/25 09:34 Magnesium 1.9 mg/dL (1.7-2.3) 05/03/25 05:22 Total Bilirubin 0.3 mg/dL (0.15-1.2) 05/06/25 03:30 AST 35 U/L (0-32) H 05/06/25 03:30 ALT 27 U/L (0-33) 05/06/25 03:30 Alkaline Phosphatase 74 U/L (35-105) 05/06/25 03:30 C-Reactive Protein 6.0 mg/L (0.0-4.9) H 05/01/25 16:38 Total Protein 7.1 g/dL (6.6-8.7) 05/06/25 03:30 Albumin 3.8 g/dL (3.5-5.2) 05/06/25 03:30 Globulin 3.3 g/dL (1.3-4.6) 05/06/25 03:30 Vitamin B12 923 pg/mL (232-1245) 05/05/25 09:34 TSH 1.01 uIU/mL (0.27-4.20) 05/05/25 09:34 Urine Color Yellow (Yellow) 05/01/25 17:07 Urine Appearance Clear (CLEAR) 05/01/25 17:07 Urine pH 5.5 (5-7) 05/01/25 17:07 Ur Specific [place] 1.020 (1.005-1.030) 05/01/25 17:07 Urine Protein Negative (Negative) 05/01/25 17:07 Urine Glucose (UA) 3+ (Normal) H 05/01/25 17:07 Urine Ketones Trace (Negative) 05/01/25 17:07 Urine Blood Negative (Negative) 05/01/25 17:07 Urine Nitrate Negative (Negative) 05/01/25 17:07 Urine Bilirubin Negative (Negative) 05/01/25 17:07 Urine Urobilinogen 0.2 mg/dL (Negative) 05/01/25 17:07 Ur Leukocyte Esterase Negative (Negative) 05/01/25 17:07 Urine RBC 0-4 /hpf (0-2) H 05/01/25 17:07 Urine WBC 0-4 /hpf (0-5) H 05/01/25 17:07 Ur Squamous Epith Cells 5-10 /hpf (0-5) H 05/01/25 17:07 Amorphous Sediment Not Reportable 05/01/25 17:07 Urine Bacteria Trace /hpf (NONE) 05/01/25 17:07 Nasal MRSA (PCR) Not detected (Not Detecte) 05/06/25 03:57 Vancomycin Trough 14.2 ug/mL (10-15) 05/03/25 16:46 Influenza A (PCR) Negative (Negative) 05/01/25 17:08 Influenza Type B (PCR) Negative (Negative) 05/01/25 17:08 RSV (PCR) Negative (Negative) 05/01/25 17:08 SARS-CoV-2 (PCR) Negative (Negative) 05/01/25 17:08 Vitals Last Vital Signs Temp 97.9 F 05/06/25 07:44 Pulse 77 05/06/25 07:44 Resp 18 05/06/25 07:44 BP 131/79 05/06/25 07:44 Pulse Ox 94 05/06/25 07:44 O2 Del Method Room Air 05/06/25 07:44 Discharge Plan Discharge Patient Disposition: Home Condition: Stable Prescriptions: New naproxen 500 mg tablet 500 mg PO BID Qty: 30 0RF moxifloxacin 400 mg tablet 400 mg PO DAILY 7 Days Qty: 7 0RF Continued acetaminophen [Tylenol Arthritis Pain] 650 mg tablet extended release 1,300 mg PO BID Rx Instructions: otc duloxetine 30 mg capsule,delayed release(DR/EC) 30 mg PO DAILY Qty: 90 3RF Rx Instructions: in addition to 60mg atorvastatin 20 mg tablet 20 mg PO DAILY Qty: 90 3RF alendronate [Fosamax] 70 mg tablet 70 mg PO .Q7days Qty: 15 1RF prednisone 5 mg tablet 5 mg PO DAILY Qty: 90 1RF estradiol 0.01 % (0.1 mg/gram) cream 1 g VAGINAL .3 times/wk Qty: 42.5 2RF Januvia 100 mg tablet 100 mg PO DAILY Qty: 30 1RF metoprolol tartrate 75 mg tablet 75 mg PO BID Qty: 180 3RF levothyroxine [Synthroid] 150 mcg tablet 150 mcg PO DAILY Qty: 90 0RF duloxetine 60 mg capsule,delayed release(DR/EC) 60 mg PO QPM Qty: 90 0RF Rx Instructions: Take 1 capsule by mouth at bedtime cholecalciferol (vitamin D3) 50 mcg (2,000 unit) capsule 50 mcg PO DAILY@07 cyclobenzaprine 10 mg tablet 10 mg PO TID PRN (Reason: Muscle Spasm) Rx Instructions: Take 1 tablet by mouth three times daily as needed for muscle spasm azathioprine [Imuran] 50 mg tablet See Rx Instructions PO .COMPLEX Rx Instructions: take 2 tabs in AM and 1 tab in PM orally; diltiazem HCl 120 mg capsule,extended release 12 hr 120 mg PO BID Rx Instructions: Take 1 capsule by mouth twice daily gabapentin 300 mg capsule 300 mg PO TID Rx Instructions: take 1 in am, 1 early saniya and 1 at HS orally; methenamine hippurate 1 gram tablet 1 g PO BID pantoprazole 40 mg tablet,delayed release (DR/EC) 40 mg PO BID brimonidine 0.2 % drops 1 drp ophthalmic (eye) BID No Action (DME) AUTO-TITRATING CPAP See Rx Instructions .Route .MEDSUPPLY Qty: 1 0RF Rx Instructions: SETTING 6-14CM (DME) blood-glucose meter Misc See Rx Instructions .MEDSUPPLY Qty: 1 0RF Rx Instructions: As directed (DME) Blood Glucose Test Strip See Rx Instructions .MEDSUPPLY Qty: 50 5RF Rx Instructions: Test bid (DME) lancets 25 gauge misc See Rx Instructions .MEDSUPPLY Qty: 100 5RF Rx Instructions: Test bid Referrals: Lesvia Johns MD [Physician, Neurology] Referral Note: migraines Matilda Yun MD [Primary Care Provider, Family Practice] Discharge Diet: Advance as tolerated, Usual diet and As Directed Discharge Activity: Resume usual activity, Increase activity as tolerated and Limit activity as instructed Patient Instructions: Opioid Safety, Patient Portal & Mookie Instructions Discharge Attestations Time Spent in Discharge Care*: greater than 30 min Specific Discharge Activities: educating patient, educating and/or supporting family/caregiver, discussing with pcp/other providers, discussing with rehabilitation case coordinator/social workers/dc planners, documenting/other paperwork and evaluating patient/reviewing data Status at Discharge: Cognitive status at discharge: cognitively intact , Behavioral status at discharge: cooperative , Functional status at discharge: independent ambulation , Overall status at discharge: patient is back to baseline Quality Metrics Clinical Quality Measures [ No reported AMI, CVA or VTE this stay] Coding Level of Care Code 25665 Diagnoses Migraine aura, persistent, intractable G43.519 Type 2 diabetes mellitus without complication, without long-term current use of insulin E11.9 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
[2025-05-06 11:23] VITALS: BP 125/77; PULSE 77; RESP 18; TEMP 36.4; O2SAT 95
[2025-05-09 13:05] LABS: Vitamin B1 (Thiamine),Blood 94 nmol/L (78-185)
== END 2025-05-06 13:47 | disposition home or self-care (01) | DRG 103 ==
LOC: ER 17:13 → ER IP 17:39 → MEDSURG 05-02 06:07
PROVIDERS: Emergency Medicine; Admitting Provider Internal Medicine; Emergency Provider Emergency Medicine; PCP Family Medicine; Visit Provider Student in an Organized Health Care Education/Training Program
DX: G43.519 Persistent migraine aura without cerebral infarction, intractable, without status migrainosus (principal); D84.821 Immunodeficiency due to drugs; R47.01 Aphasia; E87.20 Acidosis, unspecified; E11.9 Type 2 diabetes mellitus without complications; E78.5 Hyperlipidemia, unspecified; I10 Essential (primary) hypertension; M05.9 Rheumatoid arthritis with rheumatoid factor, unspecified; M32.9 Systemic lupus erythematosus, unspecified; K29.50 Unspecified chronic gastritis without bleeding; G47.33 Obstructive sleep apnea (adult) (pediatric); E87.6 Hypokalemia; E86.0 Dehydration; K21.9 Gastro-esophageal reflux disease without esophagitis; M79.7 Fibromyalgia; F41.9 Anxiety disorder, unspecified; N39.46 Mixed incontinence; F32.A Depression, unspecified; E89.0 Postprocedural hypothyroidism; Z79.52 Long term (current) use of systemic steroids; Z79.84 Long term (current) use of oral hypoglycemic drugs; Z98.1 Arthrodesis status; Z79.890 Hormone replacement therapy; Z86.16 Personal history of COVID-19
CPT/HCPCS: 36415; 36416; 70450; 70551; 71045; 72129; 72132; 74177; 80048; 80053; 80202; 81001; 82607; 82962; 83605; 83735; 84100; 84425; 84443; 85025; 86140; 87040; 87637; 93005; 96365; 96372; 96375; 99285; J0456; J0696; J1110; J1171; J1200; J1644; J1885; J2405; J3372; J3373; J3480; J3490; J7030; J7050; J7512; J9999

== ENCOUNTER → 2025-05-11 09:47 | Outpatient (BNVA) | payer MEDICARE, BC, SELFPAY | PROVIDERS: PCP Family Medicine; Visit Provider Family Medicine | DX: E89.0 Postprocedural hypothyroidism (principal) | CPT/HCPCS: 84439; 84443 ==